=== PATIENT | female | born 1955 | race Caucasian/White ===

== ENCOUNTER → 2019-02-21 | Outpatient (CLI) | payer BC ==
--- NOTE | 2019-02-21 13:25 | US ---
EXAMINATION TYPE: US venous doppler duplex UE LT DATE OF EXAM: 02/21/2019 COMPARISON: NONE CLINICAL HISTORY: Z45.2 Picc line complications-left arm; I82.622 DVT. PICC line complications. Place d 02/17/19. Left hand swelling x2 days. Pt takes baby aspirin. No hx DVT. SIDE PERFORMED: Left Left Arm: No evidence of DVT in the left upper extremity. IMPRESSION: 1. Deep venous structures of the left upper extremity negative for deep venous thrombosis.
== END | disposition home or self-care (01) ==
LOC: RADUSWWP 11:31
PROVIDERS: ATTEND Family Medicine
DX: Z45.2 Encounter for adjustment and management of vascular access device (principal)

== ENCOUNTER → 2021-06-20 | Outpatient (CLI) | payer BC ==
--- NOTE | 2021-06-20 10:24 | XR ---
EXAMINATION TYPE: XR knee limited LT DATE OF EXAM: 06/20/2021 COMPARISON: None HISTORY: Knee pain TECHNIQUE: 2 view left knee FINDINGS: There is mild narrowing of the medial lateral compartment joint spaces. No joint effusion i s evident. No displaced fractures evident. There remains cortical erosion of the posterior femoral co ndyle on the lateral projection. Consider osteomyelitis. Additional workup with CT can be performed IMPRESSION: 1. There appears to be a cortical defect along the posterior femoral condyle. Additional evaluation with CT is recommended. Osteomyelitis is not excluded
== END | disposition home or self-care (01) ==
LOC: RADXRMAIN 09:45
PROVIDERS: ATTEND Family Medicine
DX: M25.562 Pain in left knee (principal)

== ENCOUNTER 2024-01-08 09:05 | Inpatient (IN) | payer BC, MEDICARE ==
[2024-01-08] MEDS: ALBUTEROL NEBULIZED 2.5 MG/3 ML INHALATION STA (09:16)
[2024-01-08] MEDS: IPRATROPIUM 0.5 MG/2.5 ML NEBU INHALATION STA (09:17)
--- NOTE | 2024-01-08 09:27 | ED ---
General Adult HPI - General Chief complaint: Shortness of Breath Stated complaint: SOB Time Seen by Provider: 01/08/24 09:08 Source: patient, family, EMS, RN notes reviewed, old records reviewed Mode of arrival: EMS Limitations: no limitations - History of Present Illness Initial comments: 68-year-old female presenting in extremis. Patient has oxygen dependent COPD. She developed increasing dyspnea over the past 2 days. Paramedics found the patient cyanotic and severe respiratory distress. She was placed on CPAP during transport, given albuterol and Atrovent. She had significant improvement with these supportive measures. She denies fever. Denies central chest pain. - Related Data Allergies Allergy/AdvReac Type Severity Reaction Status Date / Time No Known Allergies Allergy Verified 01/08/24 09:20 Review of Systems ROS Statement: Those systems with pertinent positive or pertinent negative responses have been documented in the HPI. ROS Other: All systems not noted in ROS Statement are negative. Past Medical History Past Medical History: COPD Additional Past Medical History / Comment(s): pacemaker, History of Any Multi-Drug Resistant Organisms: None Reported Additional Past Surgical History / Comment(s): ovarian cyst removed. Smoking Status: Current every day smoker Past Alcohol Use History: Occasional Past Drug Use History: Marijuana General Exam Limitations: no limitations General appearance: alert, in distress Head exam: Present: atraumatic, normocephalic Eye exam: Present: normal appearance, PERRL ENT exam: Present: normal exam Neck exam: Present: normal inspection. Absent: tenderness, meningismus Respiratory exam: Present: respiratory distress, wheezes, accessory muscle use, decreased breath sounds, prolonged expiratory Cardiovascular Exam: Present: regular rate, normal rhythm GI/Abdominal exam: Present: soft. Absent: distended, tenderness Neurological exam: Present: alert Psychiatric exam: Present: anxious Skin exam: Present: mottled (Lower extremities). Absent: cyanosis Course Vital Signs 01/08/24 01/08/24 01/08/24 09:10 09:15 09:22 Temperature 100.4 F H Pulse Rate 79 68 Respiratory 40 H 40 H Rate Blood Pressure 90/58 O2 Sat by Pulse 99 Oximetry Fraction of Inspired Oxygen (FIO2) 01/08/24 01/08/24 01/08/24 09:25 10:34 10:52 Temperature 100.6 F H Pulse Rate Respiratory Rate Blood Pressure O2 Sat by Pulse Oximetry Fraction of 60 50 Inspired Oxygen (FIO2) Medical Decision Making - Medical Decision Making Was pt. sent in by a medical professional or institution (MAYRA Garzon, SYSTEM ARCHITECT, urgent care, hospital, or penitentiary...) When possible be specific @ -No Did you speak to anyone other than the patient for history (EMS, parent, family, police, friend...)? What history was obtained from this source @ -Patient's , paramedics. Did you review nursing and triage notes (agree or disagree)? Why? @ -I reviewed and agree with nursing and triage notes Were old charts reviewed (outside hosp., previous admission, EMS record, old EKG, old radiological studies, urgent care reports/EKG's, penitentiary records)? Report findings @ -No old charts were reviewed Differential Diagnosis (chest pain, altered mental status, abdominal pain women, abdominal pain men, vaginal bleeding, weakness, fever, dyspnea, syncope, headache, dizziness, GI bleed, back pain, seizure, CVA, palpatations, mental health, musculoskeletal)? @ -Differential Dyspnea: Coronary syndrome, arrhythmia, tamponade, asthma, COPD, pulmonary embolism, pneumonia, pneumothorax, pulmonary effusion, anaphylaxis, diabetic ketoacidosis, flailed chest, pulmonary contusion, diaphragmatic rupture, anemia, neuromuscul ar, this is not meant to be an all-inclusive list. EKG interpreted by me (3pts min.). @ -Paced rhythm, significant artifact due to respiratory effort, rate of 96, QRS duration 136, QTc 431 X-rays interpreted by me (1pt min.). @ -Chest x-ray showing cardiomegaly, mild pulmonary vascular congestion, no pneumothorax, no focal pneumonia CT interpreted by me (1pt min.). @ -None done U/S interpreted by me (1pt. min.). @ -None done What testing was considered but not performed or refused? (CT, X-rays, U/S, labs)? Why? @ -None What meds were considered but not given or refused? Why? @ -None Did you discuss the management of the patient with other professionals (professionals i.e. MAYRA Garzon, SYSTEM ARCHITECT, lab, RT, psych nurse, social work instructor, deckhand engineer, teacher, control officer manager, case packer and sealer)? Give summary @ -[Yes, Dr. Samra shaw for pulmonary critical care, and Dr. Meek the patient's primary care provider Was smoking cessation discussed for >3mins.? @ -No Was critical care preformed (if so, how long)? @ -[Yes, 35 minutes. Were there social determinants of health that impacted care today? How? (Homelessness, low income, unemployed, alcoholism, drug addiction, transportation, low edu. Level, literacy, decrease access to med. care, fdc, rehab)? @ -No Was there de-escalation of care discussed even if they declined (Discuss DNR or withdrawal of care, Hospice)? DNR status @ -No What co-morbidities impacted this encounter? (DM, HTN, Smoking, COPD, CAD, Cancer, CVA, ARF, Chemo, Hep., AIDS, mental health diagnosis, sleep apnea, morbid obesity)? @ -[COPD, CHF. Was patient admitted / discharged? Hospital course, mention meds given and route, prescriptions, significant lab abnormalities, going to OR and other pertinent info. @ -68-year-old female presenting in extremis. Dyspnea, hypoxia, respiratory failure requiring BiPAP. Patient is febrile, tachypneic. Continued on BiPAP, workup reveals a elevated white blood cell count of 15. She does have some chronic CO2 retention. She has a normal lactic acid. She has an elevated troponin and BNP at 22,000. Troponin is 0.066. She has no active chest pain. This may be secondary to CHF or hypoxia. Patient is evaluated by her primary care provider and the machine tool rebuilder in the emergency department. She will be admitted to a monitored bed. Echo has been ordered. And cardiology is also placed on consult. This likely represents a multifactorial dyspnea, COPD with some degree of CHF. Additionally given the fever and elevated white blood cell count she is treated for concurrent developing pneumonia. Undiagnosed new problem with uncertain prognosis? @ -No Drug Therapy requiring intensive monitoring for toxicity (Heparin, Nitro, Insulin, Cardizem)? @ -No Were any procedures done? @ -No Diagnosis/symptom? @ -Respiratory failure, secondary to pneumonia, COPD, CHF Acute, or Chronic, or Acute on Chronic? @ -[Acute on chronic Uncomplicated (without systemic symptoms) or Complicated (systemic symptoms)? @ -Default Side effects of treatment? @ -No Exacerbation, Progression, or Severe Exacerbation? @ -No Poses a threat to life or bodily function? How? (Chest pain, [place], CA, pneumonia, PE, COPD, DKA, ARF, appy, cholecystitis, CVA, Diverticulitis, Homicidal, Suicidal, threat to staff... and all critical care pts) @ -Yes, respiratory failure, pneumonia, COPD - Lab Data Result diagrams: 01/08/24 09:35 01/08/24 09:35 Lab Results 01/08/24 01/08/24 01/08/24 Range/Units 09:35 09:35 09:35 WBC 15.1 H (3.8-10.6) k/uL RBC 4.22 (3.80-5.40) m/uL Hgb 14.0 (11.4-16.0) gm/dL Hct 44.0 (34.0-46.0) % MCV 104.3 H (80.0-100.0) fL MCH 33.3 (25.0-35.0) pg MCHC 31.9 (31.0-37.0) g/dL RDW 14.4 (11.5-15.5) % Plt Count 295 (150-450) k/uL MPV 8.0 Neutrophils % 85 % Lymphocytes % 10 % Monocytes % 4 % Eosinophils % 1 % Basophils % 0 % Neutrophils # 12.8 H (1.3-7.7) k/uL Lymphocytes # 1.4 (1.0-4.8) k/uL Monocytes # 0.6 (0-1.0) k/uL Eosinophils # 0.1 (0-0.7) k/uL Basophils # 0.1 (0-0.2) k/uL Macrocytosis Slight PT 11.8 (10.0-12.5) sec INR 1.1 (<1.2) APTT 24.6 (22.0-30.0) sec VBG pH (7.31-7.41) VBG pCO2 (37-51) mmHg VBG HCO3 (24-28) mmol/L Sodium 136 L (137-145) mmol/L Potassium 5.3 H (3.5-5.1) mmol/L Chloride 101 (98-107) mmol/L Carbon Dioxide 33 H (22-30) mmol/L Anion Gap 2 mmol/L BUN 33 H (7-17) mg/dL Creatinine 0.54 (0.52-1.04) mg/dL Est GFR (CKD-EPI)AfAm >90 (>60 ml/min/1.73 sqM) Est GFR (CKD-EPI)NonAf >90 (>60 ml/min/1.73 sqM) Glucose 181 H (74-99) mg/dL Plasma Lactic Acid Yoshi (0.7-2.0) mmol/L Calcium 8.4 (8.4-10.2) mg/dL Magnesium 2.1 (1.6-2.3) mg/dL Total Bilirubin 0.7 (0.2-1.3) mg/dL AST 53 H (14-36) U/L ALT 39 H (4-34) U/L Alkaline Phosphatase 92 (38-126) U/L Troponin I (0.000-0.034) ng/mL NT-Pro-B Natriuret Pep 17933 pg/mL Total Protein 5.7 L (6.3-8.2) g/dL Albumin 3.3 L (3.5-5.0) g/dL Influenza Type A (PCR) (Not Detectd) Influenza Type B (PCR) (Not Detectd) RSV (PCR) (Not Detectd) SARS-CoV-2 (PCR) (Not Detectd) 01/08/24 01/08/24 01/08/24 Range/Units 09:35 09:35 09:35 WBC (3.8-10.6) k/uL RBC (3.80-5.40) m/uL Hgb (11.4-16.0) gm/dL Hct (34.0-46.0) % MCV (80.0-100.0) fL MCH (25.0-35.0) pg MCHC (31.0-37.0) g/dL RDW (11.5-15.5) % Plt Count (150-450) k/uL MPV Neutrophils % % Lymphocytes % % Monocytes % % Eosinophils % % Basophils % % Neutrophils # (1.3-7.7) k/uL Lymphocytes # (1.0-4.8) k/uL Monocytes # (0-1.0) k/uL Eosinophils # (0-0.7) k/uL Basophils # (0-0.2) k/uL Macrocytosis PT (10.0-12.5) sec INR (<1.2) APTT (22.0-30.0) sec VBG pH 7.44 H (7.31-7.41) VBG pCO2 48 (37-51) mmHg VBG HCO3 32 H (24-28) mmol/L Sodium (137-145) mmol/L Potassium (3.5-5.1) mmol/L Chloride (98-107) mmol/L Carbon Dioxide (22-30) mmol/L Anion Gap mmol/L BUN (7-17) mg/dL Creatinine (0.52-1.04) mg/dL Est GFR (CKD-EPI)AfAm (>60 ml/min/1.73 sqM) Est GFR (CKD-EPI)NonAf (>60 ml/min/1.73 sqM) Glucose (74-99) mg/dL Plasma Lactic Acid Yoshi 1.6 (0.7-2.0) mmol/L Calcium (8.4-10.2) mg/dL Magnesium (1.6-2.3) mg/dL Total Bilirubin (0.2-1.3) mg/dL AST (14-36) U/L ALT (4-34) U/L Alkaline Phosphatase (38-126) U/L Troponin I 0.066 H* (0.000-0.034) ng/mL NT-Pro-B Natriuret Pep pg/mL Total Protein (6.3-8.2) g/dL Albumin (3.5-5.0) g/dL Influenza Type A (PCR) (Not Detectd) Influenza Type B (PCR) (Not Detectd) RSV (PCR) (Not Detectd) SARS-CoV-2 (PCR) (Not Detectd) 01/08/24 Range/Units 09:35 WBC (3.8-10.6) k/uL RBC (3.80-5.40) m/uL Hgb (11.4-16.0) gm/dL Hct (34.0-46.0) % MCV (80.0-100.0) fL MCH (25.0-35.0) pg MCHC (31.0-37.0) g/dL RDW (11.5-15.5) % Plt Count (150-450) k/uL MPV Neutrophils % % Lymphocytes % % Monocytes % % Eosinophils % % Basophils % % Neutrophils # (1.3-7.7) k/uL Lymphocytes # (1.0-4.8) k/uL Monocytes # (0-1.0) k/uL Eosinophils # (0-0.7) k/uL Basophils # (0-0.2) k/uL Macrocytosis PT (10.0-12.5) sec INR (<1.2) APTT (22.0-30.0) sec VBG pH (7.31-7.41) VBG pCO2 (37-51) mmHg VBG HCO3 (24-28) mmol/L Sodium (137-145) mmol/L Potassium (3.5-5.1) mmol/L Chloride (98-107) mmol/L Carbon Dioxide (22-30) mmol/L Anion Gap mmol/L BUN (7-17) mg/dL Creatinine (0.52-1.04) mg/dL Est GFR (CKD-EPI)AfAm (>60 ml/min/1.73 sqM) Est GFR (CKD-EPI)NonAf (>60 ml/min/1.73 sqM) Glucose (74-99) mg/dL Plasma Lactic Acid Yoshi (0.7-2.0) mmol/L Calcium (8.4-10.2) mg/dL Magnesium (1.6-2.3) mg/dL Total Bilirubin (0.2-1.3) mg/dL AST (14-36) U/L ALT (4-34) U/L Alkaline Phosphatase (38-126) U/L Troponin I (0.000-0.034) ng/mL NT-Pro-B Natriuret Pep pg/mL Total Protein (6.3-8.2) g/dL Albumin (3.5-5.0) g/dL Influenza Type A (PCR) Not Detected (Not Detectd) Influenza Type B (PCR) Not Detected (Not Detectd) RSV (PCR) Not Detected (Not Detectd) SARS-CoV-2 (PCR) Not Detected (Not Detectd) Critical Care Time Critical Care Time: Yes Total Critical Care Time: 35 Disposition Clinical Impression: Acute exacerbation of chronic obstructive pulmonary disease, Community acquired pneumonia, CHF (congestive heart failure) Disposition: ADMITTED IP TO THIS HOSP Condition: Serious Is patient prescribed a controlled substance at d/c from ED?: No Referrals: Reg Meek MD [Primary Care Provider] - 1-2 days Time of Disposition: 11:34
--- NOTE | 2024-01-08 09:38 | XR ---
EXAMINATION TYPE: XR chest 1V portable DATE OF EXAM: 01/08/2024 COMPARISON: NONE HISTORY: Difficulty breathing TECHNIQUE: Single frontal view of the chest is obtained. FINDINGS: There is a 2-lead cardiac pacemaker. There is mild cardiomegaly.. There is diffuse interstitial prominence could reflect mild pulmonary va scular congestion or chronic interstitial change. There is no pleural effusion or pneumothorax. The osseous structures are intact IMPRESSION: IMPRESSION: Mild cardiomegaly with diffuse interstitial opacity consistent with chronic is interstitial change or mild pulmonary vascular congestion.
[2024-01-08] MEDS: methylPREDNISolone SOD SUCCI 125 MG/2 ML VIAL IV STA (09:46)
[2024-01-08 09:47] LABS: VBG PH 7.44 (7.31-7.41)
[2024-01-08 09:48] LABS: Basophils # (A) 0.1 k/uL (0-0.2); Basophils % (A) 0 %; Eosinophils # (A) 0.1 k/uL (0-0.7); Eosinophils % (A) 1 %; Lymphocytes # (A) 1.4 k/uL (1.0-4.8); Lymphocytes % (A) 10 %; MCH 33.3 pg (25.0-35.0); MCHC 31.9 g/dL (31.0-37.0); MCV 104.3 fL (80.0-100.0); Macrocytosis Slight; Monocytes # (A) 0.6 k/uL (0-1.0); Monocytes % (A) 4 %; Neutrophils # (A) 12.8 k/uL (1.3-7.7); Neutrophils % (A) 85 %; Platelet Count 295 k/uL (150-450); RBC 4.22 m/uL (3.80-5.40); RDW 14.4 % (11.5-15.5); WBC 15.1 k/uL (3.8-10.6)
[2024-01-08 10:03] LABS: ALT 39 U/L (4-34); AST 53 U/L (14-36); African American GFR (CKD) >90 (>60 ml/min/1.73 sqM); Albumin 3.3 g/dL (3.5-5.0); Alkaline Phosphatase 92 U/L (38-126); Anion Gap 2 mmol/L; Blood Urea Nitrogen 33 mg/dL (7-17); Calcium 8.4 mg/dL (8.4-10.2); Carbon Dioxide 33 mmol/L (22-30); Chloride 101 mmol/L (98-107); Glucose 181 mg/dL (74-99); INR 1.1 (<1.2); Magnesium 2.1 mg/dL (1.6-2.3); Non-African American GFR(CKD) >90 (>60 ml/min/1.73 sqM); Partial Thromboplastin Time 24.6 sec (22.0-30.0); Potassium 5.3 mmol/L (3.5-5.1); Prothrombin Time 11.8 sec (10.0-12.5); Sodium 136 mmol/L (137-145); Total Bilirubin 0.7 mg/dL (0.2-1.3); Total Protein 5.7 g/dL (6.3-8.2)
[2024-01-08 10:11] LABS: NT-Pro-B-Type Natriuretic Pept 23300 pg/mL
[2024-01-08] MEDS: AZITHROMYCIN 500 MG in SODIUM CHLORIDE 0.9% 250 ML IVPB STA (10:32)
[2024-01-08] MEDS: FUROSEMIDE 10 MG/ML 2 ML VIAL IV ONE (11:23)
[2024-01-08] MEDS ORDERED: IPRATROPIUM-ALBUTEROL 3 ML NEB INHALATION PRN (11:26)
[2024-01-08] MEDS ORDERED: NALOXONE 0.4 MG/ML 1 ML VIAL IVP PRN (11:26)
[2024-01-08] MEDS ORDERED: ACETAMINOPHEN TAB 325 MG TAB PO PRN (11:26)
[2024-01-08] MEDS: IPRATROPIUM-ALBUTEROL 3 ML NEB INHALATION SCH (11:50)
[2024-01-08] MEDS: methylPREDNISolone SOD SUCCI 125 MG/2 ML VIAL IV SCH (12:08)
--- NOTE | 2024-01-08 13:52 | P.CNPUL ---
History of Present Illness Consult date: 01/08/24 Reason for consult: dyspnea, COPD History of present illness: This is a 68-year-old female patient with known history of COPD, chronic smoker who has been having significant shortness of breath over the past few days and the patient coming into the hospital for worsening dyspnea. The patient was found to be hypoxic and cyanotic at home. The patient was placed on CPAP at the time of transport and the patient is currently on a BiPAP at a pressure of 12 over 6 cm of water with an FiO2 of 40%. The patient is able to generate a good tidal volume of around 350 to 400 cc. Nevertheless, she continues to be quite tachypneic. She has a congested cough. Unable to bring up much sputum. Chest x-ray is consistent with COPD and the patient also has a permanent pacemaker over the left anterior hemithorax. Troponin initially was 0.06. proBNP level was 23,300. She has had previous hospitalizations at [facility] for CHF and pleural effusion and she has had previous thoracentesis. None recently. She denies having any chest pain. No angina or palpitations. Her WBC count is at 15.1 with a hemoglobin of 14 and a platelet count of 295. She has home O2 that she utilizes overnight. She also has a nebulizer. No other maintenance respiratory medications or inhalers. Review of Systems Constitutional: Reports as per HPI Eyes: denies as per HPI, denies blurred vision, denies bulging eye, denies decreased vision, denies diplopia, denies discharge, denies dry eye, denies irritation, denies itching, denies pain, denies photophobia, denies loss of peripheral vision, denies loss of vision, denies tunnel vision/blind spots Ears: deny: decreased hearing, ear discharge, earache, tinnitus Ears, nose, mouth and throat: Reports as per HPI Breasts: absent: as per HPI, change in shape, gynecomastia, masses, nipple discharge, pain, skin changes, swelling Cardiovascular: Reports decreased exercise tolerance, Reports dyspnea on exertion Respiratory: Reports cough, Reports dyspnea, Reports home oxygen, Reports wheezing Gastrointestinal: Reports as per HPI Genitourinary: Reports as per HPI Menstruation: Reports as per HPI Musculoskeletal: Reports as per HPI Musculoskeletal: absent: ankle pain, ankle stiffness, ankle swelling Integumentary: Reports as per HPI Neurological: Reports as per HPI Psychiatric: Reports as per HPI Endocrine: Reports as per HPI Hematologic/Lymphatic: Reports as per HPI Allergic/Immunologic: Reports as per HPI Past Medical History Past Medical History: COPD Additional Past Medical History / Comment(s): pacemaker, History of Any Multi-Drug Resistant Organisms: None Reported Additional Past Surgical History / Comment(s): ovarian cyst removed. Smoking Status: Current every day smoker Past Alcohol Use History: Occasional Past Drug Use History: Marijuana Medications and Allergies Allergies Allergy/AdvReac Type Severity Reaction Status Date / Time No Known Allergies Allergy Verified 01/08/24 09:20 Physical Exam Vitals: Vital Signs Temp Pulse Resp BP Pulse Ox FiO2 01/08/24 12:00 86 32 H 112/69 100 01/08/24 11:59 82 01/08/24 11:50 99 01/08/24 11:30 81 32 H 106/67 98 01/08/24 11:00 96 34 H 90/71 98 01/08/24 10:52 50 01/08/24 10:34 100.6 F H 01/08/24 10:30 102 H 34 H 93/69 99 01/08/24 10:00 97 41 H 110/85 100 01/08/24 09:37 74 01/08/24 09:30 104 H 23 90/58 99 01/08/24 09:25 60 01/08/24 09:22 68 01/08/24 09:15 40 H 01/08/24 09:10 100.4 F H 79 40 H 90/58 99 Intake and Output 01/07/24 01/08/24 01/08/24 22:59 06:59 14:59 Other: Weight 58.967 kg The patient is thin and frail with a body mass index of 19.8. Still having some mild respiratory distress even while on the BiPAP. Head exam was generally normal. There was no scleral icterus or corneal arcus. Mucous membranes were moist. Neck was supple and without jugular venous distension, thyromegaly, or carotid bruits. Carotids were easily palpable bilaterally. There was no adenopathy. Lung sounds are marked diminished bilaterally and scattered expiratory wheezes throughout the lung montoya. The patient also has a barrel chest with some thoracic kyphosis. Cardiac exam revealed the PMI to be normally situated and sized. The rhythm was regular and no extrasystoles were noted during several minutes of auscultation. The first and second heart sounds were normal and physiologic splitting of the second heart sound was noted. There were no murmurs, rubs, clicks, or gallops. Overall heart sounds are distant. Abdominal exam revealed normal bowel sounds. The abdomen was soft, non-tender, and without masses, organomegaly, or appreciable enlargement of the abdominal aorta. Examination of the extremities revealed easily palpable radial, femoral and pedal pulses. There was no cyanosis, clubbing or edema. Examination of the skin revealed no evidence of significant rashes, suspicious appearing nevi or other concerning lesions. Neurologically, the patient is awake and alert and the patient does not have any focal neurological deficit. Cranial nerves are essentially intact. Results - Laboratory Findings CBC and BMP: 01/08/24 09:35 01/08/24 09:35 PT/INR, D-dimer PT 11.8 sec (10.0-12.5) 01/08/24 09:35 INR 1.1 (<1.2) 01/08/24 09:35 D-Dimer 0.24 mg/L FEU (<0.60) 01/08/24 13:20 Abnormal lab findings: Abnormal Labs 01/08/24 01/08/24 01/08/24 09:35 09:35 09:35 WBC 15.1 H MCV 104.3 H Neutrophils # 12.8 H VBG pH VBG HCO3 Sodium 136 L Potassium 5.3 H Carbon Dioxide 33 H BUN 33 H Glucose 181 H AST 53 H ALT 39 H Troponin I 0.066 H* Total Protein 5.7 L Albumin 3.3 L 01/08/24 09:35 WBC MCV Neutrophils # VBG pH 7.44 H VBG HCO3 32 H Sodium Potassium Carbon Dioxide BUN Glucose AST ALT Troponin I Total Protein Albumin - Diagnostic Findings Chest x-ray: image reviewed Assessment and Plan Plan: Acute exacerbation of chronic COPD. The patient developed significant shortness of breath and hypoxemia placed initially on CPAP and the patient is currently on a BiPAP at a pressure of 12/6 with an FiO2 of 40%. She has likely chronic hypoxic and hypercapnic respiratory failure as the patient has some chronic metabolic alkalosis. Exacerbating factor is probably related to smoking. Viral panel has not been done yet. Chest x-ray shows findings consistent with COPD. proBNP level is elevated. Component of CHF cannot be completely excluded. Chronic smoker Chronic hypoxic respiratory failure maintained on home O2 Chronic hypercapnic respiratory failure History of permanent pacemaker insertion History of CHF, current procalcitonin level is elevated Abnormal troponins, likely secondary to type II coronary ischemia Plan Continue the patient on BiPAP at the same setting and will keep the patient on BiPAP throughout the day today. DuoNeb nebulized treatments [id number] IV Solu-Medrol 60 mg every 6 hours Continue Rocephin and Zithromax Given patient dose of Lasix 40 mg IV push x 1 Obtain echocardiogram Smoking cessation counseling May need to transfer this patient to the ICU if her condition decompensates further. For now, she is stable enough to go to the medical floor with telemetry monitoring. Will continue to follow. No signs of CO2 narcosis and the patient is awake and stable. Made re commendation for baseline blood gas.
--- NOTE | 2024-01-08 13:55 | HP ---
HISTORY AND PHYSICAL HISTORY OF PRESENT ILLNESS: This is a 68-year-old white female, who has oxygen-dependent COPD, she wears oxygen at night. She developed worsening shortness of breath over the last 2 days. She was found this morning with oxygen disconnected, cyanotic, severe respiratory distress. She was placed on CPAP, albuterol and Atrovent were given in the ER ambulance. She is now on 100% oxygen on BiPAP. Her oxygen level is 100%. Respiratory rate 30 to 32. She is breathing better than when she come in. ALLERGIES: Negative. REVIEW OF SYSTEMS: She has many years of smoking, none in the last year. She has oxygen-dependent COPD, otherwise negative 14-point review of systems. No weight gain. No edema. She has a pacemaker. Current everyday smoker, marijuana in the past. Occasional alcohol. PHYSICAL EXAMINATION: VITAL SIGNS: T-max 100.6, pulse rate 68 to 79, respiratory rate on admission was 40, blood pressure 90/58. LUNGS: Decreased breath sounds x4. Scattered wheeze and rhonchi x4. GI: Soft. HEMATOLOGY: Negative Homans. PSYCH: Fair mood and affect. NEUROLOGIC: Alert and oriented x3. She is sleepy, lethargic though. LABORATORY DATA: BNP is supra-elevated. White count is elevated at 15.1, sodium 136, potassium 5.3, BUN 33, creatinine 0.54. Sugars elevated also possibly due to steroids. Liver enzymes are high at 53 and 39. BNP is 23,000. Troponin is elevated. We will get Cardiology consult, Pulmonary consult, CAT scan of the chest, BiPAP, steroids, updrafts, antibiotics. Treat for pneumonia. Prognosis guarded. MMODL / IJN: [id number] /
[2024-01-08 14:53] LABS: T4, Free (Free Thyroxine) 1.68 ng/dL (0.78-2.19)
[2024-01-08] MEDS: PIPERACILLIN-TAZOBACTAM 3.375 GM in SODIUM CHLORIDE 0.9% 100 ML IVPB SCH (17:08)
[2024-01-08] MEDS: PANTOPRAZOLE 40 MG TABLET PO SCH (17:50)
[2024-01-08] MEDS: BUDESONIDE 1 MG/2 ML NEBU INHALATION SCH (20:10)
[2024-01-08 20:45] LABS: Glucose,Whole Blood 230 mg/dL (70-110)
[2024-01-08] MEDS: MONTELUKAST 10 MG TAB PO SCH (22:41)
[2024-01-08] MEDS: METOPROLOL TARTRATE 12.5 MG TAB PO SCH (22:41)
--- NOTE | 2024-01-09 00:06 | CT ---
EXAMINATION TYPE: CT chest wo con DATE OF EXAM: 01/08/2024 COMPARISON: Chest x-ray earlier today HISTORY: Aspiration pneumonia CT DLP: 194.4 mGycm. Automated Exposure Control for Dose Reduction was Utilized. TECHNIQUE: CT scan of the thorax is performed without IV contrast. FINDINGS: LUNGS: Small to tiny bilateral pleural effusions. Background moderate underlying emphysematous change . Mild to moderate anterior scarring in the upper to mid right lung. No suspicious focal consolidatio n. MEDIASTINUM: Lack of IV contrast is noted to limit evaluation for mediastinal and especially hilar ad enopathy. There is borderline enlarged 1.5 x 1.0 cm pericarinal lymph node image 48. Prominent pulmon donald arteries raise concern for underlying pulmonary artery hypertension. There is multi lead pacemake r. There is calcification at the level of the mitral valve. No cardiomegaly or pericardial effusion. Coronary artery calcifications present which is noted marker for underlying coronary artery disease. OTHER: Multiple compression type fracture deformities in the thoracic spine that are moderate to juan re involving T5, T6, and T8 vertebra. No linear lucency to suggest acute fracture. IMPRESSION: 1. Moderate emphysematous change with small to tiny bilateral pleural effusions and mild/moderate ant erior scarring in the right upper to midlung. No focal consolidation or suspicious groundglass opacit y to suggest aspiration pneumonia currently.
[2024-01-09] MEDS: AZITHROMYCIN 500 MG in SODIUM CHLORIDE 0.9% 250 ML IVPB SCH (09:04)
[2024-01-09] MEDS: FUROSEMIDE 10 MG/ML 2 ML VIAL IV ONE (10:27)
[2024-01-09 10:39] LABS: Basophils % (A) 0 %; Eosinophils % (A) 0 %; HCT 41.2 % (34.0-46.0); HGB 13.2 gm/dL (11.4-16.0); Lymphocytes # (A) 0.4 k/uL (1.0-4.8); Lymphocytes % (A) 6 %; MCH 33.2 pg (25.0-35.0); MCV 103.7 fL (80.0-100.0); Macrocytosis Slight; Mean Platelet Volume 8.6; Monocytes # (A) 0.3 k/uL (0-1.0); Monocytes % (A) 5 %; Neutrophils # (A) 5.6 k/uL (1.3-7.7); Neutrophils % (A) 88 %; Platelet Count 259 k/uL (150-450); RBC 3.97 m/uL (3.80-5.40); RDW 14.4 % (11.5-15.5); WBC 6.3 k/uL (3.8-10.6)
[2024-01-09 10:58] LABS: ALT 37 U/L (4-34); AST 35 U/L (14-36); African American GFR (CKD) >90 (>60 ml/min/1.73 sqM); Alkaline Phosphatase 88 U/L (38-126); Anion Gap 4 mmol/L; Blood Urea Nitrogen 30 mg/dL (7-17); Calcium 8.1 mg/dL (8.4-10.2); Carbon Dioxide 32 mmol/L (22-30); Chloride 103 mmol/L (98-107); Glucose 163 mg/dL (74-99); Non-African American GFR(CKD) >90 (>60 ml/min/1.73 sqM); Potassium 4.3 mmol/L (3.5-5.1); Sodium 139 mmol/L (137-145); Total Bilirubin 0.4 mg/dL (0.2-1.3); Total Protein 5.3 g/dL (6.3-8.2)
--- NOTE | 2024-01-09 12:05 | P.PN ---
Subjective Progress Note Date: 01/09/24 This is a 68-year-old female patient with known history of COPD, chronic smoker who has been having significant shortness of breath over the past few days and the patient coming into the hospital for worsening dyspnea. The patient was found to be hypoxic and cyanotic at home. The patient was placed on CPAP at the time of transport and the patient is currently on a BiPAP at a pressure of 12 over 6 cm of water with an FiO2 of 40%. The patient is able to generate a good tidal volume of around 350 to 400 cc. Nevertheless, she continues to be quite tachypneic. She has a congested cough. Unable to bring up much sputum. Chest x-ray is consistent with COPD and the patient also has a permanent pacemaker over the left anterior hemithorax. Troponin initially was 0.06. proBNP level was 23,300. She has had previous hospitalizations at [facility] for CHF and pleural effusion and she has had previous thoracentesis. None recently. She denies having any chest pain. No angina or palpitations. Her WBC count is at 15.1 with a hemoglobin of 14 and a platelet count of 295. She has home O2 that she utilizes overnight. She also has a nebulizer. No other maintenance respiratory medications or inhalers. 01/09/2024, the patient is feeling better. She is less short of breath compared to yesterday. She has remained on BiPAP throughout the day for yesterday. She feels less bronchospastic and wheezy on today's evaluation. I am going to take off the BiPAP and put the patient on nasal cannula. Echocardiogram is in progress.White cell count is at 6 with a hemoglobin of 13.2 and a platelet count of 259. The rest of the blood work and electrolytes are all normal. BUN is at 30 with a creatinine of 0.6. The patient remains on broad-spectrum antibiotics including a combination of Zosyn and Zithromax. She remains on IV Solu-Medrol. She remains on bronchodilators [id number]. Objective - Vital Signs Vital signs: Vital Signs Temp 98.3 F 01/09/24 01:29 Pulse 68 01/09/24 07:50 Resp 30 H 01/09/24 03:48 BP 145/69 01/09/24 03:48 Pulse Ox 98 01/09/24 03:48 FiO2 35 01/09/24 07:37 Intake & Output 01/08/24 01/09/24 01/09/24 18:59 06:59 18:59 Weight 58.967 kg 58.967 kg Other: Voiding Method Bedside Commode - Exam The patient is thin and frail with a body mass index of 19.8. Still having some mild respiratory distress even while on the BiPAP. Head exam was generally normal. There was no scleral icterus or corneal arcus. Mucous membranes were moist. Neck was supple and without jugular venous distension, thyromegaly, or carotid bruits. Carotids were easily palpable bilaterally. There was no adenopathy. Lung sounds are marked diminished bilaterally and scattered expiratory wheezes throughout the lung montoya. The patient also has a barrel chest with some thoracic kyphosis. Cardiac exam revealed the PMI to be normally situated and sized. The rhythm was regular and no extrasystoles were noted during several minutes of auscultation. The first and second heart sounds were normal and physiologic splitting of the second heart sound was noted. There were no murmurs, rubs, clicks, or gallops. Overall heart sounds are distant. Abdominal exam revealed normal bowel sounds. The abdomen was soft, non-tender, and without masses, organomegaly, or appreciable enlargement of the abdominal a tong. Examination of the extremities revealed easily palpable radial, femoral and pedal pulses. There was no cyanosis, clubbing or edema. Examination of the skin revealed no evidence of significant rashes, suspicious appearing nevi or other concerning lesions. Neurologically, the patient is awake and alert and the patient does not have any focal neurological deficit. Cranial nerves are essentially intact. - Labs CBC & Chem 7: 01/09/24 09:11 01/09/24 09:11 Labs: Abnormal Lab Results - Last 24 Hours (Table) 01/08/24 01/08/24 01/08/24 Range/Units 09:35 09:35 09:35 WBC 15.1 H (3.8-10.6) k/uL MCV 104.3 H (80.0-100.0) fL Neutrophils # 12.8 H (1.3-7.7) k/uL VBG pH (7.31-7.41) VBG HCO3 (24-28) mmol/L Sodium 136 L (137-145) mmol/L Potassium 5.3 H (3.5-5.1) mmol/L Carbon Dioxide 33 H (22-30) mmol/L BUN 33 H (7-17) mg/dL Glucose 181 H (74-99) mg/dL POC Glucose (mg/dL) (70-110) mg/dL Hemoglobin A1c (<=6.0) % AST 53 H (14-36) U/L ALT 39 H (4-34) U/L Troponin I 0.066 H* (0.000-0.034) ng/mL Total Protein 5.7 L (6.3-8.2) g/dL Albumin 3.3 L (3.5-5.0) g/dL TSH (0.465-4.680) mIU/L 01/08/24 01/08/24 01/08/24 Range/Units 09:35 09:35 13:20 WBC (3.8-10.6) k/uL MCV (80.0-100.0) fL Neutrophils # (1.3-7.7) k/uL VBG pH 7.44 H (7.31-7.41) VBG HCO3 32 H (24-28) mmol/L Sodium (137-145) mmol/L Potassium (3.5-5.1) mmol/L Carbon Dioxide (22-30) mmol/L BUN (7-17) mg/dL Glucose (74-99) mg/dL POC Glucose (mg/dL) (70-110) mg/dL Hemoglobin A1c 6.5 H (<=6.0) % AST (14-36) U/L ALT (4-34) U/L Troponin I (0.000-0.034) ng/mL Total Protein (6.3-8.2) g/dL Albumin (3.5-5.0) g/dL TSH 0.238 L (0.465-4.680) mIU/L 01/08/24 Range/Units 20:44 WBC (3.8-10.6) k/uL MCV (80.0-100.0) fL Neutrophils # (1.3-7.7) k/uL VBG pH (7.31-7.41) VBG HCO3 (24-28) mmol/L Sodium (137-145) mmol/L Potassium (3.5-5.1) mmol/L Carbon Dioxide (22-30) mmol/L BUN (7-17) mg/dL Glucose (74-99) mg/dL POC Glucose (mg/dL) 230 H (70-110) mg/dL Hemoglobin A1c (<=6.0) % AST (14-36) U/L ALT (4-34) U/L Troponin I (0.000-0.034) ng/mL Total Protein (6.3-8.2) g/dL Albumin (3.5-5.0) g/dL TSH (0.465-4.680) mIU/L Assessment and Plan Plan: Acute exacerbation of chronic COPD. The patient developed significant shortness of breath and hypoxemia placed initially on CPAP and the patient is currently on a BiPAP at a pressure of 12/6 with an FiO2 of 40%. She has likely chronic hypoxic and hypercapnic respiratory failure as the patient has some chronic metabolic alkalosis. Exacerbating factor is probably related to smoking. Viral panel has not been done yet. Chest x-ray shows findings consistent with COPD. proBNP level is elevated. Component of CHF cannot be completely excluded. Clinically improved compared to yesterday and the patient will be taken off the BiPAP and placed on oxygen 4 L/min nasal cannula. Chronic smoker Chronic hypoxic respiratory failure maintained on home O2 Chronic hypercapnic respiratory failure History of permanent pacemaker insertion History of CHF, current procalcitonin level is elevated Abnormal troponins, likely secondary to type II coronary ischemia Plan Discontinue the BiPAP and utilize oxygen 4 L nasal cannula Awake and alert and no signs of any CO2 narcosis DuoNeb nebulized treatments [id number] IV Solu-Medrol 60 mg every 6 hours Continue Zosyn and Zithromax Given patient dose of Lasix 40 mg IV push x 1 Obtain echocardiogram, this has been completed today and the results are still pending for now Smoking cessation counseling Will continue to follow.
--- NOTE | 2024-01-09 13:02 | P.CRDCN ---
History of Present Illness Consult date: 01/09/24 Consult reason: congestive heart failure, shortness of breath Chief complaint: Shortness of breath History of present illness: History of present illness: Patient is a pleasant 68-year-old female with significant past medical history of COPD on oxygen at home, pacemaker, tobacco abuse who presented to the emergency department with worsening shortness of breath and lethargy. Patient does follow with Dr. Mayorga, and had a device check in the office 2 weeks ago. Spouse reports that since she was having increased difficulty breathing and was more drowsy. Then yesterday patient was having worsening dyspnea and he could not wake her up. Labs reviewed: WBC 15.1, D-dimer was negative, potassium 5.3, creatinine 0.54, A1c 6.5, BNP elevated to 3, 300, TSH was low 0.238, troponin 0.066. Chest CT showed moderate emphysematous changes with small tiny bilateral pleural effusions. Patient was started on antibiotics and steroids. She was also placed on BiPAP. She got 1 dose of IV Lasix yesterday. Tmax was 100.6 F. She does report feeling somewhat better today. Denies any chest pain or pressure. Denies any dizziness, lightheadedness, syncope. She admits to eating a lot of salt. REVIEW OF SYSTEMS: Reports fevers, shortness of breath, cough. No diaphoresis. Patient denies headache, dizziness, blurred vision, double vision. Patient denies any stomach discomfort. No nausea, vomiting. No hematochezia. No hematemesis. Denies any black stools or blood in his stools. Denies dysuria or hematuria. No muscle weakness or numbness. No chest pain or pressure. PHYSICAL EXAMINATION: This is a 68 year-old female in no apparent distress at the time of my examination. Frail. HEENT: Head is atraumatic, normocephalic. Pupils are equal, round. Sclerae anicteric. Conjunctivae are clear. Mucous membranes of the mouth are moist. Neck is supple. There is no jugular venous distention. No carotid bruit is heard. CHEST EXAMINATION: Lungs are diminished throughout. On [place] O2 4L. No chest wall tenderness is noted on palpation or with deep breathing. HEART EXAMINATION: Heart regular rate and rhythm. S1, S2 heard. No murmurs, gallops or rub. ABDOMEN: Soft, nontender. Bowel sounds are heard. EXTREMITIES: 2+ peripheral pulses with no evidence of peripheral edema and no calf tenderness noted. NEUROLOGIC EXAMINATION: Patient is awake, alert and oriented x3. IMPRESSION AND PLAN: COPD Tobacco abuse Pacemaker Acute and chronic heart failure, likely diastolic Coronary artery calcifications as noted on CT scan PLAN: We will check echocardiogram to evaluate heart function and structure. Limit salt intake. 40mg IV lasix x1 today. Will likely resume home diuretics tomorrow. Will follow. I am dictating on behalf of Dr. Bismark Solorzano's history/physical and assessment/plan. Past Medical History Past Medical History: COPD Additional Past Medical History / Comment(s): pacemaker, History of Any Multi-Drug Resistant Organisms: None Reported Additional Past Surgical History / Comment(s): ovarian cyst removed. Past Anesthesia/Blood Transfusion Reactions: No Reported Reaction Past Psychological History: No Psychological Hx Reported Smoking Status: Current every day smoker Past Alcohol Use History: Occasional Past Drug Use History: Marijuana Medications and Allergies Home Medications Medication Instructions Recorded Confirmed Type HYDROcodone/APAP 5-325MG [[place] 1 tab PO TID PRN 01/08/24 01/08/24 History 5-325] Metoprolol Tartrate [Lopressor] 50 mg PO DIRECTED 01/08/24 01/08/24 History amLODIPine [Norvasc] 5 mg PO DIRECTED 01/08/24 01/08/24 History metFORMIN HCL 500 mg PO DIRECTED 01/08/24 01/08/24 History Allergies Allergy/AdvReac Type Severity Reaction Status Date / Time No Known Allergies Allergy Verified 01/08/24 15:47 Physical Exam Vitals: Vital Signs Temp Pulse Pulse Resp BP BP Pulse Ox 01/09/24 07:50 68 01/09/24 07:37 68 01/09/24 03:48 68 30 H 145/69 98 01/09/24 01:29 98.3 F 65 26 H 109/59 96 01/09/24 01:20 01/09/24 00:55 85 24 104/71 100 01/09/24 00:27 01/08/24 22:40 85 22 122/72 99 01/08/24 20:39 64 01/08/24 20:12 84 01/08/24 19:20 80 28 H 122/72 98 01/08/24 18:00 74 17 116/72 97 01/08/24 17:06 90 24 116/72 96 01/08/24 16:33 01/08/24 15:08 82 01/08/24 14:59 80 01/08/24 14:28 01/08/24 14:00 66 31 H 144/68 01/08/24 13:30 115/79 01/08/24 13:00 120/70 98 01/08/24 12:30 107/89 01/08/24 12:00 86 32 H 112/69 100 01/08/24 11:59 82 01/08/24 11:50 99 01/08/24 11:30 81 32 H 106/67 98 01/08/24 11:00 96 34 H 90/71 98 01/08/24 10:52 01/08/24 10:34 100.6 F H 01/08/24 10:30 102 H 34 H 93/69 99 FiO2 01/09/24 07:50 01/09/24 07:37 35 01/09/24 03:48 35 01/09/24 01:29 35 01/09/24 01:20 35 01/09/24 00:55 01/09/24 00:27 35 01/08/24 22:40 01/08/24 20:39 01/08/24 20:12 35 01/08/24 19:20 01/08/24 18:00 01/08/24 17:06 01/08/24 16:33 35 01/08/24 15:08 01/08/24 14:59 01/08/24 14:28 40 01/08/24 14:00 01/08/24 13:30 01/08/24 13:00 01/08/24 12:30 01/08/24 12:00 01/08/24 11:59 01/08/24 11:50 01/08/24 11:30 01/08/24 11:00 01/08/24 10:52 50 01/08/24 10:34 01/08/24 10:30 Intake and Output 01/08/24 01/09/24 01/09/24 22:59 06:59 14:59 Other: Voiding Method Bedside Commode Weight 58.967 kg Results 01/09/24 09:11 01/09/24 09:11 Current Medications Generic Name Dose Route Start Last Admin Trade Name Freq PRN Reason Stop Dose Admin Acetaminophen 650 mg 01/08/24 11:26 Acetaminophen Tab 325 Mg Tab PO Q4HR PRN Mild Pain or Fever > 100.5 Albuterol/Ipratropium 3 ml 01/08/24 11:26 Ipratropium-Albuterol 3 Ml Neb INHALATION RT-Q2H PRN Shortness Of Breath Or Wheezing Albuterol/Ipratropium 3 ml 01/08/24 12:00 01/09/24 07:37 Ipratropium-Albuterol 3 Ml Neb INHALATION 3 ml RT-QID MATHEW Administration Budesonide 1 mg 01/08/24 20:00 01/09/24 07:37 Budesonide 1 Mg/2 Ml Nebu INHALATION 1 mg RT-BID MATHEW Administration Piperacillin Sod/Tazobactam 100 mls @ 25 mls/hr 01/08/24 16:00 01/09/24 09:04 Sod 3.375 gm/ Sodium Chloride IVPB 25 mls/hr Q8HR MATHEW Administration Protocol Azithromycin 500 mg/ Sodium 250 mls @ 250 mls/hr 01/09/24 09:00 01/09/24 09:04 Chloride IVPB 01/10/24 09:59 250 mls/hr DAILY MATHEW Administration Protocol Methylprednisolone Sodium Succinate 60 mg 01/08/24 12:00 01/09/24 05:00 Methylprednisolone Sod Succi 125 Mg/2 Ml Vial IV 60 mg Q6HR MATHEW Administration Metoprolol Tartrate 12.5 mg 01/08/24 21:00 01/09/24 09:01 Metoprolol Tartrate 12.5 Mg Tab PO 12.5 mg BID MATHEW Administration Montelukast Sodium 10 mg 01/08/24 21:00 01/08/24 22:41 Montelukast 10 Mg Tab PO 10 mg HS MATHEW Administration Naloxone HCl 0.2 mg 01/08/24 11:26 Naloxone 0.4 Mg/Ml 1 Ml Vial IVP Q2M PRN Opioid Reversal Pantoprazole Sodium 40 mg 01/08/24 17:30 01/09/24 06:24 Pantoprazole 40 Mg Tablet PO Not Given AC-BID MATHEW Intake and Output 01/08/24 01/09/24 01/09/24 22:59 06:59 14:59 Other: Voiding Method Bedside Commode Weight 58.967 kg 01/08/24 09:35 01/08/24 09:35
--- NOTE | 2024-01-09 15:03 | CA ---
Transthoracic Echo Report Name: Katy Tovar Age: 68 Gender: F : 1955 Exam Date: 01/09/2024 09:33 Exam Location: [place] [facility] Ht (in): 68 Wt (lb): 130 Ordering Physician: Patrick Celeste MD Attending/Referring Phys: Duster Tender Tamiko Eason RDCS Procedure CPT: Indications: chf Cardiac Hx: Technical Quality: Contrast 1: Definity Total Dose (mL): 2 Contrast 2: Total Dose (mL): MEASUREMENTS (Male / Female) Normal Values 2D ECHO LV Diastolic Diameter PLAX 4.5 cm 4.2 - 5.9 / 3.9 - 5.3 cm LV Systolic Diameter PLAX 3.0 cm IVS Diastolic Thickness 1.2 cm 0.6 - 1.0 / 0.6 - 0.9 cm LVPW Diastolic Thickness 1.2 cm 0.6 - 1.0 / 0.6 - 0.9 cm LV Relative Wall Thickness 0.5 LVOT Diameter 2.0 cm Aortic Root Diameter 2.4 cm LA Systolic Diameter LX 3.5 cm 3.0 - 4.0 / 2.7 - 3.8 cm LA Volume 39.9 cm??? 18 - 58 / 22 - 52 cm??? LA Volume Index 23.8 cm???/m??? 16 - 28 cm???/m??? DOPPLER AV Peak Velocity 146.1 cm/s AV Peak Gradient 8.5 mmHg AV Mean Velocity 93.7 cm/s AV Mean Gradient 4.1 mmHg AV Velocity Time Integral 26.4 cm LVOT Peak Velocity 101.1 cm/s LVOT Peak Gradient 4.1 mmHg LVOT Velocity Time Integral 21.7 cm LVOT Stroke Volume 67.0 cm??? LVOT Stroke Volume Index 39.4 ml/m??? AV Area Cont Eq vti 2.5 cm??? AV Area Cont Eq pk 2.1 cm??? Mitral E Point Velocity 115.4 cm/s Mitral A Point Velocity 94.4 cm/s Mitral E to A Ratio 1.2 MV Deceleration Time 240.1 ms FINDINGS Left Ventricle Left ventricular ejection fraction is estimated at 50-55 %. Normal left ventricular wall motion. No obvious regional wall motion abnormalities. Right Ventricle Right ventricular systolic pressure estimated at 42.21mmhg. Right Atrium Normal right atrial size. Left Atrium Normal left atrial size. Mitral Valve Trace mitral regurgitation. Aortic Valve No aortic regurgitation. Tricuspid Valve Mild tricuspid regurgitation. Pulmonic Valve No pulmonic regurgitation. Pericardium No pericardial effusion. Aorta Normal size aortic root. CONCLUSIONS Left ventricular ejection fraction 50-55% Normal left ventricular wall thickness Trace mitral regurgitation RVSP 42 Mild tricuspid regurgitation No pericardial effusion Previewed by: Dr. Bismark Solorzano DO (Electronically Signed) Final Date: 09 January 2024 15:03
[2024-01-09 17:01] LABS: Glucose,Whole Blood 202 mg/dL (70-110)
[2024-01-09] MEDS: DAPAGLIFLOZIN PROPANEDIOL 5 MG TABLET PO SCH (17:12)
[2024-01-09] MEDS: FUROSEMIDE 10 MG/ML 4 ML VIAL IV STA (17:14)
--- NOTE | 2024-01-09 17:29 | P.CONS ---
History of Present Illness - Reason for Consult Consult date: 01/09/24 - History of Present Illness Patient is a 68-year-old female with a past medical history sniffing for COPD current everyday smoker presenting to the hospital for evaluation of increasing shortness of breath that has been getting worse for 2 days before the patient was brought to the hospital, apparently the patient become less responsive and cyanotic 4-H EMS was called and patient was resuscitated received breathing treatment and subsequently was brought into the hospital on arrival to the ER patient was noted to be febrile with temperature of 100.6 F patient was tachycardic but not hypotensive she was hypoxic currently maintained on 4 L nasal cannula oxygen patient did have white count of 15.1 creatinine of 0.54 liver isms mildly elevated influenza RSV COVID testing was negative blood culture repeated which are currently pending patient did have a chest x-ray mild cardiomegaly with diffuse interstitial opacity consistent with interstitial changes and pulmonary vascular congestion patient did have a CT of the chest moderate emphysematous change with small to tiny bilateral effusion patient has been started on Zithromax and Zosyn infectious disease was consulted regarding fever, patient mentioned did not recall having any fever at home before presentation to the hospital, patient complaining of mostly shortness of breath on minimal exertion and even at rest patient also have a cough which is moderate intensity and is bringing up some sputum is complaining of bilateral lower rib cage pleuritic chest pain some nausea but no vomiting no abdominal pain no diarrhea Past Medical History Past Medical History: COPD Additional Past Medical History / Comment(s): pacemaker, History of Any Multi-Drug Resistant Organisms: None Reported Additional Past Surgical History / Comment(s): ovarian cyst removed. Past Anesthesia/Blood Transfusion Reactions: No Reported Reaction Past Psychological History: No Psychological Hx Reported Smoking Status: Current every day smoker Past Alcohol Use History: Occasional Past Drug Use History: Marijuana Medications and Allergies Home Medications Medication Instructions Recorded Confirmed Type HYDROcodone/APAP 5-325MG [[place] 1 tab PO TID PRN 01/08/24 01/08/24 History 5-325] Metoprolol Tartrate [Lopressor] 50 mg PO DIRECTED 01/08/24 01/08/24 History amLODIPine [Norvasc] 5 mg PO DIRECTED 01/08/24 01/08/24 History metFORMIN HCL 500 mg PO DIRECTED 01/08/24 01/08/24 History Allergies Allergy/AdvReac Type Severity Reaction Status Date / Time No Known Allergies Allergy Verified 01/08/24 15:47 Physical Exam Vitals: Vital Signs Temp Pulse Pulse Resp BP BP Pulse Ox 01/09/24 11:30 103 H 20 119/69 92 L 01/09/24 10:47 68 01/09/24 10:36 64 95 01/09/24 08:00 98.1 F 69 24 113/44 97 01/09/24 07:50 68 01/09/24 07:37 68 01/09/24 03:48 68 30 H 145/69 98 01/09/24 01:29 98.3 F 65 26 H 109/59 96 01/09/24 01:20 01/09/24 00:55 85 24 104/71 100 01/09/24 00:27 01/08/24 22:40 85 22 122/72 99 01/08/24 20:39 64 01/08/24 20:12 84 01/08/24 19:20 80 28 H 122/72 98 01/08/24 18:00 74 17 116/72 97 01/08/24 17:06 90 24 116/72 96 01/08/24 16:33 01/08/24 15:08 82 01/08/24 14:59 80 01/08/24 14:28 FiO2 01/09/24 11:30 01/09/24 10:47 01/09/24 10:36 01/09/24 08:00 35 01/09/24 07:50 01/09/24 07:37 35 01/09/24 03:48 35 01/09/24 01:29 35 01/09/24 01:20 35 01/09/24 00:55 01/09/24 00:27 35 01/08/24 22:40 01/08/24 20:39 01/08/24 20:12 35 01/08/24 19:20 01/08/24 18:00 01/08/24 17:06 01/08/24 16:33 35 01/08/24 15:08 01/08/24 14:59 01/08/24 14:28 40 Intake and Output 01/08/24 01/09/24 01/09/24 22:59 06:59 14:59 Output Total 400 Balance -400 Output: Urine 400 Other: Voiding Method Bedside Commode Weight 58.967 kg 45.1 kg Results CBC & Chem 7: 01/09/24 09:11 01/09/24 09:11 Labs: Abnormal Lab Results - Last 24 Hours (Table) 01/08/24 01/08/24 01/08/24 Range/Units 09:35 13:20 20:44 MCV (80.0-100.0) fL Lymphocytes # (1.0-4.8) k/uL Carbon Dioxide (22-30) mmol/L BUN (7-17) mg/dL Glucose (74-99) mg/dL POC Glucose (mg/dL) 230 H (70-110) mg/dL Hemoglobin A1c 6.5 H (<=6.0) % Calcium (8.4-10.2) mg/dL ALT (4-34) U/L Total Protein (6.3-8.2) g/dL Albumin (3.5-5.0) g/dL TSH 0.238 L (0.465-4.680) mIU/L 01/09/24 01/09/24 Range/Units 09:11 09:11 MCV 103.7 H (80.0-100.0) fL Lymphocytes # 0.4 L (1.0-4.8) k/uL Carbon Dioxide 32 H (22-30) mmol/L BUN 30 H (7-17) mg/dL Glucose 163 H (74-99) mg/dL POC Glucose (mg/dL) (70-110) mg/dL Hemoglobin A1c (<=6.0) % Calcium 8.1 L (8.4-10.2) mg/dL ALT 37 H (4-34) U/L Total Protein 5.3 L (6.3-8.2) g/dL Albumin 3.0 L (3.5-5.0) g/dL TSH (0.465-4.680) mIU/L Assessment and Plan Plan: 1patient presented to hospital with increasing shortness of breath and cough in this patient who did have a fever also noticed to have elevated white count manage criteria for SIRS/sepsis source likely purulent tr acheobronchitis/pneumonia. 2we will try to obtain a sputum for Gram stain culture check a CRP and a procalcitonin. 3continue with the Zosyn while waiting for the culture to finalize. We will follow on clinical condition and cultures to further adjust medication if needed Thank you for this consultation we will follow the patient along with you Dictation was produced using [employer] dictation software. please excuse any grammatical, word or spelling errors. Time with Patient: Greater than 30
[2024-01-09 19:53] LABS: Glucose,Whole Blood 223 mg/dL (70-110)
--- NOTE | 2024-01-10 00:42 | PN ---
PROGRESS NOTE The patient had came in with respiratory distress. She has emphysema on the CAT scan, [id number] anterior scarring in the upper to mid right lung. Borderline enlarged lymph node pulmonary artery, pulmonary artery hypertension. She has a pacemaker. She has coronary calcification. Multiple compression type fractures in thoracic spine, moderate to severe at T5, T6, T8 vertebrae. Smaller tiny pleural effusions. No pneumonia seen. Echo is pending. Cardiology saw her for elevated BNP levels. She received Lopressor 12.5 b.i.d. at home which is restarted. She was placed on BiPAP. She is feeling better. Cardiology ordered an echo. Gave her 40 mg of Lasix x1. Waiting for echo report. Pulmonary saw her today. She remained on BiPAP throughout the day yesterday, less bronchospastic wheezing. She is on nasal cannula now. Echo is pending. Hemoglobin 13.2, platelets 259, BUN 30, creatinine 0.6. Broad-spectrum antibiotic, IV Solu-Medrol. PHYSICAL EXAMINATION: LUNGS: Scattered rhonchi, wheeze. CARDIOVASCULAR: S1, S2. HEENT: Normocephalic, atraumatic. Pupils equal, round, and reactive. NEUROLOGIC: Alert and oriented x3. Albumin 3.3, sodium 133, potassium 5.3 on admission. Liver enzymes are elevated. Elevated troponin. ASSESSMENT: 1. Acute chronic obstructive pulmonary disease exacerbation. 2. Nicotine addiction. 3. Chronic hypercapnic respiratory failure. 4. Permanent pacemaker. 5. Congestive heart failure. 6. Elevated procalcitonin. 7. Abnormal troponins. 8. Type 2 coronary ischemia. She is on 4 L of oxygen, DuoNeb, Solu-Medrol, Zosyn, azithromycin. Elevated procalcitonin. Echo is pending. MMODL / IJN: [id number] /
[2024-01-10 06:06] LABS: Glucose,Whole Blood 210 mg/dL (70-110)
--- NOTE | 2024-01-10 11:55 | CDI ---
From: Joanne Alanis Phone: [phone] Admit Date: 01/08/2024 11:26:00 AM Patient Name: Katy Tovar Visit Number: [id number] Discharge Date: ATTENTION: The Clinical Documentation Specialists (CDI) and [facility] Coding Staff appreciate your assistance in clarifying documentation. Please respond to the clarification below the line at the bottom and electronically sign. The CDI & [facility] Coding staff will review the response and follow-up if needed. Please note: Queries are made part of the Legal Health Record. If you have any questions, please contact the author of this message via ITS. Dr. Bismark Solorzano There is documentation of Type II coronary ischemia in the IM progress note 01/08. Additional clarification is requested. History/Risk Factors: Oxygen dependent COPD, who presented with worsening SOB, found with oxygen disconnected, cyanotic and in severe respiratory distress- found to be in exacerbation of COPD, Acute on chronic Diastolic heart failure and PNA Clinical Indicators: 01/07 Triage VS: 90/58, 100.4, 79, 40, 99% BiPAP 01/07 Pulmonary consult, Assessment/Plan: "Abnormal troponins, likely secondary to type II coronary ischemia." 01/08 IM PN, Assessment/Plan: "Abnormal troponins, likely secondary to type II coronary ischemia." 01/08 Cardiology consult, HPI: "Denies chest pain or pressure." 01/07, 01/08 Troponin: 0.066, 0.019 01/07 BNP: 23,300 01/07 EKG: V-Paced 01/07 Chest X Ray, Impression: "Mild cardiomegaly with diffuse interstitial opacity consistent with chronic interstitial change or mild pulmonary vascular congestion." Treatment: Monitor troponin Consult Cardiology Zosyn 3.375mg IV [id number] start 01/07 Metoprolol tartrate 12.4 mg PO BID Can you please clarify Type II coronary ischemia? [ X ] Type 2 myocardial infarction [ ] Other, please specify [ ] Unable to determine Reference: [place] Fourth [place] Definition of Myocardial Infraction Elevated Cardiac Troponin >99th percentile with Troponin rise and/or fall With Acute ischemia o Acute Myocardial Infarction ? Atherosclerosis thrombosis Type I IA ? Oxygen supply and demand imbalance Type II IA (Please indicate etiology) Without acute ischemia o Acute Myocardial Injury MTDD
[2024-01-10 12:07] LABS: Glucose,Whole Blood 208 mg/dL (70-110)
[2024-01-10 14:34] VITALS: BMI 17.2
--- NOTE | 2024-01-10 14:58 | P.PN ---
Subjective Progress Note Date: 01/10/24 Principal diagnosis: Acute exacerbation of COPD with acute on chronic hypoxic and hypercapnic respiratory failure This is a 68-year-old female patient with known history of COPD, chronic smoker who has been having significant shortness of breath over the past few days and the patient coming into the hospital for worsening dyspnea. The patient was found to be hypoxic and cyanotic at home. The patient was placed on CPAP at the time of transport and the patient is currently on a BiPAP at a pressure of 12 over 6 cm of water with an FiO2 of 40%. The patient is able to generate a good tidal volume of around 350 to 400 cc. Nevertheless, she continues to be quite tachypneic. She has a congested cough. Unable to bring up much sputum. Chest x-ray is consistent with COPD and the patient also has a permanent pacemaker over the left anterior hemithorax. Troponin initially was 0.06. proBNP level was 23,300. She has had previous hospitalizations at [facility] for CHF and pleural effusion and she has had previous thoracentesis. None recently. She denies having any chest pain. No angina or palpitations. Her WBC count is at 15.1 with a hemoglobin of 14 and a platelet count of 295. She has home O2 that she utilizes overnight. She also has a nebulizer. No other maintenance respiratory medications or inhalers. 01/09/2024, the patient is feeling better. She is less short of breath compared to yesterday. She has remained on BiPAP throughout the day for yesterday. She feels less bronchospastic and wheezy on today's evaluation. I am going to take off the BiPAP and put the patient on nasal cannula. Echocardiogram is in progress.White cell count is at 6 with a hemoglobin of 13.2 and a platelet count of 259. The rest of the blood work and electrolytes are all normal. BUN is at 30 with a creatinine of 0.6. The patient remains on broad-spectrum antibiotics including a combination of Zosyn and Zithromax. She remains on IV Solu-Medrol. She remains on bronchodilators [id number]. Patient was eval today on 01/10/2024, doing much better, breathing a lot easier, today she is on nasal cannula, not requiring BiPAP, on 4 L nasal cannula saturating between 94 up to 97%. Patient is now on Zosyn empirically, cultures of blood urine and sputum are's pending, screening for influenza and RSV and COVID-19 are negative. BNP level is extremely high at 23,300. Patient is receiving diuretics for her congestive heart failure I really doubt underlying pneumonia in addition to her congestive heart failure but this is likely diastolic congestive heart failure with underlying COPD exacerbations presentation Objective - Vital Signs Vital signs: Vital Signs Temp 97.8 F 01/10/24 12:00 Pulse 73 01/10/24 12:00 Resp 18 01/10/24 12:00 BP 134/67 01/10/24 12:00 Pulse Ox 94 L 01/10/24 12:00 FiO2 35 01/09/24 08:00 Intake & Output 01/09/24 01/10/24 01/10/24 18:59 06:59 18:59 Intake Total 840 240 360 Output Total 400 Balance 440 240 360 Weight 45.1 kg 49 kg 49 kg Intake: Oral 840 240 360 Output: Urine 400 Other: Voiding Method Bedside Commode Bedside Commode # Voids 2 2 - Exam General: The patient is awake and alert, in no distress, and does not appear ac utely ill. On 4 L nasal cannula Skin: Skin is warm and dry and no rashes or lesions are noted. Eye: Pupils are equal, round and reactive to light, extra-ocular movements are intact; there is normal conjunctiva bilaterally. Ears, nose, mouth and throat: There are moist mucous membranes and no oral lesions. Neck: The neck is supple, there is no tenderness or JVD. Cardiovascular: There is a regular rate and rhythm. No murmur, rub or gallop is appreciated. Respiratory: Diminished breath sounds at the bases no rhonchi no wheezes Gastrointestinal: Soft, non-distended, non-tender abdomen without masses or organomegaly noted. There is no rebound or guarding present. Bowel sounds are un remarkable. Back: There is no tenderness to palpation in the midline. There is no obvious deformity. Musculoskeletal: Normal ROM, no tenderness, There is no pedal edema. There is no calf tenderness or swelling. No cords were appreciated. Neurological: CN II-XII intact, Cranial nerves III through XII are intact. There are no obvious motor or sensory deficits. Coordination appears grossly intact. Speech is normal. Psychiatric: Cooperative, appropriate mood & affect, normal judgment. - Labs CBC & Chem 7: 01/09/24 09:11 01/09/24 09:11 Labs: Abnormal Lab Results - Last 24 Hours (Table) 01/09/24 01/09/24 01/10/24 Range/Units 16:59 19:50 06:00 POC Glucose (mg/dL) 202 H 223 H 210 H (70-110) mg/dL C-Reactive Protein (<1.0) mg/dL 01/10/24 01/10/24 Range/Units 09:10 12:06 POC Glucose (mg/dL) 208 H (70-110) mg/dL C-Reactive Protein 7.4 H (<1.0) mg/dL Microbiology - Last 24 Hours (Table) 01/08/24 14:14 Urine Culture - Final Urine,Clean Catch 01/08/24 09:35 Blood Culture - Preliminary Blood 01/08/24 09:35 Blood Culture - Preliminary Blood Assessment and Plan Assessment: Impression: Acute on chronic hypoxic and hypercapnic respiratory failure Acute exacerbation of COPD Acute diastolic congestive heart failure History of permanent pacemaker insertion History of congestive heart failure Abnormal troponins being addressed by cardiology Tobacco dependence syndrome Recommendation: Continue oxygen and titrate accordingly Continue bronchodilators Continue antibiotics empirically although my index of suspicion for pneumonia is rather low Continue diuretics as per cardiology on the case Echocardiogram showed good LV function and some component of pulmonary hypertension Will continue to follow, will clear the patient for discharge once cleared by cardiology. Prognosis is relatively guarded. Time with Patient: Less than 30
[2024-01-10 16:11] LABS: Glucose,Whole Blood 267 mg/dL (70-110)
--- NOTE | 2024-01-10 18:21 | P.PN ---
Subjective Progress Note Date: 01/10/24 Principal diagnosis: Reason for follow-up is pneumonia Patient is a 68-year-old female with a past medical history sniffing for COPD current everyday smoker presenting to the hospital for evaluation of increasing shortness of breath, patient did spike a fever and with concern for possible pneumonia. On today's visit that that is 01/10/2024,the patient denies any fever or any chills, patient is breathing comfortably on 4 L nasal cannula oxygen, the patient denies chest pain shortness of breath and no worsening cough, patient denies abdominal pain, no nausea vomiting or diarrhea. Patient did have a CRP of 7.4 no CBC was done today blood cultures pending sputum not collected Objective - Vital Signs Vital signs: Vital Signs Temp 97.8 F 01/10/24 12:00 Pulse 73 01/10/24 12:00 Resp 18 01/10/24 12:00 BP 134/67 01/10/24 12:00 Pulse Ox 94 L 01/10/24 12:00 FiO2 35 01/09/24 08:00 Intake & Output 01/09/24 01/10/24 01/10/24 18:59 06:59 18:59 Intake Total 840 240 360 Output Total 400 Balance 440 240 360 Weight 45.1 kg 49 kg Intake: Oral 840 240 360 Output: Urine 400 Other: Voiding Method Bedside Commode Bedside Commode # Voids 2 2 - Exam GENERAL DESCRIPTION: An elderly female lying in bed in no distress RESPIRATORY SYSTEM: Unlabored breathing , decreased breath sounds at bases HEART: S1 S2 regular rate and rhythm , ABDOMEN: Soft , no tenderness EXTREMITIES: No edema feet - Labs CBC & Chem 7: 01/09/24 09:11 01/09/24 09:11 Labs: Abnormal Lab Results - Last 24 Hours (Table) 01/09/24 01/09/24 01/10/24 Range/Units 16:59 19:50 06:00 POC Glucose (mg/dL) 202 H 223 H 210 H (70-110) mg/dL C-Reactive Protein (<1.0) mg/dL 01/10/24 01/10/24 Range/Units 09:10 12:06 POC Glucose (mg/dL) 208 H (70-110) mg/dL C-Reactive Protein 7.4 H (<1.0) mg/dL Microbiology - Last 24 Hours (Table) 01/08/24 14:14 Urine Culture - Final Urine,Clean Catch 01/08/24 09:35 Blood Culture - Preliminary Blood 01/08/24 09:35 Blood Culture - Preliminary Blood Assessment and Plan (1) Pneumonia Current Visit: Yes Status: Acute Code(s): J18.9 - PNEUMONIA, UNSPECIFIED ORGANISM SNOMED Code(s): 022135617 Plan: 1patient presented to hospital with increasing shortness of breath and cough in this patient who did have a fever also noticed to have elevated white count manage criteria for SIRS/sepsis source likely purulent tracheobronchitis/pneumonia. 2sputum culture has been requested again but not collected 3patient did have some clinical improvement and will continue with the Zosyn and try to obtain a sputum for Gram stain and culture Dictation was produced using [employer] dictation software. please excuse any grammatical, word or spelling errors. Time with Patient: Less than 30
[2024-01-10 19:56] LABS: Glucose,Whole Blood 258 mg/dL (70-110)
--- NOTE | 2024-01-10 22:13 | PN ---
PROGRESS NOTE SUBJECTIVE: She came in with respiratory distress. She is saturating 96% on 4 L. Remains on broad- spectrum IV antibiotics. Echo shows pulmonary hypertension, 50% to 55% ejection fraction. Medicines have been reviewed as far as she has been given for diabetes and CHF. Continue current treatments. Await for broad-spectrum antibiotics to be ordered to improve her breathing in another 24 hours to 48 hours and then go home. OBJECTIVE: VITAL SIGNS: Reviewed. CARDIOVASCULAR: S1, S2. LUNGS: Scattered rhonchi and wheeze. GI: Soft. HEMATOLOGY: Negative Homans. PSYCH: Fair mood and affect. Thoracic bone fractures. Possibly give her Fosamax outpatient. Administer IV Zosyn. Wait for chronic final antibiotics to go home in the next 24 to 48 hours. ASSESSMENT: Probable pneumonia, tracheobronchitis, chronic obstructive pulmonary disease exacerbation, acute hypoxemic respiratory distress. Prognosis guarded. Wait for oral antibiotics, continuous steroid taper, breathing treatments. Prognosis guarded. MMODL / IJN: [id number] /
--- NOTE | 2024-01-10 22:55 | PN ---
PROGRESS NOTE SUBJECTIVE: This lady has type 2 diabetes, hypertension, hyperlipidemia, and severe COPD, continues to smoke. She had what seems to be a respiratory failure requiring BiPAP. She is more comfortable today as she is in sinus rhythm, breathing better. We spent some time explaining to her regarding the importance of quitting smoking altogether. She has a permanent pacemaker that is working well. Overall, she is doing clinically better, promises to work on her smoking issue and she can be discharged today and advised to keep her appointments with me in followup. She has an underlying ventricular paced rhythm. Hemodynamically stable. Breathing is easier. Oxygen saturation has improved. OBJECTIVE: VITAL SIGNS: Stable. NECK: JVD 1 cm. No carotid bruit. CARDIAC: S1, S2 heard normally. Short systolic murmur. LUNGS: Revealed diminished air entry. ABDOMEN: Unchanged. LOWER EXTREMITIES: Unchanged. MMODL / IJN: [id number] /
[2024-01-11 05:59] LABS: Glucose,Whole Blood 144 mg/dL (70-110)
[2024-01-11 08:05] LABS: Basophils % (A) 0 %; Eosinophils % (A) 0 %; HCT 38.5 % (34.0-46.0); HGB 12.3 gm/dL (11.4-16.0); Lymphocytes # (A) 0.6 k/uL (1.0-4.8); Lymphocytes % (A) 8 %; MCH 33.9 pg (25.0-35.0); MCHC 32.1 g/dL (31.0-37.0); MCV 105.7 fL (80.0-100.0); Macrocytosis Moderate; Mean Platelet Volume 7.6; Monocytes # (A) 0.5 k/uL (0-1.0); Monocytes % (A) 8 %; Neutrophils # (A) 5.5 k/uL (1.3-7.7); Neutrophils % (A) 83 %; Platelet Count 285 k/uL (150-450); RBC 3.64 m/uL (3.80-5.40); RDW 14.1 % (11.5-15.5); WBC 6.7 k/uL (3.8-10.6)
[2024-01-11 08:48] LABS: ALT 85 U/L (4-34); AST 66 U/L (14-36); African American GFR (CKD) >90 (>60 ml/min/1.73 sqM); Albumin 3.2 g/dL (3.5-5.0); Alkaline Phosphatase 82 U/L (38-126); Anion Gap 3 mmol/L; Blood Urea Nitrogen 25 mg/dL (7-17); Calcium 8.8 mg/dL (8.4-10.2); Carbon Dioxide 31 mmol/L (22-30); Chloride 105 mmol/L (98-107); Glucose 125 mg/dL (74-99); Non-African American GFR(CKD) >90 (>60 ml/min/1.73 sqM); Potassium 3.5 mmol/L (3.5-5.1); Sodium 139 mmol/L (137-145); Total Bilirubin 0.8 mg/dL (0.2-1.3); Total Protein 5.6 g/dL (6.3-8.2)
[2024-01-11] MEDS: predniSONE 20 MG TAB PO SCH (09:03)
--- NOTE | 2024-01-11 12:07 | CDI ---
From: Joanne Alanis Phone: [phone] Admit Date: 01/08/2024 11:26:00 AM Patient Name: Katy Tovar Visit Number: [id number] Discharge Date: ATTENTION: The Clinical Documentation Specialists (CDI) and [facility] Coding Staff appreciate your assistance in clarifying documentation. Please respond to the clarification below the line at the bottom and electronically sign. The CDI & [facility] Coding staff will review the response and follow-up if needed. Please note: Queries are made part of the Legal Health Record. If you have any questions, please contact the author of this message via ITS. Dr. Reg Meek Patient has a documented BMI of 17.2 on 01/[address] Additional clarification is requested. History/Risk Factors: 68 year old female with history of COPD, CHF, Smoker who presents with increasing dyspnea found to have acute exacerbation of COPD and CHF, possible PNA Clinical Indicators: 01/07 Pulmonary consult, Physical Exam: "The patient is thin and frail." 01/09 RD Assessment, Nutrition Diagnosis: "Underweight." 01/09 Patients weight is 49kg Patients height is 5ft 6in Calculated BMI is 17.2 01/07, 01/08 Total Protein: 5.7, 5.3 Treatments: RD consult RD recommends regular diet, Glucerna TID Please clarify, is there is an additional diagnosis that is clinically appropriate for this patient? [ ] Underweight [ ] No additional diagnosis/not clinically significant [ ] Other, please specify [ ] Unable to determine MTDD
[2024-01-11 12:15] LABS: Glucose,Whole Blood 160 mg/dL (70-110)
--- NOTE | 2024-01-11 13:58 | P.PN ---
Subjective Progress Note Date: 01/11/24 Principal diagnosis: Acute exacerbation of COPD with acute on chronic hypoxic and hypercapnic respiratory failure This is a 68-year-old female patient with known history of COPD, chronic smoker who has been having significant shortness of breath over the past few days and the patient coming into the hospital for worsening dyspnea. The patient was found to be hypoxic and cyanotic at home. The patient was placed on CPAP at the time of transport and the patient is currently on a BiPAP at a pressure of 12 over 6 cm of water with an FiO2 of 40%. The patient is able to generate a good tidal volume of around 350 to 400 cc. Nevertheless, she continues to be quite tachypneic. She has a congested cough. Unable to bring up much sputum. Chest x-ray is consistent with COPD and the patient also has a permanent pacemaker over the left anterior hemithorax. Troponin initially was 0.06. proBNP level was 23,300. She has had previous hospitalizations at [facility] for CHF and pleural effusion and she has had previous thoracentesis. None recently. She denies having any chest pain. No angina or palpitations. Her WBC count is at 15.1 with a hemoglobin of 14 and a platelet count of 295. She has home O2 that she utilizes overnight. She also has a nebulizer. No other maintenance respiratory medications or inhalers. 01/09/2024, the patient is feeling better. She is less short of breath compared to yesterday. She has remained on BiPAP throughout the day for yesterday. She feels less bronchospastic and wheezy on today's evaluation. I am going to take off the BiPAP and put the patient on nasal cannula. Echocardiogram is in progress.White cell count is at 6 with a hemoglobin of 13.2 and a platelet count of 259. The rest of the blood work and electrolytes are all normal. BUN is at 30 with a creatinine of 0.6. The patient remains on broad-spectrum antibiotics including a combination of Zosyn and Zithromax. She remains on IV Solu-Medrol. She remains on bronchodilators [id number]. Patient was eval today on 01/10/2024, doing much better, breathing a lot easier, today she is on nasal cannula, not requiring BiPAP, on 4 L nasal cannula saturating between 94 up to 97%. Patient is now on Zosyn empirically, cultures of blood urine and sputum are's pending, screening for influenza and RSV and COVID-19 are negative. BNP level is extremely high at 23,300. Patient is receiving diuretics for her congestive heart failure I really doubt underlying pneumonia in addition to her congestive heart failure but this is likely diastolic congestive heart failure with underlying COPD exacerbations presentation Patient was reevaluated today on 01/11/2024 feeling much better, breathing a lot easier, on 2 L with O2 sats of 93%. I have actually cleared this patient for discharge yesterday if cleared by cardiology, and I am transitioning her Zosyn to Augmentin patient should receive 5 more days of Augmentin at the most for tracheobronchitis, no clear-cut evidence of pneumonia on this patient. Not to mention clinically the patient is doing much better and breathing a lot easier, and again I believe the patient will be cleared to be discharged home as long as cleared by cardiology . All her labs were reviewed today she had a relatively normal CBC relatively normal basic metabolic profile normal renal profile, and the patient does have home O2 Objective - Vital Signs Vital signs: Vital Signs Temp 98.4 F 01/11/24 08:58 Pulse 64 01/11/24 11:31 Resp 17 01/11/24 11:31 BP 129/64 01/11/24 11:31 Pulse Ox 93 L 01/11/24 11:31 FiO2 35 01/09/24 08:00 Intake & Output 01/10/24 01/11/24 01/11/24 18:59 06:59 18:59 Intake Total 360 240 120 Output Total 400 Balance 360 240 -280 Weight 49 kg Intake: Oral 360 240 120 Output: Urine 400 Other: Voiding Method Bedside Commode Bedside Commode Bedside Commode # Voids 2 2 # Bowel Movements 1 - Exam General: The patient is awake and alert, in no distress, and does not appear acutely ill. On 2 L nasal cannula Skin: Skin is warm and dry and no rashes or lesions are noted. Eye: Pupils are equal, round and reactive to light, extra-ocular movements are intact; there is normal conjunctiva bilaterally. Ears, nose, mouth and throat: There are moist mucous membranes and no oral lesions. Neck: The neck is supple, there is no tenderness or JVD. Cardiovascular: There is a regular rate and rhythm. No murmur, rub or gallop is appreciated. Respiratory: Diminished breath sounds at the bases no rhonchi no wheezes Gastrointestinal: Soft, non-distended, non-tender abdomen without masses or organomegaly noted. There is no rebound or guarding present. Bowel sounds are unremarkable. Back: There is no tenderness to palpation in the midline. There is no obvious deformity. Musculoskeletal: Normal ROM, no tenderness, There is no pedal edema. There is no calf tenderness or swelling. No cords were appreciated. Neurological: CN II-XII intact, Cranial nerves III through XII are intact. There are no obvious motor or sensory deficits. Coordination appears grossly intact. Speech is normal. Psychiatric: Cooperative, appropriate mood & affect, normal judgment. - Labs CBC & Chem 7: 01/11/24 06:42 01/11/24 06:42 Labs: Abnormal Lab Results - Last 24 Hours (Table) 01/10/24 01/10/24 01/10/24 Range/Units 09:10 16:10 19:54 RBC (3.80-5.40) m/uL MCV (80.0-100.0) fL Lymphocytes # (1.0-4.8) k/uL Carbon Dioxide (22-30) mmol/L BUN (7-17) mg/dL Glucose (74-99) mg/dL POC Glucose (mg/dL) 267 H 258 H (70-110) mg/dL AST (14-36) U/L ALT (4-34) U/L Total Protein (6.3-8.2) g/dL Albumin (3.5-5.0) g/dL Procalcitonin 1.20 H (0.02-0.09) ng/mL 01/11/24 01/11/24 01/11/24 Range/Units 05:54 06:42 06:42 RBC 3.64 L (3.80-5.40) m/uL MCV 105.7 H (80.0-100.0) fL Lymphocytes # 0.6 L (1.0-4.8) k/uL Carbon Dioxide 31 H (22-30) mmol/L BUN 25 H (7-17) mg/dL Glucose 125 H (74-99) mg/dL POC Glucose (mg/dL) 144 H (70-110) mg/dL AST 66 H (14-36) U/L ALT 85 H (4-34) U/L Total Protein 5.6 L (6.3-8.2) g/dL Albumin 3.2 L (3.5-5.0) g/dL Procalcitonin (0.02-0.09) ng/mL 01/11/24 Range/Units 12:13 RBC (3.80-5.40) m/uL MCV (80.0-100.0) fL Lymphocytes # (1.0-4.8) k/uL Carbon Dioxide (22-30) mmol/L BUN (7-17) mg/dL Glucose (74-99) mg/dL POC Glucose (mg/dL) 160 H (70-110) mg/dL AST (14-36) U/L ALT (4-34) U/L Total Protein (6.3-8.2) g/dL Albumin (3.5-5.0) g/dL Procalcitonin (0.02-0.09) ng/mL Microbiology - Last 24 Hours (Table) 01/10/24 13:18 Gram Stain - Preliminary Gastric Aspirate 01/08/24 09:35 Blood Culture - Preliminary Blood 01/08/24 09:35 Blood Culture - Preliminary Blood Assessment and Plan Assessment: Impression: Acute on chronic hypoxic and hypercapnic respiratory failure Acute exacerbation of COPD, acute tracheobronchitis Acute diastolic congestive heart failure History of permanent pacemaker insertion History of congestive heart failure Abnormal troponins being addressed by cardiology Tobacco dependence syndrome Recommendation: Continue oxygen, patient has home oxygen Continue bronchodilators Continue antibiotics empirically although my index of suspicion for pneumonia is rather low Continue diuretics as per cardiology on the case Echocardiogram showed good LV function and some component of pulmonary hypertension Cleared from my perspective to be discharged home and follow-up on outpatient basis with her nnp. Time with Patient: Less than 30
--- NOTE | 2024-01-11 15:53 | P.PN ---
Subjective Progress Note Date: 01/11/24 Principal diagnosis: Reason for follow-up is pneumonia Patient is a 68-year-old female with a past medical history sniffing for COPD current everyday smoker presenting to the hospital for evaluation of increasing shortness of breath, patient did spike a fever and with concern for possible pneumonia. On today's visit that that is 01/11/2024,the patient remains to be afebrile, patient is on 2 L nasal cannula supplemental oxygen and denies any shortness of breath no chest pain cough has decreased in intensity.Patient denies having any nausea or vomiting, no abdominal pain and no diarrhea has been reported, patient feeling better wants to go home. Patient white count 6.7 creatinine 0.65 blood and sputum cultures are pending Objective - Vital Signs Vital signs: Vital Signs Temp 98.4 F 01/11/24 08:58 Pulse 64 01/11/24 11:31 Resp 17 01/11/24 11:31 BP 129/64 01/11/24 11:31 Pulse Ox 93 L 01/11/24 11:31 FiO2 35 01/09/24 08:00 Intake & Output 01/10/24 01/11/24 01/11/24 18:59 06:59 18:59 Intake Total 360 240 120 Output Total 400 Balance 360 240 -280 Weight 49 kg Intake: Oral 360 240 120 Output: Urine 400 Other: Voiding Method Bedside Commode Bedside Commode Bedside Commode # Voids 2 2 # Bowel Movements 1 - Exam GENERAL DESCRIPTION: An elderly female lying in bed in no distress RESPIRATORY SYSTEM: Unlabored breathing , decreased breath sounds at bases HEART: S1 S2 regular rate and rhythm , ABDOMEN: Soft , no tenderness EXTREMITIES: No edema feet - Labs CBC & Chem 7: 01/11/24 06:42 01/11/24 06:42 Labs: Abnormal Lab Results - Last 24 Hours (Table) 01/10/24 01/10/24 01/10/24 Range/Units 09:10 16:10 19:54 RBC (3.80-5.40) m/uL MCV (80.0-100.0) fL Lymphocytes # (1.0-4.8) k/uL Carbon Dioxide (22-30) mmol/L BUN (7-17) mg/dL Glucose (74-99) mg/dL POC Glucose (mg/dL) 267 H 258 H (70-110) mg/dL AST (14-36) U/L ALT (4-34) U/L Total Protein (6.3-8.2) g/dL Albumin (3.5-5.0) g/dL Procalcitonin 1.20 H (0.02-0.09) ng/mL 01/11/24 01/11/24 01/11/24 Range/Units 05:54 06:42 06:42 RBC 3.64 L (3.80-5.40) m/uL MCV 105.7 H (80.0-100.0) fL Lymphocytes # 0.6 L (1.0-4.8) k/uL Carbon Dioxide 31 H (22-30) mmol/L BUN 25 H (7-17) mg/dL Glucose 125 H (74-99) mg/dL POC Glucose (mg/dL) 144 H (70-110) mg/dL AST 66 H (14-36) U/L ALT 85 H (4-34) U/L Total Protein 5.6 L (6.3-8.2) g/dL Albumin 3.2 L (3.5-5.0) g/dL Procalcitonin (0.02-0.09) ng/mL 01/11/24 Range/Units 12:13 RBC (3.80-5.40) m/uL MCV (80.0-100.0) fL Lymphocytes # (1.0-4.8) k/uL Carbon Dioxide (22-30) mmol/L BUN (7-17) mg/dL Glucose (74-99) mg/dL POC Glucose (mg/dL) 160 H (70-110) mg/dL AST (14-36) U/L ALT (4-34) U/L Total Protein (6.3-8.2) g/dL Albumin (3.5-5.0) g/dL Procalcitonin (0.02-0.09) ng/mL Microbiology - Last 24 Hours (Table) 01/10/24 13:18 Gram Stain - Preliminary Gastric Aspirate 01/08/24 09:35 Blood Culture - Preliminary Blood 01/08/24 09:35 Blood Culture - Preliminary Blood Assessment and Plan (1) Pneumonia Current Visit: Yes Status: Acute Code(s): J18.9 - PNEUMONIA, UNSPECIFIED ORGANISM SNOMED Code(s): 936613458 Plan: 1patient presented to hospital with increasing shortness of breath and cough in this patient who did have a fever also noticed to have elevated white count manage criteria for SIRS/sepsis source likely purulent tracheobronchitis/pneumo rafat. 2sputum blood culture currently pending 3patient did have some clinical improvement and antibiotic has been switched over to oral Augmentin to continue antibiotic and monitor clinical course cl anahi Dictation was produced using [employer] dictation software. please excuse any grammatical, word or spelling errors. Time with Patient: Less than 30
[2024-01-11 17:10] VITALS: BP 139/65; PULSE 71; RESP 20; TEMP 97.6
[2024-01-11] MEDS ORDERED: AMOXIC-POT CLAV 875-125MG 1 EACH TAB PO SCH (21:00)
--- NOTE | 2024-01-13 02:08 | PN ---
PROGRESS NOTE Severe protein-calorie malnutrition. MMODL / IJN: [id number] /
--- NOTE | 2024-01-13 03:12 | DS ---
DISCHARGE SUMMARY DISCHARGE MEDICATIONS: 1. Prednisone 40 mg daily. 2. Farxiga 5 mg daily. 3. Singulair 10 mg daily. 4. Tylenol 650 q.4h p.r.n. 5. Augmentin 875 q.12h for 7 days. 6. DuoNeb q.i.d. 7. Lopressor 12.5 b.i.d. 8. Protonix 40 mg b.i.d. 9. Pulmicort 1 mg b.i.d. CONDITION: Stable. PROGNOSIS: Guarded. Ambulate as tolerated. The patient was admitted with hypoxemia overnight with the oxygen level 70, who has home oxygen at night, but she has not been wearing her oxygen at night, was found to be without it, her oxygen was 70 with altered mental status and she came to the hospital for admission. She was found to have COPD, pulmonary hypertension. Echo showed good ejection fraction. Low-dose Lasix was given. New diabetic medicines were given. Breathing treatments were given. The patient improved over the next 2 to 3 days. She will go home on home oxygen 24 hours a day for 2 L as she was saturating 92% on discharge. Continue on steroids, antibiotics updraft treatments, and nicotine withdrawal. PT, OT. Prognosis guarded. Ambulate as tolerated. MMODL / IJN: [id number] /
--- NOTE | 2024-01-13 20:12 | CDI ---
Documentation Clarification Form Date: 01/13/2024 From: Lisa Hung Admit Date: 01/08/2024 11:26:00 AM Patient Name: Katy Tovar Visit Number: [id number] Discharge Date: 01/11/2024 05:10:00 PM ATTENTION: The Clinical Documentation Specialists (CDI) and [facility] Coding Staff appreciate your assistance in clarifying documentation. Please respond to the clarification below the line at the bottom and electronically sign. The CDI & [facility] Coding staff will review the response and follow-up if needed. Please note: Queries are made part of the Legal Health Record. If you have any questions, please contact the author of this message via ITS. Dr. Reg Meek The patient has pneumonia and leukocytosis. Based on this information and the findings below, is there an additional diagnosis that is clinically appropriate for this patient? History/Risk Factors: 68yo with a history of O2 dependent COPD presented w/ acute respiratory failure, acute exac of COPD, community acquired pneumonia and CHF. Clinical Indicators: ID consult 01/08 noted manage criteria for SIRS/sepsis source likely purulent tracheobronchitis/pneumonia WBC: 01/07 15.1, 01/08 6.3 Labs: 01/07 - Neut 12.8 01/08 CRP 7.4 01/09 procalcitonin 1.2 Lactic acid 01/07: 1.6 CT chest 01/08: Mod emphysematous change w/ sm to tiny B/L pleural effusions Vitals signs: 01/07 @ 0910 100.4, 79, 40, 90/58, 99% on BiPAP 01/08 @ 1600 98.3, 62, 20, 120/49, 90% on 4L NC Treatment: Zithromax IV, Rocephin IV, Zosyn IV, SVN, supplemental O2, Solu- Medrol IV, Lasix IV, Augmentin po Is there an additional diagnosis that is clinically appropriate for this patient? [ ] Sepsis 2nd to pneumonia [ ] SIRS 2nd to COPD exac, acute respiratory failure [ ] No additional diagnosis/not clinically significant [ ] Other, please specify [ ] Unable to determine SIRS Criteria: 2 or more of the following may indicate SIRS Temperature < 96.8F (36C) or > 101.0F (38.3C) Heart Rate > 90 bpm Respiratory Rate > 20 breaths/min or PaCO2 < 32 mmHg White Blood Cell Count > 12,000 or < 4,000 cells/mm3 or > 10% bands (Template Last Reviewed: October 2022) [facility]
== END 2024-01-11 17:10 | disposition home or self-care (01) | DRG 190 ==
LOC: EC 09:05 → 3SCARD 11:26
PROVIDERS: ADMIT Family Medicine; ATTEND Family Medicine
DX: J44.0 Chronic obstructive pulmonary disease with (acute) lower respiratory infection (principal); E43 Unspecified severe protein-calorie malnutrition; I21.A1 Myocardial infarction type 2; I50.31 Acute diastolic (congestive) heart failure; J18.9 Pneumonia, unspecified organism; J96.21 Acute and chronic respiratory failure with hypoxia; J96.22 Acute and chronic respiratory failure with hypercapnia; Z68.1 Body mass index [BMI] 19.9 or less, adult; I27.21 Secondary pulmonary arterial hypertension; J44.1 Chronic obstructive pulmonary disease with (acute) exacerbation; J43.9 Emphysema, unspecified; E78.5 Hyperlipidemia, unspecified; I11.0 Hypertensive heart disease with heart failure; I25.10 Atherosclerotic heart disease of native coronary artery without angina pectoris; J20.9 Acute bronchitis, unspecified; Z79.84 Long term (current) use of oral hypoglycemic drugs; Z99.81 Dependence on supplemental oxygen; Z95.0 Presence of cardiac pacemaker
CPT/HCPCS: 36415; 71045; 71250; 80053; 82803; 83036; 83605; 83735; 83880; 84145; 84439; 84443; 84484; 85025; 85379; 85610; 85730; 86140; 87040; 87070; 87086; 87205; 87636; 93005; 93306; 94640; 94660; 94760; 96365; 96366; 96367; 96375; 96376; 99291

== ENCOUNTER 2025-01-13 10:23 | Inpatient (IN) | payer MEDICARE ==
[2025-01-13] MEDS: methylPREDNISolone SOD SUCCI 125 MG/2 ML VIAL IV STA (11:11)
[2025-01-13] MEDS: MAGNESIUM SULFATE-D5W PMX 1 GM in DEXTROSE/WATER 1 100ML.BAG IVPB STA (11:11)
[2025-01-13 11:12] LABS: Anisocytosis Slight; Basophils % (A) 0 %; Eosinophils % (A) 1 %; HCT 39.8 % (34.0-46.0); HGB 12.2 gm/dL (11.4-16.0); Hypochromasia Marked; Lymphocytes # (A) 0.6 k/uL (1.0-4.8); Lymphocytes % (A) 7 %; MCH 29.1 pg (25.0-35.0); MCHC 30.7 g/dL (31.0-37.0); MCV 94.9 fL (80.0-100.0); Mean Platelet Volume 7.8; Monocytes # (A) 0.4 k/uL (0-1.0); Monocytes % (A) 5 %; Neutrophils # (A) 7.3 k/uL (1.3-7.7); Neutrophils % (A) 87 %; Platelet Count 297 k/uL (150-450); RBC 4.19 m/uL (3.80-5.40); WBC 8.4 k/uL (3.8-10.6)
[2025-01-13 11:30] LABS: INR 1.1 (<1.2); Partial Thromboplastin Time 24.1 sec (22.0-30.0); Prothrombin Time 12.1 sec (10.0-12.5)
--- NOTE | 2025-01-13 11:30 | XR ---
EXAMINATION TYPE: XR chest 1V portable DATE OF EXAM: 01/13/2025 COMPARISON: 01/08/2024 CLINICAL INDICATION: Female, 69 years old with history of sob; TECHNIQUE: Single frontal view of the chest is obtained. FINDINGS: There has been interval development of a moderate to large right pleural effusion. There is diffuse interstitial prominence which was seen on the prior study and is either consistent w ith chronic interstitial changes or mild pulmonary vascular congestion. There is no airspace consolidation in the left lung or in the visualized right upper lung. There is a cardiac pacemaker. There is no pneumothorax. The osseous structures are intact. IMPRESSION: 1. Interval development of a moderate to large right pleural effusion 2. chronic interstitial changes versus mild pulmonary vascular congestion. [facility], , 01/13/2025 11:28 AM
[2025-01-13] MEDS: FUROSEMIDE 10 MG/ML 10 ML VIAL IV STA (12:37)
[2025-01-13] MEDS: IPRATROPIUM-ALBUTEROL 3 ML NEB INHALATION STA (12:52)
[2025-01-13 12:57] LABS: ABG Base Excess 5.1 mmol/L; ABG HCO3 32 mmol/L (21-25); ABG Oxygen Saturation 86.2 % (94-97); ABG PCO2 58 mmHg (35-45); ABG PH 7.35 (7.35-7.45); ABG TCO2 34 mmol/L (19-24); Allen Test Performed? Yes
[2025-01-13 13:05] LABS: ALT 89 U/L (4-34); AST 67 U/L (14-36); African American GFR (CKD) >90 (>60 ml/min/1.73 sqM); Albumin 3.1 g/dL (3.5-5.0); Alkaline Phosphatase 227 U/L (38-126); Anion Gap 2 mmol/L; Blood Urea Nitrogen 54 mg/dL (7-17); Calcium 8.3 mg/dL (8.4-10.2); Carbon Dioxide 29 mmol/L (22-30); Chloride 103 mmol/L (98-107); Glucose 177 mg/dL (74-99); Non-African American GFR(CKD) 88 (>60 ml/min/1.73 sqM); Potassium 5.2 mmol/L (3.5-5.1); Sodium 134 mmol/L (137-145); Total Bilirubin 0.6 mg/dL (0.2-1.3); Total Protein 5.3 g/dL (6.3-8.2)
[2025-01-13 13:10] LABS: ABG PO2 56 mmHg (83-108)
[2025-01-13 13:12] LABS: NT-Pro-B-Type Natriuretic Pept 16700 pg/mL
[2025-01-13] MEDS ORDERED: NALOXONE 0.4 MG/ML 1 ML VIAL IV PRN (13:40)
--- NOTE | 2025-01-13 13:40 | ED ---
General Adult HPI - General Chief complaint: Shortness of Breath Stated complaint: cristinasob Time Seen by Provider: 01/13/25 10:27 Source: EMS Mode of arrival: EMS Limitations: no limitations - History of Present Illness Initial comments: 69-year-old female with past medical history of COPD who wears 2 L of home O2 who presents to the emergency department for shortness of breath. States has been going on for 1 week. She states that in the past she took Lasix for a diagnosis of congestive heart failure. She states that her doctors told her she could come off of it. She does admit that she restarted it as she was having significant lower extremity edema and worsening shortness of breath. She denies taking any doses today. She has been completing her breathing treatments. No recent use of steroids or antibiotics. States that she has been coughing up clear sputum. No fevers, chills or sick contacts. Denies any chest pain. No h istory of stents in her heart. She denies any nausea or vomiting. No ripping or tearing station of her back. No calf pain. No history of DVT or PE. EMS did provide her with a breathing treatment on the way into the hospital. Patient's oxygen saturations are found to be in the low 80s. No other alleviating, precipitating or modifying factors - Related Data Home Medications Medication Instructions Recorded Confirmed Apixaban [Eliquis] 5 mg PO DIRECTED 01/13/25 01/13/25 Budesonide/Glycopyr/Formoterol 2 puff INHALATION DIRECTED PRN 01/13/25 01/13/25 [Breztri Aerosphere Inhaler] HYDROcodone/APAP 5-325MG [Snover 1 tab PO TID 01/13/25 01/13/25 5-325] Ipratropium-Albuterol Nebulize 3 ml INHALATION RT-QID 01/13/25 01/15/25 [Duoneb 0.5 mg-3 mg/3 ml Soln] Lasix(Unknown Dose) 1 dose PO DIRECTED 01/13/25 01/13/25 Montelukast [Singulair] 10 mg PO HS 01/13/25 01/15/25 Metoprolol Tartrate [Lopressor] 25 mg PO BID 01/15/25 01/15/25 metFORMIN HCL 500 mg PO DAILY 01/15/25 01/15/25 Allergies Allergy/AdvReac Type Severity Reaction Status Date / Time No Known Allergies Allergy Verified 01/13/25 13:58 Review of Systems ROS Statement: Those systems with pertinent positive or pertinent negative responses have been documented in the HPI. ROS Other: All systems not noted in ROS Statement are negative. Past Medical History Past Medical History: COPD Additional Past Medical History / Comment(s): pacemaker, History of Any Multi-Drug Resistant Organisms: None Reported Additional Past Surgical History / Comment(s): ovarian cyst removed. Past Anesthesia/Blood Transfusion Reactions: No Reported Reaction Past Psychological History: No Psychological Hx Reported Smoking Status: Current every day smoker Past Alcohol Use History: Occasional Past Drug Use History: Marijuana - Past Family History Mother Family Medical History: COPD General Exam Limitations: no limitations General appearance: alert, in no apparent distress Head exam: Present: atraumatic, normocephalic, normal inspection Eye exam: Present: normal appearance, PERRL, EOMI. Absent: scleral icterus, conjunctival injection, periorbital swelling ENT exam: Present: normal exam, mucous membranes moist Neck exam: Present: normal inspection. Absent: tenderness, meningismus, lymphadenopathy Respiratory exam: Present: wheezes, accessory muscle use (tachypnea), decreased breath sounds (right base). Absent: respiratory distress, rales, rhonchi, stridor Cardiovascular Exam: Present: regular rate, normal rhythm, normal heart sounds. Absent: systolic murmur, diastolic murmur, rubs, gallop, clicks GI/Abdominal exam: Present: soft, normal bowel sounds. Absent: distended, tenderness, guarding, rebound, rigid Extremities exam: Present: normal inspection, full ROM, pedal edema. Absent: tenderness, joint swelling, calf tenderness Back exam: Present: normal inspection Neurological exam: Present: alert, oriented X3, CN II-XII intact Psychiatric exam: Present: normal affect, normal mood Skin exam: Present: warm, dry, intact, normal color. Absent: rash Course Vital Signs 01/13/25 01/13/25 01/13/25 10:24 10:51 11:48 Temperature 98.3 F Pulse Rate 85 85 Pulse Rate [ [employer] Manufacturing Engineer ] Respiratory 18 24 Rate Blood Pressure 136/70 136/76 Blood Pressure [Right Arm] O2 Sat by Pulse 95 83 L 90 L Oximetry 03/01/13/25 01/13/25 12:54 13:07 13:40 Temperature Pulse Rate 84 87 66 Pulse Rate [ Cnc Manufacturing Engineer ] Respiratory 24 Rate Blood Pressure 167/81 Blood Pressure [Right Arm] O2 Sat by Pulse 95 Oximetry 01/13/25 01/13/25 01/13/25 17:07 19:56 20:13 Temperature Pulse Rate 69 69 72 Pulse Rate [ [employer] Manufacturing Engineer ] Respiratory 22 Rate Blood Pressure 115/99 Blood Pressure [Right Arm] O2 Sat by Pulse 96 95 Oximetry 01/13/25 01/14/25 01/14/25 20:58 01:22 04:29 Temperature Pulse Rate 73 72 69 Pulse Rate [ [employer] Manufacturing Engineer ] Respiratory 18 18 18 Rate Blood Pressure 135/80 143/92 139/69 Blood Pressure [Right Arm] O2 Sat by Pulse 93 L 93 L 94 L Oximetry 01/14/25 01/14/25 01/14/25 07:51 08:04 09:43 Temperature 98.9 F Pulse Rate 66 85 78 Pulse Rate [ [employer] Manufacturing Engineer ] Respiratory 24 Rate Blood Pressure 89/78 Blood Pressure [Right Arm] O2 Sat by Pulse 89 L Oximetry 01/14/25 01/14/25 01/14/25 11:45 12:25 12:39 Temperature 98.7 F Pulse Rate 73 84 Pulse Rate [ 71 [employer] Manufacturing Engineer ] Respiratory 20 Rate Blood Pressure Blood Pressure 140/75 [Right Arm] O2 Sat by Pulse 91 L Oximetry 01/14/25 01/14/25 01/14/25 15:43 15:54 16:35 Temperature 98.5 F Pulse Rate 96 73 Pulse Rate [ 86 C[employer] Manufacturing Engineer ] Respiratory 20 Rate Blood Pressure Blood Pressure 152/90 [Right Arm] O2 Sat by Pulse 90 L Oximetry 01/14/25 01/14/25 01/14/25 19:39 19:50 20:30 Temperature 97.8 F Pulse Rate 98 90 85 Pulse Rate [ [employer] Manufacturing Engineer ] Respiratory 24 Rate Blood Pressure 126/65 Blood Pressure [Right Arm] O2 Sat by Pulse 88 L Oximetry 01/14/25 01/14/25 01/15/25 20:37 23:30 01:25 Temperature 98.0 F Pulse Rate 87 89 Pulse Rate [ [employer] Manufacturing Engineer ] Respiratory 24 19 18 Rate Blood Pressure 145/82 142/89 Blood Pressure [Right Arm] O2 Sat by Pulse 90 L 95 92 L Oximetry 01/15/25 01/15/25 01/15/25 06:26 09:27 09:31 Temperature 98.1 F Pulse Rate 72 88 Pulse Rate [ Cnc Manufacturing Engineer ] Respiratory 18 Rate Blood Pressure 167/92 Blood Pressure [Right Arm] O2 Sat by Pulse 95 95 Oximetry 01/15/25 01/15/25 01/15/25 09:49 11:36 12:00 Temperature Pulse Rate 96 68 63 Pulse Rate [ Cnc Manufacturing Engineer ] Respiratory 20 Rate Blood Pressure 116/80 115/62 Blood Pressure [Right Arm] O2 Sat by Pulse 90 L 90 L Oximetry 01/15/25 01/15/25 01/15/25 13:02 13:15 14:00 Temperature Pulse Rate 68 74 60 Pulse Rate [ Cnc Manufacturing Engineer ] Respiratory 22 Rate Blood Pressure 136/63 Blood Pressure [Right Arm] O2 Sat by Pulse 90 L Oximetry 01/15/25 01/15/25 01/15/25 16:00 16:14 16:26 Temperature Pulse Rate 87 79 80 Pulse Rate [ C[employer] Manufacturing Engineer ] Respiratory 20 Rate Blood Pressure 156/69 Blood Pressure [Right Arm] O2 Sat by Pulse 90 L Oximetry 01/15/25 01/15/25 01/15/25 18:00 19:47 20:07 Temperature 98.1 F Pulse Rate 105 H 71 92 Pulse Rate [ Cnc Manufacturing Engineer ] Respiratory 20 17 Rate Blood Pressure 144/82 139/65 Blood Pressure [Right Arm] O2 Sat by Pulse 90 L 92 L Oximetry 01/15/25 21:00 Temperature 97.9 F Pulse Rate 91 Pulse Rate [ Cnc Manufacturing Engineer ] Respiratory 19 Rate Blood Pressure 144/80 Blood Pressure [Right Arm] O2 Sat by Pulse 94 L Oximetry Procedures - ABG Interpretation Ph: 7.3 PCO2: 58 PO2: 55 Bicarbonate: 32 Interpretation: respiratory acidosis Medical Decision Making - Medical Decision Making Was pt. sent in by a medical professional or institution (, PA, DIRECTOR OF ACQUISITION MARKETING, urgent care, hospital, or penitentiary...) When possible be specific @ -No Did you speak to anyone other than the patient for history (EMS, parent, family, police, friend...)? What history was obtained from this source @ -Spoke with EMS for history Did you review nursing and triage notes (agree or disagree)? Why? @ -I reviewed and agree with nursing and triage notes Were old charts reviewed (outside hosp., previous admission, EMS record, old EKG, old radiological studies, urgent care reports/EKG's, penitentiary records)? Report findings @ -No old charts were reviewed Differential Diagnosis (chest pain, altered mental status, abdominal pain women, abdominal pain men, vaginal bleeding, weakness, fever, dyspnea, syncope, headache, dizziness, GI bleed, back pain, seizure, CVA, palpatations, mental health, musculoskeletal)? @ -Differential Dyspnea: Coronary syndrome, arrhythmia, tamponade, asthma, COPD, pulmonary embolism, pneumonia, pneumothorax, pulmonary effusion, anaphylaxis, diabetic ketoacidosis, flailed chest, pulmonary contusion, diaphragmatic rupture, anemia, neuromuscular, this is not meant to be an all-inclusive list. EKG interpreted by me (3pts min.). @ -Yes and demonstrates sinus rhythm with a rate of 81. WI interval 184. QRS 162. QTc of 455. No acute ST segment elevations or depressions X-rays interpreted by me (1pt min.). @ -Yes which demonstrates a moderate to large right effusion CT interpreted by me (1pt min.). @ -None done U/S interpreted by me (1pt. min.). @ -None done What testing was considered but not performed or refused? (CT, X-rays, U/S, labs)? Why? @ -None What meds were considered but not given or refused? Why? @ -None Did you discuss the management of the patient with other professionals (professionals i.e. , PA, DIRECTOR OF ACQUISITION MARKETING, lab, RT, psych nurse, social sciences professor, bend sorter, teacher, postal sorting officer, pillowcase cutter)? Give summary @ -Spoke with Dr. Walker for the admission Was smoking cessation discussed for >3mins.? @ -No Was critical care preformed (if so, how long)? @ -Yes, 35 minutes for management of hypoxic respiratory failure, acute exacerbation of COPD, large pleural effusion Were there social determinants of health that impacted care today? How? (Homelessness, low income, unemployed, alcoholism, drug addiction, transportation, low edu. Level, literacy, decrease access to med. care, shelter, rehab)? @ -No Was there de-escalation of care discussed even if they declined (Discuss DNR or withdrawal of care, Hospice)? DNR status @ -No What co-morbidities impacted this encounter? (DM, HTN, Smoking, COPD, CAD, Cancer, CVA, ARF, Chemo, Hep., AIDS, mental health diagnosis, sleep apnea, morbid obesity)? @ -Congestive heart failure Was patient admitted / discharged? Hospital course, mention meds given and route, prescriptions, significant lab abnormalities, going to OR and other pertinent info. @ -Upon arrival patient seen and evaluated in bed 6. Thorough history and physical exam was performed. IV access was established. Laboratory studies were conducted. Chest x-ray was performed which demonstrates a moderate right- sided effusion. I did recommend admission. Patient was given 40 mg of Lasix. I spoke with Dr. Walker. Dr. Land will be placed on consult for possible thoracentesis Undiagnosed new problem with uncertain prognosis? @ -No Drug Therapy requiring intensive monitoring for toxicity (Heparin, Nitro, Insulin, Cardizem)? @ -No Were any procedures done? @ -No Diagnosis/symptom? @ -Acute hypoxic respiratory failure, acute exacerbation of COPD, large right- sided pleural effusion Acute, or Chronic, or Acute on Chronic? @ -Acute Uncomplicated (without systemic symptoms) or Complicated (systemic symptoms)? @ -Complicated Side effects of treatment? @ -No Exacerbation, Progression, or Severe Exacerbation? @ -Yes Poses a threat to life or bodily function? How? (Chest pain, [place], [place], pneumonia, PE, COPD, DKA, ARF, appy, cholecystitis, CVA, Diverticulitis, Homicidal, Suicidal, threat to staff... and all critical care pts) @ -Yes this patient is hypoxic - Lab Data Result diagrams: 01/19/25 06:28 01/19/25 06:28 Lab Results 01/13/25 01/13/25 01/13/25 Range/Units 10:37 10:37 10:37 WBC 8.4 (3.8-10.6) k/uL RBC 4.19 (3.80-5.40) m/uL Hgb 12.2 (11.4-16.0) gm/dL Hct 39.8 (34.0-46.0) % MCV 94.9 (80.0-100.0) fL MCH 29.1 (25.0-35.0) pg MCHC 30.7 L (31.0-37.0) g/dL RDW 16.0 H (11.5-15.5) % Plt Count 297 (150-450) k/uL MPV 7.8 Neutrophils % 87 % Lymphocytes % 7 % Monocytes % 5 % Eosinophils % 1 % Basophils % 0 % Neutrophils # 7.3 (1.3-7.7) k/uL Lymphocytes # 0.6 L (1.0-4.8) k/uL Monocytes # 0.4 (0-1.0) k/uL Eosinophils # 0.0 (0-0.7) k/uL Basophils # 0.0 (0-0.2) k/uL Hypochromasia Marked Anisocytosis Slight PT 12.1 (10.0-12.5) sec INR 1.1 (<1.2) APTT 24.1 (22.0-30.0) sec Sample Site ABG pH (7.35-7.45) ABG pCO2 (35-45) mmHg ABG pO2 (83-108) mmHg ABG HCO3 (21-25) mmol/L ABG Total CO2 (19-24) mmol/L ABG O2 Saturation (94-97) % ABG Base Excess mmol/L Eladio Test Hemoglobin (11.4-16.0) gm/dL FiO2 % Sodium (137-145) mmol/L Potassium (3.5-5.1) mmol/L Chloride (98-107) mmol/L Carbon Dioxide (22-30) mmol/L Anion Gap mmol/L BUN (7-17) mg/dL Creatinine (0.52-1.04) mg/dL Est GFR (CKD-EPI)AfAm (>60 ml/min/1.73 sqM) Est GFR (CKD-EPI)NonAf (>60 ml/min/1.73 sqM) Glucose (74-99) mg/dL Plasma Lactic Acid Yoshi 1.7 (0.7-2.0) mmol/L Calcium (8.4-10.2) mg/dL Total Bilirubin (0.2-1.3) mg/dL AST (14-36) U/L ALT (4-34) U/L Alkaline Phosphatase (38-126) U/L Troponin I (0.000-0.034) ng/mL NT-Pro-B Natriuret Pep pg/mL Total Protein (6.3-8.2) g/dL Albumin (3.5-5.0) g/dL 01/13/25 01/13/25 01/13/25 Range/Units 11:22 11:22 12:51 WBC (3.8-10.6) k/uL RBC (3.80-5.40) m/uL Hgb (11.4-16.0) gm/dL Hct (34.0-46.0) % MCV (80.0-100.0) fL MCH (25.0-35.0) pg MCHC (31.0-37.0) g/dL RDW (11.5-15.5) % Plt Count (150-450) k/uL MPV Neutrophils % % Lymphocytes % % Monocytes % % Eosinophils % % Basophils % % Neutrophils # (1.3-7.7) k/uL Lymphocytes # (1.0-4.8) k/uL Monocytes # (0-1.0) k/uL Eosinophils # (0-0.7) k/uL Basophils # (0-0.2) k/uL Hypochromasia Anisocytosis PT (10.0-12.5) sec INR (<1.2) APTT (22.0-30.0) sec Sample Site Right Radial ABG pH 7.35 (7.35-7.45) ABG pCO2 58 H (35-45) mmHg ABG pO2 56 L* (83-108) mmHg ABG HCO3 32 H (21-25) mmol/L ABG Total CO2 34 H (19-24) mmol/L ABG O2 Saturation 86.2 L (94-97) % ABG Base Excess 5.1 mmol/L Eladio Test Yes Hemoglobin 12.0 (11.4-16.0) gm/dL FiO2 50 % Sodium 134 L (137-145) mmol/L Potassium 5.2 H (3.5-5.1) mmol/L Chloride 103 (98-107) mmol/L Carbon Dioxide 29 (22-30) mmol/L Anion Gap 2 mmol/L BUN 54 H (7-17) mg/dL Creatinine 0.71 (0.52-1.04) mg/dL Est GFR (CKD-EPI)AfAm >90 (>60 ml/min/1.73 sqM) Est GFR (CKD-EPI)NonAf 88 (>60 ml/min/1.73 sqM) Glucose 177 H (74-99) mg/dL Plasma Lactic Acid Yoshi (0.7-2.0) mmol/L Calcium 8.3 L (8.4-10.2) mg/dL Total Bilirubin 0.6 (0.2-1.3) mg/dL AST 67 H (14-36) U/L ALT 89 H (4-34) U/L Alkaline Phosphatase 227 H (38-126) U/L Troponin I 0.079 H* (0.000-0.034) ng/mL NT-Pro-B Natriuret Pep 78807 pg/mL Total Protein 5.3 L (6.3-8.2) g/dL Albumin 3.1 L (3.5-5.0) g/dL Disposition Clinical Impression: Acute exacerbation of chronic obstructive pulmonary disease, CHF (congestive heart failure), Hypoxia Disposition: ADMITTED IP TO THIS [facility] Condition: Serious Is patient prescribed a controlled substance at d/c from ED?: No Time of Disposition: 13:39 Decision to Admit Reason: Admit from EC Decision Date: 01/13/25 Decision Time: 13:40
[2025-01-13] MEDS: APIXABAN 5 MG TAB PO SCH (14:38)
[2025-01-13] MEDS: DAPAGLIFLOZIN PROPANEDIOL 5 MG TABLET PO SCH (14:38)
--- NOTE | 2025-01-13 14:50 | CT ---
EXAMINATION TYPE: CT chest wo con DATE OF EXAM: 01/13/2025 COMPARISON: 01/08/2024 CLINICAL INDICATION: Female, 69 years old with history of effusion,pneumonia; PHH, Effusion,pneumonia . TECHNIQUE: CT scan of the thorax is performed without IV contrast. CT DLP: 233.[address] CTDI: mGy Automated exposure control for dose reduction was used. FINDINGS: LUNGS: Moderate to large layering right-sided extends to the right lung apex. Small left-sided pleura l effusion noted. There is no evidence of right-sided mucous plugging with right lower lobe atelectas is and/or infiltrate. Emphysematous changes seen within the upper lobes greatest on the right. MEDIASTINUM: Lack of IV contrast is noted to limit evaluation for mediastinal and especially hilar ad enopathy. There are no definitive greater than 1 cm hilar or mediastinal lymph nodes. No cardiomega ly or pericardial effusion is seen. HEART: Cardiomegaly is demonstrated. No significant coronary artery calcifications. OTHER: No additional significant abnormality is seen. IMPRESSION: Moderate to large layering right-sided extends to the right lung apex. Small left-sided p leural effusion noted. There is no evidence of right-sided mucous plugging with right lower lobe atel ectasis and/or infiltrate Follow-up recommendations for incidental pulmonary nodules are per [employer] or [employer]. [facility], , 01/13/2025 2:48 PM
[2025-01-13] MEDS: HYDROcodone/APAP 5-325MG 1 EACH TAB PO SCH (14:55)
[2025-01-13] MEDS: PIPERACILLIN-TAZOBACTAM 3.375 GM in SODIUM CHLORIDE 0.9% 100 ML IVPB SCH (15:37)
[2025-01-13] MEDS: PANTOPRAZOLE 40 MG TABLET PO SCH (17:15)
[2025-01-13] MEDS ORDERED: IPRATROPIUM-ALBUTEROL 3 ML NEB INHALATION SCH (18:00)
[2025-01-13] MEDS: IPRATROPIUM-ALBUTEROL 3 ML NEB INHALATION SCH (19:53)
[2025-01-13] MEDS: BUDESONIDE 0.5 MG/2 ML NEBU INHALATION SCH (19:53)
[2025-01-13] MEDS: MONTELUKAST 10 MG TAB PO SCH (22:52)
[2025-01-13] MEDS: AZITHROMYCIN 500 MG in SODIUM CHLORIDE 0.9% 250 ML IVPB SCH (22:53)
[2025-01-13] MEDS: FUROSEMIDE 10 MG/ML 4 ML VIAL IV SCH (22:53)
[2025-01-13] MEDS: METOPROLOL TARTRATE 12.5 MG TAB PO SCH (22:53)
[2025-01-14 06:37] LABS: Basophils % (A) 0 %; Eosinophils % (A) 0 %; HCT 40.1 % (34.0-46.0); HGB 12.2 gm/dL (11.4-16.0); Hypochromasia Marked; Lymphocytes # (A) 0.3 k/uL (1.0-4.8); Lymphocytes % (A) 3 %; MCH 28.8 pg (25.0-35.0); MCHC 30.5 g/dL (31.0-37.0); MCV 94.7 fL (80.0-100.0); Mean Platelet Volume 7.4; Monocytes # (A) 0.5 k/uL (0-1.0); Monocytes % (A) 6 %; Neutrophils # (A) 7.9 k/uL (1.3-7.7); Neutrophils % (A) 90 %; Platelet Count 253 k/uL (150-450); RBC 4.23 m/uL (3.80-5.40); RDW 15.9 % (11.5-15.5); WBC 8.8 k/uL (3.8-10.6)
[2025-01-14 06:39] LABS: Basophils % (A) 0 %; Eosinophils % (A) 0 %; HCT 39.8 % (34.0-46.0); Hypochromasia Marked; Lymphocytes # (A) 0.3 k/uL (1.0-4.8); Lymphocytes % (A) 3 %; MCH 28.5 pg (25.0-35.0); MCHC 30.1 g/dL (31.0-37.0); MCV 94.8 fL (80.0-100.0); Mean Platelet Volume 7.1; Monocytes # (A) 0.5 k/uL (0-1.0); Monocytes % (A) 6 %; Neutrophils # (A) 7.6 k/uL (1.3-7.7); Neutrophils % (A) 90 %; Platelet Count 245 k/uL (150-450); RDW 15.9 % (11.5-15.5); WBC 8.5 k/uL (3.8-10.6)
[2025-01-14 06:50] LABS: ALT 82 U/L (4-34); AST 57 U/L (14-36); African American GFR (CKD) >90 (>60 ml/min/1.73 sqM); Albumin 3.1 g/dL (3.5-5.0); Alkaline Phosphatase 195 U/L (38-126); Anion Gap 4 mmol/L; Blood Urea Nitrogen 38 mg/dL (7-17); Chloride 94 mmol/L (98-107); Glucose 175 mg/dL (74-99); Non-African American GFR(CKD) >90 (>60 ml/min/1.73 sqM); Potassium 4.3 mmol/L (3.5-5.1); Sodium 138 mmol/L (137-145); Total Bilirubin 0.7 mg/dL (0.2-1.3); Total Protein 5.4 g/dL (6.3-8.2)
[2025-01-14 07:29] LABS: Carbon Dioxide 40 mmol/L (22-30)
[2025-01-14] MEDS: IPRATROPIUM-ALBUTEROL 3 ML NEB INHALATION SCH (07:50)
--- NOTE | 2025-01-14 10:02 | P.CRDCN ---
History of Present Illness Consult date: 01/14/25 History of present illness: The patient is a 69-year-old female patient who is known to our service from before with a past medical history significant for permanent pacemaker and permanent atrial fibrillation as well as HFpEF and COPD and chronic hypoxic respiratory failure. She was seen by our service back in 2023 with heart failure and at that point the echo showed preserved LV systolic function with no significant valvular abnormalities. She presented to the hospital with progressive exertional dyspnea associated with progressive bilateral lower extremity edema and weight gain with no other cardiovascular symptoms of any pain in the chest or shortness of breath or dizziness or lightheadedness or any feeling of heart racing or fluttering. She was found to be hypoxic with more requiring oxygen that which she needs at home. Also she was found to have se yehuda bilateral lower extremities pitting edema with weeping skin. NT proBNP came to be severely elevated. Chest x-ray showed finding consistent with heart failure and moderate to large left pleural effusion as well. EKG showed underlying atrial fibrillation with ventricular paced rhythm. First set of troponin came to be mildly abnormal. Kidney function appears to be overall stable. Hemoglobin is stable as well. She supposed to be on oral diuretics but she stated that she was not taking the diuretics for unknown reason and she is not quite sure if she was running out of the medication or was started by any of her providers. The physical examination is remarkable for extensive bilateral expiratory wheezing and severe bilateral lower extremities pitting edema as well Assessment Acute on chronic hypoxic respiratory failure Heart failure with preserved ejection fraction Moderate to large left pleural effusion secondary to the above History of HFpEF Chronic hypoxic respiratory failure Permanent atrial fibrillation Permanent pacemaker Plan Decrease the dose of Lasix giving the low blood pressure She might benefit from pleurocentesis Continue oral anticoagulation and stop it if she need to undergo pleurocentesis and replace that with heparin Follow-up with echocardiogram Add Farxiga to the current medical regimen Follow-up with the patient Past Medical History Past Medical History: COPD Additional Past Medical History / Comment(s): pacemaker, History of Any Multi-Drug Resistant Organisms: None Reported Additional Past Surgical History / Comment(s): ovarian cyst removed. Past Anesthesia/Blood Transfusion Reactions: No Reported Reaction Past Psychological History: No Psychological Hx Reported Smoking Status: Current every day smoker Past Alcohol Use History: Occasional Past Drug Use History: Marijuana Medications and Allergies Home Medications Medication Instructions Recorded Confirmed Type Apixaban [Eliquis] 5 mg PO DIRECTED 01/13/25 01/13/25 History Budesonide/Glycopyr/Formoterol 2 puff INHALATION DIRECTED PRN 01/13/25 01/13/25 History [Breztri Aerosphere Inhaler] HYDROcodone/APAP 5-325MG [[place] 1 tab PO TID 01/13/25 01/13/25 History 5-325] Ipratropium-Albuterol Nebulize 3 ml INHALATION DIRECTED 01/13/25 01/13/25 History [Duoneb 0.5 mg-3 mg/3 ml Soln] Lasix(Unknown Dose) 1 dose PO DIRECTED 01/13/25 01/13/25 History Metoprolol 25mg(Unknown) 25 mg PO DIRECTED 01/13/25 01/13/25 History Montelukast [Singulair] 10 mg PO DIRECTED 01/13/25 01/13/25 History Allergies Allergy/AdvReac Type Severity Reaction Status Date / Time No Known Allergies Allergy Verified 01/13/25 13:58 Physical Exam Vitals: Vital Signs Temp Pulse Resp BP Pulse Ox 01/14/25 09:43 98.9 F 78 24 89/78 89 L 01/14/25 08:04 85 01/14/25 07:51 66 01/14/25 04:29 69 18 139/69 94 L 01/14/25 01:22 72 18 143/92 93 L 01/13/25 20:58 73 18 135/80 93 L 01/13/25 20:13 72 95 01/13/25 19:56 69 01/13/25 17:07 69 22 115/99 96 01/13/25 13:40 66 24 167/81 95 01/13/25 13:07 87 01/13/25 12:54 84 01/13/25 11:48 85 24 136/76 90 L 01/13/25 10:51 83 L 01/13/25 10:24 98.3 F 85 18 136/70 95 Results 01/14/25 06:09 01/14/25 06:09 Cardiac Enzymes 01/13/25 01/13/25 01/14/25 Range/Units 11:22 11:22 06:09 AST 67 H 57 H (14-36) U/L Troponin I 0.079 H* (0.000-0.034) ng/mL Coagulation 01/13/25 Range/Units 10:37 PT 12.1 (10.0-12.5) sec APTT 24.1 (22.0-30.0) sec CBC 01/13/25 01/14/25 01/14/25 Range/Units 10:37 06:09 06:09 WBC 8.4 8.8 8.5 (3.8-10.6) k/uL RBC 4.19 4.23 4.20 (3.80-5.40) m/uL Hgb 12.2 12.2 12.0 (11.4-16.0) gm/dL Hct 39.8 40.1 39.8 (34.0-46.0) % Plt Count 297 253 245 (150-450) k/uL Comprehensive Metabolic Panel 01/13/25 01/14/25 Range/Units 11:22 06:09 Sodium 134 L 138 (137-145) mmol/L Potassium 5.2 H 4.3 (3.5-5.1) mmol/L Chloride 103 94 L (98-107) mmol/L Carbon Dioxide 29 40 H (22-30) mmol/L BUN 54 H 38 H (7-17) mg/dL Creatinine 0.71 0.67 (0.52-1.04) mg/dL Glucose 177 H 175 H (74-99) mg/dL Calcium 8.3 L 8.0 L (8.4-10.2) mg/dL AST 67 H 57 H (14-36) U/L ALT 89 H 82 H (4-34) U/L Alkaline Phosphatase 227 H 195 H (38-126) U/L Total Protein 5.3 L 5.4 L (6.3-8.2) g/dL Albumin 3.1 L 3.1 L (3.5-5.0) g/dL Current Medications Generic Name Dose Route Start Last Admin Trade Name Freq PRN Reason Stop Dose Admin Hydrocodone Bitart/Acetaminophen 1 each 01/13/25 16:00 01/14/25 09:37 Hydrocodone/Apap 5-325mg 1 Each Tab PO 1 each TID MATHEW Administration Albuterol/Ipratropium 3 ml 01/14/25 08:00 01/14/25 07:50 Ipratropium-Albuterol 3 Ml Neb INHALATION 3 ml RT-QID MATHEW Administration Apixaban 5 mg 01/13/25 14:00 01/14/25 09:29 Apixaban 5 Mg Tab PO 5 mg BID MATHEW Administration Protocol Budesonide 0.5 mg 01/13/25 14:00 01/14/25 07:51 Budesonide 0.5 Mg/2 Ml Nebu INHALATION 0.5 mg BID MATHEW Administration Dapagliflozin 5 mg 01/13/25 14:00 01/14/25 09:29 Dapagliflozin Propanediol 5 Mg Tablet PO Not Given DAILY MATHEW Furosemide 40 mg 01/13/25 21:00 01/13/25 22:53 Furosemide 10 Mg/Ml 4 Ml Vial IV 40 mg BID MATHEW Administration Piperacillin Sod/Tazobactam 100 mls @ 25 mls/hr 01/13/25 16:00 01/14/25 02:07 Sod 3.375 gm/ Sodium Chloride IVPB 25 mls/hr Q8HR MATHEW Administration Protocol Azithromycin 500 mg/ Sodium 250 mls @ 250 mls/hr 01/13/25 22:45 01/14/25 09:24 Chloride IVPB 01/15/25 09:59 250 mls/hr DAILY MATHEW Administration Protocol Methylprednisolone Sodium Succinate 40 mg 01/14/25 08:00 Methylprednisolone Sod Succi 40 Mg/Ml 1 Ml Vial IV Q8HR MATHEW Metoprolol Tartrate 12.5 mg 01/13/25 21:00 01/13/25 22:53 Metoprolol Tartrate 12.5 Mg Tab PO 12.5 mg BID MATHEW Administration Montelukast Sodium 10 mg 01/13/25 21:00 01/13/25 22:52 Montelukast 10 Mg Tab PO 10 mg HS MATHEW Administration Naloxone HCl 0.2 mg 01/13/25 13:40 Naloxone 0.4 Mg/Ml 1 Ml Vial IV Q2M PRN Opioid Reversal Pantoprazole Sodium 40 mg 01/13/25 17:30 01/14/25 09:27 Pantoprazole 40 Mg Tablet PO 40 mg AC-BID MATHEW Administration 01/14/25 06:09 01/14/25 06:09
[2025-01-14] MEDS: methylPREDNISolone SOD SUCCI 40 MG/ML 1 ML VIAL IV SCH (11:18)
[2025-01-14] MEDS: FUROSEMIDE 10 MG/ML 4 ML VIAL IV SCH (21:36)
[2025-01-15 07:49] LABS: Glucose,Whole Blood 199 mg/dL (70-110)
[2025-01-15 07:58] LABS: Basophils % (A) 0 %; Eosinophils % (A) 0 %; HCT 39.7 % (34.0-46.0); HGB 12.2 gm/dL (11.4-16.0); Hypochromasia Marked; Lymphocytes # (A) 0.1 k/uL (1.0-4.8); Lymphocytes % (A) 1 %; MCH 29.3 pg (25.0-35.0); MCHC 30.9 g/dL (31.0-37.0); Mean Platelet Volume 7.2; Monocytes # (A) 0.2 k/uL (0-1.0); Monocytes % (A) 3 %; Neutrophils # (A) 8.4 k/uL (1.3-7.7); Neutrophils % (A) 95 %; Platelet Count 238 k/uL (150-450); RBC 4.17 m/uL (3.80-5.40); RDW 15.7 % (11.5-15.5); WBC 8.8 k/uL (3.8-10.6)
[2025-01-15 08:14] LABS: ALT 70 U/L (4-34); AST 43 U/L (14-36); African American GFR (CKD) >90 (>60 ml/min/1.73 sqM); Albumin 3.2 g/dL (3.5-5.0); Alkaline Phosphatase 184 U/L (38-126); Anion Gap 5 mmol/L; Blood Urea Nitrogen 27 mg/dL (7-17); Calcium 8.4 mg/dL (8.4-10.2); Chloride 93 mmol/L (98-107); Glucose 177 mg/dL (74-99); Non-African American GFR(CKD) >90 (>60 ml/min/1.73 sqM); Potassium 4.4 mmol/L (3.5-5.1); Sodium 138 mmol/L (137-145); Total Bilirubin 0.8 mg/dL (0.2-1.3); Total Protein 5.8 g/dL (6.3-8.2)
[2025-01-15 08:27] LABS: Carbon Dioxide 40 mmol/L (22-30)
--- NOTE | 2025-01-15 10:12 | P.GSCN ---
History of Present Illness Consult date: 01/15/25 Reason for Consult: Pleurodesis Requesting physician: Reg Meek History of present illness: This is a 69-year-old female who follows outpatient with Dr. Reg Meek for primary care and Dr. Land for pulmonology as well as Dr. Mayorga for cardiology. She has a previous medical history of chronic respiratory failure on 2 L nasal cannula outpatient, COPD, previous tobacco dependence, previous marijuana use, permanent atrial fibrillation on Eliquis for anticoagulation, heart failure with preserved ejection fraction, and permanent pacemaker placement. Apparently she has had progressive shortness of breath recently, she was placed on steroids and antibiotics per her primary care physician. Her shortness of breath continued to worsen, she developed bilateral lower extremity edema, and she was hypoxic so she presented to [facility] emergency room for evaluation and treatment. Chest x-ray demonstrated mild pulmonary vascular congestion along with moderate to large right-sided pleural effusion. EKG demonstrated atrial fibrillation. Lab work revealed WBC 8.4, hemoglobin 12.2, potassium 5.2, creatinine 0.71, lactic acid 1.7, BNP 16,700, and troponin elevation as high as 0.104. She also had ABG drawn demonstrating 7.35/58/56/32/86% on 50% FiO2. For further evaluation a CT scan of the chest was completed confirming moderate to large layering right-sided pleural effusion as well as small left-sided pleural effusion. She was admitted for evaluation and treatment with consultation placed to pulmonology, cardiology, interventional radiology for thoracentesis, as well as cardiothoracic surgery for pleurodesis. Review of Systems Review of systems was completed and was negative except as noted - Cardiovascular Reports leg edema, Reports shortness of breath - Respiratory Respiratory Comment(s): Hypoxia requiring increased oxygen Reports home oxygen Past Medical History Past Medical History: Atrial Fibrillation, Heart Failure, COPD Additional Past Medical History / Comment(s): pacemaker, home oxygen at 2 L/min History of Any Multi-Drug Resistant Organisms: None Reported Additional Past Surgical History / Comment(s): ovarian cyst removed. Past Anesthesia/Blood Transfusion Reactions: No Reported Reaction Past Psychological History: No Psychological Hx Reported Smoking Status: Former smoker Past Alcohol Use History: None Reported, Occasional Past Drug Use History: Marijuana Additional History: States that she quit smoking 10 months ago, also quit using marijuana around that time. She is exposed to secondhand smoke as her 91-year-old mother continues to smoke - Past Family History Mother Family Medical History: COPD Medications and Allergies Home Medications Medication Instructions Recorded Confirmed Type Apixaban [Eliquis] 5 mg PO DIRECTED 01/13/25 01/13/25 History Budesonide/Glycopyr/Formoterol 2 puff INHALATION DIRECTED PRN 01/13/25 01/13/25 History [Breztri Aerosphere Inhaler] HYDROcodone/APAP 5-325MG [[place] 1 tab PO TID 01/13/25 01/13/25 History 5-325] Ipratropium-Albuterol Nebulize 3 ml INHALATION DIRECTED 01/13/25 01/13/25 History [Duoneb 0.5 mg-3 mg/3 ml Soln] Lasix(Unknown Dose) 1 dose PO DIRECTED 01/13/25 01/13/25 History Metoprolol 25mg(Unknown) 25 mg PO DIRECTED 01/13/25 01/13/25 History Montelukast [Singulair] 10 mg PO DIRECTED 01/13/25 01/13/25 History Allergies Allergy/AdvReac Type Severity Reaction Status Date / Time No Known Allergies Allergy Verified 01/13/25 13:58 Surgical - Exam Vital Signs Temp Pulse Resp BP Pulse Ox 98.3 F 85 18 136/70 95 01/13/25 10:24 01/13/25 10:24 01/13/25 10:24 01/13/25 10:24 01/13/25 10:24 CONSTITUTIONAL: Awake and alert, appears comfortable, cooperative, cachectic, no pain, no acute distress EYES: Pupils equal, round, reactive to light, normal ocular movement ENT: Moist mucous membranes without oral lesions present NECK: No masses, no bruits, trachea midline RESPIRATORY: Lungs sounds very diminished bilaterally. Respirations even, nonlabored. Currently on 7 L high flow nasal cannula with oxygen saturation high 80s to low 90s. Strong cough CARDIOVASCULAR: S1, S2 present. Irregular rate and rhythm, controlled atrial fibrillation on telemetry. Palpable peripheral pulses bilaterally. 2-3+ pitting edema present to bilateral lower extremities. No calf pain or tenderness noted GASTROINTESTINAL: Abdomen soft, nontender, nondistended without masses or organomegaly noted. There is no rebound or guarding present. Active bowel sounds present 4 quadrants. GENITOURINARY: Deferred INTEGUMENTARY: Skin is warm and dry NEUROLOGIC: Cranial nerves II through XII intact, normal coordination, no obvious motor or sensory deficits, speech is normal MUSKULOSKELETAL: Able to move all extremities, strength equal bilaterally, normal posture PSYCHIATRIC: Alert and oriented to person place and time, appropriate affect, intact judgment and insight Results - Labs 01/15/25 07:19 01/15/25 07:19 Abnormal Lab Results - Last 24 Hours (Table) 01/14/25 01/14/25 01/15/25 Range/Units 10:46 14:32 07:19 MCHC 30.9 L (31.0-37.0) g/dL RDW 15.7 H (11.5-15.5) % Neutrophils # 8.4 H (1.3-7.7) k/uL Lymphocytes # 0.1 L (1.0-4.8) k/uL Chloride (98-107) mmol/L Carbon Dioxide (22-30) mmol/L BUN (7-17) mg/dL Creatinine (0.52-1.04) mg/dL Glucose (74-99) mg/dL POC Glucose (mg/dL) (70-110) mg/dL AST (14-36) U/L ALT (4-34) U/L Alkaline Phosphatase (38-126) U/L Troponin I 0.104 H* 0.091 H* (0.000-0.034) ng/mL Total Protein (6.3-8.2) g/dL Albumin (3.5-5.0) g/dL 01/15/25 01/15/25 Range/Units 07:19 07:47 MCHC (31.0-37.0) g/dL RDW (11.5-15.5) % Neutrophils # (1.3-7.7) k/uL Lymphocytes # (1.0-4.8) k/uL Chloride 93 L (98-107) mmol/L Carbon Dioxide 40 H (22-30) mmol/L BUN 27 H (7-17) mg/dL Creatinine 0.46 L (0.52-1.04) mg/dL Glucose 177 H (74-99) mg/dL POC Glucose (mg/dL) 199 H (70-110) mg/dL AST 43 H (14-36) U/L ALT 70 H (4-34) U/L Alkaline Phosphatase 184 H (38-126) U/L Troponin I (0.000-0.034) ng/mL Total Protein 5.8 L (6.3-8.2) g/dL Albumin 3.2 L (3.5-5.0) g/dL Microbiology - Last 24 Hours (Table) 01/13/25 15:32 Blood Culture - Preliminary Blood Diabetes panel 01/15/25 Range/Units 07:19 Sodium 138 (137-145) mmol/L Potassium 4.4 (3.5-5.1) mmol/L Chloride 93 L (98-107) mmol/L Carbon Dioxide 40 H (22-30) mmol/L BUN 27 H (7-17) mg/dL Creatinine 0.46 L (0.52-1.04) mg/dL Glucose 177 H (74-99) mg/dL Calcium 8.4 (8.4-10.2) mg/dL AST 43 H (14-36) U/L ALT 70 H (4-34) U/L Alkaline Phosphatase 184 H (38-126) U/L Total Protein 5.8 L (6.3-8.2) g/dL Albumin 3.2 L (3.5-5.0) g/dL Calcium panel 01/15/25 Range/Units 07:19 Calcium 8.4 (8.4-10.2) mg/dL Albumin 3.2 L (3.5-5.0) g/dL Pituitary panel 01/15/25 Range/Units 07:19 Sodium 138 (137-145) mmol/L Potassium 4.4 (3.5-5.1) mmol/L Chloride 93 L (98-107) mmol/L Carbon Dioxide 40 H (22-30) mmol/L BUN 27 H (7-17) mg/dL Creatinine 0.46 L (0.52-1.04) mg/dL Glucose 177 H (74-99) mg/dL Calcium 8.4 (8.4-10.2) mg/dL Adrenal panel 01/15/25 Range/Units 07:19 Sodium 138 (137-145) mmol/L Potassium 4.4 (3.5-5.1) mmol/L Chloride 93 L (98-107) mmol/L Carbon Dioxide 40 H (22-30) mmol/L BUN 27 H (7-17) mg/dL Creatinine 0.46 L (0.52-1.04) mg/dL Glucose 177 H (74-99) mg/dL Calcium 8.4 (8.4-10.2) mg/dL Total Bilirubin 0.8 (0.2-1.3) mg/dL AST 43 H (14-36) U/L ALT 70 H (4-34) U/L Alkaline Phosphatase 184 H (38-126) U/L Total Protein 5.8 L (6.3-8.2) g/dL Albumin 3.2 L (3.5-5.0) g/dL - Imaging Chest x-ray: report reviewed, image reviewed CT scan - chest: report reviewed, image reviewed EKG: image reviewed Additional studies: All films reviewed with Dr. Davila Assessment and Plan Assessment: Acute on chronic hypoxic respiratory failure Acute on chronic heart failure Acute on chronic COPD Shortness of breath, lower extremity edema secondary to above History of chronic respiratory failure on 2 L nasal cannula outpatient COPD Previous tobacco dependence Previous marijuana use Permanent atrial fibrillation on Eliquis for anticoagulation Heart failure with preserved ejection fraction Permanent pacemaker placement Plan: The patient was seen and examined sitting up in a chair in the emergency room. States her breathing is better than when she came in although she is requiring higher oxygen than she was at home. With sitting quietly her oxygen saturation is in the mid 90s on 7 L high flow, with conversation her oxygen saturation dips down into the high 80s to low 90s. She denies any pain at this time. 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 Her chart/diagnostics were reviewed in detail with Dr. Davila. Recommend medical management of heart failure and COPD, agree with diuretics, steroids. Interventional radiology has been consulted for right sided thoracentesis agree with this plan although patient remains on Eliquis, she did receive both doses yesterday. No surgical intervention warranted from cardiothoracic surgery standpoint, patient needs management of her heart failure +/- thoracentesis for pleural effusion. Continue medical management per internal medicine, cardiology, pulmonology. Recommend increase activity as tolerated, wean oxygen when able. May apply gentle Tahir wraps from toes to thighs to help with edema. Thank you Dr. Meek for this consult, please call us with any further questions. I have personally seen and examined the patient, performed the documentation and the assessment and plan as written. Number of minutes spent on the visit: 30. Gregoria Zelaya NP-C
--- NOTE | 2025-01-15 11:05 | P.CNPUL ---
History of Present Illness Consult date: 01/15/25 Reason for consult: dyspnea, pleural effusion Chief complaint: Shortness of breath History of present illness: 69-year-old female with history of diastolic heart failure also chronic hypoxic respiratory failure on 2 L nasal cannula, extensive history of smoking and nicotine use and COPD chronic atrial fibrillation on Eliquis for anticoagulation, patient presented to the emergency department increasing shortness of breath as well as lower extremity edema, patient was treated by primary service with oral antibiotic steroids without any relief, of note that patient was extremely hypoxic on arrival requiring 7 L oxygen now chest x-ray shows interstitial edema with moderate to large right-sided pleural effusion. Patient had previous thoracentesis by me about a year ago for similar problems review of the x-ray and CT scan consistent with bilateral pleural effusion more so on the right side compared to left side with interstitial edema patient eventually will require thoracentesis on the right side continue diuresis in the meantime, will need to hold Eliquis. On specific questioning patient denies any dizziness lightheadedness or loss of consciousness, denies any chest pain or radiation of pain mild ongoing cough is present, shortness of breath as noted above, denies any nausea vomiting diarrhea, patient admits presence of progressive increased swelling of the lower extremity. Denies any dysuria Currently patient is on continuation of her home medicine also acetazolamide 252 times a day, bronchodilator, direct oral anticoagulant, Lasix 40 mg IV every 12, Solu-Medrol 40 mg every 8 hourly Zosyn 3.375 Review of Systems All systems: negative Past Medical History Past Medical History: Atrial Fibrillation, Heart Failure, COPD Additional Past Medical History / Comment(s): pacemaker, home oxygen at 2 L/min History of Any Multi-Drug Resistant Organisms: None Reported Additional Past Surgical History / Comment(s): ovarian cyst removed. Past Anesthesia/Blood Transfusion Reactions: No Reported Reaction Past Psychological History: No Psychological Hx Reported Smoking Status: Former smoker Past Alcohol Use History: None Reported, Occasional Past Drug Use History: Marijuana - Past Family History Mother Family Medical History: COPD Medications and Allergies Home Medications Medication Instructions Recorded Confirmed Type Apixaban [Eliquis] 5 mg PO DIRECTED 01/13/25 01/13/25 History Budesonide/Glycopyr/Formoterol 2 puff INHALATION DIRECTED PRN 01/13/25 01/13/25 History [Breztri Aerosphere Inhaler] HYDROcodone/APAP 5-325MG [[place] 1 tab PO TID 01/13/25 01/13/25 History 5-325] Ipratropium-Albuterol Nebulize 3 ml INHALATION DIRECTED 01/13/25 01/13/25 History [Duoneb 0.5 mg-3 mg/3 ml Soln] Lasix(Unknown Dose) 1 dose PO DIRECTED 01/13/25 01/13/25 History Metoprolol 25mg(Unknown) 25 mg PO DIRECTED 01/13/25 01/13/25 History Montelukast [Singulair] 10 mg PO DIRECTED 01/13/25 01/13/25 History Allergies Allergy/AdvReac Type Severity Reaction Status Date / Time No Known Allergies Allergy Verified 01/13/25 13:58 Physical Exam Vitals: Vital Signs Temp Pulse Pulse Resp BP BP Pulse Ox 01/15/25 09:49 96 01/15/25 09:31 95 01/15/25 09:27 88 01/15/25 06:26 98.1 F 72 18 167/92 95 01/15/25 01:25 89 18 142/89 92 L 01/14/25 23:30 98.0 F 87 19 145/82 95 01/14/25 20:37 24 90 L 01/14/25 20:30 97.8 F 85 24 126/65 88 L 01/14/25 19:50 90 01/14/25 19:39 98 01/14/25 16:35 98.5 F 86 20 152/90 90 L 01/14/25 15:54 73 01/14/25 15:43 96 01/14/25 12:39 84 01/14/25 12:25 73 01/14/25 11:45 98.7 F 71 20 140/75 91 L - Constitutional General appearance: average body habitus, cooperative, disheveled - EENT Eyes: EOMI, PERRLA ENT: normal oropharynx Ears: bilateral: normal - Neck Carotids: bilateral: upstroke normal Thyroid: bilateral: normal size - Respiratory Respiratory: right: diminished, dullness, negative: CTA - Cardiovascular Rhythm: regular Heart sounds: normal: S1, S2 - Gastrointestinal General gastrointestinal: organomegaly - Integumentary Integumentary: normal turgor - Neurologic Neurologic: CNII-XII intact - Musculoskeletal Musculoskeletal: gait normal, generalized weakness, strength equal bilaterally - Psychiatric Psychiatric: A&O x's 3, appropriate affect, intact judgment & insight Results - Laboratory Findings CBC and BMP: 01/15/25 07:19 01/15/25 07:19 ABG ABG pH 7.35 (7.35-7.45) 01/13/25 12:51 ABG pCO2 58 mmHg (35-45) H 01/13/25 12:51 ABG pO2 56 mmHg (83-108) L* 01/13/25 12:51 ABG O2 Saturation 86.2 % (94-97) L 01/13/25 12:51 PT/INR, D-dimer PT 12.1 sec (10.0-12.5) 01/13/25 10:37 INR 1.1 (<1.2) 01/13/25 10:37 Abnormal lab findings: Abnormal Labs 01/13/25 01/13/25 01/13/25 10:37 11:22 11:22 MCHC 30.7 L RDW 16.0 H Neutrophils # Lymphocytes # 0.6 L ABG pCO2 ABG pO2 ABG HCO3 ABG Total CO2 ABG O2 Saturation Sodium 134 L Potassium 5.2 H Chloride Carbon Dioxide BUN 54 H Creatinine Glucose 177 H POC Glucose (mg/dL) Calcium 8.3 L AST 67 H ALT 89 H Alkaline Phosphatase 227 H Troponin I 0.079 H* Total Protein 5.3 L Albumin 3.1 L 01/13/25 01/14/25 01/14/25 12:51 06:09 06:09 MCHC 30.5 L RDW 15.9 H Neutrophils # 7.9 H Lymphocytes # 0.3 L ABG pCO2 58 H ABG pO2 56 L* ABG HCO3 32 H ABG Total CO2 34 H ABG O2 Saturation 86.2 L Sodium Potassium Chloride 94 L Carbon Dioxide 40 H BUN 38 H Creatinine Glucose 175 H POC Glucose (mg/dL) Calcium 8.0 L AST 57 H ALT 82 H Alkaline Phosphatase 195 H Troponin I Total Protein 5.4 L Albumin 3.1 L 01/14/25 01/14/25 01/14/25 06:09 10:46 14:32 MCHC 30.1 L RDW 15.9 H Neutrophils # Lymphocytes # 0.3 L ABG pCO2 ABG pO2 ABG HCO3 ABG Total CO2 ABG O2 Saturation Sodium Potassium Chloride Carbon Dioxide BUN Creatinine Glucose POC Glucose (mg/dL) Calcium AST ALT Alkaline Phosphatase Troponin I 0.104 H* 0.091 H* Total Protein Albumin 01/15/25 01/15/25 01/15/25 07:19 07:19 07:47 MCHC 30.9 L RDW 15.7 H Neutrophils # 8.4 H Lymphocytes # 0.1 L ABG pCO2 ABG pO2 ABG HCO3 ABG Total CO2 ABG O2 Saturation Sodium Potassium Chloride 93 L Carbon Dioxide 40 H BUN 27 H Creatinine 0.46 L Glucose 177 H POC Glucose (mg/dL) 199 H Calcium AST 43 H ALT 70 H Alkaline Phosphatase 184 H Troponin I Total Protein 5.8 L Albumin 3.2 L - Diagnostic Findings Chest x-ray: report reviewed, image reviewed CT scan - chest: report reviewed, image reviewed Assessment and Plan Assessment: Acute on chronic hypoxic respiratory failure Urinary tract infection related to gram-negative arin Bilateral pleural effusion more so on the right side compared to left side Paroxysmal atrial fibrillation Shortness of breath Community-acquired pneumonia, less likely Chronic diastolic heart failure End-stage COPD with acute exacerbation Plan: Continue gentle diuresis Plan for ultrasound of the chest tomorrow Hold Eliquis for next 48 hours Plan for thoracentesis in 48 hours Patient would like to proceed with right-sided thoracentesis Continue bronchodilators IV steroids Time with Patient: Greater than 30
[2025-01-15] MEDS: acetaZOLAMIDE 250 MG TAB PO SCH (11:29)
[2025-01-15] MEDS: LOSARTAN 25 MG TAB PO SCH (11:30)
[2025-01-15] MEDS: SPIRONOLACTONE 25 MG TAB PO SCH (11:30)
[2025-01-15] MEDS: metOLazone 2.5 MG TAB PO SCH (11:30)
[2025-01-15] MEDS: FUROSEMIDE 10 MG/ML 2 ML VIAL IV STA (11:36)
--- NOTE | 2025-01-15 14:21 | HP ---
HISTORY AND PHYSICAL A 69-year-old female, who came in with acute on chronic respiratory failure, on 10L of oxygen with severe CHF with some swelling in the arms and legs and shortness of breath. She has had cough and congestion for the last 2 weeks. X-ray of the chest shows layering of the right lower lobe. Most likely, the patient has pneumonia versus empyema there and placed on IV Lasix, IV antibiotics. Referred Cardiology to see her. She has a history of AFib, on Eliquis. She has a pacemaker in place. PHYSICAL EXAMINATION: VITAL SIGNS: When I saw her in the ER, she is 96% on 8 to 10L high-flow. Blood pressure 115/99, pulse 69, respiratory rate 22. CARDIOVASCULAR: S1, S2. LUNGS: Decreased breath sounds on the right side. Scattered wheeze. Left-side has [id number] wheeze. GI: Soft. EXTREMITIES: Show 2+ edema bilaterally. LABORATORY DATA: White count 8.4. INR is 1.1. PO2 is 56, pCO2 is 56. Sodium 134, potassium 5.2, BUN is 54, creatinine 0.71, sugar 177. Liver enzymes are high at 60, 70, 89, 227, elevated troponin 0.089, albumin 3.1. ASSESSMENT: 1. Right lower lobe pneumonia versus empyema. 2. Acute on chronic systolic congestive heart failure. Cardiology has been consulted. IV Lasix has been ordered. Echo has been ordered. Wean oxygen as tolerated. Breathing treatments were given. IV steroids were given. Prognosis is guarded. 3. The patient has end-stage chronic obstructive pulmonary disease. She wears oxygen 2L at home most of the day. Prognosis is guarded. Wait for thoracentesis to be done by Dr. William. Dr. Land has been consulted for Pulmonary and Cardiology for heart failure. Wean IV Lasix. Farxiga was given for congestive heart failure. MMODL / IJN: [id number] /
--- NOTE | 2025-01-15 14:22 | PN ---
PROGRESS NOTE This 69-year-old white female, remains on azithromycin and Zosyn for bilateral pneumonia, Solu-Medrol is for COPD, Eliquis for AFib, Lasix 20 IV b.i.d. She feels better than yesterday. She is on . PHYSICAL EXAMINATION: VITAL SIGNS: Temperature 97.8, blood pressure 126/65. LUNGS: Scattered rhonchi and wheeze. Decreased breath sounds in the right lower lung. HEMATOLOGY: Negative for Homans. White count 8.5, pCO2 on ABG is 58. Sodium 138, potassium 4.3, glucose 170, calcium 8. LFTs are elevated but they are better than yesterday. Troponins are up times 3. Chest CT shows [id number] layering of the right sided apex lymphedema. Cardiomegaly. Infiltrates bilaterally with mucus plugging. Echo is pending. Farxiga has been added for CHF. doctor involved. MMODL / IJN: [id number] /
[2025-01-15] MEDS: HEPARIN SODIUM,PORCINE 5,000 UNIT/ML 1 ML VIAL SQ SCH (18:12)
--- NOTE | 2025-01-15 18:53 | CA ---
Transthoracic Echo Report Name: Katy Tovar Age: 69 Gender: F : 1955 Exam Date: 01/15/2025 13:37 Exam Location: [facility] Ht (in): 67 Wt (lb): 109 Ordering Physician: Stevie Mccarthy MD ([email or web address]) Attending/Referring Phys: Grinding Machine Operator Portable Libertad Mckeon RDCS Procedure CPT: Indications: HFpEF exacerbartion, pulmo htn Cardiac Hx: Technical Quality: Fair Contrast 1: Definity Total Dose (mL): Contrast 2: Total Dose (mL): MEASUREMENTS (Male / Female) Normal Values 2D ECHO LV Diastolic Diameter PLAX 4.7 cm 4.2 - 5.9 / 3.9 - 5.3 cm LV Systolic Diameter PLAX 2.5 cm IVS Diastolic Thickness 1.3 cm 0.6 - 1.0 / 0.6 - 0.9 cm LVPW Diastolic Thickness 1.3 cm 0.6 - 1.0 / 0.6 - 0.9 cm LV Relative Wall Thickness 0.6 RV Internal Dim ED PLAX 3.3 cm LA Systolic Diameter LX 4.4 cm 3.0 - 4.0 / 2.7 - 3.8 cm LV Diastolic Volume MOD BP 67.9 cm??? 67 - 155 / 56 - 104 cm??? LV Systolic Volume MOD BP 25.8 cm??? 22 - 58 / 19 - 49 cm??? LV Ejection Fraction MOD BP 62.1 % >= 55 % LV Cardiac Index MOD BP 1975.5 cm???/min???m??? LV Diastolic Volume MOD 4C 62.8 cm??? LV Systolic Volume MOD 4C 24.5 cm??? LV Ejection Fraction MOD 4C 61.0 % LV Cardiac Index MOD 4C 1796.7 cm???/min???m??? LV Diastolic Length 4C 6.8 cm LV Systolic Length 4C 5.8 cm LV Diastolic Volume MOD 2C 72.9 cm??? LV Systolic Volume MOD 2C 27.2 cm??? LV Ejection Fraction MOD 2C 62.6 % LV Cardiac Index MOD 2C 2138.7 cm???/min???m??? LV Diastolic Length 2C 6.9 cm LV Systolic Length 2C 5.9 cm M-MODE Aortic Root Diameter MM 2.9 cm LA Systolic Diameter MM 4.4 cm LA Ao Ratio MM 1.5 AV Cusp Separation MM 1.8 cm DOPPLER Mitral E Point Velocity 137.6 cm/s Mitral A Point Velocity 62.7 cm/s Mitral E to A Ratio 2.2 MV Deceleration Time 164.4 ms MV E' Velocity 5.8 cm/s Mitral E to MV E' Ratio 23.6 TR Peak Velocity 346.1 cm/s TR Peak Gradient 47.9 mmHg Right Ventricular Systolic Press 68.0 mmHg FINDINGS Left Ventricle Left ventricular ejection fraction is estimated at 55-60 %. Moderately increased septal wall thickness. Mildly increased posterior wall thickness. Normal left ventricular systolic function with no obvious regional wall motion abnormalities. Left ventricular cavity size normal. Right Ventricle Moderate right ventricular dilatation. Severe pulmonary hypertension. Right ventricular systolic pressure estimated at 68 mmHg. Right Atrium Moderate right atrial dilatation. Catheter/pacemaker wire in the right atrial cavity. Left Atrium Moderately increased left atrial diameter. Mitral Valve Mitral valve thickened. Mitral annular calcification. Mild mitral regurgitation. No mitral stenosis. Aortic Valve Trileaflet aortic valve. Thickened aortic valve without stenosis. No aortic regurgitation. Tricuspid Valve Structurally normal tricuspid valve. Moderate tricuspid regurgitation. No tricuspid stenosis. Pulmonic Valve Structurally normal pulmonic valve. Mild pulmonic regurgitation. No pulmonic stenosis. Pericardium No pericardial effusion. Pleural effusion. Aorta Normal size aortic root and proximal ascending aorta. CONCLUSIONS Indication for the procedure congestive heart failure LVH with preserved systolic function Right atrial and right ventricular enlargement with moderate to severe tricuspid regurgitation Moderate left atrial enlargement Previewed by: Dr. Denzel Flynn MD (Electronically Signed) Final Date: 15 January 2025 18:52
[2025-01-15] MEDS: FUROSEMIDE 10 MG/ML 4 ML VIAL IV SCH (21:10)
[2025-01-15] MEDS: METOPROLOL TARTRATE 25 MG TAB PO SCH (21:10)
[2025-01-15] MEDS: ATORVASTATIN 40 MG TAB PO SCH (21:10)
--- NOTE | 2025-01-16 04:07 | PN ---
PROGRESS NOTE SUBJECTIVE: Her breathing is somewhat improved. She is still on 7 L oxygen saturating mid 90s high flow. PHYSICAL EXAMINATION: VITAL SIGNS: Temperature 97.9, blood pressure 140/80, pulse 91, respiratory rate 19. She is going to get a thoracentesis on the right side of the lung tomorrow, and she is on subcu heparin, off Eliquis. Her labs show white count of 8.8. She does have 8.4 left shift with neutrophils. Sodium 138, potassium 4.4, BUN 27, creatinine 0.46, AST, ALT, and alk phos are 43, 70, and 184. Troponins are elevated x2. Cardiology has seen her, adjusted some medications. Also she has been sick for 2 weeks, cough and congestion at home, she is going to remain on antibiotics to get the empyema ruled out. Echo shows RVSP is 68. There is 55% to 60% ejection fraction, moderate right atrial dilation. Cardiac pacemaker. Mildly increased left atrial diameter. She has a [id number] tricuspid regurgitation. LVH with preserved systolic function, HF with pleural effusion. Moderate left atrial enlargement. Continue current treatment. Await for thoracentesis for fluid results. Hopefully, her breathing improves as she weans down. She has infectious process on top of all of this that triggered all of those. Remains on antibiotics at this time. She is not having leukocytosis. Due to her very poor immune system, prognosis is guarded. MMODL / IJN: [id number] /
[2025-01-16 06:06] LABS: Glucose,Whole Blood 171 mg/dL (70-110)
--- NOTE | 2025-01-16 08:20 | US ---
EXAMINATION TYPE: US chest DATE OF EXAM: 01/16/2025 COMPARISON: NONE CLINICAL INDICATION: Female, 69 years old with history of pleural effusion; Pleural effusion. TECHNIQUE: Grayscale imaging of the chest. Targeted ultrasound of the posterior lower FINDINGS: EXAM MEASUREMENTS: Right Pleural Effusion pocket size: 10.5 cm Right skin surface to fluid distance: 1.5 cm lung tissue visualized at 4.6 cm in fluid.. Right side marked for possible thoracentesis outside the dept. Pulmonologists are able to review the images in the patient?s EMR. IMPRESSIONS: Moderate to large right pleural effusion. [facility], , 01/16/2025 8:17 AM
--- NOTE | 2025-01-16 13:12 | P.PN ---
Subjective Progress Note Date: 01/15/25 The patient is a 69-year-old female patient who is known to our service from before with a past medical history significant for permanent pacemaker and permanent atrial fibrillation as well as HFpEF and COPD and chronic hypoxic respiratory failure. She was seen by our service back in 2023 with heart fail ure and at that point the echo showed preserved LV systolic function with no significant valvular abnormalities. She presented to the hospital with progressive exertional dyspnea associated with progressive bilateral lower extremity edema and weight gain with no other cardiovascular symptoms of any pain in the chest or shortness of breath or dizziness or lightheadedness or any feeling of heart racing or fluttering. She was found to be hypoxic with more requiring oxygen that which she needs at home. Also she was found to have severe bilateral lower extremities pitting edema with weeping skin. NT proBNP came to be severely elevated. Chest x-ray showed finding consistent with heart failure and moderate to large left pleural effusion as well. EKG showed underlying atrial fibrillation with ventricular paced rhythm. First set of troponin came to be mildly abnormal. Kidney function appears to be overall stable. Hemoglobin is stable as well. She supposed to be on oral diuretics but she stated that she was not taking the diuretics for unknown reason and she is not quite sure if she was running out of the medication or was started by any of her providers. The physical examination is remarkable for extensive bilateral expiratory wheezing and severe bilateral lower extremities pitting edema as well 01/15/2025 Echo shows EF of 55 to 60%, moderate LVH, moderate to severe tricuspid regurgitation, moderate LA dilatation, PPM wire noticed in RA and RV. Continues to have shortness of breath Denies any chest pain. Assessment Acute on chronic hypoxic respiratory failure Heart failure with preserved ejection fraction Moderate to large left pleural effusion secondary to the above History of HFpEF Chronic hypoxic respiratory failure Permanent atrial fibrillation Permanent pacemaker Plan Continue diuretics, hold anticoagulation in view of possible thoracentesis Consult pulmonary team Continue [facility] to the current medical regimen Follow-up with the patient Objective - Vital Signs Vital signs: Vital Signs Temp 98 F 01/16/25 08:30 Pulse 77 01/16/25 08:30 Resp 19 01/16/25 08:30 BP 154/65 01/16/25 08:30 Pulse Ox 94 L 01/16/25 08:30 FiO2 Intake & Output 01/15/25 01/16/25 01/16/25 18:59 06:59 18:59 Intake Total 10 Balance 10 Weight 49.2 kg 49.2 kg Intake: IV 10 Invasive Line 2 10 Other: # Voids 2 - Labs CBC & Chem 7: 01/15/25 07:19 01/15/25 07:19 Labs: Abnormal Lab Results - Last 24 Hours (Table) 01/16/25 Range/Units 05:55 POC Glucose (mg/dL) 171 H (70-110) mg/dL Microbiology - Last 24 Hours (Table) 01/13/25 15:08 Urine Culture - Final Urine,Voided Escherichia coli 01/13/25 15:32 Blood Culture - Preliminary Blood
--- NOTE | 2025-01-16 13:15 | P.PN ---
Subjective Progress Note Date: 01/16/25 The patient is a 69-year-old female patient who is known to our service from before with a past medical history significant for permanent pacemaker and permanent atrial fibrillation as well as HFpEF and COPD and chronic hypoxic respiratory failure. She was seen by our service back in 2023 with heart fail ure and at that point the echo showed preserved LV systolic function with no significant valvular abnormalities. She presented to the hospital with progressive exertional dyspnea associated with progressive bilateral lower extremity edema and weight gain with no other cardiovascular symptoms of any pain in the chest or shortness of breath or dizziness or lightheadedness or any feeling of heart racing or fluttering. She was found to be hypoxic with more requiring oxygen that which she needs at home. Also she was found to have severe bilateral lower extremities pitting edema with weeping skin. NT proBNP came to be severely elevated. Chest x-ray showed finding consistent with heart failure and moderate to large left pleural effusion as well. EKG showed underlying atrial fibrillation with ventricular paced rhythm. First set of troponin came to be mildly abnormal. Kidney function appears to be overall stable. Hemoglobin is stable as well. She supposed to be on oral diuretics but she stated that she was not taking the diuretics for unknown reason and she is not quite sure if she was running out of the medication or was started by any of her providers. The physical examination is remarkable for extensive bilateral expiratory wheezing and severe bilateral lower extremities pitting edema as well 01/15/2025 Echo shows EF of 55 to 60%, moderate LVH, moderate to severe tricuspid regurgitation, moderate LA dilatation, PPM wire noticed in RA and RV. Continues to have shortness of breath Denies any chest pain. 01/16/2025 BP 154/65, heart rate 77, Patient's anticoagulation is added and he is planned to undergo possible thoracentesis in next 24 to 48 hours with pulmonary team. Assessment Acute on chronic hypoxic respiratory failure Acute HFpEF exacerbation Elevated troponin, likely type II from hypoxemia Moderate to large left pleural effusion secondary to the above Permanent atrial fibrillation Permanent pacemaker Moderate to severe tricuspid regurgitation Plan Lipitor 40 mg, Farxiga 10 mg, Lasix 40 mg IV twice daily Losartan 25 mg daily, metoprolol 25 m twice daily Aldactone 12.5 mg daily Monitor kidney function electrolytes Follow-up with the patient Objective - Vital Signs Vital signs: Vital Signs Temp 98 F 01/16/25 08:30 Pulse 77 01/16/25 08:30 Resp 19 01/16/25 08:30 BP 154/65 01/16/25 08:30 Pulse Ox 94 L 01/16/25 08:30 FiO2 Intake & Output 01/15/25 01/16/25 01/16/25 18:59 06:59 18:59 Intake Total 10 Balance 10 Weight 49.2 kg 49.2 kg Intake: IV 10 Invasive Line 2 10 Other: # Voids 2 - Labs CBC & Chem 7: 01/15/25 07:19 01/15/25 07:19 Labs: Abnormal Lab Results - Last 24 Hours (Table) 01/16/25 Range/Units 05:55 POC Glucose (mg/dL) 171 H (70-110) mg/dL Microbiology - Last 24 Hours (Table) 01/13/25 15:08 Urine Culture - Final Urine,Voided Escherichia coli 01/13/25 15:32 Blood Culture - Preliminary Blood
--- NOTE | 2025-01-16 13:46 | XR ---
EXAMINATION TYPE: XR chest 1V portable DATE OF EXAM: 01/16/2025 12:32 PM COMPARISON: 01/13/2025 CLINICAL INDICATION: Female, 69 years old with history of right thoracentesis, TECHNIQUE: XR chest 1V portable views of the chest are obtained. FINDINGS: Demonstrated are scattered senescent parenchymal change. No evidence for right-sided pneumothorax. Significant diminution in right-sided pleural effusion. Sma ll left effusion noted. The heart is stable. Hilar and mediastinal structures are within normal limits. Degenerative changes are seen of the dorsal spine. IMPRESSION: 1. No evidence for right-sided pneumothorax. Significant diminution in right-sided pleural effusion. Small left effusion noted. [facility], , 01/16/2025 1:43 PM
--- NOTE | 2025-01-16 13:59 | US ---
EXAMINATION TYPE: US thoracentesis DATE OF EXAM: 01/16/2025 CLINICAL HISTORY: The procedure was discussed with the patient. The risks, complications, benefits, and alternatives we re discussed and any questions were answered. Informed consent was obtained. The patient was placed u pright on the ultrasound table and prepped and draped in the usual sterile fashion. All elements of maximal barrier technique were utilized. Under ultrasound guidance, access into the right midlung zone pleural collection was obtained, via the thoracentesis catheter system and direct ultrasound guidance. Approximately 1200 cc of straw-colored fluid was removed. The patient was stable throughout the proce dure and remained stable upon discharge from Department of Radiology. Extensor reveals no pneumothora x. 40 cc of fluid was also removed for therapeutic purposes. IMPRESSION: Successful therapeutic and diagnostic thoracentesis under ultrasound guidance. [facility], , 01/16/2025 1:57 PM
[2025-01-16 16:12] LABS: Glucose,Whole Blood 403 mg/dL (70-110)
[2025-01-16] MEDS: INSULIN LISPRO (HumaLOG) 100 UNIT/ML 10 mL VL SQ SCH (16:38)
[2025-01-16] MEDS: SILDENAFIL 20 MG TAB PO SCH (18:09)
[2025-01-16 20:06] LABS: Glucose,Whole Blood 402 mg/dL (70-110)
[2025-01-16 20:10] LABS: Appearance,BF Hazy (Clear)
[2025-01-16 20:14] LABS: Glucose, BF Source Pleural Fluid; Glucose, Body Fluid 311 mg/dL; LDH, Body Fluid Source Pleural Fluid; T. Protein, Body Fluid Source Pleural Fluid; Total Protein, Body Fluid 2130 mg/dL
[2025-01-16] MEDS: DOCUSATE 100 MG CAP PO SCH (20:51)
--- NOTE | 2025-01-17 00:40 | PN ---
PROGRESS NOTE Status post thoracentesis, day #1. She says she is breathing better. Starting to wean down on the oxygen level. PHYSICAL EXAMINATION: VITAL SIGNS: She is on 91% on 6 L high-flow, respiratory rate 16 to 18, pulse is 57, temp 98.1. LUNGS: Decreased breath sounds. CARDIOVASCULAR: S1 and S2. HEMATOLOGY: Negative for Homans. EXTREMITIES: 2+ edema on the right leg bilaterally. Sugars are high. She is on steroids. Pleural fluid shows LDH 176, red cells less than 2000, lymphocytes 48, myocytes 33 . Continue with current treatment. Try to wean oxygen. Continue with diuresis. Treat for CHF, treat for possible pneumonia which she has had for a while. Thoracic ultrasound, status post 1200 cc removed, status post therapeutic and diagnostic thoracentesis. Wait for further cultures to come back. Prognosis is guarded. Continue to treat for pneumonia, CHF, and COPD. Prognosis is guarded. MMODL / IJN: [id number] /
[2025-01-17 06:11] LABS: Glucose,Whole Blood 196 mg/dL (70-110)
[2025-01-17 07:49] LABS: Basophils % (A) 0 %; Eosinophils % (A) 0 %; HCT 42.4 % (34.0-46.0); HGB 12.5 gm/dL (11.4-16.0); Hypochromasia Marked; Lymphocytes # (A) 0.2 k/uL (1.0-4.8); Lymphocytes % (A) 1 %; MCH 28.5 pg (25.0-35.0); MCHC 29.5 g/dL (31.0-37.0); MCV 96.8 fL (80.0-100.0); Monocytes # (A) 0.2 k/uL (0-1.0); Monocytes % (A) 2 %; Neutrophils # (A) 12.5 k/uL (1.3-7.7); Neutrophils % (A) 97 %; Platelet Count 184 k/uL (150-450); RBC 4.37 m/uL (3.80-5.40); RDW 15.5 % (11.5-15.5); WBC 12.9 k/uL (3.8-10.6)
[2025-01-17 08:10] LABS: ALT 63 U/L (4-34); AST 45 U/L (14-36); African American GFR (CKD) 71 (>60 ml/min/1.73 sqM); Albumin 3.1 g/dL (3.5-5.0); Alkaline Phosphatase 209 U/L (38-126); Blood Urea Nitrogen 45 mg/dL (7-17); Calcium 8.3 mg/dL (8.4-10.2); Chloride 89 mmol/L (98-107); Glucose 190 mg/dL (74-99); Magnesium 2.1 mg/dL (1.6-2.3); Non-African American GFR(CKD) 62 (>60 ml/min/1.73 sqM); Potassium 2.8 mmol/L (3.5-5.1); Sodium 138 mmol/L (137-145); Total Bilirubin 0.8 mg/dL (0.2-1.3); Total Protein 5.6 g/dL (6.3-8.2)
[2025-01-17 08:17] LABS: Anion Gap 5 mmol/L
[2025-01-17] MEDS: DAPAGLIFLOZIN PROPANEDIOL 10 MG TABLET PO SCH (08:19)
[2025-01-17 08:21] LABS: Carbon Dioxide 44 mmol/L (22-30)
[2025-01-17] MEDS ORDERED: Potassium Replacement Protocol 1 EACH MISC MISCELLANE PRN (08:32)
[2025-01-17] MEDS: POTASSIUM CHLORIDE 20 MEQ in WATER FOR INJECTION 1 100ML.BAG IVPB SCH (09:28)
[2025-01-17] MEDS: POTASSIUM CHLORIDE ER 20 MEQ TAB.ER PO SCH (09:28)
[2025-01-17] MEDS ORDERED: APIXABAN 2.5 MG TABLET PO SCH (09:45)
--- NOTE | 2025-01-17 10:09 | P.PN ---
Subjective Principal diagnosis: Acute on chronic hypoxic respiratory failure Urinary tract infection related to gram-negative arin Bilateral pleural effusion more so on the right side compared to left side Paroxysmal atrial fibrillation Shortness of breath Community-acquired pneumonia, less likely Chronic diastolic heart failure End-stage COPD with acute exacerbation January 17, 2025, patient seen eval examined during rounds labs reviewed medications reviewed, slightly less short of breath compared to prior exam, patient is s/p right-sided thoracentesis and 1.2 L of fluid has been removed culture and cytology are pending preliminary reports Gram stain of pleural fluid no WBCs seen no organism identified so far no growth, additionally blood cultures no growth. Urine culture however positive for E. coli which is not ESBL and sensitive to Zosyn. Patient remains on 6 L nasal cannula, gets short of breath and activity and exertion, saturation in the low 90s, blood pressure stable however on the softer side 100/50, patient is intermittently bradycardic however heart rate mostly ranged from 60-70 patient remains afebrile. Labs from today reviewed white cell count of 12.9, hemoglobin hematocrit is stable, potassium was 2.8 CO2 is 44 BUN/creatinine 45/0.9 AST/ALT of 45/63 alk phos is 209 69-year-old female with history of diastolic heart failure also chronic hypoxic respiratory failure on 2 L nasal cannula, extensive history of smoking and nicotine use and COPD chronic atrial fibrillation on Eliquis for anticoagulation, patient presented to the emergency department increasing shortness of breath as well as lower extremity edema, patient was treated by primary service with oral antibiotic steroids without any relief, of note that patient was extremely hypoxic on arrival requiring 7 L oxygen now chest x-ray shows interstitial edema with moderate to large right-sided pleural effusion. Patient had previous thoracentesis by me about a year ago for similar problems review of the x-ray and CT scan consistent with bilateral pleural effusion more so on the right side compared to left side with interstitial edema patient eventually will require thoracentesis on the right side continue diuresis in the meantime, will need to hold Eliquis. On specific questioning patient denies any dizziness lightheadedness or loss of consciousness, denies any chest pain or radiation of pain mild ongoing cough is present, shortness of breath as noted above, denies any nausea vomiting diarrhea, patient admits presence of progressi ve increased swelling of the lower extremity. Denies any dysuria Objective - Vital Signs Vital signs: Vital Signs Temp 97.5 F L 01/17/25 03:36 Pulse 77 01/17/25 06:13 Resp 16 01/17/25 03:36 BP 102/58 01/17/25 03:36 Pulse Ox 91 L 01/17/25 03:36 FiO2 Intake & Output 01/16/25 01/17/25 01/17/25 18:59 06:59 18:59 Intake Total 20 20 Balance 20 20 Weight 49.2 kg 43 kg Intake: IV 20 20 Invasive Line 2 20 20 Other: # Voids 5 1 - Exam General appearance: average body habitus, cooperative, disheveled - EENT Eyes: EOMI, PERRLA ENT: normal oropharynx Ears: bilateral: normal - Neck Carotids: bilateral: upstroke normal Thyroid: bilateral: normal size - Respiratory Respiratory: right: diminished, dullness, negative: CTA - Cardiovascular Rhythm: regular Heart sounds: normal: S1, S2 - Gastrointestinal General gastrointestinal: organomegaly - Integumentary Integumentary: normal turgor - Neurologic Neurologic: CNII-XII intact - Musculoskeletal Musculoskeletal: gait normal, generalized weakness, strength equal bilaterally - Psychiatric Psychiatric: A&O x's 3, appropriate affect, intact judgment & insight - Labs CBC & Chem 7: 01/17/25 06:43 01/17/25 06:43 Labs: Abnormal Lab Results - Last 24 Hours (Table) 01/16/25 01/16/25 01/16/25 Range/Units 12:39 16:11 20:01 WBC (3.8-10.6) k/uL MCHC (31.0-37.0) g/dL Neutrophils # (1.3-7.7) k/uL Lymphocytes # (1.0-4.8) k/uL Potassium (3.5-5.1) mmol/L Chloride (98-107) mmol/L Carbon Dioxide (22-30) mmol/L BUN (7-17) mg/dL Glucose (74-99) mg/dL POC Glucose (mg/dL) 403 H 402 H (70-110) mg/dL Calcium (8.4-10.2) mg/dL AST (14-36) U/L ALT (4-34) U/L Alkaline Phosphatase (38-126) U/L Total Protein (6.3-8.2) g/dL Albumin (3.5-5.0) g/dL Fluid Appearance Hazy A (Clear) 01/17/25 01/17/25 01/17/25 Range/Units 06:09 06:43 06:43 WBC 12.9 H (3.8-10.6) k/uL MCHC 29.5 L (31.0-37.0) g/dL Neutrophils # 12.5 H (1.3-7.7) k/uL Lymphocytes # 0.2 L (1.0-4.8) k/uL Potassium 2.8 L (3.5-5.1) mmol/L Chloride 89 L (98-107) mmol/L Carbon Dioxide 44 H* (22-30) mmol/L BUN 45 H (7-17) mg/dL Glucose 190 H (74-99) mg/dL POC Glucose (mg/dL) 196 H (70-110) mg/dL Calcium 8.3 L (8.4-10.2) mg/dL AST 45 H (14-36) U/L ALT 63 H (4-34) U/L Alkaline Phosphatase 209 H (38-126) U/L Total Protein 5.6 L (6.3-8.2) g/dL Albumin 3.1 L (3.5-5.0) g/dL Fluid Appearance (Clear) Microbiology - Last 24 Hours (Table) 01/16/25 12:39 Gram Stain - Preliminary Pleural Fluid Body Fluid Culture - Preliminary 01/13/25 15:32 Blood Culture - Preliminary Blood 01/13/25 15:08 Urine Culture - Final Urine,Voided Escherichia coli Assessment and Plan Assessment: Severe and significant hypokalemia, continue potassium replacement as per prot ocol Elevated CO2, patient will benefit from BiPAP machine at night and as needed during the day Acute on chronic hypoxic and hypercapnic respiratory failure Urinary tract infection related to gram-negative arin related to E. coli sensitive to Zosyn and Rocephin Bilateral pleural effusion more so on the right side compared to left side Paroxysmal atrial fibrillation Shortness of breath Community-acquired pneumonia, less likely Chronic diastolic heart failure End-stage COPD with acute exacerbation Plan: Continue gentle diuresis Reviewed finding of pleural fluid Consider acetazolamide Resume Eliquis if okay with cardiovascular services S/p right-sided thoracentesis 1.2 L removed, cultures Gram stain negative, cytology pending, appearance more of a transudative effusion Patient would like to proceed with right-sided thoracentesis Continue bronchodilators IV steroids Time with Patient: Greater than 30
[2025-01-17] MEDS: SPIRONOLACTONE 25 MG TAB PO STA (11:07)
[2025-01-17] MEDS: APIXABAN 5 MG TAB PO SCH (11:07)
[2025-01-17] MEDS: acetaZOLAMIDE 250 MG TAB PO ONE (11:07)
[2025-01-17] MEDS: POTASSIUM CHLORIDE ER 20 MEQ TAB.ER PO STA (11:08)
[2025-01-17 11:20] LABS: Glucose,Whole Blood 404 mg/dL (70-110)
--- NOTE | 2025-01-17 11:59 | P.PN ---
Subjective HISTORY OF PRESENT ILLNESS: The patient is a 69-year-old female patient who is known to our service from before with a past medical history significant for permanent pacemaker and permanent atrial fibrillation as well as HFpEF and COPD and chronic hypoxic respiratory failure. She was seen by our service back in 2023 with heart failure and at that point the echo showed preserved LV systolic function with no significant valvular abnormalities. She presented to the hospital with progressive exertional dyspnea associated with progressive bilateral lower extremity edema and weight gain with no other cardiovascular symptoms of any pain in the chest or shortness of breath or dizziness or lightheadedness or any feeling of heart racing or fluttering. She was found to be hypoxic with more requiring oxygen that which she needs at home. Also she was found to have severe bilateral lower extremities pitting edema with weeping skin. NT proBNP came to be severely elevated. Chest x-ray showed finding consistent with heart failure and moderate to large left pleural effusion as well. EKG showed underlying atrial fibrillation with ventricular paced rhythm. First set of troponin came to be mildly abnormal. Kidney function appears to be overall stable. Hemoglobin is stable as well. She supposed to be on oral diuretics but she stated that she was not taking the diuretics for unknown reason and she is not quite sure if she was running out of the medication or was started by any of her providers. The physical examination is remarkable for extensive bilateral expiratory wheezing and severe bilateral lower extremities pitting edema as well 01/15/2025 Echo shows EF of 55 to 60%, moderate LVH, moderate to severe tricuspid regurgitation, moderate LA dilatation, PPM wire noticed in RA and RV. Continues to have shortness of breath Denies any chest pain. 01/16/2025 BP 154/65, heart rate 77, Patient's anticoagulation is added and he is planned to undergo possible thoracentesis in next 24 to 48 hours with pulmonary team. 01/17/2025 Patient examined this morning at the bedside. patient reports mild shortness of breath this morning. She denies any chest pain or pressure. She underwent thoracentesis yesterday with removal of 1200 cc. She remains on 6 L nasal cannula. Vital signs are stable. Blood pressure 102/47. Telemetry reveals atrial fibrillation/paced rhythm PHYSICAL EXAM: VITAL SIGNS: Reviewed. GENERAL: Well-developed in no acute distress. NECK: Supple. No JVD or thyromegaly LUNGS: Respirations even and unlabored. Lungs with expiratory wheezing noted HEART: Irregular rate and rhythm. S1 and S2 heard. EXTREMITIES: Normal range of motion. No clubbing or cyanosis. Peripheral pulses intact. No lower extremity edema ASSESSMENT: Shortness of breath Acute on chronic hypoxic respiratory failure Acute on chronic heart failure with preserved EF, 55 to 60% Elevated troponin, type II TX secondary to oxygen supply/demand mismatch Large left pleural effusion, status post thoracentesis Permanent atrial fibrillation History of permanent pacemaker implantation Moderate to severe tricuspid regurgitation Hypokalemia PLAN: Resume Eliquis 5 mg twice a day Increase Aldactone to 25 mg daily. Give an additional 12.5 mg now Discontinue IV Lasix. Begin oral Bumex 1 mg daily Give oral Diamox 250 mg x 1 now Replace potassium Repeat CXR tomorrow Dr. Mccarthy recommends outpatient ischemic evaluation Further recommendations pending patient course Nurse practitioner note has been reviewed by physician. Signing provider agrees with the documented findings, assessment, and plan of care documented by [employer] as a scribe. Objective - Vital Signs Vital signs: Vital Signs Temp 97.6 F 01/17/25 08:00 Pulse 66 01/17/25 11:38 Resp 20 01/17/25 11:38 BP 102/47 01/17/25 11:38 Pulse Ox 91 L 01/17/25 11:38 FiO2 Intake & Output 01/16/25 01/17/25 01/17/25 18:59 06:59 18:59 Intake Total 20 20 780 Output Total 700 Balance 20 20 80 Weight 49.2 kg 43 kg Intake: IV 20 20 Invasive Line 2 20 20 Oral 780 Output: Urine 700 Other: Voiding Method Bedside Commode # Voids 5 1 1 - Labs CBC & Chem 7: 01/17/25 06:43 01/17/25 06:43 Labs: Abnormal Lab Results - Last 24 Hours (Table) 01/16/25 01/16/25 01/16/25 Range/Units 12:39 16:11 20:01 WBC (3.8-10.6) k/uL MCHC (31.0-37.0) g/dL Neutrophils # (1.3-7.7) k/uL Lymphocytes # (1.0-4.8) k/uL Potassium (3.5-5.1) mmol/L Chloride (98-107) mmol/L Carbon Dioxide (22-30) mmol/L BUN (7-17) mg/dL Glucose (74-99) mg/dL POC Glucose (mg/dL) 403 H 402 H (70-110) mg/dL Calcium (8.4-10.2) mg/dL AST (14-36) U/L ALT (4-34) U/L Alkaline Phosphatase (38-126) U/L Total Protein (6.3-8.2) g/dL Albumin (3.5-5.0) g/dL Fluid Appearance Hazy A (Clear) 01/17/25 01/17/25 01/17/25 Range/Units 06:09 06:43 06:43 WBC 12.9 H (3.8-10.6) k/uL MCHC 29.5 L (31.0-37.0) g/dL Neutrophils # 12.5 H (1.3-7.7) k/uL Lymphocytes # 0.2 L (1.0-4.8) k/uL Potassium 2.8 L (3.5-5.1) mmol/L Chloride 89 L (98-107) mmol/L Carbon Dioxide 44 H* (22-30) mmol/L BUN 45 H (7-17) mg/dL Glucose 190 H (74-99) mg/dL POC Glucose (mg/dL) 196 H (70-110) mg/dL Calcium 8.3 L (8.4-10.2) mg/dL AST 45 H (14-36) U/L ALT 63 H (4-34) U/L Alkaline Phosphatase 209 H (38-126) U/L Total Protein 5.6 L (6.3-8.2) g/dL Albumin 3.1 L (3.5-5.0) g/dL Fluid Appearance (Clear) 01/17/25 Range/Units 11:18 WBC (3.8-10.6) k/uL MCHC (31.0-37.0) g/dL Neutrophils # (1.3-7.7) k/uL Lymphocytes # (1.0-4.8) k/uL Potassium (3.5-5.1) mmol/L Chloride (98-107) mmol/L Carbon Dioxide (22-30) mmol/L BUN (7-17) mg/dL Glucose (74-99) mg/dL POC Glucose (mg/dL) 404 H (70-110) mg/dL Calcium (8.4-10.2) mg/dL AST (14-36) U/L ALT (4-34) U/L Alkaline Phosphatase (38-126) U/L Total Protein (6.3-8.2) g/dL Albumin (3.5-5.0) g/dL Fluid Appearance (Clear) Microbiology - Last 24 Hours (Table) 01/16/25 12:39 Gram Stain - Preliminary Pleural Fluid Body Fluid Culture - Preliminary 01/13/25 15:32 Blood Culture - Preliminary Blood 01/13/25 15:08 Urine Culture - Final Urine,Voided Escherichia coli
[2025-01-17 13:10] LABS: Glucose,Whole Blood 359 mg/dL (70-110)
[2025-01-17 16:39] LABS: Glucose,Whole Blood 408 mg/dL (70-110)
[2025-01-17 20:55] LABS: Glucose,Whole Blood 322 mg/dL (70-110)
--- NOTE | 2025-01-18 03:40 | PN ---
PROGRESS NOTE Acute on chronic systolic CHF, end-stage COPD, tracheobronchitis versus pneumonia. Her leg swelling has clearly improved. We tried to wean her oxygen. Her oxygen is 91% on 6 L currently, temperature is 97.9 pulse 53, blood pressure 125/50. Continue on broad-spectrum antibiotics, steroids, breathing treatments, general diuresis. Pulmonary and Cardiology has seen. Please see further orders. MMODL / IJN: [id number] /
[2025-01-18 06:15] LABS: Glucose,Whole Blood 230 mg/dL (70-110)
--- NOTE | 2025-01-18 08:28 | XR ---
EXAMINATION TYPE: XR chest 2V DATE OF EXAM: 01/18/2025 6:27 AM COMPARISON: Chest radiographs from 01/13/2025 CLINICAL INDICATION: Female, 69 years old with history of SOB, s/p thora; TECHNIQUE: XR chest 2V Frontal and lateral views of the chest. FINDINGS: Lungs/Pleura: Prominent interstitial lung markings are seen scattered throughout the lungs. No eviden ce of focal consolidation, pneumothorax. Blunting of the costophrenic angles. Pulmonary vascularity: Unremarkable. Heart/mediastinum: Cardiomediastinal silhouette is enlarged. Two lead cardiac conduction device overl naima the left hemithorax with lead tips projecting over the right ventricle and right atrium. Musculoskeletal: No acute osseous pathology. IMPRESSION: Chronic changes without acute pulmonary process. No significant change from prior. Small bilateral pleural effusions. [facility], , 01/18/2025 8:25 AM
[2025-01-18] MEDS: POTASSIUM CHLORIDE ER 20 MEQ TAB.ER PO SCH (08:35)
[2025-01-18] MEDS: BUMETANIDE 1 MG TAB PO SCH (08:35)
[2025-01-18] MEDS: SPIRONOLACTONE 25 MG TAB PO SCH (08:36)
[2025-01-18] MEDS: FUROSEMIDE 10 MG/ML 4 ML VIAL IV STA (09:48)
--- NOTE | 2025-01-18 09:54 | P.PN ---
Subjective Progress Note Date: 01/18/25 Principal diagnosis: Acute on chronic hypoxic respiratory failure Urinary tract infection related to gram-negative arin Bilateral pleural effusion more so on the right side compared to left side Paroxysmal atrial fibrillation Shortness of breath Community-acquired pneumonia, less likely Chronic diastolic heart failure End-stage COPD with acute exacerbation January 18, 2025, patient seen evaluate examined during rounds labs reviewed medications reviewed care plan discussed, patient remains on bronchodilator direct oral anticoagulant inhaled aerosolized steroids and IV steroid continuation of home medicine also on broad-spectrum IV antibiotics with Zosyn. Patient has been on sildenafil as well. Patient remains afebrile, hemodynamic status marginal but stable last set of blood pressure was 103/60 respiratory rate is 22 heart rate 65 afebrile saturation is 91% on 6 L nasal cannula. The chest x-ray performed today shows small bilateral pleural effusions interstitial edema overall not much change compared to prior x-ray. X-ray finding also reviewed with Dr. Mccarthy from cardiovascular services which were significant for breast tissue artifact bilaterally labs not done today however sugar improved to 230 January 17, 2025, patient seen eval examined during rounds labs reviewed medications reviewed, slightly less short of breath compared to prior exam, patient is s/p right-sided thoracentesis and 1.2 L of fluid has been removed culture and cytology are pending preliminary reports Gram stain of pleural fluid no WBCs seen no organism identified so far no growth, additionally blood cultures no growth. Urine culture however positive for E. coli which is not ESBL and sensitive to Zosyn. Patient remains on 6 L nasal cannula, gets short of breath and activity and exertion, saturation in the low 90s, blood pressure stable however on the softer side 100/50, patient is intermittently bradycardic however heart rate mostly ranged from 60-70 patient remains afebrile. Labs from today reviewed white cell count of 12.9, hemoglobin hematocrit is stable, potassium was 2.8 CO2 is 44 BUN/creatinine 45/0.9 AST/ALT of 45/63 alk phos is 209 69-year-old female with history of diastolic heart failure also chronic hypoxic respiratory failure on 2 L nasal cannula, extensive history of smoking and nicotine use and COPD chronic atrial fibrillation on Eliquis for anticoa gulation, patient presented to the emergency department increasing shortness of breath as well as lower extremity edema, patient was treated by primary service with oral antibiotic steroids without any relief, of note that patient was extremely hypoxic on arrival requiring 7 L oxygen now chest x-ray shows interstitial edema with moderate to large right-sided pleural effusion. Patient had previous thoracentesis by me about a year ago for similar problems review of the x-ray and CT scan consistent with bilateral pleural effusion more so on the right side compared to left side with interstitial edema patient eventually will require thoracentesis on the right side continue diuresis in the meantime, will need to hold Eliquis. On specific questioning patient denies any dizziness lightheadedness or loss of consciousness, denies any chest pain or radiation of pain mild ongoing cough is present, shortness of breath as noted above, denies any nausea vomiting diarrhea, patient admits presence of progressive increased swelling of the lower extremity. Denies any dysuria Objective - Vital Signs Vital signs: Vital Signs Temp 97.8 F 01/18/25 08:00 Pulse 65 01/18/25 08:00 Resp 22 01/18/25 08:00 BP 103/60 01/18/25 08:00 Pulse Ox 91 L 01/18/25 08:00 FiO2 Intake & Output 01/17/25 01/18/25 01/18/25 18:59 06:59 18:59 Intake Total 780 240 Output Total 1100 1200 Balance -320 -1200 240 Weight 43.5 kg Intake: Oral 780 240 Output: Urine 1100 1200 Other: Voiding Method Bedside Commode Bedside Commode # Voids 1 - Exam General appearance: average body habitus, cooperative, disheveled - EENT Eyes: EOMI, PERRLA ENT: normal oropharynx Ears: bilateral: normal - Neck Carotids: bilateral: upstroke normal Thyroid: bilateral: normal size - Respiratory Respiratory: right: diminished, dullness improved, bilateral basal crackles negative: CTA - Cardiovascular Rhythm: regular Heart sounds: normal: S1, S2 - Gastrointestinal General gastrointestinal: organomegaly - Integumentary Integumentary: normal turgor - Neurologic Neurologic: CNII-XII intact - Musculoskeletal Musculoskeletal: gait normal, generalized weakness, strength equal bilaterally - Psychiatric Psychiatric: A&O x's 3, appropriate affect, intact judgment & insight - Labs CBC & Chem 7: 01/17/25 06:43 01/17/25 06:43 Labs: Abnormal Lab Results - Last 24 Hours (Table) 01/17/25 01/17/25 01/17/25 Range/Units 11:18 13:09 16:37 POC Glucose (mg/dL) 404 H 359 H 408 H (70-110) mg/dL 01/17/25 01/18/25 Range/Units 20:53 06:10 POC Glucose (mg/dL) 322 H 230 H (70-110) mg/dL Microbiology - Last 24 Hours (Table) 01/16/25 12:39 Gram Stain - Preliminary Pleural Fluid Body Fluid Culture - Preliminary Assessment and Plan Assessment: Severe and significant hypokalemia, continue potassium replacement as per p rotocol, check labs tomorrow Elevated CO2, patient will benefit from BiPAP machine at night and as needed during the day, BiPAP order entered Acute on chronic hypoxic and hypercapnic respiratory failure Urinary tract infection related to gram-negative arin related to E. coli sensitive to Zosyn and Rocephin Bilateral pleural effusion more so on the right side compared to left side Paroxysmal atrial fibrillation Shortness of breath Community-acquired pneumonia, less likely Chronic diastolic heart failure End-stage COPD with acute exacerbation Plan: Continue gentle diuresis, extra dose of Lasix Reviewed finding of pleural fluid Consider acetazolamide Resume Eliquis if okay with cardiovascular services S/p right-sided thoracentesis 1.2 L removed, cultures Gram stain negative, cytology pending, appearance more of a transudative effusion Patient would like to proceed with right-sided thoracentesis Continue bronchodilators IV steroids Time with Patient: Greater than 30
[2025-01-18 11:26] LABS: Glucose,Whole Blood 457 mg/dL (70-110)
--- NOTE | 2025-01-18 11:29 | P.PN ---
Subjective HISTORY OF PRESENT ILLNESS: The patient is a 69-year-old female patient who is known to our service from before with a past medical history significant for permanent pacemaker and permanent atrial fibrillation as well as HFpEF and COPD and chronic hypoxic respiratory failure. She was seen by our service back in 2023 with heart failure and at that point the echo showed preserved LV systolic function with no significant valvular abnormalities. She presented to the hospital with progressive exertional dyspnea associated with progressive bilateral lower extremity edema and weight gain with no other cardiovascular symptoms of any pain in the chest or shortness of breath or dizziness or lightheadedness or any feeling of heart racing or fluttering. She was found to be hypoxic with more requiring oxygen that which she needs at home. Also she was found to have severe bilateral lower extremities pitting edema with weeping skin. NT proBNP came to be severely elevated. Chest x-ray showed finding consistent with heart failure and moderate to large left pleural effusion as well. EKG showed underlying atrial fibrillation with ventricular paced rhythm. First set of troponin came to be mildly abnormal. Kidney function appears to be overall stable. Hemoglobin is stable as well. She supposed to be on oral diuretics but she stated that she was not taking the diuretics for unknown reason and she is not quite sure if she was running out of the medication or was started by any of her providers. The physical examination is remarkable for extensive bilateral expiratory wheezing and severe bilateral lower extremities pitting edema as well 01/15/2025 Echo shows EF of 55 to 60%, moderate LVH, moderate to severe tricuspid regurgitation, moderate LA dilatation, PPM wire noticed in RA and RV. Continues to have shortness of breath Denies any chest pain. 01/16/2025 BP 154/65, heart rate 77, Patient's anticoagulation is added and he is planned to undergo possible thoracentesis in next 24 to 48 hours with pulmonary team. 01/17/2025 Patient examined this morning at the bedside. patient reports mild shortness of breath this morning. She denies any chest pain or pressure. She underwent thoracentesis yesterday with removal of 1200 cc. She remains on 6 L nasal cannula. Vital signs are stable. Blood pressure 102/47. Telemetry reveals atrial fibrillation/paced rhythm 01/18/2025 Patient examined this morning at the bedside. Patient reports mild shortness of breath. She denies chest pain or pressure. She is currently on oral diuretics. Pulmonary medicine ordered a one-time dose of IV Lasix this morning. Labs are pending from this morning PHYSICAL EXAM: VITAL SIGNS: Reviewed. GENERAL: Well-developed in no acute distress. NECK: Supple. No JVD or thyromegaly LUNGS: Respirations even and unlabored. Lungs with expiratory wheezing noted HEART: Irregular rate and rhythm. S1 and S2 heard. EXTREMITIES: Normal range of motion. No clubbing or cyanosis. Peripheral pulses intact. No lower extremity edema ASSESSMENT: Shortness of breath Acute on chronic hypoxic respiratory failure Acute on chronic heart failure with preserved EF, 55 to 60% Elevated troponin, type II [place] secondary to oxygen supply/demand mismatch Large left pleural effusion, status post thoracentesis Permanent atrial fibrillation History of permanent pacemaker implantation Moderate to severe tricuspid regurgitation Hypokalemia PLAN: Awaiting labs from this morning Continue current cardiac medications including Eliquis, Lipitor, Bumex, Farxiga, losartan, metoprolol, and Aldactone Dr. Mccarthy recommends outpatient ischemic evaluation Further recommendations pending patient course Nurse practitioner note has been reviewed by physician. Signing provider agrees with the documented findings, assessment, and plan of care documented by REQUIREMENTS ENGINEER as a scribe. Objective - Vital Signs Vital signs: Vital Signs Temp 97.8 F 01/18/25 08:00 Pulse 65 01/18/25 08:00 Resp 22 01/18/25 08:00 BP 103/60 01/18/25 08:00 Pulse Ox 91 L 01/18/25 08:00 FiO2 Intake & Output 01/17/25 01/18/25 01/18/25 18:59 06:59 18:59 Intake Total 780 240 Output Total 1100 1200 Balance -320 -1200 240 Weight 43.5 kg Intake: Oral 780 240 Output: Urine 1100 1200 Other: Voiding Method Bedside Commode Bedside Commode # Voids 1 - Labs CBC & Chem 7: 01/17/25 06:43 01/17/25 06:43 Labs: Abnormal Lab Results - Last 24 Hours (Table) 01/17/25 01/17/25 01/17/25 Range/Units 13:09 16:37 20:53 POC Glucose (mg/dL) 359 H 408 H 322 H (70-110) mg/dL 01/18/25 01/18/25 Range/Units 06:10 11:24 POC Glucose (mg/dL) 230 H 457 H (70-110) mg/dL Microbiology - Last 24 Hours (Table) 01/16/25 12:39 Gram Stain - Preliminary Pleural Fluid Body Fluid Culture - Preliminary
[2025-01-18 12:09] LABS: African American GFR (CKD) 70 (>60 ml/min/1.73 sqM); Blood Urea Nitrogen 61 mg/dL (7-17); Calcium 8.3 mg/dL (8.4-10.2); Chloride 92 mmol/L (98-107); Glucose 481 mg/dL (74-99); Magnesium 2.3 mg/dL (1.6-2.3); Non-African American GFR(CKD) 61 (>60 ml/min/1.73 sqM); Potassium 4.9 mmol/L (3.5-5.1); Sodium 135 mmol/L (137-145)
[2025-01-18 12:15] LABS: Anion Gap 6 mmol/L
[2025-01-18 12:28] LABS: Carbon Dioxide 37 mmol/L (22-30)
[2025-01-18 16:42] LABS: Glucose,Whole Blood 449 mg/dL (70-110)
[2025-01-18 19:42] LABS: Glucose,Whole Blood 392 mg/dL (70-110)
[2025-01-18] MEDS: INSULIN GLARGINE (LANTUS) 100 UNIT/ML SYR SQ SCH (20:19)
--- NOTE | 2025-01-18 23:17 | PN ---
PROGRESS NOTE Katy Tovar is slowly improving. She is going to wear BiPAP at night and wear oxygen during the day. She is still sating in the low 90s on 6L. OBJECTIVE: VITAL SIGNS: Blood pressure 125/50, temperature 98, pulse 72, respiratory rate 18 to 20. GENERAL: She looks weak for stated age. CARDIOVASCULAR: S1, S2. LUNGS: Transmitted upper airway sounds. EXTREMITIES: Show 2+ edema. NEUROLOGIC: Intact. PSYCHIATRIC: Fair mood and affect. LABORATORY DATA: Sodium 135, potassium 4.9, CO2 is 37, BUN 61, creatinine 0.96. Sugars are 300s to 400s. We will start her on Lantus 20 units once a day, insulin long acting once a day. Continue on current treatment for her breathing. BiPAP tonight. IV antibiotics. Wait for Dr. Land's recommendations. Acute on chronic CHF, diastolic; COPD; pulmonary hypertension; pneumonia; prognosis is guarded; continue current treatment. BiPAP at night should help. MMODL / IJN: [id number] /
[2025-01-19 05:57] LABS: Glucose,Whole Blood 130 mg/dL (70-110)
[2025-01-19 07:03] LABS: Basophils % (A) 0 %; Eosinophils % (A) 0 %; HCT 38.1 % (34.0-46.0); HGB 11.4 gm/dL (11.4-16.0); Hypochromasia Marked; Lymphocytes # (A) 0.1 k/uL (1.0-4.8); Lymphocytes % (A) 1 %; MCV 96.6 fL (80.0-100.0); Mean Platelet Volume 8.3; Monocytes # (A) 0.2 k/uL (0-1.0); Monocytes % (A) 1 %; Neutrophils % (A) 97 %; Platelet Count 146 k/uL (150-450); RBC 3.94 m/uL (3.80-5.40); RDW 15.6 % (11.5-15.5); WBC 12.3 k/uL (3.8-10.6)
[2025-01-19 07:10] LABS: ALT 91 U/L (4-34); AST 63 U/L (14-36); African American GFR (CKD) 85 (>60 ml/min/1.73 sqM); Albumin 3.1 g/dL (3.5-5.0); Alkaline Phosphatase 296 U/L (38-126); Blood Urea Nitrogen 57 mg/dL (7-17); Calcium 8.8 mg/dL (8.4-10.2); Chloride 96 mmol/L (98-107); Glucose 85 mg/dL (74-99); Non-African American GFR(CKD) 73 (>60 ml/min/1.73 sqM); Potassium 4.1 mmol/L (3.5-5.1); Sodium 141 mmol/L (137-145); Total Bilirubin 0.6 mg/dL (0.2-1.3); Total Protein 5.7 g/dL (6.3-8.2)
[2025-01-19 07:19] LABS: Anion Gap 6 mmol/L
[2025-01-19 07:30] LABS: Carbon Dioxide 39 mmol/L (22-30)
--- NOTE | 2025-01-19 09:36 | P.PN ---
Subjective Progress Note Date: 01/19/25 Principal diagnosis: Acute on chronic hypoxic respiratory failure Urinary tract infection related to gram-negative arin Bilateral pleural effusion more so on the right side compared to left side Paroxysmal atrial fibrillation Shortness of breath Community-acquired pneumonia, less likely Chronic diastolic heart failure End-stage COPD with acute exacerbation January 19, 2025, patient seen eval examined during rounds labs reviewed medications and care plan discussed, patient remains short of breath unable to wean the oxygen down from 6 L. Extra dose of Lasix has been given as well. WBC count 12.3 hemoglobin hematocrit 11/38 platelet count of 146, sodium 141 potassium 4.1 BUN/creatinine is 57/0.8 slightly improved, CO2 is also improved to 39. AST ALT mildly elevated with alk phos of 296. Chest x-ray from yesterday reviewed very small minimal effusion along with chronic changes bilateral tiny pleural effusion. Cytology results reviewed no malignancy or malignant cells seen January 18, 2025, patient seen evaluate examined during rounds labs reviewed medications reviewed care plan discussed, patient remains on bronchodilator direct oral anticoagulant inhaled aerosolized steroids and IV steroid continuation of home medicine also on broad-spectrum IV antibiotics with Zosyn. Patient has been on sildenafil as well. Patient remains afebrile, hemodynamic status marginal but stable last set of blood pressure was 103/60 respiratory rate is 22 heart rate 65 afebrile saturation is 91% on 6 L nasal cannula. The chest x-ray performed today shows small bilateral pleural effusions interstitial edema overall not much change compared to prior x-ray. X-ray finding also reviewed with Dr. Mccarthy from cardiovascular services which were significant for breast tissue artifact bilaterally labs not done today however sugar improved to 230 January 17, 2025, patient seen eval examined during rounds labs reviewed medications reviewed, slightly less short of breath compared to prior exam, patient is s/p right-sided thoracentesis and 1.2 L of fluid has been removed culture and cytology are pending preliminary reports Gram stain of pleural fluid no WBCs seen no organism identified so far no growth, additionally blood cultures no growth. Urine culture however positive for E. coli which is not ESBL and sensitive to Zosyn. Patient remains on 6 L nasal cannula, gets short of breath and activity and exertion, saturation in the low 90s, blood pressure stable however on the softer side 100/50, patient is intermittently bradycardic however heart rate mostly ranged from 60-70 patient remains afebrile. Labs from today reviewed white cell count of 12.9, hemoglobin hematocrit is stable, potassium was 2.8 CO2 is 44 BUN/creatinine 45/0.9 AST/ALT of 45/63 alk phos is 209 69-year-old female with history of diastolic heart failure also chronic hypoxic respiratory failure on 2 L nasal cannula, extensive history of smoking and nicotine use and COPD chronic atrial fibrillation on Eliquis for anticoagulation, patient presented to the emergency department increasing shortn ess of breath as well as lower extremity edema, patient was treated by primary service with oral antibiotic steroids without any relief, of note that patient was extremely hypoxic on arrival requiring 7 L oxygen now chest x-ray shows interstitial edema with moderate to large right-sided pleural effusion. Patient had previous thoracentesis by me about a year ago for similar problems review of the x-ray and CT scan consistent with bilateral pleural effusion more so on the right side compared to left side with interstitial edema patient eventually will require thoracentesis on the right side continue diuresis in the meantime, will need to hold Eliquis. On specific questioning patient denies any dizziness lightheadedness or loss of consciousness, denies any chest pain or radiation of pain mild ongoing cough is present, shortness of breath as noted above, denies any nausea vomiting diarrhea, patient admits presence of progressive increased swelling of the lower extremity. Denies any dysuria Objective - Vital Signs Vital signs: Vital Signs Temp 98.0 F 01/19/25 08:00 Pulse 64 01/19/25 08:16 Resp 18 01/19/25 08:00 BP 116/61 01/19/25 08:00 Pulse Ox 91 L 01/19/25 08:00 FiO2 Intake & Output 01/18/25 01/19/25 01/19/25 18:59 06:59 18:59 Intake Total 2560 480 358 Balance 2560 480 358 Weight 43.1 kg Intake: Oral 2560 480 358 Other: Voiding Method Bedside Commode - Exam General appearance: average body habitus, cooperative, disheveled - EENT Eyes: EOMI, PERRLA ENT: normal oropharynx Ears: bilateral: normal - Neck Carotids: bilateral: upstroke normal Thyroid: bilateral: normal size - Respiratory Respiratory: right: diminished, dullness improved, bilateral basal crackles negative: CTA - Cardiovascular Rhythm: regular Heart sounds: normal: S1, S2 - Gastrointestinal General gastrointestinal: organomegaly - Integumentary Integumentary: normal turgor - Neurologic Neurologic: CNII-XII intact - Musculoskeletal Musculoskeletal: gait normal, generalized weakness, strength equal bilaterally - Psychiatric Psychiatric: A&O x's 3, appropriate affect, intact judgment & insight - Labs CBC & Chem 7: 01/19/25 06:28 01/19/25 06:28 Labs: Abnormal Lab Results - Last 24 Hours (Table) 01/17/25 01/18/25 01/18/25 Range/Units 06:43 11:24 11:36 WBC (3.8-10.6) k/uL MCHC (31.0-37.0) g/dL RDW (11.5-15.5) % Plt Count (150-450) k/uL Neutrophils # (1.3-7.7) k/uL Lymphocytes # (1.0-4.8) k/uL Sodium 135 L (137-145) mmol/L Chloride 92 L (98-107) mmol/L Carbon Dioxide 37 H (22-30) mmol/L BUN 61 H (7-17) mg/dL Glucose 481 H (74-99) mg/dL POC Glucose (mg/dL) 457 H (70-110) mg/dL Hemoglobin A1c 7.9 H (<=6.0) % Calcium 8.3 L (8.4-10.2) mg/dL AST (14-36) U/L ALT (4-34) U/L Alkaline Phosphatase (38-126) U/L Total Protein (6.3-8.2) g/dL Albumin (3.5-5.0) g/dL 01/18/25 01/18/25 01/19/25 Range/Units 16:41 19:38 05:52 WBC (3.8-10.6) k/uL MCHC (31.0-37.0) g/dL RDW (11.5-15.5) % Plt Count (150-450) k/uL Neutrophils # (1.3-7.7) k/uL Lymphocytes # (1.0-4.8) k/uL Sodium (137-145) mmol/L Chloride (98-107) mmol/L Carbon Dioxide (22-30) mmol/L BUN (7-17) mg/dL Glucose (74-99) mg/dL POC Glucose (mg/dL) 449 H 392 H 130 H (70-110) mg/dL Hemoglobin A1c (<=6.0) % Calcium (8.4-10.2) mg/dL AST (14-36) U/L ALT (4-34) U/L Alkaline Phosphatase (38-126) U/L Total Protein (6.3-8.2) g/dL Albumin (3.5-5.0) g/dL 01/19/25 01/19/25 Range/Units 06:28 06:28 WBC 12.3 H (3.8-10.6) k/uL MCHC 30.0 L (31.0-37.0) g/dL RDW 15.6 H (11.5-15.5) % Plt Count 146 L (150-450) k/uL Neutrophils # 12.0 H (1.3-7.7) k/uL Lymphocytes # 0.1 L (1.0-4.8) k/uL Sodium (137-145) mmol/L Chloride 96 L (98-107) mmol/L Carbon Dioxide 39 H (22-30) mmol/L BUN 57 H (7-17) mg/dL Glucose (74-99) mg/dL POC Glucose (mg/dL) (70-110) mg/dL Hemoglobin A1c (<=6.0) % Calcium (8.4-10.2) mg/dL AST 63 H (14-36) U/L ALT 91 H (4-34) U/L Alkaline Phosphatase 296 H (38-126) U/L Total Protein 5.7 L (6.3-8.2) g/dL Albumin 3.1 L (3.5-5.0) g/dL Microbiology - Last 24 Hours (Table) 01/16/25 12:39 Gram Stain - Preliminary Pleural Fluid Body Fluid Culture - Preliminary 01/13/25 15:32 Blood Culture - Final Blood Assessment and Plan Assessment: Acute on chronic hypoxic and hypercapnic respiratory failure Urinary tract infection related to gram-negative arin related to E. coli sensitive to Zosyn and Rocephin Elevated CO2, patient will benefit from BiPAP machine at night and as needed during the day, BiPAP order entered however patient has not been placed will check with respiratory Severe and significant hypokalemia, continue potassium replacement as per protocol, Bilateral pleural effusion more so on the right side compared to left side Paroxysmal atrial fibrillation Shortness of breath Community-acquired pneumonia, less likely Chronic diastolic heart failure End-stage COPD with acute exacerbation Plan: Continue gentle diuresis, extra dose of Lasix given without any significant improvement in oxygen Reviewed finding of pleural fluid, cytology is negative Consider acetazolamide Continue Eliquis S/p right-sided thoracentesis 1.2 L removed, cultures Gram stain negative, cytology pending, appearance more of a transudative effusion with negative cytology cultures all negative Patient would like to proceed with right-sided thoracentesis Continue bronchodilators IV steroids Finish 5 to 7-day therapy with antibiotics Time with Patient: Greater than 30
[2025-01-19 11:27] LABS: Glucose,Whole Blood 430 mg/dL (70-110)
--- NOTE | 2025-01-19 13:27 | P.PN ---
Subjective HISTORY OF PRESENT ILLNESS: The patient is a 69-year-old female patient who is known to our service from before with a past medical history significant for permanent pacemaker and permanent atrial fibrillation as well as HFpEF and COPD and chronic hypoxic respiratory failure. She was seen by our service back in 2023 with heart failure and at that point the echo showed preserved LV systolic function with no significant valvular abnormalities. She presented to the hospital with progressive exertional dyspnea associated with progressive bilateral lower extremity edema and weight gain with no other cardiovascular symptoms of any pain in the chest or shortness of breath or dizziness or lightheadedness or any feeling of heart racing or fluttering. She was found to be hypoxic with more requiring oxygen that which she needs at home. Also she was found to have severe bilateral lower extremities pitting edema with weeping skin. NT proBNP came to be severely elevated. Chest x-ray showed finding consistent with heart failure and moderate to large left pleural effusion as well. EKG showed underlying atrial fibrillation with ventricular paced rhythm. First set of troponin came to be mildly abnormal. Kidney function appears to be overall stable. Hemoglobin is stable as well. She supposed to be on oral diuretics but she stated that she was not taking the diuretics for unknown reason and she is not quite sure if she was running out of the medication or was started by any of her providers. The physical examination is remarkable for extensive bilateral expiratory wheezing and severe bilateral lower extremities pitting edema as well 01/15/2025 Echo shows EF of 55 to 60%, moderate LVH, moderate to severe tricuspid regurgitation, moderate LA dilatation, PPM wire noticed in RA and RV. Continues to have shortness of breath Denies any chest pain. 01/16/2025 BP 154/65, heart rate 77, Patient's anticoagulation is added and he is planned to undergo possible thoracentesis in next 24 to 48 hours with pulmonary team. 01/17/2025 Patient examined this morning at the bedside. patient reports mild shortness of breath this morning. She denies any chest pain or pressure. She underwent thoracentesis yesterday with removal of 1200 cc. She remains on 6 L nasal cannula. Vital signs are stable. Blood pressure 102/47. Telemetry reveals atrial fibrillation/paced rhythm 01/18/2025 Patient examined this morning at the bedside. Patient reports mild shortness of breath. She denies chest pain or pressure. She is currently on oral diuretics. Pulmonary medicine ordered a one-time dose of IV Lasix this morning. Labs are pending from this morning 01/19/2025 Patient examined this morning at the bedside. Patient states that she is feeling better today. Patient currently denies chest pain or pressure. She denies shortness of breath. Vital signs are stable. She remains on 6 L nasal cannula. BUN 57. Creatinine 0.82. PHYSICAL EXAM: VITAL SIGNS: Reviewed. GENERAL: Well-developed in no acute distress. NECK: Supple. No JVD or thyromegaly LUNGS: Respirations even and unlabored. Lungs with expiratory wheezing noted HEART: Irregular rate and rhythm. S1 and S2 heard. EXTREMITIES: Normal range of motion. No clubbing or cyanosis. Peripheral pulses intact. No lower extremity edema ASSESSMENT: Shortness of breath Acute on chronic hypoxic respiratory failure Acute on chronic heart failure with preserved EF, 55 to 60% Elevated troponin, type II [place] secondary to oxygen supply/demand mismatch Large left pleural effusion, status post thoracentesis Permanent atrial fibrillation History of permanent pacemaker implantation Moderate to severe tricuspid regurgitation Hypokalemia PLAN: Continue current cardiac medications including Eliquis, Lipitor, Bumex, Farxiga, losartan, metoprolol, and Aldactone Dr. Mccarthy recommends outpatient ischemic evaluation We will sign off. Please reconsult if needed. Nurse practitioner note has been reviewed by physician. Signing provider agrees with the documented findings, assessment, and plan of care documented by JEWEL STAKER as a scribe. Objective - Vital Signs Vital signs: Vital Signs Temp 97.9 F 01/19/25 04:00 Pulse 64 01/19/25 08:16 Resp 21 01/19/25 04:00 BP 115/55 01/19/25 04:00 Pulse Ox 95 01/19/25 04:00 FiO2 Intake & Output 01/18/25 01/19/25 01/19/25 18:59 06:59 18:59 Intake Total 2560 480 Balance 2560 480 Weight 43.1 kg Intake: Oral 2560 480 Other: Voiding Method Bedside Commode - Labs CBC & Chem 7: 01/19/25 06:28 01/19/25 06:28 Labs: Abnormal Lab Results - Last 24 Hours (Table) 01/17/25 01/18/25 01/18/25 Range/Units 06:43 11:24 11:36 WBC (3.8-10.6) k/uL MCHC (31.0-37.0) g/dL RDW (11.5-15.5) % Plt Count (150-450) k/uL Neutrophils # (1.3-7.7) k/uL Lymphocytes # (1.0-4.8) k/uL Sodium 135 L (137-145) mmol/L Chloride 92 L (98-107) mmol/L Carbon Dioxide 37 H (22-30) mmol/L BUN 61 H (7-17) mg/dL Glucose 481 H (74-99) mg/dL POC Glucose (mg/dL) 457 H (70-110) mg/dL Hemoglobin A1c 7.9 H (<=6.0) % Calcium 8.3 L (8.4-10.2) mg/dL AST (14-36) U/L ALT (4-34) U/L Alkaline Phosphatase (38-126) U/L Total Protein (6.3-8.2) g/dL Albumin (3.5-5.0) g/dL 01/18/25 01/18/25 01/19/25 Range/Units 16:41 19:38 05:52 WBC (3.8-10.6) k/uL MCHC (31.0-37.0) g/dL RDW (11.5-15.5) % Plt Count (150-450) k/uL Neutrophils # (1.3-7.7) k/uL Lymphocytes # (1.0-4.8) k/uL Sodium (137-145) mmol/L Chloride (98-107) mmol/L Carbon Dioxide (22-30) mmol/L BUN (7-17) mg/dL Glucose (74-99) mg/dL POC Glucose (mg/dL) 449 H 392 H 130 H (70-110) mg/dL Hemoglobin A1c (<=6.0) % Calcium (8.4-10.2) mg/dL AST (14-36) U/L ALT (4-34) U/L Alkaline Phosphatase (38-126) U/L Total Protein (6.3-8.2) g/dL Albumin (3.5-5.0) g/dL 01/19/25 01/19/25 Range/Units 06:28 06:28 WBC 12.3 H (3.8-10.6) k/uL MCHC 30.0 L (31.0-37.0) g/dL RDW 15.6 H (11.5-15.5) % Plt Count 146 L (150-450) k/uL Neutrophils # 12.0 H (1.3-7.7) k/uL Lymphocytes # 0.1 L (1.0-4.8) k/uL Sodium (137-145) mmol/L Chloride 96 L (98-107) mmol/L Carbon Dioxide 39 H (22-30) mmol/L BUN 57 H (7-17) mg/dL Glucose (74-99) mg/dL POC Glucose (mg/dL) (70-110) mg/dL Hemoglobin A1c (<=6.0) % Calcium (8.4-10.2) mg/dL AST 63 H (14-36) U/L ALT 91 H (4-34) U/L Alkaline Phosphatase 296 H (38-126) U/L Total Protein 5.7 L (6.3-8.2) g/dL Albumin 3.1 L (3.5-5.0) g/dL Microbiology - Last 24 Hours (Table) 01/16/25 12:39 Gram Stain - Preliminary Pleural Fluid Body Fluid Culture - Preliminary 01/13/25 15:32 Blood Culture - Final Blood
[2025-01-19 16:14] LABS: Glucose,Whole Blood 393 mg/dL (70-110)
[2025-01-19 19:49] LABS: Glucose,Whole Blood 330 mg/dL (70-110)
[2025-01-19] MEDS: LORATADINE 10 MG TAB PO SCH (20:36)
[2025-01-19] MEDS: IPRATROPIUM BROMIDE 0.06% NASAL SPRAY (15 ML) NASAL SCH (20:43)
[2025-01-20 05:55] LABS: Glucose,Whole Blood 219 mg/dL (70-110)
--- NOTE | 2025-01-20 08:56 | PN ---
PROGRESS NOTE Still saturating at 99 on 6 L. Blood pressure is 130s to 150s over 60s to 70s, pulse 60, respiratory rate 18 to 20, still has respiratory distress, this is slowly improving. Less edema in her legs. We started physical therapy, chest physiotherapy. We are treating her for UTI, acute on chronic hypoxemic respiratory failure, bilateral pleural effusion, paroxysmal AFib, acute on chronic diastolic CHF, community-acquired pneumonia, diastolic heart failure, end-stage COPD. Extremities, 2+ edema. Cardiovascular S1, S2. Lungs, scattered rhonchi and wheeze. Psych, fair mood and affect. White count is still elevated at 12.3. Sugars are 400. Started her on 20 of Lantus everyday. Possibly started acetazolamide, Eliquis, status post thoracentesis. Prognosis is extremely guarded. Possibly repeat a CAT scan of her lungs. If she does not improve, do a swallow eval. Start her on Lantus 20 for insulin. Prognosis is guarded. MMODL / IJN: [id number] /
[2025-01-20 11:37] LABS: Glucose,Whole Blood 264 mg/dL (70-110)
[2025-01-20] MEDS: PIPERACILLIN-TAZOBACTAM 3.375 GM in SODIUM CHLORIDE 0.9% 100 ML IVPB SCH (15:52)
[2025-01-20 16:15] LABS: Glucose,Whole Blood 423 mg/dL (70-110)
[2025-01-20 20:11] LABS: Glucose,Whole Blood 266 mg/dL (70-110)
[2025-01-21 06:07] LABS: Glucose,Whole Blood 103 mg/dL (70-110)
[2025-01-21 07:35] LABS: ALT 168 U/L (4-34); AST 87 U/L (14-36); African American GFR (CKD) >90 (>60 ml/min/1.73 sqM); Albumin 3.2 g/dL (3.5-5.0); Alkaline Phosphatase 371 U/L (38-126); Anion Gap 3 mmol/L; Basophils % (A) 0 %; Blood Urea Nitrogen 66 mg/dL (7-17); Carbon Dioxide 37 mmol/L (22-30); Chloride 102 mmol/L (98-107); Eosinophils % (A) 0 %; Glucose 91 mg/dL (74-99); HCT 36.4 % (34.0-46.0); HGB 10.7 gm/dL (11.4-16.0); Hypochromasia Marked; Lymphocytes # (A) 0.1 k/uL (1.0-4.8); Lymphocytes % (A) 2 %; MCH 28.5 pg (25.0-35.0); MCHC 29.4 g/dL (31.0-37.0); MCV 96.7 fL (80.0-100.0); Mean Platelet Volume 8.7; Monocytes # (A) 0.2 k/uL (0-1.0); Monocytes % (A) 2 %; Neutrophils # (A) 8.7 k/uL (1.3-7.7); Neutrophils % (A) 95 %; Non-African American GFR(CKD) 84 (>60 ml/min/1.73 sqM); Platelet Count 154 k/uL (150-450); Potassium 5.1 mmol/L (3.5-5.1); RBC 3.77 m/uL (3.80-5.40); RDW 15.7 % (11.5-15.5); Sodium 142 mmol/L (137-145); Total Bilirubin 0.7 mg/dL (0.2-1.3); Total Protein 5.8 g/dL (6.3-8.2); WBC 9.1 k/uL (3.8-10.6)
[2025-01-21 11:28] LABS: Glucose,Whole Blood 321 mg/dL (70-110)
[2025-01-21 16:09] LABS: Glucose,Whole Blood 308 mg/dL (70-110)
[2025-01-21 20:07] LABS: Glucose,Whole Blood 351 mg/dL (70-110)
[2025-01-21] MEDS: BUMETANIDE 0.25 MG/ML 4 ML VIAL IVP STA (21:14)
[2025-01-21] MEDS: methylPREDNISolone SOD SUCCI 125 MG/2 ML VIAL IV STA (21:14)
[2025-01-21 22:30] LABS: Influenza A Not Detected (Not Detectd); Influenza B Not Detected (Not Detectd); RSV Not Detected (Not Detectd)
[2025-01-21] MEDS ORDERED: ALBUTEROL NEBULIZED 2.5 MG/3 ML INHALATION PRN (22:40)
[2025-01-21] MEDS ORDERED: ENOXAPARIN 40 MG/0.4 ML SYRINGE SQ SCH (22:45)
[2025-01-21] MEDS ORDERED: ALBUTEROL HFA INHALER INHALATION PRN (22:49)
[2025-01-22] MEDS: CHOLECALCIFEROL 125 MCG (5000 IU) TABLET PO SCH (00:33)
[2025-01-22] MEDS: ASCORBIC ACID 500 MG TAB PO SCH (00:33)
--- NOTE | 2025-01-22 01:19 | CT ---
EXAM: CT Angiography Chest With Intravenous Contrast CLINICAL HISTORY: ITS.REASON CT Reason: pe TECHNIQUE: Axial computed tomographic angiography images of the chest with intravenous contrast. CTDI is 7.2 mGy and DLP is 217.5 mGy-cm. This CT exam was performed using one or more of the following dose reduction techniques: automated exposure control, adjustment of the mA and/or kV according to patient size, and/or use of iterative reconstruction technique. MIP reconstructed images were created and reviewed. COMPARISON: CT chest: 01/13/2025 FINDINGS: A left subclavian dual-lead AICD/cardiac pacemaker present. Pulmonary arteries: An enlarged main pulmonary artery: 37 mm in diameter. No pulmonary embolism. Aorta: No acute findings. No thoracic aortic aneurysm. Calcified atherosclerosis of the aortic arch/descending aorta. Heart: Moderate cardiomegaly. Left coronary arterial calcified atherosclerosis. No significant pericardial effusion. No evidence of RV dysfunction. Lungs: Central airways are patent. Bilateral bronchial wall thickening with tubular bronchiectasis. Moderately severe centrilobular emphysema. Interval increased reticular interstitial infiltrations of the both lungs predominantly of the right upper lobe. A bandlike peribronchial consolidation/atelectasis of the posterior right middle lobe with ectatic air bronchograms. Bibasilar patchy areas of consolidation are seen RT>LT. Pleural space: Small/moderate volume bilateral pleural effusions. No pneumothorax. Bones/joints: Osteopenia. Redemonstrates T5, T6, T8 vertebral compression fractures/ deformities with loss of 80-90% body heights. Increased thoracic kyphosis. Soft tissues: Diffuse loss of body wall fat/cachexia. Lymph nodes: Small reactive mediastinal/hilar lymph nodes. No enlarged lymph nodes. IMPRESSION: No evidence of pulmonary embolism, aortic aneurysm or dissection. Cardiomegaly. An enlarged main pulmonary artery, reflective of sequela of secondary pulmonary arterial hypertension. Moderately severe centrilobular pulmonary emphysema. Bilateral bronchial wall thickening and tubular bronchiectasis. Bilaterally pulmonary increased reticular interstitial infiltrates/pneumonia predominantly of the right upper lobe. A bandlike peribronchial consolidation/atelectasis posteriorly in the right middle lobe. Patchy areas of consolidation seen in both lower lobes RT>LT. Small/moderate volume bilateral pleural effusions. Osteopenia. Redemonstrates multiple thoracic vertebral compression deformity/fractures with loss of 80-90% body heights. Increased thoracic kyphosis. .
[2025-01-22] MEDS: methylPREDNISolone SOD SUCCI 125 MG/2 ML VIAL IV SCH (03:57)
[2025-01-22 04:29] LABS: Glucose,Whole Blood 222 mg/dL (70-110)
[2025-01-22] MEDS ORDERED: Magnesium Replacement Protocol 1 EACH MISC MISCELLANE PRN (04:46)
[2025-01-22] MEDS ORDERED: Potassium Replacement Protocol 1 EACH MISC MISCELLANE PRN (04:46)
[2025-01-22] MEDS: FUROSEMIDE 10 MG/ML 10 ML VIAL IV STA (04:54)
--- NOTE | 2025-01-22 05:28 | P.CNPUL ---
History of Present Illness Consult date: 01/22/25 Requesting physician: Reg Meek Reason for consult: other (ICU management) Chief complaint: Increased work of breathing History of present illness: Patient is a 69-year-old female with past medical history significant for severe COPD, chronic hypoxemic respiratory failure, chronic tobacco smoker, atrial fibrillation, hypertension, diastolic heart failure. Patient is being seen in new consultation for ICU management today, 01/22/2025. Patient was reportedly at increased work of breathing and oxygen demands over the last 12 to 24 hours. Patient originally admitted to [address] [place] [address] on 01/13/2025 with acute on chronic hypoxemic respiratory failure secondary to a combination of factors inc luding acute COPD exacerbation, acute on chronic diastolic heart failure, bilateral pleural effusions. She has been receiving Bumex 1 mg twice daily. Also, underwent right-sided thoracentesis on 01/16, and a total of 1.2 L of fluid was evacuated from the pleural space. Fluid analysis consistent with transudative effusion. More recently, patient also tested positive for COVID. Early this morning, patient developed increased oxygen demands and respiratory distress. Placed on BiPAP with settings 10/5 and FiO2 of 70%. Chest CTA did not show any evidence of pulmonary embolism, aortic aneurysm, or dissection. Moderate to severe centrilobular pulmonary emphysema with bilateral bronchial wall thickening and tubular bronchiectasis. Bilateral pulmonary increased reticular and interstitial infiltrates. Bandlike peribronchial consolidation/atelectasis within the posterior right middle lobe. Small to moderate-sized bilateral pleural effusions with patchy areas of consolidation, right greater than left. Enlarged pulmonary artery likely sequela of secondary pulmonary arterial hypertension. Most recent labs from yesterday including a CBC with a WBC count of 9.1, hemoglobin 10.7, platelets 154. BMP: Sodium 142, potassium 5.1, chloride 102, serum bicarb 37, BUN 66, creatinine 0.74, glucose 91. LFTs mildly elevated. Total bilirubin 0.7. Urine culture positive for E. coli. Serial troponins 0.08, 0.1, 0.09, and more recently 0.09. NT proBNP from admission significantly elevated at 16,700. Echocardiogram done this admission estimated preserved left ventricular ejection fraction of 55 to 60%, severe pulmonary hypertension with an RVSP of 68 mmHg, RV enlargement and moderate to severe tricuspid regurgitation. Patient patient has been moved to the intensive care unit. She remains on BiPAP with settings as mentioned above. She appears calm and comfortable. She is alert and oriented without signs of CO2 narcosis. Respiratory status and BiPAP make it difficult to communicate. Intermittent cough which is congested and nonproductive. Continues on empiric antibiotics in the form of Zosyn. Has remained afebrile. Denies any chest pain. Does have some minimal bilateral lower extremity swelling. Heart rhythm appears to be paced on bedside monitor. Blood pressure normotensive. She is going to be monitored in the intensive care unit. Review of Systems REVIEW OF SYSTEMS: CONSTITUTIONAL: Denies any recent significant weight loss or weight gain. EYES: Denies change in vision. EARS, NOSE, MOUTH, THROAT: Denies headaches, denies sore throat. CARDIOVASCULAR: Denies chest pain, palpitations or syncopal episodes. RESPIRATORY: See HPI GASTROINTESTINAL: Denies change in appetite, abdominal pain, nausea and vomiting, or diarrhea GENITOURINARY: Denies hematuria, denies infections. MUSKULOSKELETAL: Denies pain, denies swelling. INTEGUMENTARY: Denies rash, denies eczema. NEUROLOGICAL: Denies recent memory loss, no recent seizure activity. PSYCHIATRIC: Admits anxiety, denies depression. HEMATOLOGIC/LYMPHATIC: Denies anemia, denies enlarged lymph node Past Medical History Past Medical History: COPD Additional Past Medical History / Comment(s): pacemaker, History of Any Multi-Drug Resistant Organisms: None Reported Additional Past Surgical History / Comment(s): ovarian cyst removed. Past Anesthesia/Blood Transfusion Reactions: No Reported Reaction Past Psychological History: No Psychological Hx Reported Smoking Status: Current every day smoker Past Alcohol Use History: Occasional Past Drug Use History: Marijuana - Past Family History Mother Family Medical History: COPD Medications and Allergies Home Medications Medication Instructions Recorded Confirmed Type Apixaban [Eliquis] 5 mg PO DIRECTED 01/13/25 01/13/25 History Budesonide/Glycopyr/Formoterol 2 puff INHALATION DIRECTED PRN 01/13/25 01/13/25 History [Breztri Aerosphere Inhaler] HYDROcodone/APAP 5-325MG [Pulteney 1 tab PO TID 01/13/25 01/13/25 History 5-325] Ipratropium-Albuterol Nebulize 3 ml INHALATION RT-QID 01/13/25 01/15/25 History [Duoneb 0.5 mg-3 mg/3 ml Soln] Lasix(Unknown Dose) 1 dose PO DIRECTED 01/13/25 01/13/25 History Montelukast [Singulair] 10 mg PO HS 01/13/25 01/15/25 History Metoprolol Tartrate [Lopressor] 25 mg PO BID 01/15/25 01/15/25 History metFORMIN HCL 500 mg PO DAILY 01/15/25 01/15/25 History Allergies Allergy/AdvReac Type Severity Reaction Status Date / Time No Known Allergies Allergy Verified 01/13/25 13:58 Physical Exam Vitals: Vital Signs Temp Pulse Pulse Resp BP Pulse Ox FiO2 01/22/25 04:03 80 01/22/25 00:00 99.0 F 61 22 91 L 01/21/25 23:50 65 01/21/25 20:37 65 01/21/25 20:17 61 01/21/25 20:00 98.9 F 67 38 H 86 L 01/21/25 16:41 64 01/21/25 16:26 64 01/21/25 16:00 98.5 F 62 16 131/55 88 L 01/21/25 13:11 67 18 01/21/25 12:23 70 01/21/25 12:00 98.1 F 67 18 133/53 84 L 01/21/25 11:59 72 01/21/25 09:25 70 01/21/25 09:07 68 01/21/25 08:00 98.0 F 69 18 158/69 92 L Intake and Output 01/21/25 01/21/25 01/22/25 14:59 22:59 06:59 Intake Total 713 595 Output Total 1 800 Balance 712 -205 Intake: Oral 713 595 Output: Urine 800 Urine/Stool Mix 1 Other: Voiding Method Bedside Commode Bedside Commode Bedside Commode # Voids 1 # Bowel Movements 1 GENERAL EXAM: Alert, 69-year-old white female, on BiPAP, without signs of CO2 narcosis HEAD: Normocephalic and atraumatic EYES: Normal reaction of pupils, equal size. NOSE: Clear with pink turbinates. THROAT: No erythema or exudates. NECK: No masses, no JVD. CHEST: No chest wall deformity. LUNGS: Equal air entry with bilateral coarse rhonchi. On BiPAP with settings 10/5 and FiO2 70%. Mildly tachypneic. Achieving tidal volumes around 350-400. Minimal conversational dyspnea, speaks in short phrases. CVS: S1 and S2 normal with no audible murmur, regular rhythm. No extra heart sounds ABDOMEN: No hepatosplenomegaly, active bowel sounds, no guarding or rigidity. SPINE: No scoliosis or deformity SKIN: No rashes CENTRAL NERVOUS SYSTEM: No focal deficits, tone is normal in all 4 extremities. EXTREMITIES: There is nonpitting bilateral lower extremity edema. No clubbing, or cyanosis. Peripheral pulses are intact. Results - Laboratory Findings CBC and BMP: 01/21/25 06:39 01/21/25 06:39 ABG ABG pH 7.35 (7.35-7.45) 01/13/25 12:51 ABG pCO2 58 mmHg (35-45) H 01/13/25 12:51 ABG pO2 56 mmHg (83-108) L* 01/13/25 12:51 ABG O2 Saturation 86.2 % (94-97) L 01/13/25 12:51 PT/INR, D-dimer PT 12.1 sec (10.0-12.5) 01/13/25 10:37 INR 1.1 (<1.2) 01/13/25 10:37 Abnormal lab findings: Abnormal Labs 01/13/25 01/13/25 01/13/25 10:37 11:22 11:22 WBC RBC Hgb MCHC 30.7 L RDW 16.0 H Plt Count Neutrophils # Lymphocytes # 0.6 L ABG pCO2 ABG pO2 ABG HCO3 ABG Total CO2 ABG O2 Saturation Sodium 134 L Potassium 5.2 H Chloride Carbon Dioxide BUN 54 H Creatinine Glucose 177 H POC Glucose (mg/dL) Hemoglobin A1c Calcium 8.3 L AST 67 H ALT 89 H Alkaline Phosphatase 227 H Troponin I 0.079 H* Total Protein 5.3 L Albumin 3.1 L Fluid Appearance SARS-CoV-2 (PCR) 01/13/25 01/14/25 01/14/25 12:51 06:09 06:09 WBC RBC Hgb MCHC 30.5 L RDW 15.9 H Plt Count Neutrophils # 7.9 H Lymphocytes # 0.3 L ABG pCO2 58 H ABG pO2 56 L* ABG HCO3 32 H ABG Total CO2 34 H ABG O2 Saturation 86.2 L Sodium Potassium Chloride 94 L Carbon Dioxide 40 H BUN 38 H Creatinine Glucose 175 H POC Glucose (mg/dL) Hemoglobin A1c Calcium 8.0 L AST 57 H ALT 82 H Alkaline Phosphatase 195 H Troponin I Total Protein 5.4 L Albumin 3.1 L Fluid Appearance SARS-CoV-2 (PCR) 01/14/25 01/14/25 01/14/25 06:09 10:46 14:32 WBC RBC Hgb MCHC 30.1 L RDW 15.9 H Plt Count Neutrophils # Lymphocytes # 0.3 L ABG pCO2 ABG pO2 ABG HCO3 ABG Total CO2 ABG O2 Saturation Sodium Potassium Chloride Carbon Dioxide BUN Creatinine Glucose POC Glucose (mg/dL) Hemoglobin A1c Calcium AST ALT Alkaline Phosphatase Troponin I 0.104 H* 0.091 H* Total Protein Albumin Fluid Appearance SARS-CoV-2 (PCR) 01/15/25 01/15/25 01/15/25 07:19 07:19 07:47 WBC RBC Hgb MCHC 30.9 L RDW 15.7 H Plt Count Neutrophils # 8.4 H Lymphocytes # 0.1 L ABG pCO2 ABG pO2 ABG HCO3 ABG Total CO2 ABG O2 Saturation Sodium Potassium Chloride 93 L Carbon Dioxide 40 H BUN 27 H Creatinine 0.46 L Glucose 177 H POC Glucose (mg/dL) 199 H Hemoglobin A1c Calcium AST 43 H ALT 70 H Alkaline Phosphatase 184 H Troponin I Total Protein 5.8 L Albumin 3.2 L Fluid Appearance SARS-CoV-2 (PCR) 01/16/25 01/16/25 01/16/25 05:55 12:39 16:11 WBC RBC Hgb MCHC RDW Plt Count Neutrophils # Lymphocytes # ABG pCO2 ABG pO2 ABG HCO3 ABG Total CO2 ABG O2 Saturation Sodium Potassium Chloride Carbon Dioxide BUN Creatinine Glucose POC Glucose (mg/dL) 171 H 403 H Hemoglobin A1c Calcium AST ALT Alkaline Phosphatase Troponin I Total Protein Albumin Fluid Appearance Hazy A SARS-CoV-2 (PCR) 01/16/25 01/17/25 01/17/25 20:01 06:09 06:43 WBC RBC Hgb MCHC RDW Plt Count Neutrophils # Lymphocytes # ABG pCO2 ABG pO2 ABG HCO3 ABG Total CO2 ABG O2 Saturation Sodium Potassium 2.8 L Chloride 89 L Carbon Dioxide 44 H* BUN 45 H Creatinine Glucose 190 H POC Glucose (mg/dL) 402 H 196 H Hemoglobin A1c Calcium 8.3 L AST 45 H ALT 63 H Alkaline Phosphatase 209 H Troponin I Total Protein 5.6 L Albumin 3.1 L Fluid Appearance SARS-CoV-2 (PCR) 01/17/25 01/17/25 01/17/25 06:43 06:43 11:18 WBC 12.9 H RBC Hgb MCHC 29.5 L RDW Plt Count Neutrophils # 12.5 H Lymphocytes # 0.2 L ABG pCO2 ABG pO2 ABG HCO3 ABG Total CO2 ABG O2 Saturation Sodium Potassium Chloride Carbon Dioxide BUN Creatinine Glucose POC Glucose (mg/dL) 404 H Hemoglobin A1c 7.9 H Calcium AST ALT Alkaline Phosphatase Troponin I Total Protein Albumin Fluid Appearance SARS-CoV-2 (PCR) 01/17/25 01/17/25 01/17/25 13:09 16:37 20:53 WBC RBC Hgb MCHC RDW Plt Count Neutrophils # Lymphocytes # ABG pCO2 ABG pO2 ABG HCO3 ABG Total CO2 ABG O2 Saturation Sodium Potassium Chloride Carbon Dioxide BUN Creatinine Glucose POC Glucose (mg/dL) 359 H 408 H 322 H Hemoglobin A1c Calcium AST ALT Alkaline Phosphatase Troponin I Total Protein Albumin Fluid Appearance SARS-CoV-2 (PCR) 01/18/25 01/18/25 01/18/25 06:10 11:24 11:36 WBC RBC Hgb MCHC RDW Plt Count Neutrophils # Lymphocytes # ABG pCO2 ABG pO2 ABG HCO3 ABG Total CO2 ABG O2 Saturation Sodium 135 L Potassium Chloride 92 L Carbon Dioxide 37 H BUN 61 H Creatinine Glucose 481 H POC Glucose (mg/dL) 230 H 457 H Hemoglobin A1c Calcium 8.3 L AST ALT Alkaline Phosphatase Troponin I Total Protein Albumin Fluid Appearance SARS-CoV-2 (PCR) 01/18/25 01/18/25 01/19/25 16:41 19:38 05:52 WBC RBC Hgb MCHC RDW Plt Count Neutrophils # Lymphocytes # ABG pCO2 ABG pO2 ABG HCO3 ABG Total CO2 ABG O2 Saturation Sodium Potassium Chloride Carbon Dioxide BUN Creatinine Glucose POC Glucose (mg/dL) 449 H 392 H 130 H Hemoglobin A1c Calcium AST ALT Alkaline Phosphatase Troponin I Total Protein Albumin Fluid Appearance SARS-CoV-2 (PCR) 01/19/25 01/19/25 01/19/25 06:28 06:28 11:26 WBC 12.3 H RBC Hgb MCHC 30.0 L RDW 15.6 H Plt Count 146 L Neutrophils # 12.0 H Lymphocytes # 0.1 L ABG pCO2 ABG pO2 ABG HCO3 ABG Total CO2 ABG O2 Saturation Sodium Potassium Chloride 96 L Carbon Dioxide 39 H BUN 57 H Creatinine Glucose POC Glucose (mg/dL) 430 H Hemoglobin A1c Calcium AST 63 H ALT 91 H Alkaline Phosphatase 296 H Troponin I Total Protein 5.7 L Albumin 3.1 L Fluid Appearance SARS-CoV-2 (PCR) 01/19/25 01/19/25 01/20/25 16:13 19:47 05:53 WBC RBC Hgb MCHC RDW Plt Count Neutrophils # Lymphocytes # ABG pCO2 ABG pO2 ABG HCO3 ABG Total CO2 ABG O2 Saturation Sodium Potassium Chloride Carbon Dioxide BUN Creatinine Glucose POC Glucose (mg/dL) 393 H 330 H 219 H Hemoglobin A1c Calcium AST ALT Alkaline Phosphatase Troponin I Total Protein Albumin Fluid Appearance SARS-CoV-2 (PCR) 01/20/25 01/20/25 01/20/25 11:35 16:14 20:10 WBC RBC Hgb MCHC RDW Plt Count Neutrophils # Lymphocytes # ABG pCO2 ABG pO2 ABG HCO3 ABG Total CO2 ABG O2 Saturation Sodium Potassium Chloride Carbon Dioxide BUN Creatinine Glucose POC Glucose (mg/dL) 264 H 423 H 266 H Hemoglobin A1c Calcium AST ALT Alkaline Phosphatase Troponin I Total Protein Albumin Fluid Appearance SARS-CoV-2 (PCR) 01/21/25 01/21/25 01/21/25 06:39 06:39 11:26 WBC RBC 3.77 L Hgb 10.7 L MCHC 29.4 L RDW 15.7 H Plt Count Neutrophils # 8.7 H Lymphocytes # 0.1 L ABG pCO2 ABG pO2 ABG HCO3 ABG Total CO2 ABG O2 Saturation Sodium Potassium Chloride Carbon Dioxide 37 H BUN 66 H Creatinine Glucose POC Glucose (mg/dL) 321 H Hemoglobin A1c Calcium AST 87 H ALT 168 H Alkaline Phosphatase 371 H Troponin I Total Protein 5.8 L Albumin 3.2 L Fluid Appearance SARS-CoV-2 (PCR) 01/21/25 01/21/25 01/21/25 16:08 20:05 20:37 WBC RBC Hgb MCHC RDW Plt Count Neutrophils # Lymphocytes # ABG pCO2 ABG pO2 ABG HCO3 ABG Total CO2 ABG O2 Saturation Sodium Potassium Chloride Carbon Dioxide BUN Creatinine Glucose POC Glucose (mg/dL) 308 H 351 H Hemoglobin A1c Calcium AST ALT Alkaline Phosphatase Troponin I 0.088 H* Total Protein Albumin Fluid Appearance SARS-CoV-2 (PCR) 01/21/25 21:22 WBC RBC Hgb MCHC RDW Plt Count Neutrophils # Lymphocytes # ABG pCO2 ABG pO2 ABG HCO3 ABG Total CO2 ABG O2 Saturation Sodium Potassium Chloride Carbon Dioxide BUN Creatinine Glucose POC Glucose (mg/dL) Hemoglobin A1c Calcium AST ALT Alkaline Phosphatase Troponin I Total Protein Albumin Fluid Appearance SARS-CoV-2 (PCR) Detected A - Diagnostic Findings Chest x-ray: image reviewed CT scan - chest: image reviewed Assessment and Plan Assessment: Acute on chronic hypoxemic respiratory failure, currently requiring BiPAP support, Chest CTA did not show any evidence of pulmonary embolism, aortic aneurysm, or dissection. Moderate to severe centrilobular pulmonary emphysema with bilateral bronchial wall thickening and tubular bronchiectasis. Bilateral pulmonary increased reticular and interstitial infiltrates. Bandlike chava bronchial consolidation/atelectasis within the posterior right middle lobe concerning for possible pneumonia. Small to moderate-sized bilateral pleural effusions with patchy areas of consolidation, right greater than left. Enlarged pulmonary artery likely sequela of secondary pulmonary arterial hypertension. Acute on chronic diastolic heart failure Bilateral small pleural effusions, with recent right-sided thoracentesis performed 01/16/2025 where a total of 1.2 L was removed from the pleural space, and fluid analysis appears to be transudative. Acute COVID-19 infection Acute COPD exacerbation Severe pulmonary hypertension Paroxysmal atrial fibrillation, currently V-paced on bedside monitor Permanent pacemaker Systemic hypertension Diabetes mellitus type 2 Elevated troponins, likely secondary to supply/demand mismatch Urinary tract infection, urine culture positive for E. coli Former tobacco smoker Plan: Continue BiPAP with current settings Give 60 mg of IV Lasix once now Start combination of DuoNebs [id number], formoterol inhalation, budesonide inhalation, and continue IV Solu-Medrol Continue empiric antibiotics Check procalcitonin level Continue anticoagulation with Eliquis GI prophylaxis: Protonix Patient has been moved to the intensive care unit and will be followed closely I have personally seen and examined the patient, performed the documentation and the assessment and plan as written. Number of minutes spent on the visit:20 Time with Patient: Greater than 30
[2025-01-22 05:34] LABS: Anisocytosis Slight; Basophils % (A) 0 %; Eosinophils % (A) 0 %; HCT 34.1 % (34.0-46.0); HGB 9.7 gm/dL (11.4-16.0); Hypochromasia Marked; Lymphocytes # (A) 0.2 k/uL (1.0-4.8); Lymphocytes % (A) 2 %; MCH 27.4 pg (25.0-35.0); MCHC 28.5 g/dL (31.0-37.0); MCV 96.1 fL (80.0-100.0); Mean Platelet Volume 8.8; Monocytes # (A) 0.2 k/uL (0-1.0); Monocytes % (A) 2 %; Neutrophils # (A) 8.1 k/uL (1.3-7.7); Neutrophils % (A) 95 %; Platelet Count 169 k/uL (150-450); RBC 3.55 m/uL (3.80-5.40); WBC 8.5 k/uL (3.8-10.6)
[2025-01-22] MEDS: LORazepam 1 MG/0.5 ML VIAL IV ONE (05:45)
[2025-01-22 05:52] LABS: African American GFR (CKD) >90 (>60 ml/min/1.73 sqM); Blood Urea Nitrogen 61 mg/dL (7-17); Calcium 8.5 mg/dL (8.4-10.2); Chloride 98 mmol/L (98-107); Glucose 198 mg/dL (74-99); Magnesium 2.6 mg/dL (1.6-2.3); Non-African American GFR(CKD) 84 (>60 ml/min/1.73 sqM); Potassium 5.1 mmol/L (3.5-5.1); Sodium 142 mmol/L (137-145)
[2025-01-22 05:59] LABS: Anion Gap 2 mmol/L
[2025-01-22 06:08] LABS: Carbon Dioxide 42 mmol/L (22-30)
[2025-01-22 06:51] LABS: Glucose,Whole Blood 251 mg/dL (70-110)
--- NOTE | 2025-01-22 07:34 | P.PN ---
Subjective Progress Note Date: 01/22/25 PROGRESS NOTE The patient is a 69-year-old female with a known history of severe COPD chronic tobacco use, history of heart failure with preserved systolic function who had recent COVID infection and presented with worsening dyspnea had pleural effusion and subsequent right-sided thoracentesis. Her echocardiogram showed a preserved systolic function with severe pulmonary hypertension enlargement of the right ventricle with moderate to severe tricuspid regurgitation who was transferred to the ICU for progressive dyspnea. She is relatively stable this morning, on the BiPAP. She continues to be in sinus mechanism. Her blood pressure stable. She has evidence of pacemaker activity . Her urinary output is stable. She is on no vasopressors. She had a CT scan of the chest that showed no evidence of pulmonary embolism with dilated pulmonary artery and moderately severe centrilobular pulmonary emphysema. Medications: Eliquis 5 mg twice a day, Bumex 1 mg IV twice daily, atorvastatin 40 mg daily, Farxiga 10 mg daily, insulin, losartan 25 mg daily, methylprednisolone, metoprolol tartrate 25 mg twice a day, singular 10 mg daily, spironolactone 25 mg daily., Revatio 20 mg 3 times a day PHYSICAL EXAMINATION: Blood pressure 113/60 heart rate 65, on BiPAP LUNGS: Decreased air exchange bilaterally with scattered wheezes HEART: Regular rate and rhythm, S1, S2. No S3. Systolic ejection murmur ABDOMEN: Soft, nontender, no organomegaly EXTREMETIES: +1, edema LAB: Hemoglobin 9.7, BUN 61, creatinine 0.74. Troponin 0.088 IMPRESSION: 1. Severe hypoxemia related to chronic lung disease with superimposed COVID 2. History of heart failure with preserved systolic function 3. Paroxysmal A-fib patient, in sinus with ventricular pacing 4. Troponin elevation secondary to type II myocardial injury 5. Pleural effusion s/p thoracentesis 6. History of diabetes PLAN: 1. Continue diuretics as present 2. Management of pulmonary status post pulmonary service 3. Follow renal functions 4. Depending on her progress further recommendations will be made Objective - Vital Signs Vital signs: Vital Signs Temp 98.8 F 01/22/25 05:00 Pulse 65 01/22/25 07:00 Resp 26 H 01/22/25 07:00 BP 113/63 01/22/25 07:00 Pulse Ox 94 L 01/22/25 07:00 FiO2 60 01/22/25 05:00 Intake & Output 01/21/25 01/22/25 01/22/25 18:59 06:59 18:59 Intake Total 1308 Output Total 801 1850 300 Balance 507 -1850 -300 Intake: Oral 1308 Output: Urine 800 1850 300 Urine/Stool Mix 1 Other: Voiding Method Bedside Commode Bedside Commode # Voids 1 # Bowel Movements 1 - Labs CBC & Chem 7: 01/22/25 05:17 01/22/25 05:17 Labs: Abnormal Lab Results - Last 24 Hours (Table) 01/21/25 01/21/25 01/21/25 Range/Units 06:39 06:39 11:26 RBC 3.77 L (3.80-5.40) m/uL Hgb 10.7 L (11.4-16.0) gm/dL MCHC 29.4 L (31.0-37.0) g/dL RDW 15.7 H (11.5-15.5) % Neutrophils # 8.7 H (1.3-7.7) k/uL Lymphocytes # 0.1 L (1.0-4.8) k/uL Carbon Dioxide 37 H (22-30) mmol/L BUN 66 H (7-17) mg/dL Glucose (74-99) mg/dL POC Glucose (mg/dL) 321 H (70-110) mg/dL Magnesium (1.6-2.3) mg/dL AST 87 H (14-36) U/L ALT 168 H (4-34) U/L Alkaline Phosphatase 371 H (38-126) U/L Troponin I (0.000-0.034) ng/mL Total Protein 5.8 L (6.3-8.2) g/dL Albumin 3.2 L (3.5-5.0) g/dL SARS-CoV-2 (PCR) (Not Detectd) 01/21/25 01/21/25 01/21/25 Range/Units 16:08 20:05 20:37 RBC (3.80-5.40) m/uL Hgb (11.4-16.0) gm/dL MCHC (31.0-37.0) g/dL RDW (11.5-15.5) % Neutrophils # (1.3-7.7) k/uL Lymphocytes # (1.0-4.8) k/uL Carbon Dioxide (22-30) mmol/L BUN (7-17) mg/dL Glucose (74-99) mg/dL POC Glucose (mg/dL) 308 H 351 H (70-110) mg/dL Magnesium (1.6-2.3) mg/dL AST (14-36) U/L ALT (4-34) U/L Alkaline Phosphatase (38-126) U/L Troponin I 0.088 H* (0.000-0.034) ng/mL Total Protein (6.3-8.2) g/dL Albumin (3.5-5.0) g/dL SARS-CoV-2 (PCR) (Not Detectd) 01/21/25 01/22/25 01/22/25 Range/Units 21:22 04:27 05:17 RBC 3.55 L (3.80-5.40) m/uL Hgb 9.7 L (11.4-16.0) gm/dL MCHC 28.5 L (31.0-37.0) g/dL RDW 16.0 H (11.5-15.5) % Neutrophils # 8.1 H (1.3-7.7) k/uL Lymphocytes # 0.2 L (1.0-4.8) k/uL Carbon Dioxide (22-30) mmol/L BUN (7-17) mg/dL Glucose (74-99) mg/dL POC Glucose (mg/dL) 222 H (70-110) mg/dL Magnesium (1.6-2.3) mg/dL AST (14-36) U/L ALT (4-34) U/L Alkaline Phosphatase (38-126) U/L Troponin I (0.000-0.034) ng/mL Total Protein (6.3-8.2) g/dL Albumin (3.5-5.0) g/dL SARS-CoV-2 (PCR) Detected A (Not Detectd) 01/22/25 01/22/25 Range/Units 05:17 06:50 RBC (3.80-5.40) m/uL Hgb (11.4-16.0) gm/dL MCHC (31.0-37.0) g/dL RDW (11.5-15.5) % Neutrophils # (1.3-7.7) k/uL Lymphocytes # (1.0-4.8) k/uL Carbon Dioxide 42 H* (22-30) mmol/L BUN 61 H (7-17) mg/dL Glucose 198 H (74-99) mg/dL POC Glucose (mg/dL) 251 H (70-110) mg/dL Magnesium 2.6 H (1.6-2.3) mg/dL AST (14-36) U/L ALT (4-34) U/L Alkaline Phosphatase (38-126) U/L Troponin I (0.000-0.034) ng/mL Total Protein (6.3-8.2) g/dL Albumin (3.5-5.0) g/dL SARS-CoV-2 (PCR) (Not Detectd)
[2025-01-22] MEDS ORDERED: TIOTROPIUM 2.5 MCG INHALER INHALATION SCH (08:00)
[2025-01-22] MEDS ORDERED: SYMBICORT 160-4.5 MCG INHALER INHALATION SCH (08:00)
--- NOTE | 2025-01-22 08:09 | PN ---
PROGRESS NOTE SUBJECTIVE: A 69-year-old white female came to the hospital today. She found that she went from 6 L to 14 L of oxygen high-flow. Discussed case with Dr. Land. We are going to order a stat CTA of the chest to see if she had a pulmonary embolism even when she takes Eliquis to see why her respiratory status acutely got worse. No nurse contacted me or anybody when she decompensated. We are going to order CT scan, CT of the chest tonight. She is on Eliquis. OBJECTIVE: CARDIOVASCULAR: S1, S2. LUNGS: Transmitted upper sounds. Scattered wheeze and rhonchi. GENERAL: She is thin, cachectic. She sleeps with the mouth wide open with the nasal cannula on. LUNGS: She is in respiratory distress. HEMATOLOGIC: 2+ edema. ASSESSMENT: Acute worsening respiratory distress, acute hypercapnic respiratory failure, they are going to put her on a BiPAP per Dr. Land. Wait for CTA of the chest to come back. Increase her diuretic. Prognosis extremely guarded. MMODL / IJN: [id number] /
--- NOTE | 2025-01-22 08:43 | P.EN ---
January 22, 2025, nonbillable courtesy note by pulmonary medicine. Patient develop worsening of shortness of breath with increasing oxygen demand baseline 6 L increased to 10 L but she was very short of breath tried a trial of BiPAP 07/[address] scan of the chest with IV contrast no pulmonary embolism seen, patient developed new COVID-19 infection. Due to worsening of respiratory s tatus, increased oxygen demand with increased work of breathing patient transferred to higher level of care to ICU.
[2025-01-22] MEDS: BUDESONIDE 1 MG/2 ML NEBU INHALATION SCH (11:07)
[2025-01-22] MEDS: FORMOTEROL FUMARATE 20 MCG/2 ML NEBU INHALATION SCH (11:07)
[2025-01-22] MEDS: IPRATROPIUM-ALBUTEROL 3 ML NEB INHALATION SCH (11:08)
[2025-01-22] MEDS: BUMETANIDE 0.25 MG/ML 4 ML VIAL IVP SCH (11:28)
[2025-01-22 11:33] LABS: Glucose,Whole Blood 192 mg/dL (70-110)
[2025-01-22] MEDS: ALBUTEROL HFA INHALER INHALATION SCH (12:12)
[2025-01-22 17:07] LABS: Glucose,Whole Blood 93 mg/dL (70-110)
[2025-01-22 20:27] LABS: Glucose,Whole Blood 116 mg/dL (70-110)
[2025-01-22] MEDS: SYMBICORT 160-4.5 MCG INHALER INHALATION SCH (20:27)
--- NOTE | 2025-01-22 23:05 | P.CONS ---
History of Present Illness - Reason for Consult Consult date: 01/22/25 UTI, pneumonia, COVID Requesting physician: Reg Meek - Chief Complaint Shortness of breath x days - History of Present Illness Patient is a 69-year-old female with a past medical history significant for COPD current everyday smoker has been in the hospital for about 9 days with initial presentation to the hospital on 01/13/2025 further evaluation of increasing shortness of breath patient on presentation to the hospital was afebrile and no fever have recorded during this hospital stay patient did not have any tachycardia or hypotension she was hypoxic on admission with a sat of 73% on room air and the patient has been on supplemental oxygen patient did have mild elevated white count of 12.9 and 12.3 on 01/17/2025 and 01/19/2025 yesterday patient started having increasing shortness of breath requiring BiPAP and also tested positive for COVID-19 unfortunately no COVID testing was done on admission to the hospital patient has been transferred to the ICU because of worsening respiratory status requiring BiPAP infectious he was consulted for further management with a consult placed for COVID as well as UTI though no UA has been done patient is currently on the BiPAP though she is awake but nonspecifically. Denies having any chest pain mention breathing slightly comfortably did have a cough moderate intensity but not bringing up any sputum denies any nausea vomiting no choking on the food no headache no diarrhea or urinary symptoms patient did have CT angiogram of the chest that was negative for PE pulmonary hypertension emphysema increased reticular interstitial infiltrate Review of Systems Positive point and negatives has been mentioned in the HPI, complete review of systems was performed and all other systems are negative Past Medical History Past Medical History: COPD Additional Past Medical History / Comment(s): pacemaker, History of Any Multi-Drug Resistant Organisms: None Reported Additional Past Surgical History / Comment(s): ovarian cyst removed. Past Anesthesia/Blood Transfusion Reactions: No Reported Reaction Past Psychological History: No Psychological Hx Reported Smoking Status: Current every day smoker Past Alcohol Use History: Occasional Past Drug Use History: Marijuana - Past Family History Mother Family Medical History: COPD Medications and Allergies Home Medications Medication Instructions Recorded Confirmed Type Apixaban [Eliquis] 5 mg PO DIRECTED 01/13/25 01/13/25 History Budesonide/Glycopyr/Formoterol 2 puff INHALATION DIRECTED PRN 01/13/25 01/13/25 History [Breztri Aerosphere Inhaler] HYDROcodone/APAP 5-325MG [[place] 1 tab PO TID 01/13/25 01/13/25 History 5-325] Ipratropium-Albuterol Nebulize 3 ml INHALATION RT-QID 01/13/25 01/15/25 History [Duoneb 0.5 mg-3 mg/3 ml Soln] Lasix(Unknown Dose) 1 dose PO DIRECTED 01/13/25 01/13/25 History Montelukast [Singulair] 10 mg PO HS 01/13/25 01/15/25 History Metoprolol Tartrate [Lopressor] 25 mg PO BID 01/15/25 01/15/25 History metFORMIN HCL 500 mg PO DAILY 01/15/25 01/15/25 History Allergies Allergy/AdvReac Type Severity Reaction Status Date / Time No Known Allergies Allergy Verified 01/13/25 13:58 Physical Exam Vitals: Vital Signs Temp Pulse Pulse Resp BP BP Pulse Ox 01/22/25 07:00 65 26 H 113/63 94 L 01/22/25 06:00 63 30 H 150/75 92 L 01/22/25 05:00 98.8 F 61 26 H 140/62 91 L 01/22/25 04:48 01/22/25 04:26 64 H 01/22/25 04:03 01/22/25 00:00 99.0 F 61 22 91 L 01/21/25 23:50 01/21/25 20:37 01/21/25 20:17 61 01/21/25 20:00 98.9 F 67 38 H 86 L 01/21/25 16:41 64 01/21/25 16:26 64 01/21/25 16:00 98.5 F 62 16 131/55 88 L 01/21/25 13:11 67 18 01/21/25 12:23 70 01/21/25 12:00 98.1 F 67 18 133/53 84 L 01/21/25 11:59 72 FiO2 01/22/25 07:00 01/22/25 06:00 01/22/25 05:00 60 01/22/25 04:48 60 01/22/25 04:26 01/22/25 04:03 80 01/22/25 00:00 01/21/25 23:50 65 01/21/25 20:37 65 01/21/25 20:17 01/21/25 20:00 01/21/25 16:41 01/21/25 16:26 01/21/25 16:00 01/21/25 13:11 01/21/25 12:23 01/21/25 12:00 01/21/25 11:59 Intake and Output 01/21/25 01/22/25 01/22/25 22:59 06:59 14:59 Intake Total 595 Output Total 800 1850 300 Balance -205 -1850 -300 Intake: Oral 595 Output: Urine 800 1850 300 Other: Voiding Method Bedside Commode Bedside Commode GENERAL DESCRIPTION: Elderly female lying in bed, no distress. No tachypnea or accessory muscle of respiration use. HEENT: Shows Pallor , no scleral icterus. NECK: Trachea central, no thyromegaly. LUNGS: Unlabored breathing. Decreased intensity of breath sound HEART: S1, S2, regular rate and rhythm. ABDOMEN: Soft, no tenderness , guarding or rigidity, no organomegaly EXTREMITIES: No edema of feet. SKIN: No rash, no masses palpable. NEUROLOGICAL: The patient is awake, alert, mood and affect normal. Results CBC & Chem 7: 01/23/25 05:25 01/23/25 05:25 Labs: Abnormal Lab Results - Last 24 Hours (Table) 01/21/25 01/21/25 01/21/25 Range/Units 11:26 16:08 20:05 RBC (3.80-5.40) m/uL Hgb (11.4-16.0) gm/dL MCHC (31.0-37.0) g/dL RDW (11.5-15.5) % Neutrophils # (1.3-7.7) k/uL Lymphocytes # (1.0-4.8) k/uL Carbon Dioxide (22-30) mmol/L BUN (7-17) mg/dL Glucose (74-99) mg/dL POC Glucose (mg/dL) 321 H 308 H 351 H (70-110) mg/dL Magnesium (1.6-2.3) mg/dL Troponin I (0.000-0.034) ng/mL SARS-CoV-2 (PCR) (Not Detectd) 01/21/25 01/21/25 01/22/25 Range/Units 20:37 21:22 04:27 RBC (3.80-5.40) m/uL Hgb (11.4-16.0) gm/dL MCHC (31.0-37.0) g/dL RDW (11.5-15.5) % Neutrophils # (1.3-7.7) k/uL Lymphocytes # (1.0-4.8) k/uL Carbon Dioxide (22-30) mmol/L BUN (7-17) mg/dL Glucose (74-99) mg/dL POC Glucose (mg/dL) 222 H (70-110) mg/dL Magnesium (1.6-2.3) mg/dL Troponin I 0.088 H* (0.000-0.034) ng/mL SARS-CoV-2 (PCR) Detected A (Not Detectd) 01/22/25 01/22/25 01/22/25 Range/Units 05:17 05:17 06:50 RBC 3.55 L (3.80-5.40) m/uL Hgb 9.7 L (11.4-16.0) gm/dL MCHC 28.5 L (31.0-37.0) g/dL RDW 16.0 H (11.5-15.5) % Neutrophils # 8.1 H (1.3-7.7) k/uL Lymphocytes # 0.2 L (1.0-4.8) k/uL Carbon Dioxide 42 H* (22-30) mmol/L BUN 61 H (7-17) mg/dL Glucose 198 H (74-99) mg/dL POC Glucose (mg/dL) 251 H (70-110) mg/dL Magnesium 2.6 H (1.6-2.3) mg/dL Troponin I (0.000-0.034) ng/mL SARS-CoV-2 (PCR) (Not Detectd) Assessment and Plan (1) COVID-19 Current Visit: Yes Status: Acute Code(s): U07.1 - COVID-19 SNOMED Code(s): 168005633 Plan: 1patient with increasing shortness of breath which is likely multifactorial and possible component of COVID-19 pneumonia however is not very clear if the patient requires infection in the hospital or she presented to the hospital with it as there was no COVID testing done on admission though her symptoms was mostly shortness of breath did not have any fever during this admission CT did not show any PE but evidence of possible COVID-19 pneumonia in this patient currently on a BiPAP with high FiO2 requirement not an ideal candidate for remdesivir and will be treated more aggressively with steroids and possible barcitinib with low clinic suspicious for pneumonia normal procalcitonin recommend to discontinue Zosyn 2-patient is currently on steroids Eliquis will add zinc and ascorbic acid 3-droplet isolation We will follow on clinical condition and cultures to further adjust medication if needed Thank you for this consultation we will follow the patient along with you Dictation was produced using [employer] dictation software. please excuse any grammatical, word or spelling errors. Time with Patient: Greater than 30
[2025-01-22 23:08] LABS: Glucose,Whole Blood 166 mg/dL (70-110)
--- NOTE | 2025-01-23 04:51 | PN ---
PROGRESS NOTE In the ICU. She is on BiPAP. She is saturating at 91 to 92. FIO2 of 60, 10/5. PHYSICAL EXAMINATION: VITAL SIGNS: Pulse is 59 to 61, temperature 99, blood pressure is 90s to low 100s systolic. CARDIOVASCULAR: S1, S2. LUNGS: Scattered wheeze. GENERAL: Looks weak and fatigued. CARDIOVASCULAR: S1, S2. NEUROLOGIC: Alert and oriented x3. PLAN: COVID-19. Continue current treatment. Wean her off the CPAP as tolerated, UTI and pneumonia, being treated. Is on BiPAP. She is taking paxlovid b.i.d. day #1 today. She will continue taking it while in the hospital. Hypoxic respiratory failure, secondary to COVID-19 and COPD. She was given remdesivir, steroids, Eliquis, zinc, and ascorbic acid. Prognosis is guarded. Please see further orders in ICU. MMODL / IJN: [id number] /
[2025-01-23 05:46] LABS: Glucose,Whole Blood 148 mg/dL (70-110)
[2025-01-23 06:12] LABS: Basophils # (A) 0.02 10*3/uL (0.00-0.10); Basophils % (A) 0.2 %; HCT 30.1 % (37.2-46.3); HGB 9.5 g/dL (12.0-15.0); Lymphocytes % (A) 2.1 %; MCH 29.7 pg (27.0-32.0); MCHC 31.6 g/dL (32.0-37.0); MCV 94.1 fL (80.0-97.0); Mean Platelet Volume 10.7 fL (9.5-12.2); Monocytes # (A) 0.12 10*3/uL (0.20-1.00); Monocytes % (A) 1.3 %; Neutrophils # (A) 8.93 10*3/uL (1.80-7.70); Neutrophils % (A) 95.9 %; Platelet Count 165 10*3/uL (140-440); RDW 16.3 % (11.5-14.5); WBC 9.32 10*3/uL (4.50-10.00)
[2025-01-23 06:32] LABS: African American GFR (CKD) 82 (>60 ml/min/1.73 sqM); Blood Urea Nitrogen 55 mg/dL (7-17); Calcium 8.1 mg/dL (8.4-10.2); Chloride 95 mmol/L (98-107); Glucose 142 mg/dL (74-99); Non-African American GFR(CKD) 71 (>60 ml/min/1.73 sqM); Potassium 4.2 mmol/L (3.5-5.1); Sodium 141 mmol/L (137-145)
[2025-01-23 06:38] LABS: Anion Gap 4 mmol/L
[2025-01-23 06:46] LABS: Carbon Dioxide 42 mmol/L (22-30)
--- NOTE | 2025-01-23 07:22 | P.PN ---
Subjective Progress Note Date: 01/23/25 PROGRESS NOTE The patient is a 69-year-old female with a known history of severe COPD chronic tobacco use, history of heart failure with preserved systolic function who had recent COVID infection and presented with worsening dyspnea had pleural effusion and subsequent right-sided thoracentesis. Her echocardiogram showed a preserved systolic function with severe pulmonary hypertension enlargement of the right ventricle with moderate to severe tricuspid regurgitation who was transferred to the ICU for progressive dyspnea. She is relatively stable this morning, on the BiPAP. She continues to be in sinus mechanism. Her blood pressure stable. She has evidence of pacemaker activity . Her urinary output is stable. She is on no vasopressors. She had a CT scan of the chest that showed no evidence of pulmonary embolism with dilated pulmonary artery and moderately severe centrilobular pulmonary emphysema. January 23: The patient continues on her BiPAP. She is feeling better today. She denies any chest discomfort. She continues to desaturate easily off the BiPAP. Her blood pressure stable. There is no evidence of malignant arrhythmia. Her urinary output has been stable. There is no evidence of recurrent atrial fibrillation and she is 100% paced at this point. She has no nausea or vomit ing. Medications: Eliquis 5 mg twice a day, Bumex 1 mg IV twice daily, atorvastatin 40 mg daily, Farxiga 10 mg daily, insulin, losartan 25 mg daily, methylprednisolone, metoprolol tartrate 25 mg twice a day, singular 10 mg daily, spironolactone 25 mg daily., Revatio 20 mg 3 times a day PHYSICAL EXAMINATION: Blood pressure 121/60 heart rate 65, on BiPAP LUNGS: Decreased air exchange bilaterally HEART: Regular rate and rhythm, S1, S2. No S3. Systolic ejection murmur ABDOMEN: Soft, nontender, no organomegaly EXTREMETIES: No edema LAB: Hemoglobin 9.5, carbon dioxide 42, BUN 55, creatinine 0.84. IMPRESSION: 1. Severe hypoxemia related to chronic lung disease with superimposed COVID 2. History of heart failure with preserved systolic function, improving 3. Paroxysmal A-fib patient, in sinus with ventricular pacing, anticoagulated 4. Troponin elevation secondary to type II myocardial injury 5. Pleural effusion s/p thoracentesis 6. History of diabetes PLAN: 1. Continue diuretics as present for another 24 hours 2. Management of pulmonary status post pulmonary service 3. Follow renal functions 4. Depending on her progress further recommendations will be made Objective - Vital Signs Vital signs: Vital Signs Temp 98.4 F 01/23/25 04:00 Pulse 60 01/23/25 07:00 Resp 10 L 01/23/25 07:00 BP 121/60 01/23/25 07:00 Pulse Ox 94 L 01/23/25 07:00 FiO2 65 01/23/25 04:20 Intake & Output 01/22/25 01/23/25 01/23/25 18:59 06:59 18:59 Intake Total 200 150 Output Total 1999 675 0 Balance -1800 - 150 Weight 44.7 kg Intake: Intake, IV Titration 200 Amount Piperacillin-Tazobactam 3 200 .375 gm In Sodium Chloride 0.9% 100 ml @ 25 mls/hr IVPB Q8HR [facility] Rx# :[id number] Oral 150 Output: Urine 1999 675 0 Other: Voiding Method Bedpan Bedpan # Voids 1 # Bowel Movements 1 1 - Labs CBC & Chem 7: 01/23/25 05:25 01/23/25 05:25 Labs: Abnormal Lab Results - Last 24 Hours (Table) 01/22/25 01/22/25 01/22/25 Range/Units 11:32 20:25 23:06 RBC (4.10-5.20) 10*6/uL Hgb (12.0-15.0) g/dL Hct (37.2-46.3) % MCHC (32.0-37.0) g/dL Immature Gran # (0.00-0.04) 10*3/uL Neutrophils # (1.80-7.70) 10*3/uL Lymphocytes # (0.90-5.00) 10*3/uL Monocytes # (0.20-1.00) 10*3/uL Eosinophils # (0.04-0.35) 10*3/uL Chloride (98-107) mmol/L Carbon Dioxide (22-30) mmol/L BUN (7-17) mg/dL Glucose (74-99) mg/dL POC Glucose (mg/dL) 192 H 116 H 166 H (70-110) mg/dL Calcium (8.4-10.2) mg/dL 01/23/25 01/23/25 01/23/25 Range/Units 05:25 05:25 05:44 RBC 3.20 L (4.10-5.20) 10*6/uL Hgb 9.5 L (12.0-15.0) g/dL Hct 30.1 L (37.2-46.3) % MCHC 31.6 L (32.0-37.0) g/dL Immature Gran # 0.05 H (0.00-0.04) 10*3/uL Neutrophils # 8.93 H (1.80-7.70) 10*3/uL Lymphocytes # 0.20 L (0.90-5.00) 10*3/uL Monocytes # 0.12 L (0.20-1.00) 10*3/uL Eosinophils # 0.00 L (0.04-0.35) 10*3/uL Chloride 95 L (98-107) mmol/L Carbon Dioxide 42 H* (22-30) mmol/L BUN 55 H (7-17) mg/dL Glucose 142 H (74-99) mg/dL POC Glucose (mg/dL) 148 H (70-110) mg/dL Calcium 8.1 L (8.4-10.2) mg/dL
--- NOTE | 2025-01-23 07:58 | XR ---
EXAMINATION TYPE: XR chest 1V portable DATE OF EXAM: 01/23/2025 CLINICAL INDICATION: Female, 69 years old with history of f/u pneumonia, COVID pneumonia, CHF, progre ss study. TECHNIQUE: Single AP portable semiupright view of the chest is obtained. COMPARISON: CTA chest from 2 days earlier FINDINGS: Persistent cardiomegaly with dual lead pacemaker. Background chronic emphysematous change with bilateral multifocal increased opacities is redemonstrated. Osseous structures are intact. IMPRESSION: Cardiomegaly and chronic changes with persistent bilateral multifocal acute infiltrates and/or edema. No significant change from most recent CT. [facility], , 01/23/2025 7:56 AM
[2025-01-23] MEDS: TIOTROPIUM 2.5 MCG INHALER INHALATION SCH (09:17)
[2025-01-23] MEDS: ZINC SULFATE 220 MG CAP PO SCH (10:43)
[2025-01-23 12:37] LABS: Glucose,Whole Blood 372 mg/dL (70-110)
--- NOTE | 2025-01-23 13:12 | P.PN ---
Subjective Progress Note Date: 01/23/25 Principal diagnosis: Reason for follow-up is COVID-19 Patient is a 69-year-old female with a past medical history significant for COPD current everyday smoker presented to hospital on 01/13/2025 for evaluation of increasing shortness of breath did have worsening of breathing for which the patient did have COVID test came back positive prompting this consultation. On today's evaluation that is 01/23/2025, Patient is afebrile this morning patient mention breathing slightly comfortably currently on BiPAP FiO2 is down to 55% denies any chest pain or worsening cough no abdominal pain or diarrhea. Patient white count is 9.32, creatinine 0.84 pleural fluid culture negative no sputum collected Objective - Vital Signs Vital signs: Vital Signs Temp 98.4 F 01/23/25 04:00 Pulse 60 01/23/25 07:00 Resp 10 L 01/23/25 07:00 BP 121/60 01/23/25 07:00 Pulse Ox 94 L 01/23/25 07:00 FiO2 55 01/23/25 12:46 Intake & Output 01/22/25 01/23/25 01/23/25 18:59 06:59 18:59 Intake Total 200 150 Output Total 2000 675 0 Balance -1800 -675 150 Weight 44.7 kg Intake: Intake, IV Titration 200 Amount Piperacillin-Tazobactam 3 200 .375 gm In Sodium Chloride 0.9% 100 ml @ 25 mls/hr IVPB Q8HR [facility] Rx# :[id number] Oral 150 Output: Urine 1999 675 0 Other: Voiding Method Bedpan Bedpan # Voids 1 # Bowel Movements 1 1 - Exam GENERAL DESCRIPTION: An elderly female lying in bed in no distress RESPIRATORY SYSTEM: Unlabored breathing , decreased breath sounds at bases HEART: S1 S2 regular rate and rhythm , ABDOMEN: Soft , no tenderness EXTREMITIES: No edema feet - Labs CBC & Chem 7: 01/23/25 05:25 01/23/25 05:25 Labs: Abnormal Lab Results - Last 24 Hours (Table) 01/22/25 01/22/25 01/23/25 Range/Units 20:25 23:06 05:25 RBC 3.20 L (4.10-5.20) 10*6/uL Hgb 9.5 L (12.0-15.0) g/dL Hct 30.1 L (37.2-46.3) % MCHC 31.6 L (32.0-37.0) g/dL Immature Gran # 0.05 H (0.00-0.04) 10*3/uL Neutrophils # 8.93 H (1.80-7.70) 10*3/uL Lymphocytes # 0.20 L (0.90-5.00) 10*3/uL Monocytes # 0.12 L (0.20-1.00) 10*3/uL Eosinophils # 0.00 L (0.04-0.35) 10*3/uL Chloride (98-107) mmol/L Carbon Dioxide (22-30) mmol/L BUN (7-17) mg/dL Glucose (74-99) mg/dL POC Glucose (mg/dL) 116 H 166 H (70-110) mg/dL Calcium (8.4-10.2) mg/dL 01/23/25 01/23/25 01/23/25 Range/Units 05:25 05:44 12:35 RBC (4.10-5.20) 10*6/uL Hgb (12.0-15.0) g/dL Hct (37.2-46.3) % MCHC (32.0-37.0) g/dL Immature Gran # (0.00-0.04) 10*3/uL Neutrophils # (1.80-7.70) 10*3/uL Lymphocytes # (0.90-5.00) 10*3/uL Monocytes # (0.20-1.00) 10*3/uL Eosinophils # (0.04-0.35) 10*3/uL Chloride 95 L (98-107) mmol/L Carbon Dioxide 42 H* (22-30) mmol/L BUN 55 H (7-17) mg/dL Glucose 142 H (74-99) mg/dL POC Glucose (mg/dL) 148 H 372 H (70-110) mg/dL Calcium 8.1 L (8.4-10.2) mg/dL Assessment and Plan (1) COVID-19 Current Visit: Yes Status: Acute Code(s): U07.1 - COVID-19 SNOMED Code(s): 633235653 Plan: 1patient with increasing shortness of breath which is likely multifactorial and possible component of COVID-19 pneumonia however is not very clear if the patient requires infection in the hospital or she presented to the hospital with it as there was no COVID testing done on admission though her symptoms was mostly shortness of breath did not have any fever during this admission CT did not show any PE but evidence of possible COVID-19 pneumonia in this patient currently on a BiPAP with high FiO2 requirement not an ideal candidate for remdesivir 2-patient has some improvement in her symptoms requiring less supplemental oxygen will be treated with steroids Eliquis zinc and ascorbic acid 3-droplet isolation Dictation was produced using [employer] dictation software. please excuse any grammatical, word or spelling errors. Time with Patient: Less than 30
[2025-01-23 13:27] VITALS: BMI 15.4
--- NOTE | 2025-01-23 13:52 | P.PN ---
Subjective Progress Note Date: 01/23/25 Principal diagnosis: Acute on chronic hypoxemic respiratory failure Patient is a 69-year-old female with past medical history significant for severe COPD, chronic hypoxemic respiratory failure, chronic tobacco smoker, atrial fibrillation, hypertension, diastolic heart failure. Patient is being seen in new consultation for ICU management today, 01/22/2025. Patient was reportedly at increased work of breathing and oxygen demands over the last 12 to 24 hours. Patient originally admitted to [address] [place] [address] on 01/13/2025 with acute on chronic hypoxemic respiratory failure secondary to a combination of factors including acute COPD exacerbation, acute on chronic diastolic heart failure, bilateral pleural effusions. She has been receiving Bumex 1 mg twice daily. Also, underwent right-sided thoracentesis on 01/16, and a total of 1.2 L of fluid was evacuated from the pleural space. Fluid analysis consistent with transudative effusion. More recently, patient also tested positive for COVID. Early this morning, patient developed increased oxygen demands and respiratory distress. Placed on BiPAP with settings 10/5 and FiO2 of 70%. Chest CTA did not show any evidence of pulmonary embolism, aortic aneurysm, or dissection. Moderate to severe centrilobular pulmonary emphysema with bilateral bronchial wall thickening and tubular bronchiectasis. Bilateral pulmonary increased reticular and interstitial infiltrates. Bandlike peribronchial consolidation/atelectasis within the posterior right middle lobe. Small to moderate-sized bilateral pleural effusions with patchy areas of consolidation, right greater than left. Enlarged pulmonary artery likely sequela of secondary pulmonary arterial hypertension. Most recent labs from yesterday including a CBC with a WBC count of 9.1, hemoglobin 10.7, platelets 154. BMP: Sodium 142, potassium 5.1, chloride 102, serum bicarb 37, BUN 66, creatinine 0.74, glucose 91. LFTs mildly elevated. Total bilirubin 0.7. Urine culture positive for E. coli. Serial troponins 0.08, 0.1, 0.09, and more recently 0.09. NT proBNP from admission significantly elevated at 16,700. Echocardiogram done this admission estimated preserved left ventricular ejection fraction of 55 to 60%, severe pulmonary hypertension with an RVSP of 68 mmHg, RV enlargement and moderate to severe tricuspid regurgitation. Patient patient has been moved to the intensive care unit. She remains on BiPAP with settings as mentioned above. She appears calm and comfortable. She is alert and oriented without signs of CO2 narcosis. Respiratory status and BiPAP make it difficult to communicate. Intermittent cough which is congested and nonproductive. Continues on empiric antibiotics in the form of Zosyn. Has remained afebrile. Denies any chest pain. Does have some minimal bilateral lower extremity swelling. Heart rhythm appears to be paced on bedside monitor. Blood pressure normotensive. She is going to be monitored in the intensive care unit. Patient was seen today on 01/23/2025, remains on BiPAP, 10//70% however I cut down her FiO2 down to 60% since her saturation was in the high 90s. Patient remains on Zosyn, Bumex, Eliquis, and on Decadron. Improving, feeling better, breathing easier. Chest x-ray continues to show evidence of bilateral infiltrates and possibly some component of interstitial edema. WBC count is 9.3 hemoglobin 9.5 electrolytes are normal bicarb is 42 BUN is 55 creatinine 0.84. Considering the patient is still requiring relatively high FiO2 and BiPAP support, I am keeping the patient in the ICU for the next 24 hours. Objective - Vital Signs Vital signs: Vital Signs Temp 98.4 F 01/23/25 04:00 Pulse 60 01/23/25 07:00 Resp 10 L 01/23/25 07:00 BP 121/60 01/23/25 07:00 Pulse Ox 94 L 01/23/25 07:00 FiO2 60 01/23/25 13:42 Intake & Output 01/22/25 01/23/25 01/23/25 18:59 06:59 18:59 Intake Total 200 150 Output Total 1999 675 0 Balance -1800 - 150 Weight 44.7 kg 44.7 kg Intake: Intake, IV Titration 200 Amount Piperacillin-Tazobactam 3 200 .375 gm In Sodium Chloride 0.9% 100 ml @ 25 mls/hr IVPB Q8HR [facility] Rx# :[id number] Oral 150 Output: Urine 1999 675 0 Other: Voiding Method Bedpan Bedpan # Voids 1 # Bowel Movements 1 1 - Exam GENERAL EXAM: Revealed 69-year-old female on BiPAP, comfortable and in no distress HEAD: Normocephalic and atraumatic EYES: Normal reaction of pupils, equal size. NOSE: Clear with pink turbinates. THROAT: No erythema or exudates. NECK: No masses, no JVD. CHEST: No chest wall deformity. LUNGS: Diminished breath sounds and crackles at the bases no rhonchi no wheezes CVS: S1 and S2 normal with no audible murmur, regular rhythm. No extra heart sounds ABDOMEN: No hepatosplenomegaly, active bowel sounds, no guarding or rigidity. SKIN: No rashes CENTRAL NERVOUS SYSTEM: Alert oriented x 3 no gross focal deficit EXTREMITIES: No clubbing edema or cyanosis - Labs CBC & Chem 7: 01/23/25 05:01/23/25 05:25 Labs: Abnormal Lab Results - Last 24 Hours (Table) 01/22/25 01/22/25 01/23/25 Range/Units 20:25 23:06 05:25 RBC 3.20 L (4.10-5.20) 10*6/uL Hgb 9.5 L (12.0-15.0) g/dL Hct 30.1 L (37.2-46.3) % MCHC 31.6 L (32.0-37.0) g/dL Immature Gran # 0.05 H (0.00-0.04) 10*3/uL Neutrophils # 8.93 H (1.80-7.70) 10*3/uL Lymphocytes # 0.20 L (0.90-5.00) 10*3/uL Monocytes # 0.12 L (0.20-1.00) 10*3/uL Eosinophils # 0.00 L (0.04-0.35) 10*3/uL Chloride (98-107) mmol/L Carbon Dioxide (22-30) mmol/L BUN (7-17) mg/dL Glucose (74-99) mg/dL POC Glucose (mg/dL) 116 H 166 H (70-110) mg/dL Calcium (8.4-10.2) mg/dL 01/23/25 01/23/25 01/23/25 Range/Units 05:25 05:44 12:35 RBC (4.10-5.20) 10*6/uL Hgb (12.0-15.0) g/dL Hct (37.2-46.3) % MCHC (32.0-37.0) g/dL Immature Gran # (0.00-0.04) 10*3/uL Neutrophils # (1.80-7.70) 10*3/uL Lymphocytes # (0.90-5.00) 10*3/uL Monocytes # (0.20-1.00) 10*3/uL Eosinophils # (0.04-0.35) 10*3/uL Chloride 95 L (98-107) mmol/L Carbon Dioxide 42 H* (22-30) mmol/L BUN 55 H (7-17) mg/dL Glucose 142 H (74-99) mg/dL POC Glucose (mg/dL) 148 H 372 H (70-110) mg/dL Calcium 8.1 L (8.4-10.2) mg/dL Assessment and Plan Assessment: Impression: Acute on chronic hypoxemic respiratory failure, still requiring BiPAP and relatively high FiO2 Acute on chronic diastolic heart failure Bilateral small pleural effusions, with recent right-sided thoracentesis performed 01/16/2025 where a total of 1.2 L was removed from the pleural space, and fluid analysis appears to be transudative. Acute COVID-19 infection, possible COVID-19 pneumonia, or underlying bacterial pneumonia but she definitely has pulmonary edema/acute on chronic diastolic heart failure. Acute COPD exacerbation Severe pulmonary hypertension Paroxysmal atrial fibrillation, currently V-paced on bedside monitor Permanent pacemaker Systemic hypertension Diabetes mellitus type 2 Elevated troponins, likely secondary to supply/demand mismatch Urinary tract infection, urine culture positive for E. coli Former tobacco smoker Recommendation: Continue to monitor in the ICU Continue BiPAP and titrate accordingly Continue diuretics for her congestive heart failure Continue bronchodilators Continue methylprednisolone Continue Zosyn empirically We will continue to monitor in the ICU and will follow Time with Patient: Less than 30
[2025-01-23 17:06] LABS: Glucose,Whole Blood 391 mg/dL (70-110)
[2025-01-23 19:50] LABS: Glucose,Whole Blood 425 mg/dL (70-110)
[2025-01-23] MEDS: INSULIN GLARGINE (LANTUS) 100 UNIT/ML SYR SQ SCH (20:56)
--- NOTE | 2025-01-23 21:24 | PN ---
PROGRESS NOTE She had EKG that shows pacemaker working today. She is less confused today. She appears to be more stable today and breathing better. She is on 70% FiO2 60%, she is up to 94 on a BiPAP. OBJECTIVE: VITAL SIGNS: Blood pressure 120s over 60s, pulse 60, respiratory rate 18. LUNGS: Scattered wheeze and rhonchi. PSYCHIATRIC: Fair mood and affect. NEUROLOGIC: Alert and oriented x3. She has COVID pneumonia. Chest x-ray shows cardiomegaly, persistent bilateral multifocal acute infiltrates and/or edema. No change from prior CT. Cardiology saw her. Says she is feeling better. Denies any chest pain. She does sats off the BiPAP. Blood pressure is stable. Her pacemaker is paced. Continue diuretics at the present course for 24 hours. They said to continue on BiPAP and oxygen as tolerated. Paroxysmal AFib, in sinus, with ventricular pacing, anticoagulated; pleural effusion, status post thoracentesis; history of diabetes; troponin type 2; myocardial injury. Remains in the ICU. Prognosis guarded. Continue with current treatments. MMODL / IJN: [id number] /
[2025-01-24 00:12] LABS: Glucose,Whole Blood 153 mg/dL (70-110)
[2025-01-24 05:08] LABS: Basophils # (A) 0.02 10*3/uL (0.00-0.10); Basophils % (A) 0.2 %; HCT 29.6 % (37.2-46.3); HGB 9.1 g/dL (12.0-15.0); Lymphocytes # (A) 0.14 10*3/uL (0.90-5.00); Lymphocytes % (A) 1.6 %; MCH 28.7 pg (27.0-32.0); MCHC 30.7 g/dL (32.0-37.0); MCV 93.4 fL (80.0-97.0); Mean Platelet Volume 10.9 fL (9.5-12.2); Monocytes # (A) 0.22 10*3/uL (0.20-1.00); Monocytes % (A) 2.5 %; Neutrophils % (A) 95.2 %; Platelet Count 197 10*3/uL (140-440); RBC 3.17 10*6/uL (4.10-5.20); WBC 8.72 10*3/uL (4.50-10.00)
[2025-01-24 05:19] LABS: Chloride 95 mmol/L (98-107); Potassium 3.6 mmol/L (3.5-5.1); Sodium 142 mmol/L (137-145)
[2025-01-24 05:20] LABS: ALT 94 U/L (4-34); AST 40 U/L (14-36); African American GFR (CKD) 69 (>60 ml/min/1.73 sqM); Albumin 2.8 g/dL (3.5-5.0); Alkaline Phosphatase 218 U/L (38-126); Blood Urea Nitrogen 59 mg/dL (7-17); Calcium 8.2 mg/dL (8.4-10.2); Non-African American GFR(CKD) 60 (>60 ml/min/1.73 sqM); Total Bilirubin 0.5 mg/dL (0.2-1.3); Total Protein 5.4 g/dL (6.3-8.2)
[2025-01-24 05:28] LABS: Anion Gap 6 mmol/L
[2025-01-24 05:43] LABS: Glucose 41 mg/dL (74-99)
[2025-01-24 05:46] LABS: Carbon Dioxide 41 mmol/L (22-30)
[2025-01-24] MEDS ORDERED: DEXTROSE 50% SYRINGE 50 ML IVP PRN (05:47)
[2025-01-24] MEDS: DEXTROSE 50% SYRINGE 50 ML IVP PRN (05:55)
[2025-01-24 06:17] LABS: Glucose,Whole Blood 124 mg/dL (70-110)
--- NOTE | 2025-01-24 06:40 | XR ---
EXAMINATION TYPE: XR chest 1V portable DATE OF EXAM: 01/24/2025 CLINICAL INDICATION: Female, 69 years old with history of f/u pneumonia, COVID pneumonia, CHF, progre ss study. TECHNIQUE: Single AP portable upright view of the chest is obtained. COMPARISON: Chest x-ray from one day earlier FINDINGS: Persistent cardiomegaly with dual lead pacemaker and ectatic thoracic aorta. Background ch ronic emphysematous change with bilateral multifocal increased opacities and small right pleural effu akhil. Osseous structures are intact. IMPRESSION: Cardiomegaly and chronic changes with persistent bilateral multifocal acute infiltrates and/or edema and small right pleural effusion. [facility], , 01/24/2025 6:37 AM
--- NOTE | 2025-01-24 07:59 | P.PN ---
Subjective Progress Note Date: 01/24/25 PROGRESS NOTE The patient is a 69-year-old female with a known history of severe COPD chronic tobacco use, history of heart failure with preserved systolic function who had recent COVID infection and presented with worsening dyspnea had pleural effusion and subsequent right-sided thoracentesis. Her echocardiogram showed a preserved systolic function with severe pulmonary hypertension enlargement of the right ventricle with moderate to severe tricuspid regurgitation who was transferred to the ICU for progressive dyspnea. She is relatively stable this morning, on the BiPAP. She continues to be in sinus mechanism. Her blood pressure stable. She has evidence of pacemaker activity . Her urinary output is stable. She is on no vasopressors. She had a CT scan of the chest that showed no evidence of pulmonary embolism with dilated pulmonary artery and moderately severe centrilobular pulmonary emphysema. January 23: The patient continues on her BiPAP. She is feeling better today. She denies any chest discomfort. She continues to desaturate easily off the BiPAP. Her blood pressure stable. There is no evidence of malignant arrhythmia. Her urinary output has been stable. There is no evidence of recurrent atrial fibrillation and she is 100% paced at this point. She has no nausea or vomit ing. January 24: The patient remains on the BiPAP but is feeling better. She denies any chest discomfort, dizziness or palpitations. She continues to have 100% ventricular pacing. Hemodynamically she is stable on no vasopressors. Her urine output is stable. She is still requiring high oxygen by BiPAP. Medications: Eliquis 5 mg twice a day, Bumex 1 mg IV twice daily, atorvastatin 40 mg daily, Farxiga 10 mg daily, insulin, losartan 25 mg daily, methylprednisolone, metoprolol tartrate 25 mg twice a day, singular 10 mg daily, spironolactone 25 mg daily., Revatio 20 mg 3 times a day PHYSICAL EXAMINATION: Blood pressure 130/62 heart rate 64, on BiPAP LUNGS: Decreased air exchange bilaterally HEART: Regular rate and rhythm, S1, S2. No S3. Systolic ejection murmur ABDOMEN: Soft, nontender, no organomegaly EXTREMETIES: No edema LAB: Hemoglobin 9.1, carbon dioxide 41, BUN 59, creatinine 0.97. IMPRESSION: 1. Severe hypoxemia related to chronic lung disease with superimposed COVID 2. History of heart failure with preserved systolic function, improving 3. Paroxysmal A-fib patient, in sinus with ventricular pacing, anticoagulated 4. Troponin elevation secondary to type II myocardial injury 5. Pleural effusion s/p thoracentesis 6. History of diabetes PLAN: 1. Change to oral diuretics 2. Wean oxygen as tolerated 3. Continue anticoagulation 4. Depending on her progress further recommendations will be made Objective - Vital Signs Vital signs: Vital Signs Temp 98.7 F 01/24/25 04:00 Pulse 66 01/24/25 07:00 Resp 22 01/24/25 07:00 BP 147/58 01/24/25 07:00 Pulse Ox 96 01/24/25 07:00 FiO2 60 01/24/25 03:53 Intake & Output 01/23/25 01/24/25 01/24/25 18:59 06:59 18:59 Intake Total 550 Output Total 800 0 Balance -250 0 Weight 44.7 kg Intake: Oral 550 Output: Urine 800 0 Other: Voiding Method Bedpan Bedpan # Voids 1 # Bowel Movements 1 - Labs CBC & Chem 7: 01/24/25 04:15 01/24/25 04:15 Labs: Abnormal Lab Results - Last 24 Hours (Table) 01/23/25 01/23/25 01/23/25 Range/Units 12:35 17:04 19:48 RBC (4.10-5.20) 10*6/uL Hgb (12.0-15.0) g/dL Hct (37.2-46.3) % MCHC (32.0-37.0) g/dL Neutrophils # (1.80-7.70) 10*3/uL Lymphocytes # (0.90-5.00) 10*3/uL Eosinophils # (0.04-0.35) 10*3/uL Chloride (98-107) mmol/L Carbon Dioxide (22-30) mmol/L BUN (7-17) mg/dL Glucose (74-99) mg/dL POC Glucose (mg/dL) 372 H 391 H 425 H (70-110) mg/dL Calcium (8.4-10.2) mg/dL AST (14-36) U/L ALT (4-34) U/L Alkaline Phosphatase (38-126) U/L Total Protein (6.3-8.2) g/dL Albumin (3.5-5.0) g/dL 01/24/25 01/24/2525 Range/Units 00:11 04:15 04:15 RBC 3.17 L (4.10-5.20) 10*6/uL Hgb 9.1 L (12.0-15.0) g/dL Hct 29.6 L (37.2-46.3) % MCHC 30.7 L (32.0-37.0) g/dL Neutrophils # 8.30 H (1.80-7.70) 10*3/uL Lymphocytes # 0.14 L (0.90-5.00) 10*3/uL Eosinophils # 0.00 L (0.04-0.35) 10*3/uL Chloride 95 L (98-107) mmol/L Carbon Dioxide 41 H* (22-30) mmol/L BUN 59 H (7-17) mg/dL Glucose 41 L* (74-99) mg/dL POC Glucose (mg/dL) 153 H (70-110) mg/dL Calcium 8.2 L (8.4-10.2) mg/dL AST 40 H (14-36) U/L ALT 94 H (4-34) U/L Alkaline Phosphatase 218 H (38-126) U/L Total Protein 5.4 L (6.3-8.2) g/dL Albumin 2.8 L (3.5-5.0) g/dL 01/24/25 Range/Units 06:15 RBC (4.10-5.20) 10*6/uL Hgb (12.0-15.0) g/dL Hct (37.2-46.3) % MCHC (32.0-37.0) g/dL Neutrophils # (1.80-7.70) 10*3/uL Lymphocytes # (0.90-5.00) 10*3/uL Eosinophils # (0.04-0.35) 10*3/uL Chloride (98-107) mmol/L Carbon Dioxide (22-30) mmol/L BUN (7-17) mg/dL Glucose (74-99) mg/dL POC Glucose (mg/dL) 124 H (70-110) mg/dL Calcium (8.4-10.2) mg/dL AST (14-36) U/L ALT (4-34) U/L Alkaline Phosphatase (38-126) U/L Total Protein (6.3-8.2) g/dL Albumin (3.5-5.0) g/dL
[2025-01-24 08:43] LABS: Hepatitis B Surface Antigen Nonreactive (Nonreactive); Hepatitis C IgG Antibody Nonreactive (Nonreactive)
[2025-01-24] MEDS: BUMETANIDE 1 MG TAB PO SCH (09:34)
[2025-01-24 11:22] LABS: Glucose,Whole Blood 198 mg/dL (70-110)
--- NOTE | 2025-01-24 14:43 | P.PN ---
Subjective Progress Note Date: 01/24/25 Principal diagnosis: Acute on chronic hypoxemic respiratory failure Patient is a 69-year-old female with past medical history significant for severe COPD, chronic hypoxemic respiratory failure, chronic tobacco smoker, atrial fibrillation, hypertension, diastolic heart failure. Patient is being seen in new consultation for ICU management today, 01/22/2025. Patient was reportedly at increased work of breathing and oxygen demands over the last 12 to 24 hours. Patient originally admitted to [address] [place] [address] on 01/13/2025 with acute on chronic hypoxemic respiratory failure secondary to a combination of factors including acute COPD exacerbation, acute on chronic diastolic heart failure, bilateral pleural effusions. She has been receiving Bumex 1 mg twice daily. Also, underwent right-sided thoracentesis on 01/16, and a total of 1.2 L of fluid was evacuated from the pleural space. Fluid analysis consistent with transudative effusion. More recently, patient also tested positive for COVID. Early this morning, patient developed increased oxygen demands and respiratory distress. Placed on BiPAP with settings 10/5 and FiO2 of 70%. Chest CTA did not show any evidence of pulmonary embolism, aortic aneurysm, or dissection. Moderate to severe centrilobular pulmonary emphysema with bilateral bronchial wall thickening and tubular bronchiectasis. Bilateral pulmonary increased reticular and interstitial infiltrates. Bandlike peribronchial consolidation/atelectasis within the posterior right middle lobe. Small to moderate-sized bilateral pleural effusions with patchy areas of consolidation, right greater than left. Enlarged pulmonary artery likely sequela of secondary pulmonary arterial hypertension. Most recent labs from yesterday including a CBC with a WBC count of 9.1, hemoglobin 10.7, platelets 154. BMP: Sodium 142, potassium 5.1, chloride 102, serum bicarb 37, BUN 66, creatinine 0.74, glucose 91. LFTs mildly elevated. Total bilirubin 0.7. Urine culture positive for E. coli. Serial troponins 0.08, 0.1, 0.09, and more recently 0.09. NT proBNP from admission significantly elevated at 16,700. Echocardiogram done this admission estimated preserved left ventricular ejection fraction of 55 to 60%, severe pulmonary hypertension with an RVSP of 68 mmHg, RV enlargement and moderate to severe tricuspid regurgitation. Patient patient has been moved to the intensive care unit. She remains on BiPAP with settings as mentioned above. She appears calm and comfortable. She is alert and oriented without signs of CO2 narcosis. Respiratory status and BiPAP make it difficult to communicate. Intermittent cough which is congested and nonproductive. Continues on empiric antibiotics in the form of Zosyn. Has remained afebrile. Denies any chest pain. Does have some minimal bilateral lower extremity swelling. Heart rhythm appears to be paced on bedside monitor. Blood pressure normotensive. She is going to be monitored in the intensive care unit. Patient was seen today on 01/23/2025, remains on BiPAP, 10/5/70% however I cut down her FiO2 down to 60% since her saturation was in the high 90s. Patient remains on Zosyn, Bumex, Eliquis, and on Decadron. Improving, feeling better, breathing easier. Chest x-ray continues to show evidence of bilateral infiltrates and possibly some component of interstitial edema. WBC count is 9.3 hemoglobin 9.5 electrolytes are normal bicarb is 42 BUN is 55 creatinine 0.84. Considering the patient is still requiring relatively high FiO2 and BiPAP support, I am keeping the patient in the ICU for the next 24 hours. Patient was seen today on 01/24/2025, remains in the ICU, transitioned now from BiPAP to Airvo presently at 80% FiO2 60 L flow, and I am hoping we could current down to 60% FiO2 and 60 L flow. Patient seems to be more pleased with the Airvo compared to BiPAP. Overall patient is about the same, not major change noted in the last 2 days. Definitely, the patient is not getting any worse. Chest x-ray continues to show interstitial edema and/or infiltrates, remains on diuretics, and she had good response to diuresis. Basic metabolic profile is normal bicarb is 41 BUN 59 creatinine 0.97, WBC is 8.7 hemoglobin is 9.1 Objective - Vital Signs Vital signs: Vital Signs Temp 97.6 F 01/24/25 12:00 Pulse 87 01/24/25 14:00 Resp 22 01/24/25 14:00 BP 98/51 01/24/25 14:00 Pulse Ox 92 L 01/24/25 14:00 FiO2 70 01/24/25 12:58 Intake & Output 01/23/25 01/24/25 01/24/25 18:59 06:59 18:59 Intake Total 550 280 Output Total 800 0 300 Balance -250 0 -20 Weight 44.7 kg Intake: IV 100 Piperacillin-Tazobactam 3 100 .375 gm In Sodium Chloride 0.9% 100 ml @ 25 mls/hr IVPB Q8HR [facility] Rx# :[id number] Oral 550 180 Output: Urine 800 0 300 Other: Voiding Method Bedpan Bedpan External Catheter # Voids 1 # Bowel Movements 1 - Exam GENERAL EXAM: Revealed 69-year-old female on Airvo at 60 liters flow and 80% FiO2 HEAD: Normocephalic and atraumatic EYES: Normal reaction of pupils, equal size. NOSE: Clear with pink turbinates. THROAT: No erythema or exudates. NECK: No masses, no JVD. CHEST: No chest wall deformity. LUNGS: Diminished breath sounds and crackles at the bases no rhonchi no wheezes CVS: S1 and S2 normal with no audible murmur, regular rhythm. No extra heart sounds ABDOMEN: No hepatosplenomegaly, active bowel sounds, no guarding or rigidity. SKIN: No rashes CENTRAL NERVOUS SYSTEM: Alert oriented x 3 no gross focal deficit EXTREMITIES: No clubbing edema or cyanosis - Labs CBC & Chem 7: 01/24/25 04:15 01/24/25 04:15 Labs: Abnormal Lab Results - Last 24 Hours (Table) 01/23/25 01/23/25 01/24/25 Range/Units 17:04 19:48 00:11 RBC (4.10-5.20) 10*6/uL Hgb (12.0-15.0) g/dL Hct (37.2-46.3) % MCHC (32.0-37.0) g/dL Neutrophils # (1.80-7.70) 10*3/uL Lymphocytes # (0.90-5.00) 10*3/uL Eosinophils # (0.04-0.35) 10*3/uL Chloride (98-107) mmol/L Carbon Dioxide (22-30) mmol/L BUN (7-17) mg/dL Glucose (74-99) mg/dL POC Glucose (mg/dL) 391 H 425 H 153 H (70-110) mg/dL Calcium (8.4-10.2) mg/dL AST (14-36) U/L ALT (4-34) U/L Alkaline Phosphatase (38-126) U/L Total Protein (6.3-8.2) g/dL Albumin (3.5-5.0) g/dL 01/24/25 01/24/25 01/24/25 Range/Units 04:15 04:15 06:15 RBC 3.17 L (4.10-5.20) 10*6/uL Hgb 9.1 L (12.0-15.0) g/dL Hct 29.6 L (37.2-46.3) % MCHC 30.7 L (32.0-37.0) g/dL Neutrophils # 8.30 H (1.80-7.70) 10*3/uL Lymphocytes # 0.14 L (0.90-5.00) 10*3/uL Eosinophils # 0.00 L (0.04-0.35) 10*3/uL Chloride 95 L (98-107) mmol/L Carbon Dioxide 41 H* (22-30) mmol/L BUN 59 H (7-17) mg/dL Glucose 41 L* (74-99) mg/dL POC Glucose (mg/dL) 124 H (70-110) mg/dL Calcium 8.2 L (8.4-10.2) mg/dL AST 40 H (14-36) U/L ALT 94 H (4-34) U/L Alkaline Phosphatase 218 H (38-126) U/L Total Protein 5.4 L (6.3-8.2) g/dL Albumin 2.8 L (3.5-5.0) g/dL 01/24/25 Range/Units 11:20 RBC (4.10-5.20) 10*6/uL Hgb (12.0-15.0) g/dL Hct (37.2-46.3) % MCHC (32.0-37.0) g/dL Neutrophils # (1.80-7.70) 10*3/uL Lymphocytes # (0.90-5.00) 10*3/uL Eosinophils # (0.04-0.35) 10*3/uL Chloride (98-107) mmol/L Carbon Dioxide (22-30) mmol/L BUN (7-17) mg/dL Glucose (74-99) mg/dL POC Glucose (mg/dL) 198 H (70-110) mg/dL Calcium (8.4-10.2) mg/dL AST (14-36) U/L ALT (4-34) U/L Alkaline Phosphatase (38-126) U/L Total Protein (6.3-8.2) g/dL Albumin (3.5-5.0) g/dL Assessment and Plan Assessment: Impression: Acute on chronic hypoxemic respiratory failure, still requiring BiPAP and relatively high FiO2 Acute on chronic diastolic heart failure Bilateral small pleural effusions, with recent right-sided thoracentesis performed 01/16/2025 where a total of 1.2 L was removed from the pleural space, and fluid analysis appears to be transudative. Acute COVID-19 infection, possible COVID-19 pneumonia, or underlying bacterial pneumonia but she definitely has pulmonary edema/acute on chronic diastolic heart failure. Acute COPD exacerbation Severe pulmonary hypertension Paroxysmal atrial fibrillation, currently V-paced on bedside monitor Permanent pacemaker Systemic hypertension Diabetes mellitus type 2 Elevated troponins, likely secondary to supply/demand mismatch Urinary tract infection, urine culture positive for E. coli Former tobacco smoker Recommendation: Continue Airvo, keep BiPAP at bedside available if needed Continue to monitor in the ICU Continue diuretics for her congestive heart failure Continue bronchodilators Continue methylprednisolone Continue Zosyn empirically We will continue to monitor in the ICU Time with Patient: Less than 30
[2025-01-24 16:32] LABS: Glucose,Whole Blood 102 mg/dL (70-110)
[2025-01-24 21:09] LABS: Glucose,Whole Blood 206 mg/dL (70-110)
[2025-01-25] MEDS: ONDANSETRON 4 MG/2 ML VIAL IVP PRN (02:25)
--- NOTE | 2025-01-25 04:35 | PN ---
PROGRESS NOTE SUBJECTIVE: A 69-year-old white female, COVID pneumonia, remains off BiPAP, now she has airflow going. OBJECTIVE: VITAL SIGNS: FiO2 went from 90% to 60%, temperature 98, blood pressure 130s over 50s to 60s, O2 of 91% to 95%, on 60% high-flow. CARDIOVASCULAR: S1, S2. LUNGS: Scattered rhonchi and wheeze. HEMATOLOGY: Negative Homans. White count 8.72, hemoglobin was 9.1, sodium 142, potassium 3.6, carbon dioxide is 41, glucose so far was low, now it was in the 120s to 200s, elevated liver enzymes, protein- calorie malnutrition, community-acquired pneumonia. Prognosis guarded. Continue current treatment. Get off the vent as soon as possible. MMODL / IJN: [id number] /
[2025-01-25 05:08] LABS: Basophils # (A) 0.03 10*3/uL (0.00-0.10); Basophils % (A) 0.3 %; HCT 30.8 % (37.2-46.3); HGB 9.2 g/dL (12.0-15.0); Lymphocytes # (A) 0.11 10*3/uL (0.90-5.00); Lymphocytes % (A) 1.2 %; MCH 28.9 pg (27.0-32.0); MCHC 29.9 g/dL (32.0-37.0); MCV 96.9 fL (80.0-97.0); Mean Platelet Volume 11.1 fL (9.5-12.2); Monocytes # (A) 0.26 10*3/uL (0.20-1.00); Monocytes % (A) 2.8 %; Neutrophils # (A) 8.92 10*3/uL (1.80-7.70); Neutrophils % (A) 95.3 %; Platelet Count 188 10*3/uL (140-440); RBC 3.18 10*6/uL (4.10-5.20); WBC 9.36 10*3/uL (4.50-10.00)
[2025-01-25 05:38] LABS: African American GFR (CKD) 78 (>60 ml/min/1.73 sqM); Anion Gap 6 mmol/L; Blood Urea Nitrogen 43 mg/dL (7-17); Calcium 8.6 mg/dL (8.4-10.2); Chloride 97 mmol/L (98-107); Glucose 158 mg/dL (74-99); Non-African American GFR(CKD) 68 (>60 ml/min/1.73 sqM); Potassium 3.7 mmol/L (3.5-5.1); Sodium 143 mmol/L (137-145)
--- NOTE | 2025-01-25 05:47 | XR ---
EXAMINATION TYPE: XR chest 1V portable DATE OF EXAM: 01/25/2025 CLINICAL INDICATION: Female, 69 years old with history of f/u pneumonia, COVID pneumonia, CHF, progre ss study. TECHNIQUE: Single AP portable upright view of the chest is obtained. COMPARISON: Chest x-ray from one day earlier FINDINGS: Persistent cardiomegaly with dual lead pacemaker and ectatic thoracic aorta. Background ch ronic emphysematous change redemonstrated with bilateral multifocal increased opacities and more prom inent right basilar opacity. Osseous structures are intact. IMPRESSION: Cardiomegaly and chronic changes with persistent bilateral multifocal acute infiltrates and/or edema. There is more prominent right basilar opacity could reflect enlarging pleural effusion but more likely reflects worsening atelectasis as there is increased right-sided volume loss noted. [facility], , 01/25/2025 5:44 AM
[2025-01-25 05:50] LABS: Carbon Dioxide 40 mmol/L (22-30)
[2025-01-25 06:35] LABS: Glucose,Whole Blood 174 mg/dL (70-110)
--- NOTE | 2025-01-25 07:43 | P.PN ---
Subjective Progress Note Date: 01/25/25 PROGRESS NOTE The patient is a 69-year-old female with a known history of severe COPD chronic tobacco use, history of heart failure with preserved systolic function who had recent COVID infection and presented with worsening dyspnea had pleural effusion and subsequent right-sided thoracentesis. Her echocardiogram showed a preserved systolic function with severe pulmonary hypertension enlargement of the right ventricle with moderate to severe tricuspid regurgitation who was transferred to the ICU for progressive dyspnea. She is relatively stable this morning, on the BiPAP. She continues to be in sinus mechanism. Her blood pressure stable. She has evidence of pacemaker activity . Her urinary output is stable. She is on no vasopressors. She had a CT scan of the chest that showed no evidence of pulmonary embolism with dilated pulmonary artery and moderately severe centrilobular pulmonary emphysema. January 23: The patient continues on her BiPAP. She is feeling better today. She denies any chest discomfort. She continues to desaturate easily off the BiPAP. Her blood pressure stable. There is no evidence of malignant arrhythmia. Her urinary output has been stable. There is no evidence of recurrent atrial fibrillation and she is 100% paced at this point. She has no nausea or vomit ing. January 24: The patient remains on the BiPAP but is feeling better. She denies any chest discomfort, dizziness or palpitations. She continues to have 100% ventricular pacing. Hemodynamically she is stable on no vasopressors. Her urine output is stable. She is still requiring high oxygen by BiPAP. January 25: The patient feels better today, she is off her BiPAP on high oxygen flow. Her blood pressure is stable. She denies any chest discomfort, dizziness or palpitations. She had some nausea and abdominal pain, improving. She continues to have pacemaker activity. She has no evidence of ventricular ectopic activity. Hemodynamically she is stable. Medications: Eliquis 5 mg twice a day, Bumex 1 mg p.o. twice daily, atorvastatin 40 mg daily, Farxiga 10 mg daily, insulin, losartan 25 mg daily, methylprednisolone, metoprolol tartrate 25 mg twice a day, singular 10 mg daily, spironolactone 25 mg daily., Revatio 20 mg 3 times a day PHYSICAL EXAMINATION: Blood pressure 126/60 heart rate 69 LUNGS: Decreased air exchange bilaterally more on the right base HEART: Regular rate and rhythm, S1, S2. No S3. Systolic ejection murmur ABDOMEN: Soft, nontender, no organomegaly EXTREMETIES: No edema LAB: Hemoglobin 9.2, carbon dioxide 40, BUN 43, creatinine 0.88 . IMPRESSION: 1. Severe hypoxemia related to chronic lung disease with superimposed COVID 2. History of heart failure with preserved systolic function, improving 3. Paroxysmal A-fib patient, in sinus with ventricular pacing, anticoagulated 4. Troponin elevation secondary to type II myocardial injury 5. Pleural effusion s/p thoracentesis 6. History of diabetes PLAN: 1. Continue present therapy 2. Physical therapy 3. Wean oxygen supplementation as tolerated 4. Depending on her progress further recommendations will be made Objective - Vital Signs Vital signs: Vital Signs Temp 98.2 F 01/25/25 00:00 Pulse 69 01/25/25 07:00 Resp 17 01/25/25 07:00 BP 126/62 01/25/25 07:00 Pulse Ox 87 L 01/25/25 07:00 FiO2 65 01/25/25 04:24 Intake & Output 01/24/25 01/25/25 01/25/25 18:59 06:59 18:59 Intake Total 580 580 Output Total 1050 550 100 Balance -470 30 -100 Weight 42 kg Intake: IV 200 100 Piperacillin-Tazobactam 3 200 100 .375 gm In Sodium Chloride 0.9% 100 ml @ 25 mls/hr IVPB Q8HR [facility] Rx# :[id number] Oral 380 480 Output: Urine 1050 550 100 Other: Voiding Method External Catheter External Catheter - Labs CBC & Chem 7: 01/25/25 04:38 01/25/25 04:38 Labs: Abnormal Lab Results - Last 24 Hours (Table) 01/24/25 01/24/25 01/25/25 Range/Units 11:20 21:08 04:38 RBC 3.18 L (4.10-5.20) 10*6/uL Hgb 9.2 L (12.0-15.0) g/dL Hct 30.8 L (37.2-46.3) % MCHC 29.9 L (32.0-37.0) g/dL Neutrophils # 8.92 H (1.80-7.70) 10*3/uL Lymphocytes # 0.11 L (0.90-5.00) 10*3/uL Eosinophils # 0.00 L (0.04-0.35) 10*3/uL Chloride (98-107) mmol/L Carbon Dioxide (22-30) mmol/L BUN (7-17) mg/dL Glucose (74-99) mg/dL POC Glucose (mg/dL) 198 H 206 H (70-110) mg/dL 01/25/25 01/25/25 Range/Units 04:38 06:34 RBC (4.10-5.20) 10*6/uL Hgb (12.0-15.0) g/dL Hct (37.2-46.3) % MCHC (32.0-37.0) g/dL Neutrophils # (1.80-7.70) 10*3/uL Lymphocytes # (0.90-5.00) 10*3/uL Eosinophils # (0.04-0.35) 10*3/uL Chloride 97 L (98-107) mmol/L Carbon Dioxide 40 H (22-30) mmol/L BUN 43 H (7-17) mg/dL Glucose 158 H (74-99) mg/dL POC Glucose (mg/dL) 174 H (70-110) mg/dL
[2025-01-25 11:07] LABS: Glucose,Whole Blood 166 mg/dL (70-110)
--- NOTE | 2025-01-25 12:33 | P.PN ---
Subjective Progress Note Date: 01/25/25 Principal diagnosis: Acute on chronic hypoxemic respiratory failure Patient is a 69-year-old female with past medical history significant for severe COPD, chronic hypoxemic respiratory failure, chronic tobacco smoker, atrial fibrillation, hypertension, diastolic heart failure. Patient is being seen in new consultation for ICU management today, 01/22/2025. Patient was reportedly at increased work of breathing and oxygen demands over the last 12 to 24 hours. Patient originally admitted to [address] [place] [address] on 01/13/2025 with acute on chronic hypoxemic respiratory failure secondary to a combination of factors including acute COPD exacerbation, acute on chronic diastolic heart failure, bilateral pleural effusions. She has been receiving Bumex 1 mg twice daily. Also, underwent right-sided thoracentesis on 01/16, and a total of 1.2 L of fluid was evacuated from the pleural space. Fluid analysis consistent with transudative effusion. More recently, patient also tested positive for COVID. Early this morning, patient developed increased oxygen demands and respiratory distress. Placed on BiPAP with settings 10/5 and FiO2 of 70%. Chest CTA did not show any evidence of pulmonary embolism, aortic aneurysm, or dissection. Moderate to severe centrilobular pulmonary emphysema with bilateral bronchial wall thickening and tubular bronchiectasis. Bilateral pulmonary increased reticular and interstitial infiltrates. Bandlike peribronchial consolidation/atelectasis within the posterior right middle lobe. Small to moderate-sized bilateral pleural effusions with patchy areas of consolidation, right greater than left. Enlarged pulmonary artery likely sequela of secondary pulmonary arterial hypertension. Most recent labs from yesterday including a CBC with a WBC count of 9.1, hemoglobin 10.7, platelets 154. BMP: Sodium 142, potassium 5.1, chloride 102, serum bicarb 37, BUN 66, creatinine 0.74, glucose 91. LFTs mildly elevated. Total bilirubin 0.7. Urine culture positive for E. coli. Serial troponins 0.08, 0.1, 0.09, and more recently 0.09. NT proBNP from admission significantly elevated at 16,700. Echocardiogram done this admission estimated preserved left ventricular ejection fraction of 55 to 60%, severe pulmonary hypertension with an RVSP of 68 mmHg, RV enlargement and moderate to severe tricuspid regurgitation. Patient patient has been moved to the intensive care unit. She remains on BiPAP with settings as mentioned above. She appears calm and comfortable. She is alert and oriented without signs of CO2 narcosis. Respiratory status and BiPAP make it difficult to communicate. Intermittent cough which is congested and nonproductive. Continues on empiric antibiotics in the form of Zosyn. Has remained afebrile. Denies any chest pain. Does have some minimal bilateral lower extremity swelling. Heart rhythm appears to be paced on bedside monitor. Blood pressure normotensive. She is going to be monitored in the intensive care unit. Patient was seen today on 01/23/2025, remains on BiPAP, 10//70% however I cut down her FiO2 down to 60% since her saturation was in the high 90s. Patient remains on Zosyn, Bumex, Eliquis, and on Decadron. Improving, feeling better, breathing easier. Chest x-ray continues to show evidence of bilateral infiltrates and possibly some component of interstitial edema. WBC count is 9.3 hemoglobin 9.5 electrolytes are normal bicarb is 42 BUN is 55 creatinine 0.84. Considering the patient is still requiring relatively high FiO2 and BiPAP support, I am keeping the patient in the ICU for the next 24 hours. Patient was seen today on 01/24/2025, remains in the ICU, transitioned now from BiPAP to Airvo presently at 80% FiO2 60 L flow, and I am hoping we could current down to 60% FiO2 and 60 L flow. Patient seems to be more pleased with the Airvo compared to BiPAP. Overall patient is about the same, not major change noted in the last 2 days. Definitely, the patient is not getting any worse. Chest x-ray continues to show interstitial edema and/or infiltrates, remains on diuretics, and she had good response to diuresis. Basic metabolic profile is normal bicarb is 41 BUN 59 creatinine 0.97, WBC is 8.7 hemoglobin is 9.1 Patient was seen today on 01/25/2025, remains in the ICU, on Airvo, 65% FiO2 and 60 L flow. Patient seems to be comfortable, we have been steadily titrating her FiO2 down, and the patient seems to be tolerating that well but overall she remains marginal at best. WBC count today is 9.36 hemoglobin 9.2 electrolytes are normal bicarb is 14 BUN is 43 creatinine 0.88 Objective - Vital Signs Vital signs: Vital Signs Temp 97.6 F 01/25/25 12:00 Pulse 59 L 01/25/25 12:00 Resp 12 01/25/25 12:00 BP 98/81 01/25/25 12:00 Pulse Ox 92 L 01/25/25 12:00 FiO2 60 01/25/25 12:00 Intake & Output 01/24/25 01/25/25 01/25/25 18:59 06:59 18:59 Intake Total 580 580 100 Output Total 1050 550 200 Balance -470 30 -100 Weight 42 kg Intake: IV 200 100 100 Piperacillin-Tazobactam 3 200 100 100 .375 gm In Sodium Chloride 0.9% 100 ml @ 25 mls/hr IVPB Q8HR [facility] Rx# :[id number] Oral 380 480 Output: Urine 1050 550 200 Other: Voiding Method External Catheter External Catheter External Catheter # Voids 1 - Exam GENERAL EXAM: Revealed 69-year-old female on Airvo at 65% FiO2 and 60 L flow HEAD: Normocephalic and atraumatic EYES: Normal reaction of pupils, equal size. NOSE: Clear with pink turbinates. THROAT: No erythema or exudates. NECK: No masses, no JVD. CHEST: No chest wall deformity. LUNGS: Diminished breath sounds and crackles at the bases no rhonchi no wheezes CVS: S1 and S2 normal with no audible murmur, regular rhythm. No extra heart sounds ABDOMEN: No hepatosplenomegaly, active bowel sounds, no guarding or rigidity. SKIN: No rashes CENTRAL NERVOUS SYSTEM: Alert oriented x 3 no gross focal deficit EXTREMITIES: No clubbing edema or cyanosis - Labs CBC & Chem 7: 01/25/25 04:38 01/25/25 04:38 Labs: Abnormal Lab Results - Last 24 Hours (Table) 01/24/25 01/25/25 01/25/25 Range/Units 21:08 04:38 04:38 RBC 3.18 L (4.10-5.20) 10*6/uL Hgb 9.2 L (12.0-15.0) g/dL Hct 30.8 L (37.2-46.3) % MCHC 29.9 L (32.0-37.0) g/dL Neutrophils # 8.92 H (1.80-7.70) 10*3/uL Lymphocytes # 0.11 L (0.90-5.00) 10*3/uL Eosinophils # 0.00 L (0.04-0.35) 10*3/uL Chloride 97 L (98-107) mmol/L Carbon Dioxide 40 H (22-30) mmol/L BUN 43 H (7-17) mg/dL Glucose 158 H (74-99) mg/dL POC Glucose (mg/dL) 206 H (70-110) mg/dL 01/25/25 01/25/25 Range/Units 06:34 11:05 RBC (4.10-5.20) 10*6/uL Hgb (12.0-15.0) g/dL Hct (37.2-46.3) % MCHC (32.0-37.0) g/dL Neutrophils # (1.80-7.70) 10*3/uL Lymphocytes # (0.90-5.00) 10*3/uL Eosinophils # (0.04-0.35) 10*3/uL Chloride (98-107) mmol/L Carbon Dioxide (22-30) mmol/L BUN (7-17) mg/dL Glucose (74-99) mg/dL POC Glucose (mg/dL) 174 H 166 H (70-110) mg/dL Assessment and Plan Assessment: Impression: Acute on chronic hypoxemic respiratory failure, remains relatively on high FiO2 Acute on chronic diastolic heart failure Bilateral small pleural effusions, with recent right-sided thoracentesis performed 01/16/2025 where a total of 1.2 L was removed from the pleural space, and fluid analysis appears to be transudative. Acute COVID-19 infection, possible COVID-19 pneumonia, or underlying bacterial pneumonia but she definitely has pulmonary edema/acute on chronic diastolic heart failure. Acute COPD exacerbation Severe pulmonary hypertension Paroxysmal atrial fibrillation, currently V-paced on bedside monitor Permanent pacemaker Systemic hypertension Diabetes mellitus type 2 Elevated troponins, likely secondary to supply/demand mismatch Urinary tract infection, urine culture positive for E. coli Former tobacco smoker Recommendation: Continue Airvo, titrate accordingly Continue to monitor in the ICU for at least the next 24 hours Continue diuretics for her congestive heart failure Continue bronchodilators Continue methylprednisolone Continue Zosyn empirically We will continue to follow Time with Patient: Less than 30
[2025-01-25 16:10] LABS: Glucose,Whole Blood 115 mg/dL (70-110)
[2025-01-25 20:39] LABS: Glucose,Whole Blood 264 mg/dL (70-110)
--- NOTE | 2025-01-26 01:21 | PN ---
PROGRESS NOTE Severe COPD, hypoxemic respiratory failure, admitted with pneumonia and develops COVID in the hospital. She is on 14 L of high-flow O2. She is more alert now after a few days. She is off BiPAP. She has moderate to severe centrilobular pulmonary emphysema, bronchiectasis, interstitial infiltrates. LABORATORY DATA: Reviewed. White count is normal. PHYSICAL EXAMINATION: LUNGS: Decreased breath sounds, scattered wheeze. CARDIOVASCULAR: S1, S2. HEMATOLOGY: Negative for Homans. She is on AIRVO 60%, FiO2 is in the mid 90s, it is marginal, but she is improving. She is more alert. Bicarb is 14, BUN is 43, creatinine 0.88. ASSESSMENT: 1. COVID pneumonia. 2. Acute hypoxemic respiratory failure. 3. Chronic obstructive pulmonary disease with acute exacerbation. Monitor in the ICU. Diuretics for CHF. Steroids, Zosyn, bronchodilators. She has a pacemaker and diabetes is stable. Severe pulmonary hypertension. Prognosis is guarded. Continue with current treatment. Please see further orders. MMODL / IJN: [id number] /
[2025-01-26 03:36] LABS: Basophils # (A) 0.01 10*3/uL (0.00-0.10); Basophils % (A) 0.1 %; HCT 29.6 % (37.2-46.3); HGB 8.9 g/dL (12.0-15.0); Lymphocytes % (A) 0.9 %; MCH 29.3 pg (27.0-32.0); MCHC 30.1 g/dL (32.0-37.0); MCV 97.4 fL (80.0-97.0); Mean Platelet Volume 10.4 fL (9.5-12.2); Monocytes # (A) 0.32 10*3/uL (0.20-1.00); Monocytes % (A) 2.8 %; Neutrophils # (A) 10.89 10*3/uL (1.80-7.70); Neutrophils % (A) 95.8 %; Platelet Count 168 10*3/uL (140-440); RBC 3.04 10*6/uL (4.10-5.20); WBC 11.36 10*3/uL (4.50-10.00)
[2025-01-26 03:54] LABS: ALT 66 U/L (4-34); AST 40 U/L (14-36); African American GFR (CKD) 69 (>60 ml/min/1.73 sqM); Albumin 2.6 g/dL (3.5-5.0); Alkaline Phosphatase 193 U/L (38-126); Blood Urea Nitrogen 50 mg/dL (7-17); Calcium 8.7 mg/dL (8.4-10.2); Chloride 97 mmol/L (98-107); Glucose 176 mg/dL (74-99); Non-African American GFR(CKD) 60 (>60 ml/min/1.73 sqM); Potassium 4.5 mmol/L (3.5-5.1); Sodium 145 mmol/L (137-145); Total Bilirubin 0.4 mg/dL (0.2-1.3)
[2025-01-26 04:00] LABS: Anion Gap 1 mmol/L
[2025-01-26 04:20] LABS: Carbon Dioxide 47 mmol/L (22-30)
[2025-01-26 06:25] LABS: Glucose,Whole Blood 259 mg/dL (70-110)
--- NOTE | 2025-01-26 07:44 | P.PN ---
Subjective Progress Note Date: 01/26/25 PROGRESS NOTE The patient is a 69-year-old female with a known history of severe COPD chronic tobacco use, history of heart failure with preserved systolic function who had recent COVID infection and presented with worsening dyspnea had pleural effusion and subsequent right-sided thoracentesis. Her echocardiogram showed a preserved systolic function with severe pulmonary hypertension enlargement of the right ventricle with moderate to severe tricuspid regurgitation who was transferred to the ICU for progressive dyspnea. She is relatively stable this morning, on the BiPAP. She continues to be in sinus mechanism. Her blood pressure stable. She has evidence of pacemaker activity . Her urinary output is stable. She is on no vasopressors. She had a CT scan of the chest that showed no evidence of pulmonary embolism with dilated pulmonary artery and moderately severe centrilobular pulmonary emphysema. January 23: The patient continues on her BiPAP. She is feeling better today. She denies any chest discomfort. She continues to desaturate easily off the BiPAP. Her blood pressure stable. There is no evidence of malignant arrhythmia. Her urinary output has been stable. There is no evidence of recurrent atrial fibrillation and she is 100% paced at this point. She has no nausea or vomit ing. January 24: The patient remains on the BiPAP but is feeling better. She denies any chest discomfort, dizziness or palpitations. She continues to have 100% ventricular pacing. Hemodynamically she is stable on no vasopressors. Her urine output is stable. She is still requiring high oxygen by BiPAP. January 25: The patient feels better today, she is off her BiPAP on high oxygen flow. Her blood pressure is stable. She denies any chest discomfort, dizziness or palpitations. She had some nausea and abdominal pain, improving. She continues to have pacemaker activity. She has no evidence of ventricular ectopic activity. Hemodynamically she is stable. January 26: The patient is stable today. She feels that her breathing is stable. She continues to be in atrial fibrillation with ventricular pacing. There is no significant hypertension. He feels stronger, she denies any dizziness, palp itations or syncope. She has no nausea. Medications: Eliquis 5 mg twice a day, Bumex 1 mg p.o. twice daily, atorvastatin 40 mg daily, Farxiga 10 mg daily, insulin, losartan 25 mg daily, methylprednisolone, metoprolol tartrate 25 mg twice a day, singular 10 mg daily, spironolactone 25 mg daily., Revatio 20 mg 3 times a day PHYSICAL EXAMINATION: Blood pressure 128/60 heart rate 70 LUNGS: Decreased breath sounds at the base HEART: Irregular rate and rhythm, S1, S2. No S3. Systolic ejection murmur ABDOMEN: Soft, nontender, no organomegaly EXTREMETIES: No edema LAB: Hemoglobin 8.9, carbon dioxide 47, BUN 50, creatinine 0.97. IMPRESSION: 1. Severe hypoxemia related to chronic lung disease with superimposed COVID 2. History of heart failure with preserved systolic function, improving 3. Paroxysmal A-fib patient, in sinus with ventricular pacing, anticoagulated 4. Troponin elevation secondary to type II myocardial injury 5. Pleural effusion s/p thoracentesis 6. History of diabetes PLAN: 1. Decrease Bumex to 1 mg daily 2. Physical therapy 3. Wean oxygen supplementation as tolerated 4. Depending on her progress further recommendations will be made 5. We will see her on a as needed basis, please feel free to call us for any question Objective - Vital Signs Vital signs: Vital Signs Temp 98.7 F 01/26/25 04:00 Pulse 70 01/26/25 06:00 Resp 14 01/26/25 06:00 BP 128/58 01/26/25 06:00 Pulse Ox 92 L 01/26/25 06:00 FiO2 70 01/26/25 06:00 Intake & Output 01/25/25 01/26/25 01/26/25 18:59 06:59 18:59 Intake Total 660 Output Total 600 950 Balance 60 -950 Weight 40.9 kg Intake: IV 100 Piperacillin-Tazobactam 3 100 .375 gm In Sodium Chloride 0.9% 100 ml @ 25 mls/hr IVPB Q8HR [facility] Rx# :[id number] Oral 560 Output: Urine 600 950 Other: Voiding Method External Catheter External Catheter # Voids 1 0 - Labs CBC & Chem 7: 01/26/25 03:13 01/26/25 03:13 Labs: Abnormal Lab Results - Last 24 Hours (Table) 01/25/25 01/25/25 01/25/25 Range/Units 11:05 16:09 20:37 WBC (4.50-10.00) 10*3/uL RBC (4.10-5.20) 10*6/uL Hgb (12.0-15.0) g/dL Hct (37.2-46.3) % MCV (80.0-97.0) fL MCHC (32.0-37.0) g/dL Neutrophils # (1.80-7.70) 10*3/uL Lymphocytes # (0.90-5.00) 10*3/uL Eosinophils # (0.04-0.35) 10*3/uL Chloride (98-107) mmol/L Carbon Dioxide (22-30) mmol/L BUN (7-17) mg/dL Glucose (74-99) mg/dL POC Glucose (mg/dL) 166 H 115 H 264 H (70-110) mg/dL AST (14-36) U/L ALT (4-34) U/L Alkaline Phosphatase (38-126) U/L Total Protein (6.3-8.2) g/dL Albumin (3.5-5.0) g/dL 01/26/25 01/26/25 01/26/25 Range/Units 03:13 03:13 06:23 WBC 11.36 H (4.50-10.00) 10*3/uL RBC 3.04 L (4.10-5.20) 10*6/uL Hgb 8.9 L (12.0-15.0) g/dL Hct 29.6 L (37.2-46.3) % MCV 97.4 H (80.0-97.0) fL MCHC 30.1 L (32.0-37.0) g/dL Neutrophils # 10.89 H (1.80-7.70) 10*3/uL Lymphocytes # 0.10 L (0.90-5.00) 10*3/uL Eosinophils # 0.00 L (0.04-0.35) 10*3/uL Chloride 97 L (98-107) mmol/L Carbon Dioxide 47 H* (22-30) mmol/L BUN 50 H (7-17) mg/dL Glucose 176 H (74-99) mg/dL POC Glucose (mg/dL) 259 H (70-110) mg/dL AST 40 H (14-36) U/L ALT 66 H (4-34) U/L Alkaline Phosphatase 193 H (38-126) U/L Total Protein 5.0 L (6.3-8.2) g/dL Albumin 2.6 L (3.5-5.0) g/dL
--- NOTE | 2025-01-26 07:46 | XR ---
EXAMINATION TYPE: XR chest 1V portable DATE OF EXAM: 01/26/2025 5:23 AM COMPARISON: Chest radiographs from 01/25/2025. CLINICAL INDICATION: Female, 69 years old with history of Resp failure; TECHNIQUE: XR chest 1V portable Frontal view of the chest. FINDINGS: Lungs/Pleura: Elevated right diaphragm. Prominent interstitial lung markings are seen scattered throu ghout the lungs. No evidence of focal consolidation, pneumothorax or pleural effusion. Pulmonary vascularity: Unremarkable. Heart/mediastinum: Cardiomediastinal silhouette is unremarkable. Two lead cardiac conduction device o verlying the left hemithorax with lead tips projecting over the right ventricle and right atrium. Musculoskeletal: No acute osseous pathology. IMPRESSION: Similar interstitial lung disease changes throughout the lungs with elevated right diaphragm. [facility], , 01/26/2025 7:44 AM
[2025-01-26] MEDS: BUMETANIDE 1 MG TAB PO SCH (09:02)
[2025-01-26] MEDS: acetaZOLAMIDE 250 MG TAB PO SCH (10:13)
--- NOTE | 2025-01-26 10:32 | US ---
EXAMINATION TYPE: US chest DATE OF EXAM: 01/26/2025 COMPARISON: XR 01/26/2025 CLINICAL INDICATION: Female, 69 years old with history of Right effusio; TECHNIQUE: Grayscale imaging of the chest. Targeted ultrasound of the posterior lower right hemithor ax FINDINGS: EXAM MEASUREMENTS: Right Pleural Effusion pocket size: 1.9 cm Right skin surface to fluid distance: 1.3 cm Right side marked for possible thoracentesis outside the dept. Pulmonologists are able to review the images in the patient?s EMR. IMPRESSIONS: Small right pleural effusion. [facility], , 01/26/2025 10:30 AM
[2025-01-26 11:40] LABS: Glucose,Whole Blood 84 mg/dL (70-110)
--- NOTE | 2025-01-26 12:55 | P.PN ---
Subjective Progress Note Date: 01/24/25 Principal diagnosis: Reason for follow-up is COVID-19 Patient is a 69-year-old female with a past medical history significant for COPD current everyday smoker presented to hospital on 01/13/2025 for evaluation of increasing shortness of breath did have worsening of breathing for which the patient did have COVID test came back positive prompting this consultation. On today's evaluation that is 01/24/2025,the patient denies any fever or any chills, patient is breathing slightly comfortably currently requiring 60% FiO2 patient denies having any chest pain or worsening cough no nausea vomiting abdominal pain or diarrhea Patient white count is 8.72, creatinine 0.97 liver enzymes mildly elevated Objective - Vital Signs Vital signs: Vital Signs Temp 97.6 F 01/24/25 12:00 Pulse 62 01/24/25 13:00 Resp 14 01/24/25 13:00 BP 135/65 01/24/25 13:00 Pulse Ox 97 01/24/25 13:00 FiO2 70 01/24/25 12:00 Intake & Output 01/23/25 01/24/25 01/24/25 18:59 06:59 18:59 Intake Total 550 Output Total 800 0 300 Balance -250 0 -300 Weight 44.7 kg Intake: Oral 550 Output: Urine 800 0 300 Other: Voiding Method Bedpan Bedpan External Catheter # Voids 1 # Bowel Movements 1 - Exam GENERAL DESCRIPTION: An elderly female lying in bed in no distress RESPIRATORY SYSTEM: Unlabored breathing , decreased breath sounds at bases HEART: S1 S2 regular rate and rhythm , ABDOMEN: Soft , no tenderness EXTREMITIES: No edema feet - Labs CBC & Chem 7: 01/26/25 03:13 01/26/25 03:13 Labs: Abnormal Lab Results - Last 24 Hours (Table) 01/23/25 01/23/25 01/24/25 Range/Units 17:04 19:48 00:11 RBC (4.10-5.20) 10*6/uL Hgb (12.0-15.0) g/dL Hct (37.2-46.3) % MCHC (32.0-37.0) g/dL Neutrophils # (1.80-7.70) 10*3/uL Lymphocytes # (0.90-5.00) 10*3/uL Eosinophils # (0.04-0.35) 10*3/uL Chloride (98-107) mmol/L Carbon Dioxide (22-30) mmol/L BUN (7-17) mg/dL Glucose (74-99) mg/dL POC Glucose (mg/dL) 391 H 425 H 153 H (70-110) mg/dL Calcium (8.4-10.2) mg/dL AST (14-36) U/L ALT (4-34) U/L Alkaline Phosphatase (38-126) U/L Total Protein (6.3-8.2) g/dL Albumin (3.5-5.0) g/dL 01/24/25 01/24/25 01/24/25 Range/Units 04:15 04:15 06:15 RBC 3.17 L (4.10-5.20) 10*6/uL Hgb 9.1 L (12.0-15.0) g/dL Hct 29.6 L (37.2-46.3) % MCHC 30.7 L (32.0-37.0) g/dL Neutrophils # 8.30 H (1.80-7.70) 10*3/uL Lymphocytes # 0.14 L (0.90-5.00) 10*3/uL Eosinophils # 0.00 L (0.04-0.35) 10*3/uL Chloride 95 L (98-107) mmol/L Carbon Dioxide 41 H* (22-30) mmol/L BUN 59 H (7-17) mg/dL Glucose 41 L* (74-99) mg/dL POC Glucose (mg/dL) 124 H (70-110) mg/dL Calcium 8.2 L (8.4-10.2) mg/dL AST 40 H (14-36) U/L ALT 94 H (4-34) U/L Alkaline Phosphatase 218 H (38-126) U/L Total Protein 5.4 L (6.3-8.2) g/dL Albumin 2.8 L (3.5-5.0) g/dL 01/24/25 Range/Units 11:20 RBC (4.10-5.20) 10*6/uL Hgb (12.0-15.0) g/dL Hct (37.2-46.3) % MCHC (32.0-37.0) g/dL Neutrophils # (1.80-7.70) 10*3/uL Lymphocytes # (0.90-5.00) 10*3/uL Eosinophils # (0.04-0.35) 10*3/uL Chloride (98-107) mmol/L Carbon Dioxide (22-30) mmol/L BUN (7-17) mg/dL Glucose (74-99) mg/dL POC Glucose (mg/dL) 198 H (70-110) mg/dL Calcium (8.4-10.2) mg/dL AST (14-36) U/L ALT (4-34) U/L Alkaline Phosphatase (38-126) U/L Total Protein (6.3-8.2) g/dL Albumin (3.5-5.0) g/dL Assessment and Plan (1) COVID-19 Current Visit: Yes Status: Acute Code(s): U07.1 - COVID-19 SNOMED Code(s): 893190048 Plan: 1patient with increasing shortness of breath which is likely multifactorial and possible component of COVID-19 pneumonia however is not very clear if the patient requires infection in the hospital or she presented to the hospital with it as there was no COVID testing done on admission though her symptoms was mostly shortness of breath did not have any fever during this admission CT did not show any PE but evidence of possible COVID-19 pneumonia in this patient currently on a BiPAP with high FiO2 requirement not an ideal candidate for remdesivir 2-patient remains to be afebrile white count has been normal requiring less supplemental oxygen, to continue with the Eliquis Solu-Medrol zinc and ascorbic acid. Dictation was produced using [employer] software. please excuse any grammatical, word or spelling errors. Time with Patient: Less than 30
--- NOTE | 2025-01-26 12:57 | P.PN ---
Subjective Progress Note Date: 01/26/25 Principal diagnosis: Reason for follow-up is COVID-19 Patient is a 69-year-old female with a past medical history significant for COPD current everyday smoker presented to hospital on 01/13/2025 for evaluation of increasing shortness of breath did have worsening of breathing for which the patient did have COVID test came back positive prompting this consultation. On today's evaluation that is 01/26/2025, the patient continues to be afebrile patient is requiring more supplemental oxygen today in addition to the high flow Airvo also nonrebreather however the patient denies having any worsening shortness of breath no chest pain no worsening cough no abdominal pain or diarrhea. Patient white count slightly up 11.36, creatinine 0.97 Objective - Vital Signs Vital signs: Vital Signs Temp 98.0 F 01/26/25 12:00 Pulse 65 01/26/25 12:00 Resp 14 01/26/25 12:00 BP 118/54 01/26/25 12:00 Pulse Ox 95 01/26/25 12:17 FiO2 90 01/26/25 12:17 Intake & Output 01/25/25 01/26/25 01/26/25 18:59 06:59 18:59 Intake Total 660 458 Output Total 600 950 250 Balance 60 -950 208 Weight 40.9 kg Intake: IV 100 100 Piperacillin-Tazobactam 3 100 100 .375 gm In Sodium Chloride 0.9% 100 ml @ 25 mls/hr IVPB Q8HR [facility] Rx# :[id number] Oral 560 358 Output: Urine 600 950 250 Other: Voiding Method External Catheter External Catheter External Catheter # Voids 1 0 # Bowel Movements 0 - Exam GENERAL DESCRIPTION: An elderly female lying in bed in no distress RESPIRATORY SYSTEM: Unlabored breathing , decreased breath sounds at bases HEART: S1 S2 regular rate and rhythm , ABDOMEN: Soft , no tenderness EXTREMITIES: No edema feet - Labs CBC & Chem 7: 01/26/25 03:13 01/26/25 03:13 Labs: Abnormal Lab Results - Last 24 Hours (Table) 01/25/25 01/25/25 01/26/25 Range/Units 16:09 20:37 03:13 WBC 11.36 H (4.50-10.00) 10*3/uL RBC 3.04 L (4.10-5.20) 10*6/uL Hgb 8.9 L (12.0-15.0) g/dL Hct 29.6 L (37.2-46.3) % MCV 97.4 H (80.0-97.0) fL MCHC 30.1 L (32.0-37.0) g/dL Neutrophils # 10.89 H (1.80-7.70) 10*3/uL Lymphocytes # 0.10 L (0.90-5.00) 10*3/uL Eosinophils # 0.00 L (0.04-0.35) 10*3/uL Chloride (98-107) mmol/L Carbon Dioxide (22-30) mmol/L BUN (7-17) mg/dL Glucose (74-99) mg/dL POC Glucose (mg/dL) 115 H 264 H (70-110) mg/dL AST (14-36) U/L ALT (4-34) U/L Alkaline Phosphatase (38-126) U/L Total Protein (6.3-8.2) g/dL Albumin (3.5-5.0) g/dL 01/26/25 01/26/25 Range/Units 03:13 06:23 WBC (4.50-10.00) 10*3/uL RBC (4.10-5.20) 10*6/uL Hgb (12.0-15.0) g/dL Hct (37.2-46.3) % MCV (80.0-97.0) fL MCHC (32.0-37.0) g/dL Neutrophils # (1.80-7.70) 10*3/uL Lymphocytes # (0.90-5.00) 10*3/uL Eosinophils # (0.04-0.35) 10*3/uL Chloride 97 L (98-107) mmol/L Carbon Dioxide 47 H* (22-30) mmol/L BUN 50 H (7-17) mg/dL Glucose 176 H (74-99) mg/dL POC Glucose (mg/dL) 259 H (70-110) mg/dL AST 40 H (14-36) U/L ALT 66 H (4-34) U/L Alkaline Phosphatase 193 H (38-126) U/L Total Protein 5.0 L (6.3-8.2) g/dL Albumin 2.6 L (3.5-5.0) g/dL Assessment and Plan (1) COVID-19 Current Visit: Yes Status: Acute Code(s): U07.1 - COVID-19 SNOMED Code(s): 704461687 (2) Leukocytosis Current Visit: Yes Status: Acute Code(s): D72.829 - ELEVATED WHITE BLOOD CELL COUNT, UNSPECIFIED SNOMED Code(s): 573517586 Plan: 1patient with increasing shortness of breath which is likely multifactorial and possible component of COVID-19 pneumonia however is not very clear if the patient requires infection in the hospital or she presented to the hospital with it as there was no COVID testing done on admission though her symptoms was mostly shortness of breath did not have any fever during this admission CT did not show any PE but evidence of possible COVID-19 pneumonia 2-patient remains to be afebrile white count has been normal requiring less supplemental oxygen, 3-to continue with the Eliquis Solu-Medrol zinc and ascorbic acid, Zosyn discontinued this morning will monitor closely off antibiotic therapy 4leukocytosis more likely steroid related will monitor closely Dictation was produced using [employer] dictation software. please excuse any grammatical, word or spelling errors. Time with Patient: Less than 30
--- NOTE | 2025-01-26 13:19 | P.PN ---
Subjective Progress Note Date: 01/26/25 Principal diagnosis: Acute on chronic hypoxemic respiratory failure Patient is a 69-year-old female with past medical history significant for severe COPD, chronic hypoxemic respiratory failure, chronic tobacco smoker, atrial fibrillation, hypertension, diastolic heart failure. Patient is being seen in new consultation for ICU management today, 01/22/2025. Patient was reportedly at increased work of breathing and oxygen demands over the last 12 to 24 hours. Patient originally admitted to [address] [place] [address] on 01/13/2025 with acute on chronic hypoxemic respiratory failure secondary to a combination of factors including acute COPD exacerbation, acute on chronic diastolic heart failure, bilateral pleural effusions. She has been receiving Bumex 1 mg twice daily. Also, underwent right-sided thoracentesis on 01/16, and a total of 1.2 L of fluid was evacuated from the pleural space. Fluid analysis consistent with transudative effusion. More recently, patient also tested positive for COVID. Early this morning, patient developed increased oxygen demands and respiratory distress. Placed on BiPAP with settings 10/5 and FiO2 of 70%. Chest CTA did not show any evidence of pulmonary embolism, aortic aneurysm, or dissection. Moderate to severe centrilobular pulmonary emphysema with bilateral bronchial wall thickening and tubular bronchiectasis. Bilateral pulmonary increased reticular and interstitial infiltrates. Bandlike peribronchial consolidation/atelectasis within the posterior right middle lobe. Small to moderate-sized bilateral pleural effusions with patchy areas of consolidation, right greater than left. Enlarged pulmonary artery likely sequela of secondary pulmonary arterial hypertension. Most recent labs from yesterday including a CBC with a WBC count of 9.1, hemoglobin 10.7, platelets 154. BMP: Sodium 142, potassium 5.1, chloride 102, serum bicarb 37, BUN 66, creatinine 0.74, glucose 91. LFTs mildly elevated. Total bilirubin 0.7. Urine culture positive for E. coli. Serial troponins 0.08, 0.1, 0.09, and more recently 0.09. NT proBNP from admission significantly elevated at 16,700. Echocardiogram done this admission estimated preserved left ventricular ejection fraction of 55 to 60%, severe pulmonary hypertension with an RVSP of 68 mmHg, RV enlargement and moderate to severe tricuspid regurgitation. Patient patient has been moved to the intensive care unit. She remains on BiPAP with settings as mentioned above. She appears calm and comfortable. She is alert and oriented without signs of CO2 narcosis. Respiratory status and BiPAP make it difficult to communicate. Intermittent cough which is congested and nonproductive. Continues on empiric antibiotics in the form of Zosyn. Has remained afebrile. Denies any chest pain. Does have some minimal bilateral lower extremity swelling. Heart rhythm appears to be paced on bedside monitor. Blood pressure normotensive. She is going to be monitored in the intensive care unit. Patient was seen today on 01/23/2025, remains on BiPAP, 07/22/70% however I cut down her FiO2 down to 60% since her saturation was in the high 90s. Patient remains on Zosyn, Bumex, Eliquis, and on Decadron. Improving, feeling better, breathing easier. Chest x-ray continues to show evidence of bilateral infiltrates and possibly some component of interstitial edema. WBC count is 9.3 hemoglobin 9.5 electrolytes are normal bicarb is 42 BUN is 55 creatinine 0.84. Considering the patient is still requiring relatively high FiO2 and BiPAP support, I am keeping the patient in the ICU for the next 24 hours. Patient was seen today on 01/24/2025, remains in the ICU, transitioned now from BiPAP to Airvo presently at 80% FiO2 60 L flow, and I am hoping we could current down to 60% FiO2 and 60 L flow. Patient seems to be more pleased with the Airvo compared to BiPAP. Overall patient is about the same, not major change noted in the last 2 days. Definitely, the patient is not getting any worse. Chest x-ray continues to show interstitial edema and/or infiltrates, remains on diuretics, and she had good response to diuresis. Basic metabolic profile is normal bicarb is 41 BUN 59 creatinine 0.97, WBC is 8.7 hemoglobin is 9.1 Patient was seen today on 01/25/2025, remains in the ICU, on Airvo, 65% FiO2 and 60 L flow. Patient seems to be comfortable, we have been steadily titrating her FiO2 down, and the patient seems to be tolerating that well but overall she remains marginal at best. WBC count today is 9.36 hemoglobin 9.2 electrolytes are normal bicarb is 14 BUN is 43 creatinine 0.88 Seen today on 01/26/2025, patient is still about the same may be a bit worse even clinically she feels better but her numbers do not look much better. Remains on FiO2 at 70% 60 L flow on Airvo, chest x-ray is showing recurrence of her right- sided pleural effusion, may have to be considered for thoracentesis. Patient is now off Zosyn procalcitonin level is normal. And she is still on diuretics, d eveloping worsening rise in her bicarb, and I am recommending that we add Diamox. Her last thoracentesis on 01/16 had 1.2 L of fluid drained from the right pleural space. May have to consider this again depending on the ultrasound of the chest. WBC count is 11.6 hemoglobin 8.9 electrolytes are normal bicarb is 47 BUN is 50 creatinine 0.97 Objective - Vital Signs Vital signs: Vital Signs Temp 98.0 F 01/26/25 12:00 Pulse 65 01/26/25 12:00 Resp 14 01/26/25 12:00 BP 118/54 01/26/25 12:00 Pulse Ox 95 01/26/25 12:17 FiO2 90 01/26/25 12:17 Intake & Output 01/25/25 01/26/25 01/26/25 18:59 06:59 18:59 Intake Total 660 458 Output Total 600 950 250 Balance 60 -950 208 Weight 40.9 kg Intake: IV 100 100 Piperacillin-Tazobactam 3 100 100 .375 gm In Sodium Chloride 0.9% 100 ml @ 25 mls/hr IVPB Q8HR [facility] Rx# :[id number] Oral 560 358 Output: Urine 600 950 250 Other: Voiding Method External Catheter External Catheter External Catheter # Voids 1 0 # Bowel Movements 0 - Exam GENERAL EXAM: Revealed 69-year-old female on Airvo at 70% FiO2 and 60 L flow HEAD: Normocephalic and atraumatic EYES: Normal reaction of pupils, equal size. NOSE: Clear with pink turbinates. THROAT: No erythema or exudates. NECK: No masses, no JVD. CHEST: No chest wall deformity. LUNGS: Diminished breath sounds and dullness at the right base. Left side is clear CVS: S1 and S2 normal with no audible murmur, regular rhythm. No extra heart sounds ABDOMEN: No hepatosplenomegaly, active bowel sounds, no guarding or rigidity. SKIN: No rashes CENTRAL NERVOUS SYSTEM: Alert oriented x 3 no gross focal deficit EXTREMITIES: No clubbing edema or cyanosis - Labs CBC & Chem 7: 01/26/25 03:13 01/26/25 03:13 Labs: Abnormal Lab Results - Last 24 Hours (Table) 01/25/25 01/25/25 01/26/25 Range/Units 16:09 20:37 03:13 WBC 11.36 H (4.50-10.00) 10*3/uL RBC 3.04 L (4.10-5.20) 10*6/uL Hgb 8.9 L (12.0-15.0) g/dL Hct 29.6 L (37.2-46.3) % MCV 97.4 H (80.0-97.0) fL MCHC 30.1 L (32.0-37.0) g/dL Neutrophils # 10.89 H (1.80-7.70) 10*3/uL Lymphocytes # 0.10 L (0.90-5.00) 10*3/uL Eosinophils # 0.00 L (0.04-0.35) 10*3/uL Chloride (98-107) mmol/L Carbon Dioxide (22-30) mmol/L BUN (7-17) mg/dL Glucose (74-99) mg/dL POC Glucose (mg/dL) 115 H 264 H (70-110) mg/dL AST (14-36) U/L ALT (4-34) U/L Alkaline Phosphatase (38-126) U/L Total Protein (6.3-8.2) g/dL Albumin (3.5-5.0) g/dL 01/26/25 01/26/25 Range/Units 03:13 06:23 WBC (4.50-10.00) 10*3/uL RBC (4.10-5.20) 10*6/uL Hgb (12.0-15.0) g/dL Hct (37.2-46.3) % MCV (80.0-97.0) fL MCHC (32.0-37.0) g/dL Neutrophils # (1.80-7.70) 10*3/uL Lymphocytes # (0.90-5.00) 10*3/uL Eosinophils # (0.04-0.35) 10*3/uL Chloride 97 L (98-107) mmol/L Carbon Dioxide 47 H* (22-30) mmol/L BUN 50 H (7-17) mg/dL Glucose 176 H (74-99) mg/dL POC Glucose (mg/dL) 259 H (70-110) mg/dL AST 40 H (14-36) U/L ALT 66 H (4-34) U/L Alkaline Phosphatase 193 H (38-126) U/L Total Protein 5.0 L (6.3-8.2) g/dL Albumin 2.6 L (3.5-5.0) g/dL Assessment and Plan Assessment: Impression: Acute on chronic hypoxemic respiratory failure, remains relatively on high FiO2 Acute on chronic diastolic heart failure Bilateral small pleural effusions, with recent right-sided thoracentesis performed 01/16/2025 where a total of 1.2 L was removed from the pleural space, and fluid analysis appears to be transudative. Acute COVID-19 infection, possible COVID-19 pneumonia, or underlying bacterial pneumonia but she definitely has pulmonary edema/acute on chronic diastolic heart failure. Acute COPD exacerbation Severe pulmonary hypertension Paroxysmal atrial fibrillation, currently V-paced on bedside monitor Permanent pacemaker Systemic hypertension Diabetes mellitus type 2 Elevated troponins, likely secondary to supply/demand mismatch Urinary tract infection, urine culture positive for E. coli Former tobacco smoker Recommendation: Ultrasound of the chest to be done today may consider thoracentesis on the right side. Continue Airvo, titrate accordingly Continue to monitor in the ICU Continue diuretics, and Diamox because of bicarb being high. Continue bronchodilators Continue methylprednisolone Discontinue Zosyn, procalcitonin level is normal We will continue to follow Time with Patient: Less than 30
[2025-01-26] MEDS: methylPREDNISolone SOD SUCCI 125 MG/2 ML VIAL IM ONE (15:40)
[2025-01-26] MEDS ORDERED: AMPICILLIN-SULBACTAM 3 GM in SODIUM CHLORIDE 0.9% 100 ML IVPB SCH (16:00)
[2025-01-26] MEDS: SODIUM FERRIC GLUCONAT-SUCROSE 125 MG in SODIUM CHLORIDE 0.9% 100 ML IVPB SCH (16:02)
[2025-01-26 16:45] LABS: Glucose,Whole Blood 374 mg/dL (70-110)
[2025-01-26 16:45] LABS: Glucose,Whole Blood 346 mg/dL (70-110)
[2025-01-26] MEDS: NYSTATIN 100,000 UNIT/ML SUSP 500,000 UNIT/5 ML CUP PO SCH (17:43)
[2025-01-26 19:44] LABS: Glucose,Whole Blood 371 mg/dL (70-110)
[2025-01-26] MEDS: PANTOPRAZOLE 40 MG/10 ML VIAL IVP SCH (21:47)
[2025-01-26] MEDS: MEGESTROL 400 MG/10 ML CUP PO SCH (21:48)
--- NOTE | 2025-01-27 01:48 | PN ---
PROGRESS NOTE SUBJECTIVE: A 69-year-old white female, in the ICU. Ultrasound does not show much of a pleural perfusion. She is on 60 L air flow, FiO2 of 70, she is saturating 89 to low 90s. On diuretics. Worsening rise in the bicarb. On Diamox. White count 7.6, hemoglobin is 8.9. Bicarb 47, BUN is 50, creatinine 0.97. Blood pressure is 119/54, pulse 65, respiratory rate 14, temperature 98. Hemoglobin is 8.9. She is in chronic respiratory failure. Remains on high FiO2. ASSESSMENT: 1. Chronic diastolic heart failure. 2. Status post thoracentesis. 3. COVID-19 pneumonia. 4. chronic diastolic heart failure. 5. Chronic obstructive pulmonary disease exacerbation. 6. Severe pulmonary hypertension. 7. Prognosis guarded. Titrate oxygen. 8. Diabetes type 2 with systemic hypertension. 9. Permanent pacemaker. 10.Elevated troponins. 11.Urinary tract infection. Continued Airvo, titrate accordingly. Monitor in the ICU. Continue diuretics, Diamox, methylprednisone, bronchodilator, and Zosyn. Please see further orders. MMODL / IJN: [id number] /
[2025-01-27 03:56] LABS: Basophils # (A) 0.01 10*3/uL (0.00-0.10); Basophils % (A) 0.1 %; HCT 27.2 % (37.2-46.3); HGB 8.2 g/dL (12.0-15.0); Lymphocytes % (A) 0.7 %; MCH 29.3 pg (27.0-32.0); MCHC 30.1 g/dL (32.0-37.0); MCV 97.1 fL (80.0-97.0); Mean Platelet Volume 10.7 fL (9.5-12.2); Monocytes # (A) 0.42 10*3/uL (0.20-1.00); Neutrophils # (A) 13.29 10*3/uL (1.80-7.70); Neutrophils % (A) 95.7 %; Platelet Count 193 10*3/uL (140-440); RDW 15.9 % (11.5-14.5); WBC 13.89 10*3/uL (4.50-10.00)
[2025-01-27 04:24] LABS: ALT 52 U/L (4-34); AST 30 U/L (14-36); African American GFR (CKD) 59 (>60 ml/min/1.73 sqM); Albumin 2.5 g/dL (3.5-5.0); Alkaline Phosphatase 168 U/L (38-126); Blood Urea Nitrogen 56 mg/dL (7-17); Calcium 8.9 mg/dL (8.4-10.2); Chloride 97 mmol/L (98-107); Glucose 208 mg/dL (74-99); Non-African American GFR(CKD) 51 (>60 ml/min/1.73 sqM); Sodium 143 mmol/L (137-145); Total Bilirubin 0.3 mg/dL (0.2-1.3); Total Protein 4.8 g/dL (6.3-8.2)
[2025-01-27 04:30] LABS: Anion Gap 0 mmol/L
[2025-01-27 04:33] LABS: Glucose,Whole Blood 250 mg/dL (70-110)
[2025-01-27 04:48] LABS: Carbon Dioxide 46 mmol/L (22-30)
[2025-01-27 06:01] LABS: Glucose,Whole Blood 256 mg/dL (70-110)
--- NOTE | 2025-01-27 08:17 | XR ---
EXAMINATION TYPE: XR chest 1V portable DATE OF EXAM: 01/27/2025 4:31 AM COMPARISON: None. CLINICAL INDICATION: Female, 69 years old with history of respiratory failure, TECHNIQUE: XR chest 1V portable view(s) obtained. Patient is rotated to the right FINDINGS: The heart size is normal. Pacemaker overlies left chest The pulmonary vasculature is normal. Diffuse increased lung markings are present bilaterally. Small right pleural effusion is present. IMPRESSION: 1. Mild diffuse increased lung markings. Correlate for pulmonary edema or chronic changes such as pul monary fibrosis could be considered. [facility], , 01/27/2025 8:15 AM
[2025-01-27 11:29] LABS: Glucose,Whole Blood 215 mg/dL (70-110)
--- NOTE | 2025-01-27 12:11 | P.PN ---
Subjective Progress Note Date: 01/27/25 Principal diagnosis: Acute on chronic hypoxemic respiratory failure Patient is a 69-year-old female with past medical history significant for severe COPD, chronic hypoxemic respiratory failure, chronic tobacco smoker, atrial fibrillation, hypertension, diastolic heart failure. Patient is being seen in new consultation for ICU management today, 01/22/2025. Patient was reportedly at increased work of breathing and oxygen demands over the last 12 to 24 hours. Patient originally admitted to [address] [place] [address] on 01/13/2025 with acute on chronic hypoxemic respiratory failure secondary to a combination of factors including acute COPD exacerbation, acute on chronic diastolic heart failure, bilateral pleural effusions. She has been receiving Bumex 1 mg twice daily. Also, underwent right-sided thoracentesis on 01/16, and a total of 1.2 L of fluid was evacuated from the pleural space. Fluid analysis consistent with transudative effusion. More recently, patient also tested positive for COVID. Early this morning, patient developed increased oxygen demands and respiratory distress. Placed on BiPAP with settings 10/5 and FiO2 of 70%. Chest CTA did not show any evidence of pulmonary embolism, aortic aneurysm, or dissection. Moderate to severe centrilobular pulmonary emphysema with bilateral bronchial wall thickening and tubular bronchiectasis. Bilateral pulmonary increased reticular and interstitial infiltrates. Bandlike peribronchial consolidation/atelectasis within the posterior right middle lobe. Small to moderate-sized bilateral pleural effusions with patchy areas of consolidation, right greater than left. Enlarged pulmonary artery likely sequela of secondary pulmonary arterial hypertension. Most recent labs from yesterday including a CBC with a WBC count of 9.1, hemoglobin 10.7, platelets 154. BMP: Sodium 142, potassium 5.1, chloride 102, serum bicarb 37, BUN 66, creatinine 0.74, glucose 91. LFTs mildly elevated. Total bilirubin 0.7. Urine culture positive for E. coli. Serial troponins 0.08, 0.1, 0.09, and more recently 0.09. NT proBNP from admission significantly elevated at 16,700. Echocardiogram done this admission estimated preserved left ventricular ejection fraction of 55 to 60%, severe pulmonary hypertension with an RVSP of 68 mmHg, RV enlargement and moderate to severe tricuspid regurgitation. Patient patient has been moved to the intensive care unit. She remains on BiPAP with settings as mentioned above. She appears calm and comfortable. She is alert and oriented without signs of CO2 narcosis. Respiratory status and BiPAP make it difficult to communicate. Intermittent cough which is congested and nonproductive. Continues on empiric antibiotics in the form of Zosyn. Has remained afebrile. Denies any chest pain. Does have some minimal bilateral lower extremity swelling. Heart rhythm appears to be paced on bedside monitor. Blood pressure normotensive. She is going to be monitored in the intensive care unit. Patient was seen today on 01/23/2025, remains on BiPAP, 07/22/70% however I cut down her FiO2 down to 60% since her saturation was in the high 90s. Patient remains on Zosyn, Bumex, Eliquis, and on Decadron. Improving, feeling better, breathing easier. Chest x-ray continues to show evidence of bilateral infiltrates and possibly some component of interstitial edema. WBC count is 9.3 hemoglobin 9.5 electrolytes are normal bicarb is 42 BUN is 55 creatinine 0.84. Considering the patient is still requiring relatively high FiO2 and BiPAP support, I am keeping the patient in the ICU for the next 24 hours. Patient was seen today on 01/24/2025, remains in the ICU, transitioned now from BiPAP to Airvo presently at 80% FiO2 60 L flow, and I am hoping we could current down to 60% FiO2 and 60 L flow. Patient seems to be more pleased with the Airvo compared to BiPAP. Overall patient is about the same, not major change noted in the last 2 days. Definitely, the patient is not getting any worse. Chest x-ray continues to show interstitial edema and/or infiltrates, remains on diuretics, and she had good response to diuresis. Basic metabolic profile is normal bicarb is 41 BUN 59 creatinine 0.97, WBC is 8.7 hemoglobin is 9.1 Patient was seen today on 01/25/2025, remains in the ICU, on Airvo, 65% FiO2 and 60 L flow. Patient seems to be comfortable, we have been steadily titrating her FiO2 down, and the patient seems to be tolerating that well but overall she remains marginal at best. WBC count today is 9.36 hemoglobin 9.2 electrolytes are normal bicarb is 14 BUN is 43 creatinine 0.88 Seen today on 01/26/2025, patient is still about the same may be a bit worse even clinically she feels better but her numbers do not look much better. Remains on FiO2 at 70% 60 L flow on Airvo, chest x-ray is showing recurrence of her right- sided pleural effusion, may have to be considered for thoracentesis. Patient is now off Zosyn procalcitonin level is normal. And she is still on diuretics, d eveloping worsening rise in her bicarb, and I am recommending that we add Diamox. Her last thoracentesis on 01/16 had 1.2 L of fluid drained from the right pleural space. May have to consider this again depending on the ultrasound of the chest. WBC count is 11.6 hemoglobin 8.9 electrolytes are normal bicarb is 47 BUN is 50 creatinine 0.97 Patient was seen today on 01/27/2025, basically she is about the same, still requiring high FiO2 with Airvo, 90% FiO2 at 60 L flow, clinically the patient seems to be dehydrated, chest x-ray continues to show evidence of interstitial infiltrates/edema, some of them are chronic changes, patient had an ultrasound of the chest which showed very small tiny right pleural effusion, not large enough to consider safe thoracentesis. Last CT angiogram of the chest on 01/22 showed no evidence of pulmonary embolism hence there is no need to repeat her CT angiogram at this point as ordered by the admitting physician. She does have moderate severe centrilobular pulmonary emphysema bronchial wall thickening and bronchiectasis and she has patchy areas of consolidation in the lower lobes. At any rate the overall picture does not look very promising, patient will remain in the ICU, and I have no plans to transfer the patient out of the ICU at this point yet. Patient was taken off Zosyn because her procalcitonin level was normal and she finished a full course of treatment for presumptive pneumonia. Her pleural effusion was transudative in nature and the patient remains on diuretics for underlying congestive heart failure. WBC count today is 13.8 hemoglobin 8.2 bicarb is 46, electrolytes are normal. Renal profile showed a BUN of 56 creatinine 1.10 Objective - Vital Signs Vital signs: Vital Signs Temp 97.8 F 01/27/25 08:00 Pulse 70 01/27/25 11:00 Resp 21 01/27/25 11:00 BP 112/58 01/27/25 11:00 Pulse Ox 93 L 01/27/25 11:00 FiO2 92 01/27/25 11:00 Intake & Output 01/26/25 01/27/25 01/27/25 18:59 06:59 18:59 Intake Total 568 50 100 Output Total 800 900 150 Balance -232 -850 -50 Weight 42.5 kg Intake: IV 210 50 100 Invasive Line 6 10 40 Invasive Line 7 10 Piperacillin-Tazobactam 3 100 .375 gm In Sodium Chloride 0.9% 100 ml @ 25 mls/hr IVPB Q8HR MATHEW Rx# :[id number] Sodium Ferric Gluconat- 100 100 Sucrose 125 mg In Sodium Chloride 0.9% 100 ml @ 100 mls/hr IVPB DAILY MATHEW Rx#:[id number] Oral 358 Output: Urine 800 900 150 Other: Voiding Method External Catheter External Catheter # Bowel Movements 0 - Exam GENERAL EXAM: Revealed 69-year-old female on Airvo at 90% FiO2 and 60 L flow HEAD: Normocephalic and atraumatic EYES: Normal reaction of pupils, equal size. NOSE: Clear with pink turbinates. THROAT: No erythema or exudates. NECK: No masses, no JVD. CHEST: No chest wall deformity. LUNGS: Diminished breath sounds and dullness at the right base. Left side is c lear CVS: S1 and S2 normal with no audible murmur, regular rhythm. No extra heart sounds ABDOMEN: No hepatosplenomegaly, active bowel sounds, no guarding or rigidity. SKIN: No rashes CENTRAL NERVOUS SYSTEM: Alert oriented x 3 no gross focal deficit EXTREMITIES: No clubbing edema or cyanosis - Labs CBC & Chem 7: 01/27/25 03:22 01/27/25 03:22 Labs: Abnormal Lab Results - Last 24 Hours (Table) 01/26/25 01/26/25 01/26/25 Range/Units 16:41 16:44 19:42 WBC (4.50-10.00) 10*3/uL RBC (4.10-5.20) 10*6/uL Hgb (12.0-15.0) g/dL Hct (37.2-46.3) % MCV (80.0-97.0) fL MCHC (32.0-37.0) g/dL Immature Gran # (0.00-0.04) 10*3/uL Neutrophils # (1.80-7.70) 10*3/uL Lymphocytes # (0.90-5.00) 10*3/uL Eosinophils # (0.04-0.35) 10*3/uL Chloride (98-107) mmol/L Carbon Dioxide (22-30) mmol/L BUN (7-17) mg/dL Creatinine (0.52-1.04) mg/dL Glucose (74-99) mg/dL POC Glucose (mg/dL) 346 H 374 H 371 H (70-110) mg/dL ALT (4-34) U/L Alkaline Phosphatase (38-126) U/L Total Protein (6.3-8.2) g/dL Albumin (3.5-5.0) g/dL 01/27/25 01/27/25 01/27/25 Range/Units 03:22 03:22 04:30 WBC 13.89 H (4.50-10.00) 10*3/uL RBC 2.80 L (4.10-5.20) 10*6/uL Hgb 8.2 L (12.0-15.0) g/dL Hct 27.2 L (37.2-46.3) % MCV 97.1 H (80.0-97.0) fL MCHC 30.1 L (32.0-37.0) g/dL Immature Gran # 0.07 H (0.00-0.04) 10*3/uL Neutrophils # 13.29 H (1.80-7.70) 10*3/uL Lymphocytes # 0.10 L (0.90-5.00) 10*3/uL Eosinophils # 0.00 L (0.04-0.35) 10*3/uL Chloride 97 L (98-107) mmol/L Carbon Dioxide 46 H* (22-30) mmol/L BUN 56 H (7-17) mg/dL Creatinine 1.10 H (0.52-1.04) mg/dL Glucose 208 H (74-99) mg/dL POC Glucose (mg/dL) 250 H (70-110) mg/dL ALT 52 H (4-34) U/L Alkaline Phosphatase 168 H (38-126) U/L Total Protein 4.8 L (6.3-8.2) g/dL Albumin 2.5 L (3.5-5.0) g/dL 01/27/25 01/27/25 Range/Units 05:59 11:27 WBC (4.50-10.00) 10*3/uL RBC (4.10-5.20) 10*6/uL Hgb (12.0-15.0) g/dL Hct (37.2-46.3) % MCV (80.0-97.0) fL MCHC (32.0-37.0) g/dL Immature Gran # (0.00-0.04) 10*3/uL Neutrophils # (1.80-7.70) 10*3/uL Lymphocytes # (0.90-5.00) 10*3/uL Eosinophils # (0.04-0.35) 10*3/uL Chloride (98-107) mmol/L Carbon Dioxide (22-30) mmol/L BUN (7-17) mg/dL Creatinine (0.52-1.04) mg/dL Glucose (74-99) mg/dL POC Glucose (mg/dL) 256 H 215 H (70-110) mg/dL ALT (4-34) U/L Alkaline Phosphatase (38-126) U/L Total Protein (6.3-8.2) g/dL Albumin (3.5-5.0) g/dL Assessment and Plan Assessment: Impression: Acute on chronic hypoxemic respiratory failure, remains relatively on high FiO2 Acute on chronic diastolic heart failure Bilateral small pleural effusions, with recent right-sided thoracentesis performed 01/16/2025 where a total of 1.2 L was removed from the pleural space, and fluid analysis appears to be transudative. Acute COVID-19 infection, possible COVID-19 pneumonia, or underlying bacterial pneumonia but she definitely has pulmonary edema/acute on chronic diastolic heart failure. Acute COPD exacerbation Severe pulmonary hypertension Paroxysmal atrial fibrillation, currently V-paced on bedside monitor Permanent pacemaker Systemic hypertension Diabetes mellitus type 2 Elevated troponins, likely secondary to supply/demand mismatch Urinary tract infection, urine culture positive for E. coli Former tobacco smoker Recommendation: continue to monitor in the ICU Continue Airvo, titrate accordingly Continue diuretics, however Diamox will be cut down to once a day instead of twice a day clinically to me the patient seems to be dehydrated. Continue bronchodilators Continue methylprednisolone Keep patient on Zosyn. No need for CT angiogram of the chest Overall prognosis is extremely poor and guarded. We will continue to follow Time with Patient: Less than 30
[2025-01-27] MEDS: FLUCONAZOLE 100 MG TAB PO ONE (14:35)
[2025-01-27 16:26] LABS: Glucose,Whole Blood 265 mg/dL (70-110)
[2025-01-27 20:01] LABS: Glucose,Whole Blood 306 mg/dL (70-110)
[2025-01-27] MEDS: INSULIN GLARGINE (LANTUS) 100 UNIT/ML SYR SQ SCH (21:13)
--- NOTE | 2025-01-28 01:15 | PN ---
PROGRESS NOTE Treating for COVID. She came with pneumonia, unclear etiologies, and she could develop COVID pneumonia. She has remained in the ICU in critical condition. She is seen by Infectious Disease and custodial maintenance worker. says she is doing better today. She is satting 93 and 91 on high-flow, FiO2 is 91, , pulse is 60 to 70, respirations 9 to 16, blood pressure 105/50. Her white count is 13.89, hemoglobin is 8.2. Carbon dioxide is 46, sodium 143, potassium 4.6, BUN is 36, creatinine 1.1. Sugars are 200 to 300s. Continue Venofer for anemia. We have to stop the Eliquis if she continues to be anemic. Remains on Lantus for insulin, breathing treatments, steroids, nystatin for thrush, potassium protocol. White count is still high at 32.89 with high neutrophil count 13.29. We will give Megace to increase her appetite. Prognosis guarded. Tried to wean oxygen as tolerated. She has hypercapnic respiratory failure. She has COPD, pulmonary hypertension. She has COVID pneumonia, diabetes mellitus. She is in serious condition. Hopefully, we can continue to wean the vent; and if she does not get better, we will transfer her to [facility]. MMODL / IJN: [id number] /
[2025-01-28 03:35] LABS: Basophils # (A) 0.01 10*3/uL (0.00-0.10); Basophils % (A) 0.1 %; HCT 25.8 % (37.2-46.3); HGB 7.6 g/dL (12.0-15.0); Lymphocytes # (A) 0.15 10*3/uL (0.90-5.00); Lymphocytes % (A) 1.2 %; MCH 29.2 pg (27.0-32.0); MCHC 29.5 g/dL (32.0-37.0); MCV 99.2 fL (80.0-97.0); Mean Platelet Volume 10.7 fL (9.5-12.2); Monocytes # (A) 0.27 10*3/uL (0.20-1.00); Monocytes % (A) 2.2 %; Neutrophils # (A) 12.08 10*3/uL (1.80-7.70); Neutrophils % (A) 96.2 %; Platelet Count 180 10*3/uL (140-440); RDW 15.9 % (11.5-14.5); WBC 12.55 10*3/uL (4.50-10.00)
[2025-01-28 03:51] LABS: African American GFR (CKD) 62 (>60 ml/min/1.73 sqM); Blood Urea Nitrogen 60 mg/dL (7-17); Calcium 8.9 mg/dL (8.4-10.2); Chloride 102 mmol/L (98-107); Glucose 124 mg/dL (74-99); Non-African American GFR(CKD) 54 (>60 ml/min/1.73 sqM); Potassium 4.1 mmol/L (3.5-5.1); Sodium 146 mmol/L (137-145)
[2025-01-28 03:58] LABS: Anion Gap -1 mmol/L
[2025-01-28 04:27] LABS: Carbon Dioxide 45 mmol/L (22-30)
[2025-01-28 06:06] LABS: Glucose,Whole Blood 104 mg/dL (70-110)
--- NOTE | 2025-01-28 08:09 | XR ---
EXAMINATION TYPE: XR chest 1V portable DATE OF EXAM: 01/28/2025 4:53 AM COMPARISON: 01/27/2025 CLINICAL INDICATION: Female, 69 years old with history of assess lungs, respiratory failure TECHNIQUE: XR chest 1V portable view(s) obtained. FINDINGS: The heart size is mildly prominent. The pulmonary vasculature is prominent. Diffuse increased lung markings felt. Small to moderate right pleural effusion appears stable Pacemaker overlies left chest. Continued follow-up is recommended IMPRESSION: 1. Clinical correlation for developing congestive heart failure. 2. Right pleural effusion. [facility], , 01/28/2025 8:06 AM
[2025-01-28] MEDS: acetaZOLAMIDE 250 MG TAB PO SCH (09:54)
[2025-01-28 10:56] LABS: Glucose,Whole Blood 61 mg/dL (70-110)
--- NOTE | 2025-01-28 11:03 | P.PN ---
Subjective Progress Note Date: 01/28/25 Principal diagnosis: Acute on chronic hypoxemic respiratory failure Patient is a 69-year-old female with past medical history significant for severe COPD, chronic hypoxemic respiratory failure, chronic tobacco smoker, atrial fibrillation, hypertension, diastolic heart failure. Patient is being seen in new consultation for ICU management today, 01/22/2025. Patient was reportedly at increased work of breathing and oxygen demands over the last 12 to 24 hours. Patient originally admitted to [address] [place] [address] on 01/13/2025 with acute on chronic hypoxemic respiratory failure secondary to a combination of factors including acute COPD exacerbation, acute on chronic diastolic heart failure, bilateral pleural effusions. She has been receiving Bumex 1 mg twice daily. Also, underwent right-sided thoracentesis on 01/16, and a total of 1.2 L of fluid was evacuated from the pleural space. Fluid analysis consistent with transudative effusion. More recently, patient also tested positive for COVID. Early this morning, patient developed increased oxygen demands and respiratory distress. Placed on BiPAP with settings 10/5 and FiO2 of 70%. Chest CTA did not show any evidence of pulmonary embolism, aortic aneurysm, or dissection. Moderate to severe centrilobular pulmonary emphysema with bilateral bronchial wall thickening and tubular bronchiectasis. Bilateral pulmonary increased reticular and interstitial infiltrates. Bandlike peribronchial consolidation/atelectasis within the posterior right middle lobe. Small to moderate-sized bilateral pleural effusions with patchy areas of consolidation, right greater than left. Enlarged pulmonary artery likely sequela of secondary pulmonary arterial hypertension. Most recent labs from yesterday including a CBC with a WBC count of 9.1, hemoglobin 10.7, platelets 154. BMP: Sodium 142, potassium 5.1, chloride 102, serum bicarb 37, BUN 66, creatinine 0.74, glucose 91. LFTs mildly elevated. Total bilirubin 0.7. Urine culture positive for E. coli. Serial troponins 0.08, 0.1, 0.09, and more recently 0.09. NT proBNP from admission significantly elevated at 16,700. Echocardiogram done this admission estimated preserved left ventricular ejection fraction of 55 to 60%, severe pulmonary hypertension with an RVSP of 68 mmHg, RV enlargement and moderate to severe tricuspid regurgitation. Patient patient has been moved to the intensive care unit. She remains on BiPAP with settings as mentioned above. She appears calm and comfortable. She is alert and oriented without signs of CO2 narcosis. Respiratory status and BiPAP make it difficult to communicate. Intermittent cough which is congested and nonproductive. Continues on empiric antibiotics in the form of Zosyn. Has remained afebrile. Denies any chest pain. Does have some minimal bilateral lower extremity swelling. Heart rhythm appears to be paced on bedside monitor. Blood pressure normotensive. She is going to be monitored in the intensive care unit. Patient was seen today on 01/23/2025, remains on BiPAP, 07/22/70% however I cut down her FiO2 down to 60% since her saturation was in the high 90s. Patient remains on Zosyn, Bumex, Eliquis, and on Decadron. Improving, feeling better, breathing easier. Chest x-ray continues to show evidence of bilateral infiltrates and possibly some component of interstitial edema. WBC count is 9.3 hemoglobin 9.5 electrolytes are normal bicarb is 42 BUN is 55 creatinine 0.84. Considering the patient is still requiring relatively high FiO2 and BiPAP support, I am keeping the patient in the ICU for the next 24 hours. Patient was seen today on 01/24/2025, remains in the ICU, transitioned now from BiPAP to Airvo presently at 80% FiO2 60 L flow, and I am hoping we could current down to 60% FiO2 and 60 L flow. Patient seems to be more pleased with the Airvo compared to BiPAP. Overall patient is about the same, not major change noted in the last 2 days. Definitely, the patient is not getting any worse. Chest x-ray continues to show interstitial edema and/or infiltrates, remains on diuretics, and she had good response to diuresis. Basic metabolic profile is normal bicarb is 41 BUN 59 creatinine 0.97, WBC is 8.7 hemoglobin is 9.1 Patient was seen today on 01/25/2025, remains in the ICU, on Airvo, 65% FiO2 and 60 L flow. Patient seems to be comfortable, we have been steadily titrating her FiO2 down, and the patient seems to be tolerating that well but overall she remains marginal at best. WBC count today is 9.36 hemoglobin 9.2 electrolytes are normal bicarb is 14 BUN is 43 creatinine 0.88 Seen today on 01/26/2025, patient is still about the same may be a bit worse even clinically she feels better but her numbers do not look much better. Remains on FiO2 at 70% 60 L flow on Airvo, chest x-ray is showing recurrence of her right- sided pleural effusion, may have to be considered for thoracentesis. Patient is now off Zosyn procalcitonin level is normal. And she is still on diuretics, d eveloping worsening rise in her bicarb, and I am recommending that we add Diamox. Her last thoracentesis on 01/16 had 1.2 L of fluid drained from the right pleural space. May have to consider this again depending on the ultrasound of the chest. WBC count is 11.6 hemoglobin 8.9 electrolytes are normal bicarb is 47 BUN is 50 creatinine 0.97 Patient was seen today on 01/27/2025, basically she is about the same, still requiring high FiO2 with Airvo, 90% FiO2 at 60 L flow, clinically the patient seems to be dehydrated, chest x-ray continues to show evidence of interstitial infiltrates/edema, some of them are chronic changes, patient had an ultrasound of the chest which showed very small tiny right pleural effusion, not large enough to consider safe thoracentesis. Last CT angiogram of the chest on 01/22 showed no evidence of pulmonary embolism hence there is no need to repeat her CT angiogram at this point as ordered by the admitting physician. She does have moderate severe centrilobular pulmonary emphysema bronchial wall thickening and bronchiectasis and she has patchy areas of consolidation in the lower lobes. At any rate the overall picture does not look very promising, patient will remain in the ICU, and I have no plans to transfer the patient out of the ICU at this point yet. Patient was taken off Zosyn because her procalcitonin level was normal and she finished a full course of treatment for presumptive pneumonia. Her pleural effusion was transudative in nature and the patient remains on diuretics for underlying congestive heart failure. WBC count today is 13.8 hemoglobin 8.2 bicarb is 46, electrolytes are normal. Renal profile showed a BUN of 56 creatinine 1.10 Patient was seen today on 01/28/2025, remains in the ICU her pulmonary status is extremely marginal at best. She is now on BiPAP 09/22/95%, O2 saturation is marginal ranging between 85 up to 93%. Clinically however the patient seems to be comfortable, not in distress, hands and a bit reluctant to proceed to intubating the patient at this time. Although the patient is definitely high risk for intubation, and I will try to manage conservatively for now unless her condition gets worse. Apparently CODE STATUS was discussed with the patient by the nurses, and she wants to be full code. WBC count is 12.5 hemoglobin 7.6 electrolytes are normal renal profile is normal with BUN of 60 creatinine 1.06. Chest x-ray continues to show interstitial edema/infiltrates and small right- sided pleural effusion not large enough based on ultrasound to consider thoracentesis although she had thoracentesis upon her initial presentation. Patient remains on diuretics for her congestive heart failure. Echocardiogram on this admission showed good LV function, severe pulmonary hypertension which is significantly contributing to her profound hypoxia. Objective - Vital Signs Vital signs: Vital Signs Temp 98.3 F 01/28/25 04:00 Pulse 61 01/28/25 10:00 Resp 17 01/28/25 10:00 BP 94/49 01/28/25 09:30 Pulse Ox 91 L 01/28/25 10:00 FiO2 95 01/28/25 09:00 Intake & Output 01/27/25 01/28/25 01/28/25 18:59 06:59 18:59 Intake Total 100 Output Total 600 750 0 Balance -500 -750 0 Weight 42.6 kg Intake: IV 100 Sodium Ferric Gluconat- 100 Sucrose 125 mg In Sodium Chloride 0.9% 100 ml @ 100 mls/hr IVPB DAILY [facility] Rx#:[id number] Output: Urine 600 750 0 Other: Voiding Method External Catheter External Catheter - Exam GENERAL EXAM: Revealed 69-year-old female on BiPAP 09/22/95% patient looks frail, chronically ill, looks much older than her stated age. HEAD: Normocephalic and atraumatic EYES: Normal reaction of pupils, equal size. NOSE: Clear with pink turbinates. THROAT: No erythema or exudates. Dry mucous membranes noted. NECK: No masses, no JVD. CHEST: No chest wall deformity. LUNGS: Diminished breath sounds and dullness at the right base. Left side is clear CVS: S1 and S2 normal with no audible murmur, regular rhythm. No extra heart sounds ABDOMEN: No hepatosplenomegaly, active bowel sounds, no guarding or rigidity. SKIN: No rashes CENTRAL NERVOUS SYSTEM: Alert oriented x 3 no gross focal deficit EXTREMITIES: No clubbing edema or cyanosis - Labs CBC & Chem 7: 01/28/25 03:11 01/28/25 03:11 Labs: Abnormal Lab Results - Last 24 Hours (Table) 01/27/25 01/27/25 01/27/25 Range/Units 11:27 16:24 19:59 WBC (4.50-10.00) 10*3/uL RBC (4.10-5.20) 10*6/uL Hgb (12.0-15.0) g/dL Hct (37.2-46.3) % MCV (80.0-97.0) fL MCHC (32.0-37.0) g/dL Neutrophils # (1.80-7.70) 10*3/uL Lymphocytes # (0.90-5.00) 10*3/uL Eosinophils # (0.04-0.35) 10*3/uL Sodium (137-145) mmol/L Carbon Dioxide (22-30) mmol/L BUN (7-17) mg/dL Creatinine (0.52-1.04) mg/dL Glucose (74-99) mg/dL POC Glucose (mg/dL) 215 H 265 H 306 H (70-110) mg/dL 01/28/25 01/28/25 01/28/25 Range/Units 03:11 03:11 10:54 WBC 12.55 H (4.50-10.00) 10*3/uL RBC 2.60 L (4.10-5.20) 10*6/uL Hgb 7.6 L (12.0-15.0) g/dL Hct 25.8 L (37.2-46.3) % MCV 99.2 H (80.0-97.0) fL MCHC 29.5 L (32.0-37.0) g/dL Neutrophils # 12.08 H (1.80-7.70) 10*3/uL Lymphocytes # 0.15 L (0.90-5.00) 10*3/uL Eosinophils # 0.00 L (0.04-0.35) 10*3/uL Sodium 146 H (137-145) mmol/L Carbon Dioxide 45 H* (22-30) mmol/L BUN 60 H (7-17) mg/dL Creatinine 1.06 H (0.52-1.04) mg/dL Glucose 124 H (74-99) mg/dL POC Glucose (mg/dL) 61 L (70-110) mg/dL Assessment and Plan Assessment: Impression: Acute on chronic hypoxemic respiratory failure, remains relatively on high FiO2, alternating with Airvo and BiPAP. Acute on chronic diastolic heart failure Bilateral small pleural effusions, with recent right-sided thoracentesis performed 01/16/2025 where a total of 1.2 L was removed from the pleural space, and fluid analysis appears to be transudative. Acute COVID-19 infection, possible COVID-19 pneumonia, or underlying bacterial pneumonia but she definitely has pulmonary edema/acute on chronic diastolic heart failure. Acute COPD exacerbation Severe pulmonary hypertension Paroxysmal atrial fibrillation, currently V-paced on bedside monitor Permanent pacemaker Systemic hypertension Diabetes mellitus type 2 Elevated troponins, likely secondary to supply/demand mismatch Urinary tract infection, urine culture positive for E. coli Former tobacco smoker Recommendation: continue to monitor in the ICU patient is on the verge of intubation mechanical ventilation, and if she does get intubated, prognosis is even gets worse patient may eventually require tracheostomy and PEG tube placement considering her overall comorbidities. Continue BiPAP today. Continue diuretics Continue bronchodilators Continue methylprednisolone Keep patient off Zosyn. Finished full course of treatment No need for CT angiogram of the chest Overall prognosis is extremely poor and guarded. We will continue to follow Time with Patient: Less than 30
[2025-01-28 11:22] LABS: Glucose,Whole Blood 245 mg/dL (70-110)
[2025-01-28 12:51] LABS: Glucose,Whole Blood 166 mg/dL (70-110)
[2025-01-28 15:26] LABS: Glucose,Whole Blood 182 mg/dL (70-110)
[2025-01-28 17:22] LABS: Glucose,Whole Blood 181 mg/dL (70-110)
[2025-01-28 19:21] VITALS: RESP 19
[2025-01-28 19:55] LABS: Glucose,Whole Blood 254 mg/dL (70-110)
[2025-01-28] MEDS: SODIUM CHLORIDE 0.9% 500 ML 500 ML IV ONE (20:13)
--- NOTE | 2025-01-28 21:15 | P.PN ---
Subjective Progress Note Date: 01/27/25 Principal diagnosis: Reason for follow-up is COVID-19 Patient is a 69-year-old female with a past medical history significant for COPD current everyday smoker presented to hospital on 01/13/2025 for evaluation of increasing shortness of breath did have worsening of breathing for which the patient did have COVID test came back positive prompting this consultation. On today's evaluation that is 01/27/2025, patient did not have any fever and denies any chills, patient is breathing slightly comfortably and currently on a high flow nasal cannula oxygen the patient is having no chest pain no worsening cough no nausea vomiting abdominal pain no diarrhea. Patient did have white count of 13.8 and, creatinine is 1.10 Objective - Vital Signs Vital signs: Vital Signs Temp 97.8 F 01/27/25 08:00 Pulse 70 01/27/25 11:00 Resp 21 01/27/25 11:00 BP 112/58 01/27/25 11:00 Pulse Ox 93 L 01/27/25 11:00 FiO2 92 01/27/25 11:00 Intake & Output 01/26/25 01/27/25 01/27/25 18:59 06:59 18:59 Intake Total 568 50 100 Output Total 800 900 350 Balance -232 -850 -250 Weight 42.5 kg Intake: IV 210 50 100 Invasive Line 6 10 40 Invasive Line 7 10 Piperacillin-Tazobactam 3 100 .375 gm In Sodium Chloride 0.9% 100 ml @ 25 mls/hr IVPB Q8HR [facility] Rx# :[id number] Sodium Ferric Gluconat- 100 100 Sucrose 125 mg In Sodium Chloride 0.9% 100 ml @ 100 mls/hr IVPB DAILY [facility] Rx#:[id number] Oral 358 Output: Urine 800 900 350 Other: Voiding Method External Catheter External Catheter # Bowel Movements 0 - Exam GENERAL DESCRIPTION: An elderly female lying in bed in no distress RESPIRATORY SYSTEM: Unlabored breathing , decreased breath sounds at bases HEART: S1 S2 regular rate and rhythm , ABDOMEN: Soft , no tenderness EXTREMITIES: No edema feet - Labs CBC & Chem 7: 01/28/25 03:11 01/28/25 03:11 Labs: Abnormal Lab Results - Last 24 Hours (Table) 01/26/25 01/26/25 01/26/25 Range/Units 16:41 16:44 19:42 WBC (4.50-10.00) 10*3/uL RBC (4.10-5.20) 10*6/uL Hgb (12.0-15.0) g/dL Hct (37.2-46.3) % MCV (80.0-97.0) fL MCHC (32.0-37.0) g/dL Immature Gran # (0.00-0.04) 10*3/uL Neutrophils # (1.80-7.70) 10*3/uL Lymphocytes # (0.90-5.00) 10*3/uL Eosinophils # (0.04-0.35) 10*3/uL Chloride (98-107) mmol/L Carbon Dioxide (22-30) mmol/L BUN (7-17) mg/dL Creatinine (0.52-1.04) mg/dL Glucose (74-99) mg/dL POC Glucose (mg/dL) 346 H 374 H 371 H (70-110) mg/dL ALT (4-34) U/L Alkaline Phosphatase (38-126) U/L Total Protein (6.3-8.2) g/dL Albumin (3.5-5.0) g/dL 01/27/25 01/27/25 01/27/25 Range/Units 03:22 03:22 04:30 WBC 13.89 H (4.50-10.00) 10*3/uL RBC 2.80 L (4.10-5.20) 10*6/uL Hgb 8.2 L (12.0-15.0) g/dL Hct 27.2 L (37.2-46.3) % MCV 97.1 H (80.0-97.0) fL MCHC 30.1 L (32.0-37.0) g/dL Immature Gran # 0.07 H (0.00-0.04) 10*3/uL Neutrophils # 13.29 H (1.80-7.70) 10*3/uL Lymphocytes # 0.10 L (0.90-5.00) 10*3/uL Eosinophils # 0.00 L (0.04-0.35) 10*3/uL Chloride 97 L (98-107) mmol/L Carbon Dioxide 46 H* (22-30) mmol/L BUN 56 H (7-17) mg/dL Creatinine 1.10 H (0.52-1.04) mg/dL Glucose 208 H (74-99) mg/dL POC Glucose (mg/dL) 250 H (70-110) mg/dL ALT 52 H (4-34) U/L Alkaline Phosphatase 168 H (38-126) U/L Total Protein 4.8 L (6.3-8.2) g/dL Albumin 2.5 L (3.5-5.0) g/dL 01/27/25 01/27/25 Range/Units 05:59 11:27 WBC (4.50-10.00) 10*3/uL RBC (4.10-5.20) 10*6/uL Hgb (12.0-15.0) g/dL Hct (37.2-46.3) % MCV (80.0-97.0) fL MCHC (32.0-37.0) g/dL Immature Gran # (0.00-0.04) 10*3/uL Neutrophils # (1.80-7.70) 10*3/uL Lymphocytes # (0.90-5.00) 10*3/uL Eosinophils # (0.04-0.35) 10*3/uL Chloride (98-107) mmol/L Carbon Dioxide (22-30) mmol/L BUN (7-17) mg/dL Creatinine (0.52-1.04) mg/dL Glucose (74-99) mg/dL POC Glucose (mg/dL) 256 H 215 H (70-110) mg/dL ALT (4-34) U/L Alkaline Phosphatase (38-126) U/L Total Protein (6.3-8.2) g/dL Albumin (3.5-5.0) g/dL Assessment and Plan (1) COVID-19 Current Visit: Yes Status: Acute Code(s): U07.1 - COVID-19 SNOMED Code(s): 348382398 (2) Leukocytosis Current Visit: Yes Status: Acute Code(s): D72.829 - ELEVATED WHITE BLOOD CELL COUNT, UNSPECIFIED SNOMED Code(s): 406218697 Plan: 1patient with increasing shortness of breath which is likely multifactorial and possible component of COVID-19 pneumonia however is not very clear if the patient requires infection in the hospital or she presented to the hospital with it as there was no COVID testing done on admission though her symptoms was most ly shortness of breath did not have any fever during this admission CT did not show any PE but evidence of possible COVID-19 pneumonia 2--patient is currently being treated to continue with the Eliquis Solu-Medrol zinc and ascorbic acid, 3leukocytosis more likely steroid related and also have oropharyngeal candidiasis, will give her a dose of Diflucan continue with the nystatin swish and swallow Dictation was produced using [employer] dictation software. please excuse any grammatical, word or spelling errors. Time with Patient: Less than 30
--- NOTE | 2025-01-28 21:17 | P.PN ---
Subjective Progress Note Date: 01/28/25 Principal diagnosis: Reason for follow-up is COVID-19 Patient is a 69-year-old female with a past medical history significant for COPD current everyday smoker presented to hospital on 01/13/2025 for evaluation of increasing shortness of breath did have worsening of breathing for which the patient did have COVID test came back positive prompting this consultation. On today's evaluation that is 01/28/2025, Patient is afebrile patient is currently on high flow nasal cannula oxygen and requiring BiPAP currently on 90% FiO2 patient is sleepy lethargic today did not provide any history not requiring any pressor support no diarrhea and the change reported by the nursing staff. Patient white count slight down to 12.55, creatinine 1.06 Objective - Vital Signs Vital signs: Vital Signs Temp 98.3 F 01/28/25 04:00 Pulse 60 01/28/25 12:00 Resp 19 01/28/25 12:00 BP 96/79 01/28/25 12:00 Pulse Ox 91 L 01/28/25 12:00 FiO2 90 01/28/25 11:28 Intake & Output 01/27/25 01/28/25 01/28/25 18:59 06:59 18:59 Intake Total 100 Output Total 600 750 0 Balance -500 -750 0 Weight 42.6 kg Intake: IV 100 Sodium Ferric Gluconat- 100 Sucrose 125 mg In Sodium Chloride 0.9% 100 ml @ 100 mls/hr IVPB DAILY [facility] Rx#:[id number] Output: Urine 600 750 0 Other: Voiding Method External Catheter External Catheter - Exam GENERAL DESCRIPTION: An elderly female lying in bed in no distress RESPIRATORY SYSTEM: Unlabored breathing , decreased breath sounds at bases HEART: S1 S2 regular rate and rhythm , ABDOMEN: Soft , no tenderness EXTREMITIES: No edema feet - Labs CBC & Chem 7: 01/28/25 03:11 01/28/25 03:11 Labs: Abnormal Lab Results - Last 24 Hours (Table) 01/27/25 01/27/25 01/28/25 Range/Units 16:24 19:59 03:11 WBC 12.55 H (4.50-10.00) 10*3/uL RBC 2.60 L (4.10-5.20) 10*6/uL Hgb 7.6 L (12.0-15.0) g/dL Hct 25.8 L (37.2-46.3) % MCV 99.2 H (80.0-97.0) fL MCHC 29.5 L (32.0-37.0) g/dL Neutrophils # 12.08 H (1.80-7.70) 10*3/uL Lymphocytes # 0.15 L (0.90-5.00) 10*3/uL Eosinophils # 0.00 L (0.04-0.35) 10*3/uL Sodium (137-145) mmol/L Carbon Dioxide (22-30) mmol/L BUN (7-17) mg/dL Creatinine (0.52-1.04) mg/dL Glucose (74-99) mg/dL POC Glucose (mg/dL) 265 H 306 H (70-110) mg/dL 01/28/25 01/28/25 01/28/25 Range/Units 03:11 10:54 11:21 WBC (4.50-10.00) 10*3/uL RBC (4.10-5.20) 10*6/uL Hgb (12.0-15.0) g/dL Hct (37.2-46.3) % MCV (80.0-97.0) fL MCHC (32.0-37.0) g/dL Neutrophils # (1.80-7.70) 10*3/uL Lymphocytes # (0.90-5.00) 10*3/uL Eosinophils # (0.04-0.35) 10*3/uL Sodium 146 H (137-145) mmol/L Carbon Dioxide 45 H* (22-30) mmol/L BUN 60 H (7-17) mg/dL Creatinine 1.06 H (0.52-1.04) mg/dL Glucose 124 H (74-99) mg/dL POC Glucose (mg/dL) 61 L 245 H (70-110) mg/dL 01/28/25 Range/Units 12:50 WBC (4.50-10.00) 10*3/uL RBC (4.10-5.20) 10*6/uL Hgb (12.0-15.0) g/dL Hct (37.2-46.3) % MCV (80.0-97.0) fL MCHC (32.0-37.0) g/dL Neutrophils # (1.80-7.70) 10*3/uL Lymphocytes # (0.90-5.00) 10*3/uL Eosinophils # (0.04-0.35) 10*3/uL Sodium (137-145) mmol/L Carbon Dioxide (22-30) mmol/L BUN (7-17) mg/dL Creatinine (0.52-1.04) mg/dL Glucose (74-99) mg/dL POC Glucose (mg/dL) 166 H (70-110) mg/dL Assessment and Plan (1) COVID-19 Current Visit: Yes Status: Acute Code(s): U07.1 - COVID-19 SNOMED Code(s): 887860297 (2) Leukocytosis Current Visit: Yes Status: Acute Code(s): D72.829 - ELEVATED WHITE BLOOD CELL COUNT, UNSPECIFIED SNOMED Code(s): 955394109 (3) Thrush Current Visit: Yes Status: Acute Code(s): B37.0 - CANDIDAL STOMATITIS SNOMED Code(s): 26580973 Plan: 1patient with increasing shortness of breath which is likely multifactorial and possible component of COVID-19 pneumonia however is not very clear if the patient requires infection in the hospital or she presented to the hospital with it as there was no COVID testing done on admission though her symptoms was mostly shortness of breath did not have any fever during this admission CT did not show any PE but evidence of possible COVID-19 pneumonia 2--patient is currently being treated to continue with the Eliquis Solu-Medrol zinc and ascorbic acid, 3leukocytosis more likely steroid related and also have oropharyngeal candidiasis, white count trending down we will restart her Diflucan continue the nystatin swish and swallow Dictation was produced using [employer] dictation software. please excuse any grammatical, word or spelling errors. Time with Patient: Less than 30
[2025-01-28 22:32] VITALS: TEMP 97.8
[2025-01-28 23:27] VITALS: BP 111/49; PULSE 60
--- NOTE | 2025-01-29 00:09 | PN ---
PROGRESS NOTE Discussed the case with [facility] about taking her on transfer. They have accepted her, pending their after she has been here for two weeks, some financial situation with that, otherwise the accepted her. FiO2 is at 90% on a BiPAP, she is 88, 92 to 94; temperature 97.8; respiratory rate 14 to 16; pulse 60 to 62. Due to poor prognosis, we transfer her to [facility], where she can have pulmonary hypertension specialist. They have accepted her as mentioned above. Sugars have been 100s to 200s. [facility] but the doctors accepted. We will have to recontact in the morning. She is still not doing well, probable pneumonia, pulmonary hypertension, COPD. Poor prognosis. So we will transfer her to a tertiary center to see what they can do, waiting acceptance from the hospital with a bed, the doctor has accepted her. I talked with them extensively on the phone today. She is full code. She is thin, cachectic. S1 and S2. She is in and out of consciousness. She is COVID-19 thrush. Remains with Eliquis, Solu-Medrol, ascorbic acid, oropharyngeal candidiasis. Diflucan is given. [facility], they talked to accepted the transfer. MMODL / IJN: [id number] /
[2025-01-29] MEDS ORDERED: FLUCONAZOLE 100 MG TAB PO SCH (09:00)
--- NOTE | 2025-01-29 12:23 | P.PN ---
Subjective Progress Note Date: 01/25/25 Principal diagnosis: Reason for follow-up is COVID-19 Patient is a 69-year-old female with a past medical history significant for COPD current everyday smoker presented to hospital on 01/13/2025 for evaluation of increasing shortness of breath did have worsening of breathing for which the patient did have COVID test came back positive prompting this consultation. On today's evaluation that is 01/25/2025,the patient remains to be afebrile, patient is on high flow nasal cannula oxygen requiring 60% FiO2, patient mention breathing comfortably no chest pain occasional cough no nausea vomiting no abdominal pain or diarrhea. Patient white count is 9.36, creatinine 0.88 Objective - Vital Signs Vital signs: Vital Signs Temp 98.4 F 01/25/25 20:00 Pulse 70 01/25/25 21:00 Resp 15 01/25/25 21:00 BP 112/59 01/25/25 21:00 Pulse Ox 84 L 01/25/25 21:00 FiO2 60 01/25/25 20:00 Intake & Output 01/25/25 01/25/25 01/26/25 06:59 18:59 06:59 Intake Total 580 660 Output Total 550 600 300 Balance 30 60 -300 Weight 42 kg Intake: IV 100 100 Piperacillin-Tazobactam 3 100 100 .375 gm In Sodium Chloride 0.9% 100 ml @ 25 mls/hr IVPB Q8HR [facility] Rx# :[id number] Oral 480 560 Output: Urine 550 600 300 Other: Voiding Method External Catheter External Catheter External Catheter # Voids 1 - Exam GENERAL DESCRIPTION: An elderly female lying in bed in no distress RESPIRATORY SYSTEM: Unlabored breathing , decreased breath sounds at bases HEART: S1 S2 regular rate and rhythm , ABDOMEN: Soft , no tenderness EXTREMITIES: No edema feet - Labs CBC & Chem 7: 01/26/25 03:13 01/26/25 03:13 Labs: Abnormal Lab Results - Last 24 Hours (Table) 01/25/25 01/25/25 01/25/25 Range/Units 04:38 04:38 06:34 RBC 3.18 L (4.10-5.20) 10*6/uL Hgb 9.2 L (12.0-15.0) g/dL Hct 30.8 L (37.2-46.3) % MCHC 29.9 L (32.0-37.0) g/dL Neutrophils # 8.92 H (1.80-7.70) 10*3/uL Lymphocytes # 0.11 L (0.90-5.00) 10*3/uL Eosinophils # 0.00 L (0.04-0.35) 10*3/uL Chloride 97 L (98-107) mmol/L Carbon Dioxide 40 H (22-30) mmol/L BUN 43 H (7-17) mg/dL Glucose 158 H (74-99) mg/dL POC Glucose (mg/dL) 174 H (70-110) mg/dL 01/25/25 01/25/25 01/25/25 Range/Units 11:05 16:09 20:37 RBC (4.10-5.20) 10*6/uL Hgb (12.0-15.0) g/dL Hct (37.2-46.3) % MCHC (32.0-37.0) g/dL Neutrophils # (1.80-7.70) 10*3/uL Lymphocytes # (0.90-5.00) 10*3/uL Eosinophils # (0.04-0.35) 10*3/uL Chloride (98-107) mmol/L Carbon Dioxide (22-30) mmol/L BUN (7-17) mg/dL Glucose (74-99) mg/dL POC Glucose (mg/dL) 166 H 115 H 264 H (70-110) mg/dL Assessment and Plan (1) COVID-19 Current Visit: Yes Status: Acute Code(s): U07.1 - COVID-19 SNOMED Code(s): 983811579 Plan: 1patient with increasing shortness of breath which is likely multifactorial and possible component of COVID-19 pneumonia however is not very clear if the patient requires infection in the hospital or she presented to the hospital with it as there was no COVID testing done on admission though her symptoms was mostly shortness of breath did not have any fever during this admission CT did not show any PE but evidence of possible COVID-19 pneumonia in this patient currently on a BiPAP with high FiO2 requirement not an ideal candidate for remdesivir 2-patient remains to be afebrile white count has been normal requiring less supplemental oxygen, 3-to continue with the Eliquis Solu-Medrol zinc and ascorbic acid, Zosyn can be safely discontinued as clinical low suspicious for pneumonia Dictation was produced using [employer] dictation software. please excuse any grammatical, word or spelling errors.
--- NOTE | 2025-01-30 15:59 | CDI ---
Documentation Clarification Form Date: 01/30/2025 03:40:31 PM From: Anastasia Houston Phone: Admit Date: 01/13/2025 01:40:00 PM Patient Name: Katy Tovar Visit Number: [id number] Discharge Date: 01/28/2025 11:50:00 PM ATTENTION: The Clinical Documentation Specialists (CDI) and [facility] Coding Staff appreciate your assistance in clarifying documentation. Please respond to the clarification below the line at the bottom and electronically sign. The CDI & [facility] Coding staff will review the response and follow-up if needed. Please note: Queries are made part of the Legal Health Record. If you have any questions, please contact the author of this message via ITS. Doctor/Provider: Reg Meek Your patient has the documented diagnosis of: Acute on chronic systoliccongestiveheart failure per H&P, Progress Note 01/17 Acute on chronicCHF, diastolic Consult 01/15, Progress Note 01/17, 01/18- 01/20, 01/22-01/28 Clarification regarding the type of CHF is requested. History/Risk Factors: 69yo F, CHF, ACHRF on O2, ESCOPD, chronic A Fib, RT pleural effusion, smoker, PPM Clinical Indicators: VS/Pulse OX: 94 BNP: [id number] Echo: LVH with preserved systolic function; RA and RV enlargementwith moderate to severe, TR. Moderate LAenlargement. Chest X Ray: Interval development of a moderate to large rightpleural effusion. Chronic interstitial changesversusmild pulmonary vascularcongestion. 01/23 Cardiomegalyand chronic changes withpersistentbilateral multifocal acuteinfiltratesand/oredema. Treatment: Continue diuretics for hercongestiveheart failure In your professional opinion, can you please clarify the type of CHF if known? [ ] Acute on Chronic Systolic Heart Failure (reduced EF) [ ] Acute on Chronic Diastolic Heart Failure (preserved EF) [ ] Acute on Chronic Heart Failure Systolic & Diastolic Heart Failure [ ] Other, please specify [ ] Unable to determine (Template Last Revised: November 2020) MTDD
--- NOTE | 2025-01-30 20:32 | CDI ---
Documentation Clarification Form Date: 01/30/2025 08:20:35 PM From: Anastasia Houston Phone: Admit Date: 01/13/2025 01:40:00 PM Patient Name: Katy Tovar Visit Number: [id number] Discharge Date: 01/28/2025 11:50:00 PM ATTENTION: The Clinical Documentation Specialists (CDI) and [facility] Coding Staff appreciate your assistance in clarifying documentation. Please respond to the clarification below the line at the bottom and electronically sign. The CDI & [facility] Coding staff will review the response and follow-up if needed. Please note: Queries are made part of the Legal Health Record. If you have any questions, please contact the author of this message via ITS. Doctor/Provider: Reg Meek Your patient has an abnormal lab value: A1C 7.9. Please clarify if there is an additional diagnosis and/or clinical significance related to this value. History/Risk Factors: 69yo F,CHF, ACHRF on O2, ESCOPD,chronic A Fib, PHTN, DMII, thrush, COVID, RT pleural effusion,smoker, PPM Clinical indicators: Glucose: 01/13 177 01/14 175 01/15 177 4/2 190 / 481 /7 198 /8 142 10 158 01/28 124 Treatment: will start her on Lantus 20 units once a day, insulin long acting once a day. Is there an additional diagnosis and/or clinical significance related to the above lab result/information? [ ] Diabetes Mellitus Type 2 with hyperglycemia [ ] Diabetes Mellitus Type 2 without complications [ ] Other, please specify [ ] Unable to determine (Template Last Revised: November 2020) MTDD
--- NOTE | 2025-01-31 11:48 | PN ---
PROGRESS NOTE Acute on chronic diastolic heart failure, diabetes mellitus type 2 with hyperglycemia. MMODL / IJN: [id number] /
== END 2025-01-28 23:50 | disposition short-term general hospital (02) | DRG 280 ==
LOC: EC 10:23 → 3SCARD 13:40 → 2SICU 01-22 04:04
PROVIDERS: ADMIT Family Medicine; ATTEND Family Medicine
PROC: 0W993ZZ Drainage of Right Pleural Cavity, Percutaneous Approach (ICD-10-PCS; 2025-01-16)
PROC: 5A09357 Assistance with Respiratory Ventilation, Less than 24 Consecutive Hours, Continuous Positive Airway Pressure (ICD-10-PCS; principal; 2025-01-17)
DX: I11.0 Hypertensive heart disease with heart failure (principal); I50.33 Acute on chronic diastolic (congestive) heart failure; I21.A1 Myocardial infarction type 2; J12.82 Pneumonia due to coronavirus disease 2019; J96.21 Acute and chronic respiratory failure with hypoxia; U07.1 COVID-19; J96.22 Acute and chronic respiratory failure with hypercapnia; B37.0 Candidal stomatitis; J44.0 Chronic obstructive pulmonary disease with (acute) lower respiratory infection; J47.0 Bronchiectasis with acute lower respiratory infection; I27.21 Secondary pulmonary arterial hypertension; J91.8 Pleural effusion in other conditions classified elsewhere; R64 Cachexia; E11.65 Type 2 diabetes mellitus with hyperglycemia; I07.1 Rheumatic tricuspid insufficiency; D64.9 Anemia, unspecified; J44.1 Chronic obstructive pulmonary disease with (acute) exacerbation; I48.21 Permanent atrial fibrillation; N39.0 Urinary tract infection, site not specified; J98.11 Atelectasis; Z68.1 Body mass index [BMI] 19.9 or less, adult; J43.2 Centrilobular emphysema; J98.4 Other disorders of lung; F17.210 Nicotine dependence, cigarettes, uncomplicated; T38.0X5A Adverse effect of glucocorticoids and synthetic analogues, initial encounter; D72.828 Other elevated white blood cell count; Z99.81 Dependence on supplemental oxygen; Z79.01 Long term (current) use of anticoagulants; Z79.891 Long term (current) use of opiate analgesic; Z79.84 Long term (current) use of oral hypoglycemic drugs; Z79.899 Other long term (current) drug therapy; Z79.51 Long term (current) use of inhaled steroids; B96.20 Unspecified Escherichia coli [E. coli] as the cause of diseases classified elsewhere; E87.6 Hypokalemia; Z95.0 Presence of cardiac pacemaker; Z75.1 Person awaiting admission to adequate facility elsewhere; E86.0 Dehydration; R00.1 Bradycardia, unspecified
CPT/HCPCS: 32555; 36415; 36600; 71045; 71046; 71250; 71275; 76604; 80048; 80053; 82805; 82945; 83036; 83605; 83615; 83735; 83880; 84145; 84157; 84484; 85025; 85610; 85730; 86701; 86803; 87040; 87070; 87075; 87077; 87086; 87186; 87205; 87340; 87636; 88108; 88305; 89050; 93005; 93306; 94640; 94660; 94664; 94760; 96365; 96366; 96367; 96372; 96375; 96376; 99291

== ENCOUNTER 2025-01-29 00:30 | Emergency (ER) | payer MEDICARE ==
--- NOTE | 2025-01-29 00:38 | ED ---
SOB HPI - General Stated Complaint: NITIN Time Seen by Provider: 01/29/25 00:34 Source: RN notes reviewed, old records reviewed Mode of arrival: EMS Limitations: altered mental status, physical limitation - History of Present Illness Initial Comments: This is a 69 female BiPAP dependent who presents to us for evaluation of ventricular tachycardia per EMS, patient has a pacemaker and has been in inpatient at our hospital for greater than a week. BiPAP dependent for greater than a week. Patient was straight being transferred to [facility] for further evaluation and management when EMS noted ventricular tachycardia and brought patient back to the ER for evaluation. Patient has no change complaints MD Complaint: shortness of breath (Suspected ventricular tachycardia) -: minutes(s) Severity: mild Improves With: nothing Worsens With: nothing Known History Of: COPD, asthma, congestive heart failure Context: anxiety, recent illness Associated Symptoms: cough, sputum production Treatments Prior to Arrival: none - Related Data Home Medications Medication Instructions Recorded Confirmed Apixaban [Eliquis] 5 mg PO DIRECTED 01/13/25 01/13/25 Budesonide/Glycopyr/Formoterol 2 puff INHALATION DIRECTED PRN 01/13/25 01/13/25 [Breztri Aerosphere Inhaler] HYDROcodone/APAP 5-325MG [[place] 1 tab PO TID 01/13/25 01/13/25 5-325] Ipratropium-Albuterol Nebulize 3 ml INHALATION RT-QID 01/13/25 01/15/25 [Duoneb 0.5 mg-3 mg/3 ml Soln] Lasix(Unknown Dose) 1 dose PO DIRECTED 01/13/25 01/13/25 Montelukast [Singulair] 10 mg PO HS 01/13/25 01/15/25 Metoprolol Tartrate [Lopressor] 25 mg PO BID 01/15/25 01/15/25 metFORMIN HCL 500 mg PO DAILY 01/15/25 01/15/25 Allergies Allergy/AdvReac Type Severity Reaction Status Date / Time No Known Allergies Allergy Verified 01/13/25 13:58 Review of Systems ROS Statement: Those systems with pertinent positive or pertinent negative responses have been documented in the HPI. ROS Other: All systems not noted in ROS Statement are negative. Past Medical History Past Medical History: COPD Additional Past Medical History / Comment(s): pacemaker, History of Any Multi-Drug Resistant Organisms: None Reported Additional Past Surgical History / Comment(s): ovarian cyst removed. Past Anesthesia/Blood Transfusion Reactions: No Reported Reaction Past Psychological History: No Psychological Hx Reported Smoking Status: Current every day smoker Past Alcohol Use History: Occasional Past Drug Use History: Marijuana - Past Family History Mother Family Medical History: COPD General Exam General appearance: alert, in no apparent distress, anxious, in distress, cachectic Head exam: Present: atraumatic, normocephalic, normal inspection Eye exam: Present: normal appearance, PERRL, EOMI. Absent: scleral icterus, conjunctival injection, periorbital swelling ENT exam: Present: normal exam, mucous membranes moist Neck exam: Present: normal inspection. Absent: tenderness, meningismus, lymphadenopathy Respiratory exam: Present: normal lung sounds bilaterally. Absent: respiratory distress, wheezes, rales, rhonchi, stridor Cardiovascular Exam: Present: regular rate, normal rhythm, normal heart sounds. Absent: systolic murmur, diastolic murmur, rubs, gallop, clicks GI/Abdominal exam: Present: soft, normal bowel sounds. Absent: distended, tenderness, guarding, rebound, rigid Extremities exam: Present: normal inspection, full ROM, normal capillary refill. Absent: tenderness, pedal edema, joint swelling, calf tenderness Back exam: Present: normal inspection Neurological exam: Present: alert, oriented X3, CN II-XII intact Psychiatric exam: Present: normal affect, normal mood Skin exam: Present: warm, dry, intact, normal color. Absent: rash Course Vital Signs 01/29/25 01/29/25 01/29/25 00:31 00:48 00:49 Temperature 98.0 F Pulse Rate 90 Respiratory 22 Rate Blood Pressure 101/49 O2 Sat by Pulse 94 L Oximetry Fraction of 100 100 Inspired Oxygen (FIO2) - Reevaluation(s) Reevaluation #1: 01/29/25 01:08 Medical records reviewed Reevaluation #2: 01/29/25 01:08 Patient symptoms unchanged does not appear to be in ventricular tachycardia Reevaluation #3: 01/29/25 01:08 Patient informed of results questions answered Reevaluation #4: Was pt. sent in by a medical professional or institution (, PA, PCB DESIGN ENGINEER, urgent care, hospital, or detention...) When possible be specific @ -no Did you speak to anyone other than the patient for history (EMS, parent, family, police, friend...)? What history was obtained from this source @ -no Did you review nursing and triage notes (agree or disagree)? Why? @ -agree Are old charts reviewed (outside hosp., previous admission, EMS record, old EKG, old radiological studies, urgent care reports/EKG's, detention records)? Report findings @ -yes Differential Diagnosis (chest pain, altered mental status, abdominal pain women, abdominal pain men, vaginal bleeding, weakness, fever, dyspnea, syncope, headache, dizziness, GI bleed, back pain, seizure, CVA, palpatations, mental health, musculoskeletal)? @ -prior EKG interpreted by me (3pts min.). @ -yes X-rays interpreted by me (1pt min.). @ -yes negative for acute disease CT interpreted by me (1pt min.). @ -no U/S interpreted by me (1pt. min.). @ -no What testing was considered but not performed or refused? (CT, X-rays, U/S, labs)? Why? @ -none What meds were considered but not given or refused? Why? @ -none Did you discuss the management of the patient with other professionals (professionals i.e. , PA, PCB DESIGN ENGINEER, lab, RT, psych nurse, social media marketing analyst, plate roller, teacher, traffic control officer, pillowcase folder)? Give summary @ -no Was smoking cessation discussed for >3mins.? @ -no Was critical care preformed (if so, how long)? @ -no Were there social determinants of health that impacted care today? How? (Homelessness, low income, unemployed, alcoholism, drug addiction, transportation, low edu. Level, literacy, decrease access to med. care, halfway, rehab)? @ -none Was there de-escalation of care discussed even if they declined (Discuss DNR or withdrawal of care, Hospice)? DNR status @ -no What co-morbidities impacted this encounter? (DM, HTN, Smoking, COPD, CAD, Cancer, CVA, ARF, Chemo, Hep., AIDS, mental health diagnosis, sleep apnea, morbid obesity)? @ -none Was patient admitted / discharged? Hospital course, mention meds given and route, prescriptions, significant lab abnormalities, going to OR and other pertinent info. @ - Undiagnosed new problem with uncertain prognosis? @ -no Drug Therapy requiring intensive monitoring for toxicity (Heparin, Nitro, Insulin, Cardizem)? @ -no Were any procedures done? @ -no Diagnosis/symptom? @ - Acute, or Chronic, or Acute on Chronic? @ -Acute Uncomplicated (without systemic symptoms) or Complicated (systemic symptoms)? @ -Complicated Side effects of treatment? @ -no Exacerbation, Progression, or Severe Exacerbation? @ -exacerbation Poses a threat to life or bodily function? How? (Chest pain, [place], [place], pneumonia, PE, COPD, DKA, ARF, appy, cholecystitis, CVA, Diverticulitis, Homicidal, Suicidal, threat to staff... and all critical care pts) @ -yes Reevaluation #5: Differential Dyspnea: Coronary syndrome, arrhythmia, tamponade, asthma, COPD, pulmonary embolism, pneumonia, pneumothorax, pulmonary effusion, anaphylaxis, diabetic ketoacidosis, flailed chest, pulmonary contusion, diaphragmatic rupture, anemia, neuromuscular, this is not meant to be an all-inclusive list. Differential Palpitations Ventricular arrhythmias, atrial arrhythmias, myocardial infarction, anemia, thyrotoxicosis, electrolyte imbalance, hypokalemia, pulmonary embolism, pulmonary disease, drugs, alcohol, anxiety, stress.... This is not meant to be an all-inclusive list. - Consultations Consultation #1: Unable to contact Dr. Ibrahim regarding patient Consultation #2: Spoke with [facility] who still has patient's bed patient is able to be transport Medical Decision Making - Medical Decision Making 69 female to the ER for evaluation, patient presented to us as a failed transfer secondary to suspected ventricular tachycardia, patient does not appear to be in V. tach here in the ER, patient is BiPAP dependent and will continue to initiate transport to [facility] - EKG Data -: EKG Interpreted by Me (EKG is paced 79 QRS 145 QTc 408) - Radiology Data Radiology results: report reviewed (Chest x-ray is negative for acute disease), image reviewed Critical Care Time Critical Care Time: Yes Total Critical Care Time: 31 Disposition Clinical Impression: Acute exacerbation of chronic obstructive pulmonary disease, CHF (congestive heart failure), Pneumonia, Hypoxia Disposition: OTHER INSTITUTION NOT DEFINED Condition: Serious Is patient prescribed a controlled substance at d/c from ED?: No Referrals: Reg Meek MD [Primary Care Provider] - 1-2 days Time of Disposition: 01:00
[2025-01-29 00:44] VITALS: TEMP 98
[2025-01-29] MEDS: IPRATROPIUM-ALBUTEROL 3 ML NEB INHALATION STA (00:48)
--- NOTE | 2025-01-29 00:50 | XR ---
EXAM: XR Chest, 1 View CLINICAL HISTORY: ITS.REASON XR Reason: sob TECHNIQUE: Frontal view of the chest. COMPARISON: Chest x-ray of 01/28/2025. FINDINGS: Lungs: Diffuse interstitial prominence. No consolidation. Pleural space: Moderate right pleural effusion. No pneumothorax. Heart: There is cardiomegaly. Mediastinum: Unremarkable. Normal mediastinal contour. Bones/joints: Osteopenia. No acute fracture. Tubes, lines and devices: Pacemaker overlies the left mid chest. Other findings: Patient is rotated right of midline. IMPRESSION: 1. Cardiomegaly and right pleural effusion again noted, not significant change. 2. Diffuse interstitial lung disease. 3. Consider congestive heart failure.
[2025-01-29] MEDS: SODIUM CHLORIDE 0.9% 1,000 ML IV ONE (01:01)
[2025-01-29] MEDS: SODIUM CHLORIDE 0.9% 1,000 ML IV SCH (01:01)
[2025-01-29] MEDS: methylPREDNISolone SOD SUCCI 125 MG/2 ML VIAL IV STA (01:01)
[2025-01-29 01:07] LABS: Basophils # (A) 0.01 10*3/uL (0.00-0.10); Basophils % (A) 0.1 %; HCT 26.5 % (37.2-46.3); HGB 7.9 g/dL (12.0-15.0); Lymphocytes # (A) 0.15 10*3/uL (0.90-5.00); Lymphocytes % (A) 1.1 %; MCH 29.2 pg (27.0-32.0); MCHC 29.8 g/dL (32.0-37.0); MCV 97.8 fL (80.0-97.0); Mean Platelet Volume 11.3 fL (9.5-12.2); Monocytes # (A) 0.35 10*3/uL (0.20-1.00); Monocytes % (A) 2.7 %; Neutrophils # (A) 12.52 10*3/uL (1.80-7.70); Neutrophils % (A) 95.6 %; Platelet Count 199 10*3/uL (140-440); RBC 2.71 10*6/uL (4.10-5.20); RDW 16.1 % (11.5-14.5); WBC 13.09 10*3/uL (4.50-10.00)
[2025-01-29 01:41] LABS: ALT 43 U/L (4-34); AST 35 U/L (14-36); African American GFR (CKD) 59 (>60 ml/min/1.73 sqM); Albumin 2.6 g/dL (3.5-5.0); Alkaline Phosphatase 175 U/L (38-126); Blood Urea Nitrogen 67 mg/dL (7-17); Calcium 8.9 mg/dL (8.4-10.2); Chloride 106 mmol/L (98-107); Glucose 162 mg/dL (74-99); Magnesium 2.9 mg/dL (1.6-2.3); Non-African American GFR(CKD) 51 (>60 ml/min/1.73 sqM); Sodium 148 mmol/L (137-145); Total Bilirubin 0.4 mg/dL (0.2-1.3); Total Protein 4.9 g/dL (6.3-8.2)
[2025-01-29 01:46] LABS: Anion Gap 5 mmol/L
[2025-01-29 01:49] LABS: NT-Pro-B-Type Natriuretic Pept 3540 pg/mL
[2025-01-29 01:58] LABS: Carbon Dioxide 37 mmol/L (22-30)
[2025-01-29 02:02] VITALS: BP 110/47; PULSE 60; RESP 13
[2025-01-29 02:27] LABS: Partial Thromboplastin Time 27.4 sec (22.0-30.0); Prothrombin Time 11.4 sec (10.0-12.5)
== END 2025-01-29 02:18 | disposition other institution (70) ==
LOC: EC 00:30
DX: J44.1 Chronic obstructive pulmonary disease with (acute) exacerbation (principal); R09.02 Hypoxemia; J18.9 Pneumonia, unspecified organism; I50.9 Heart failure, unspecified; F17.200 Nicotine dependence, unspecified, uncomplicated
CPT/HCPCS: 36415; 94660; 93005; 83880; 80053; 83605; 83735; 84484; 85025; 85610; 85730; 71045; 99291; 96374; 96361; J2919